=== PATIENT | female | born 1955 | race Hispanic/Latino ===

== ENCOUNTER 2018-01-15 02:43 | Emergency (ER) | payer OTHER ==
[2018-01-15 02:43] VITALS: BMI 39.3
[2018-01-15 02:58] VITALS: RESP 20; O2SAT 97
[2018-01-15] MEDS ORDERED: Dexamethasone 4 mg/1 ml IM STA (03:21)
--- NOTE | 2018-01-15 04:13 | C.PDOC ---
History Of Present Illness 62 year old female presents to the ER with a complaint of chronic right sided lower back pain that radiates down the right leg. Patient states she is on percocet for the pain but reports tonight it was not working which prompted ER visit. Denies heavy lifting, fall, abdominal pain, weakness, numbness, dysuria, hematuria, or bladder/bowel incontinence. Time Seen by Provider: 01/15/18 03:00 Chief Complaint (Nursing): Back Pain History Per: Patient History/Exam Limitations: no limitations Onset/Duration Of Symptoms: Days Current Symptoms Are (Timing): Still Present Quality Of Discomfort: Unable To Describe Previous Symptoms: Back Pain, Chronic Pain Associated Symptoms: None Recent travel outside of the [place]: No Past Medical History Reviewed: Historical Data, Nursing Documentation, Vital Signs Vital Signs: Last Vital Signs Temp 98.2 F 01/15/18 04:41 Pulse 97 H 01/15/18 04:41 Resp 20 01/15/18 04:41 BP 98/62 L 01/15/18 04:41 Pulse Ox 97 01/15/18 04:41 - Medical History PMH: Anxiety, Back Problems, HTN Surgical History: Back Surgery Family History: States: Unknown Family Hx - Social History Hx Tobacco Use: No Hx Alcohol Use: No Hx Substance Use: No - Immunization History Hx Tetanus Toxoid Vaccination: No Hx Influenza Vaccination: No Hx Pneumococcal Vaccination: No Review Of Systems Gastrointestinal: Negative for: Abdominal Pain Genitourinary: Negative for: Dysuria, Incontinence, Hematuria Musculoskeletal: Positive for: Back Pain Neurological: Negative for: Weakness, Numbness Physical Exam - Physical Exam Appears: Non-toxic, No Acute Distress Skin: Normal Color, Warm, Dry, No Rash Head: Atraumatic, Normacephalic Eye(s): bilateral: Normal Inspection, PERRL, EOMI Oral Mucosa: Moist Neck: Normal ROM, No Midline Cervical Tenderness, No Paracervical Tenderness, Supple Chest: Symmetrical, No Tenderness Cardiovascular: Rhythm Regular, No Friction Rub, No Murmur Respiratory: Normal Breath Sounds, No Rales, No Rhonchi, No Wheezing Gastrointestinal/Abdominal: Soft, No Tenderness Back: No CVA Tenderness, No Vertebral Tenderness, Paraspinal Tenderness (Right lumbar) Extremity: Normal ROM (x4), No Swelling Neurological/Psych: Oriented x3, Normal Speech, Normal Motor, Normal Sensation Gait: Steady ED Course And Treatment O2 Sat by Pulse Oximetry: 97 (on RA) Pulse Ox Interpretation: Normal Medical Decision Making Medical Decision Making: Decadron, toradol, and valium administered. On reevaluation, patient reports improvement of pain, she is ambulatory in the ER without any pain or discomfort. Will discharge home with instructions to follow up with PMD or return if symptoms worsen. Disposition - Disposition Referrals: Vincent Pradhan MD [Staff Provider] - David Diaz MD [Non-Staff] - Disposition: HOME/ ROUTINE Disposition Time: 04:25 Condition: GOOD Additional Instructions: Follow up with the medical doctor within 1-2 days. Return if worsened. Prescriptions: Cyclobenzaprine [Cyclobenzaprine HCl] 10 mg PO BID #14 tab Naproxen [Naprosyn] 500 mg PO BID #20 tab Instructions: Low Back Pain in Adults Forms: [employer] (Yakut) - Clinical Impression Clinical Impression: Low back pain - PA / CHIEF OF SAFETY AND PROTECTION / Resident Statement MD/DO has reviewed & agrees with the documentation as recorded. - Scribe Statement The provider has reviewed the documentation as recorded by the Scribyasmany Feldman All medical record entries made by the Tiaibyasmany were at my direction and personally dictated by me. I have reviewed the chart and agree that the record accurately reflects my personal performance of the history, physical exam, medical decision making, and the department course for this patient. I have also personally directed, reviewed, and agree with the discharge instructions and disposition.
[2018-01-15 04:42] VITALS: BP 98/62; PULSE 97; TEMP 98.2
== END 2018-01-15 04:52 | disposition home or self-care (01) ==
LOC: C.ER 02:43
DX: M54.5 Low back pain (principal)
CPT/HCPCS: 96372; 99284; J1100; J1885

== ENCOUNTER 2018-01-16 14:06 | Emergency (ER) | payer OTHER ==
[2018-01-16 14:18] VITALS: BMI 37.8
[2018-01-16 14:20] VITALS: BP 111/79; PULSE 90; TEMP 97.9; O2SAT 96
--- NOTE | 2018-01-16 17:15 | C.PDOC ---
History Of Present Illness 62 year old female presents to the ER with a complaint of chronic lower back pain radiating to the right leg. Patient was seen in the ER yesterday for the same complaint and was treated with relief but returns stating the pain has worsened. She reports she has been taking a quarter of 5/325 percocet with no relief. Denies weakness, numbness, or recent injury. Time Seen by Provider: 01/16/18 15:49 Chief Complaint (Nursing): Back Pain History Per: Patient History/Exam Limitations: no limitations Onset/Duration Of Symptoms: Hrs Current Symptoms Are (Timing): Still Present Quality Of Discomfort: Unable To Describe Previous Symptoms: Back Pain, Chronic Pain Associated Symptoms: None Exacerbating Factor(s): Nothing Recent travel outside of the [place]: No Past Medical History Reviewed: Historical Data, Nursing Documentation, Vital Signs Vital Signs: Last Vital Signs Temp 97.9 F 01/16/18 14:18 Pulse 90 01/16/18 14:18 Resp 18 01/16/18 14:18 BP 111/79 01/16/18 14:18 Pulse Ox 96 01/16/18 17:14 - Medical History PMH: Anxiety, Back Problems, HTN Surgical History: Back Surgery Family History: States: Unknown Family Hx - Social History Hx Tobacco Use: No Hx Alcohol Use: No Hx Substance Use: No - Immunization History Hx Tetanus Toxoid Vaccination: No Hx Influenza Vaccination: No Hx Pneumococcal Vaccination: No Review Of Systems Except As Marked, All Systems Reviewed And Found Negative. Musculoskeletal: Positive for: Back Pain, Leg Pain Physical Exam - Physical Exam Appears: Non-toxic, Other Skin: Normal Color, Warm, Dry Head: Atraumatic, Normacephalic Eye(s): bilateral: Normal Inspection Back: No Vertebral Tenderness, Paraspinal Tenderness (Right lumbar) Extremity: Normal ROM (x4) Neurological/Psych: Oriented x3, Normal Speech, Normal Motor, Normal Sensation Gait: Steady ED Course And Treatment O2 Sat by Pulse Oximetry: 96 (Room air) Pulse Ox Interpretation: Normal Progress Note: Toradol and valium administered with improvement of pain. Patient is ambulatory in the ER without any pain or discomfort, will discharge home with instructions to take the full dose of her percocet and follow up with her PMD. Disposition Counseled Patient/Family Regarding: Diagnosis, Need For Followup - Disposition Referrals: Shaik Germain MD [Staff Provider] - Disposition: HOME/ ROUTINE Disposition Time: 17:20 Condition: STABLE Additional Instructions: FOLLOW UP WITH YOUR DOCTOR IN 1-2 DAYS TAKE FULL DOSES OF YOUR PERCOCET AT HOME RETURN TO ER IF SYMPTOMS WORSEN Instructions: Sciatica, Radiculopathy Forms: [employer] (Paraguayan) Print Language: BELARUSIAN - Clinical Impression Clinical Impression: Sciatica - Scribe Statement The provider has reviewed the documentation as recorded by the Scribe Cam Feldman All medical record entries made by the Tiaibyasmany were at my direction and personally dictated by me. I have reviewed the chart and agree that the record accurately reflects my personal performance of the history, physical exam, medical decision making, and the department course for this patient. I have also personally directed, reviewed, and agree with the discharge instructions and disposition.
[2018-01-16 17:24] VITALS: RESP 20
== END 2018-01-16 17:23 | disposition home or self-care (01) ==
LOC: C.ER 14:06
DX: M54.30 Sciatica, unspecified side (principal)
CPT/HCPCS: 96372; 99283; J1885

== ENCOUNTER 2018-02-20 01:29 | Emergency (ER) | payer OTHER ==
[2018-02-20 01:30] VITALS: BMI 37.8
--- NOTE | 2018-02-20 02:15 | C.PDOC ---
History Of Present Illness 63 year old morbidly obese female presents to the ER with a complaint of right buttock pain that radiates down to her foot. Patient has a Hx of sciatica for the past 1 month. Patient admits to having a numbing/tingling sensation to the plantar aspect of her right foot. Denies recent trauma or bladder/bowel incontinence. Chief Complaint (Nursing): Back Pain History Per: Patient History/Exam Limitations: no limitations Onset/Duration Of Symptoms: Days Current Symptoms Are (Timing): Still Present Quality Of Discomfort: Unable To Describe Previous Symptoms: Chronic Pain Associated Symptoms: None Exacerbating Factor(s): Nothing Recent travel outside of the [place]: No Past Medical History Reviewed: Historical Data, Nursing Documentation, Vital Signs Vital Signs: Last Vital Signs Temp 98.8 F 02/20/18 04:16 Pulse 106 H 02/20/18 04:16 Resp 20 02/20/18 04:16 BP 108/67 02/20/18 04:16 Pulse Ox 96 02/20/18 04:16 - Medical History PMH: Anxiety, Back Problems, HTN Surgical History: Back Surgery Family History: States: Unknown Family Hx - Social History Hx Tobacco Use: No Hx Alcohol Use: No Hx Substance Use: No - Immunization History Hx Tetanus Toxoid Vaccination: No Hx Influenza Vaccination: No Hx Pneumococcal Vaccination: No Review Of Systems Genitourinary: Negative for: Incontinence Musculoskeletal: Positive for: Back Pain, Leg Pain Neurological: Positive for: Other (numbing/tingling sensation to plantar aspect of right foot) Physical Exam - Physical Exam Appears: Non-toxic, Other (Moderate distess, morbidly obese) Skin: Normal Color, Warm, Dry Head: Atraumatic, Normacephalic Eye(s): bilateral: Normal Inspection Back: Paraspinal Tenderness (Diffuse lumbar), Straight Leg Raising Extremity: Tenderness (Right buttock down right leg), No Deformity Neurological/Psych: Oriented x3, Normal Speech, Normal Motor, Normal Sensation Gait: Steady Extremity: Right: No Drift, Left: No Drift, Upper: No Drift, Lower: No Drift ED Course And Treatment O2 Sat by Pulse Oximetry: 97 (Room air) Pulse Ox Interpretation: Normal Medical Decision Making Medical Decision Making: Impression is chronic sciatica with acute exacerbation, plan is analgesics and muscle relaxers. On reevaluation, patient is sleeping and states her pain is "a little better". Disposition - Disposition Referrals: [facility] [Outside] Disposition: HOME/ ROUTINE Disposition Time: 06:45 Condition: FAIR Prescriptions: Cyclobenzaprine [Flexeril] 5 mg PO TID #15 tab Naproxen [Naprosyn] 500 mg PO BID #20 tablet traMADol [Ultram] 50 mg PO TID #15 tab Instructions: Sciatica Forms: [employer] (Namibian) Print Language: MOZAMBICAN - Clinical Impression Clinical Impression: Sciatica - Scribe Statement The provider has reviewed the documentation as recorded by the Scribe Cam Feldman All medical record entries made by the Scribe were at my direction and personally dictated by me. I have reviewed the chart and agree that the record accurately reflects my personal performance of the history, physical exam, medical decision making, and the department course for this patient. I have also personally directed, reviewed, and agree with the discharge instructions and disposition.
[2018-02-20 04:16] VITALS: BP 108/67; PULSE 106; RESP 20; TEMP 98.8
[2018-02-20 06:45] VITALS: O2SAT 97
== END 2018-02-20 06:05 | disposition home or self-care (01) ==
LOC: C.ER 01:29
DX: M54.31 Sciatica, right side (principal)
CPT/HCPCS: 82948; 96372; 99283; J1885

== ENCOUNTER 2018-03-28 03:08 | Emergency (ER) | payer OTHER ==
[2018-03-28 03:10] VITALS: BMI 37.8
[2018-03-28] MEDS ORDERED: Lidocaine 5% Patch TD ONE (04:11)
[2018-03-28] MEDS: Lidocaine 5% Patch TD STA (04:17)
--- NOTE | 2018-03-28 04:33 | C.PDOC ---
History Of Present Illness 63 year old female with PMHx of sciatica presents to the ED c/o right foot, ankle pain that involved her whole right leg for the past week. Patient reports her pain radiated harjit from her back towards her right leg. Patient reports taking OTC pain medications with no relief. Patient denies fever, trauma, injury , fall, numbness, weakness, visual changes, headache. Time Seen by Provider: 03/28/18 03:27 Chief Complaint (Nursing): Lower Extremity Problem/Injury History Per: Patient History/Exam Limitations: no limitations Onset/Duration Of Symptoms: Days Current Symptoms Are (Timing): Still Present Recent travel outside of the [place]: No Additional History Per: Patient - Knee Description Of Injury: Other Currently Unable To: Bend Or Move Alleviating Factor(s): OTC Pain Medication - Ankle/Foot Description Of Injury: Other Currently Unable To: Bend Or Move Alleviating Factor(s): OTC Pain Medication Past Medical History Reviewed: Historical Data, Nursing Documentation, Vital Signs Vital Signs: Last Vital Signs Temp 97.8 F 03/28/18 03:19 Pulse 94 H 03/28/18 03:19 Resp 20 03/28/18 03:19 BP 98/65 L 03/28/18 03:19 Pulse Ox 98 03/28/18 04:36 - Medical History PMH: Anxiety, Back Problems, HTN Surgical History: Back Surgery Family History: States: Unknown Family Hx - Social History Hx Tobacco Use: No Hx Alcohol Use: No Hx Substance Use: No - Immunization History Hx Tetanus Toxoid Vaccination: No Hx Influenza Vaccination: No Hx Pneumococcal Vaccination: No Review Of Systems Constitutional: Negative for: Fever, Chills Cardiovascular: Negative for: Chest Pain Respiratory: Negative for: Shortness of Breath Gastrointestinal: Negative for: Abdominal Pain Musculoskeletal: Positive for: Leg Pain, Foot Pain Skin: Negative for: Rash Neurological: Negative for: Weakness, Numbness Physical Exam - Physical Exam Appears: Non-toxic, No Acute Distress Skin: Normal Color, Warm, Dry Head: Atraumatic, Normacephalic Eye(s): bilateral: Normal Inspection Nose: No Discharge Oral Mucosa: Moist Neck: Normal ROM, Supple Chest: Symmetrical Cardiovascular: Rhythm Regular, No Murmur Respiratory: Normal Breath Sounds, No Rales, No Rhonchi, No Wheezing Gastrointestinal/Abdominal: Soft, No Tenderness, No Guarding, No Rebound Back: Paraspinal Tenderness (mildly diffuse right sided paralumbar ) Extremity: Normal ROM, No Tenderness, No Pedal Edema, Capillary Refill (< 2 seconds), No Swelling Pulses: Left Dorsalis Pedis: Normal, Right Dorsalis Pedis: Normal Neurological/Psych: Oriented x3, Normal Motor, Normal Sensation Gait: Steady ED Course And Treatment O2 Sat by Pulse Oximetry: 98 (ON RA) Pulse Ox Interpretation: Normal Medical Decision Making Medical Decision Making: Plan: * Flexeril 10 mg PO * Lidoderm 1 ea TD * Toradol 30 mg IM No X-Ray done at this time due to no presence of trauma or tenderness. On re- exam, the patient reports improvement of symptoms. Lungs are CTA, heart is RRR, abdomen is soft, non-tender and the patient is tolerating PO. Ambulatory in the ED with steady gait. Follow up with the medical doctor within 1-2 days. Return if worsened Disposition - Disposition Referrals: David Diaz MD [Non-Staff] - Disposition: HOME/ ROUTINE Disposition Time: 06:35 Condition: GOOD Additional Instructions: Follow up with the medical doctor within 1-2 days. Return if worsened Prescriptions: Cyclobenzaprine [Flexeril] 5 mg PO TID #21 tab Lidocaine 5% [Lidoderm] 1 each TP DAILY #10 patch Naproxen [Naprosyn] 500 mg PO BID #20 tab Instructions: Sciatica Forms: [employer] (Wolof) - Clinical Impression Clinical Impression: Sciatica - PA / CLINICAL APPEALS AUDITOR / Resident Statement MD/DO has reviewed & agrees with the documentation as recorded. - Scribe Statement The provider has reviewed the documentation as recorded by the Scribe Hany Kirkpatrick All medical record entries made by the Scribe were at my direction and personally dictated by me. I have reviewed the chart and agree that the record accurately reflects my personal performance of the history, physical exam, medical decision making, and the department course for this patient. I have also personally directed, reviewed, and agree with the discharge instructions and disposition.
[2018-03-28] MEDS: Dexamethasone 4 mg/1 ml IM STA (05:33)
[2018-03-28] MEDS: Oxycodone/Acetaminophen 5/325 mg Tab PO STA (05:33)
[2018-03-28] MEDS ORDERED: Dexamethasone 4 mg/1 ml ONE (05:33)
[2018-03-28] MEDS ORDERED: Oxycodone/Acetaminophen 5/325 mg Tab ONE (05:33)
[2018-03-28 06:55] VITALS: BP 104/70; TEMP 98
[2018-03-28 10:43] VITALS: PULSE 87; RESP 20; O2SAT 100
== END 2018-03-28 10:43 | disposition home or self-care (01) ==
LOC: C.ER 03:08
DX: M54.30 Sciatica, unspecified side (principal)
CPT/HCPCS: 96372; 99284; J1100; J1885

== ENCOUNTER 2018-04-01 10:33 | Emergency (ER) | payer OTHER ==
[2018-04-01 10:33] VITALS: BMI 37.8
[2018-04-01 10:41] VITALS: O2SAT 95
[2018-04-01] MEDS ORDERED: Morphine 4 MG/ML VIAL ONE (11:28)
--- NOTE | 2018-04-01 11:32 | C.PDOC ---
History Of Present Illness 63 year old female, whose PMHx includes sciatica, presents to the ED for evaluation of lower back pain. Patient was evaluated by her PMD and was given a new medication, Zanaflex. Patient also complains of excessive gas. Patient is scheduled to undergo a CT scan later this week and has upcoming appointments for pain management later this month. Patient denies fever, chills, urinary/ bowel incontinence, extremity numbness/weakness. Time Seen by Provider: 04/01/18 10:56 Chief Complaint (Nursing): Back Pain History Per: Patient History/Exam Limitations: no limitations Onset/Duration Of Symptoms: Persistent Current Symptoms Are (Timing): Still Present Quality Of Discomfort: "Pain" Previous Symptoms: Back Pain Associated Symptoms: denies: Incontinence, New Weakness, New Numbness Additional History Per: Patient Past Medical History Reviewed: Historical Data, Nursing Documentation, Vital Signs Vital Signs: Last Vital Signs Temp 99.2 F 04/01/18 12:41 Pulse 95 H 04/01/18 12:41 Resp 18 04/01/18 12:41 BP 90/60 L 04/01/18 12:41 Pulse Ox 95 04/01/18 12:41 - Medical History PMH: Anxiety, Back Problems, HTN Surgical History: Back Surgery Family History: States: Unknown Family Hx - Social History Hx Tobacco Use: No Hx Alcohol Use: No Hx Substance Use: No - Immunization History Hx Tetanus Toxoid Vaccination: No Hx Influenza Vaccination: No Hx Pneumococcal Vaccination: No Review Of Systems Genitourinary: Negative for: Incontinence Musculoskeletal: Positive for: Back Pain Neurological: Negative for: Weakness, Numbness Physical Exam - Physical Exam Appears: Non-toxic, No Acute Distress Skin: Normal Color, Warm, Dry Head: Atraumatic Eye(s): bilateral: Normal Inspection Oral Mucosa: Moist Neck: Supple Chest: Symmetrical, No Deformity, No Tenderness Cardiovascular: Rhythm Regular, No Murmur Respiratory: Normal Breath Sounds, No Rales, No Rhonchi, No Wheezing Gastrointestinal/Abdominal: Soft, No Tenderness, No Guarding, No Rebound Back: Paraspinal Tenderness (lumbar ) Extremity: Normal ROM, Capillary Refill (less than 2 seconds) Neurological/Psych: Oriented x3, Normal Speech, Normal Cognition ED Course And Treatment O2 Sat by Pulse Oximetry: 95 (on RA) Pulse Ox Interpretation: Normal - Other Rad lumbar spine XR X-Ray: Interpreted by Me, Viewed By Me, Read By Radiologist Interpretation: PROCEDURE: Radiographs of the Lumbar Spine. HISTORY: Pain in low back, sciatica. COMPARISON: No prior. 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 This will be named S1 for continuity and leveling purposes. 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 Minimal posterior subluxation L5 over S1. Remaining vertebral bodies exhibit normal stature and alignment. DISC SPACES : Disc space narrowing with endplate eburnation and anterolateral osteophyte formation seen at the L4-L5 level. The facet joints are hypertrophic throughout. OTHER FINDINGS: None. 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 This will be named S1 for continuity and leveling purposes. 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 Minimal posterior subluxation L5 over S1. Remaining vertebral bodies exhibit normal stature and alignment. . Mild degenerative spondylosis as above. Medical Decision Making Medical Decision Making: Impression: 63 year old female with back pain Plan: * Lumbar Spine AP/LAT XRay at patient's request * Morphine IM Progress: Lumbar Spine AP/LAT XR ordered and reviewed. Morphine IM administered. On re-eval patient reports pain improving. Patient given copy of xray report. She is stable for discharge. Advise follow up with pain management Disposition Counseled Patient/Family Regarding: Studies Performed, Diagnosis, Need For Followup - Disposition Referrals: Albert Garcia, GERONIMO, GLASS BUL[facility] SILVERER [Advanced Practice Nurse] - Disposition: HOME/ ROUTINE Disposition Time: 12:40 Condition: IMPROVED Additional Instructions: Apply heat to area for 15-20 minutes at a time 2-3 times per day Take Motrin for pain every 6-8 hours as needed, with food to not upset stomach Take your usual medications Follow up with your primary medical doctor or clinic in 2-5 days for further evaluation Return to the emergency department at any time if symptoms persist or worsen. Instructions: Low Back Pain in Adults Forms: [employer] (Italian) - POA Present On Arrival: None - Clinical Impression Clinical Impression: Sciatica, Low back pain - PA / DATA COLLECTION SPECIALIST / Resident Statement MD/DO has reviewed & agrees with the documentation as recorded. - Scribe Statement The provider has reviewed the documentation as recorded by the Scribe (Brenda Ellison) All medical record entries made by the Scribe were at my direction and personally dictated by me. I have reviewed the chart and agree that the record accurately reflects my personal performance of the history, physical exam, medical decision making, and the department course for this patient. I have also personally directed, reviewed, and agree with the discharge instructions and disposition.
--- NOTE | 2018-04-01 12:10 | RAD ---
PROCEDURE: Radiographs of the Lumbar Spine. HISTORY: Pain in low back, sciatica COMPARISON: No prior. 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 This will be named S1 for continuity and leveling purposes. 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 Minimal posterior subluxation L5 over S1. Remaining vertebral bodies exhibit normal stature and alignment. DISC SPACES: Disc space narrowing with endplate eburnation and anterolateral osteophyte formation seen at the L4-L5 level. The facet joints are hypertrophic throughout. OTHER FINDINGS: None. 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 This will be named S1 for continuity and leveling purposes. 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 Minimal posterior subluxation L5 over S1. Remaining vertebral bodies exhibit normal stature and alignment. . Mild degenerative spondylosis as above.
[2018-04-01 12:42] VITALS: BP 90/60; PULSE 95; RESP 18; TEMP 99.2
== END 2018-04-01 12:43 | disposition home or self-care (01) ==
LOC: C.ER 10:33
DX: M54.40 Lumbago with sciatica, unspecified side (principal); I10 Essential (primary) hypertension
CPT/HCPCS: 72100; 96372; 99284; J2270

== ENCOUNTER 2018-04-03 01:12 | Inpatient (IN) | payer OTHER ==
[2018-04-03 01:12] VITALS: BMI 37.8
--- NOTE | 2018-04-03 01:42 | C.PDOC ---
History Of Present Illness 63 y/o female smoker presents to the ED with acute onset CP. Patient states it began about 4 hours ago prior to ED arrival. She describes the CP as pressure more prominent on the left side of chest. Patient is also complaining of SOB. Denies any diaphoresis, nausea, vomiting, or pleuritic or positioned pain. Of note, patient denies any similar symptoms in the past or a family history of heart disease. PMD: Dr. Mary Garcia Time Seen by Provider: 04/03/18 01:27 Chief Complaint (Nursing): Chest Pain History Per: Patient History/Exam Limitations: no limitations Onset/Duration Of Symptoms: Hrs (x4) Current Symptoms Are (Timing): Still Present Quality: Pressure Associated Symptoms: denies: Diaphoresis, Other (positional or pleuritic) Past Medical History Vital Signs: Last Vital Signs Temp 98.3 F 04/03/18 01:24 Pulse 112 H 04/03/18 05:57 Resp 22 04/03/18 05:57 BP 95/54 L 04/03/18 05:57 Pulse Ox 96 04/03/18 05:57 - Medical History PMH: Anxiety, Back Problems, HTN Denies: COPD (however uses nebulizer at home) Surgical History: Back Surgery Family History: Denies: CAD - Social History Hx Tobacco Use: Yes Hx Alcohol Use: No Hx Substance Use: No - Immunization History Hx Tetanus Toxoid Vaccination: No Hx Influenza Vaccination: No Hx Pneumococcal Vaccination: No Review Of Systems Except As Marked, All Systems Reviewed And Found Negative. Constitutional: Negative for: Other (pain is not pleuritic or positional) Cardiovascular: Positive for: Chest Pain (prominent on left side of chest). Negative for: Edema (calf pain or edema) Respiratory: Positive for: Shortness of Breath. Negative for: Other (recent URI symptoms) Gastrointestinal: Negative for: Nausea, Vomiting Musculoskeletal: Negative for: Other (DVT) Physical Exam - Physical Exam Appears: Well, No Acute Distress Skin: Normal Color, Warm, Dry Head: Atraumatic, Normacephalic Eye(s): bilateral: Normal Inspection, PERRL, EOMI Nose: Normal Throat: Normal Neck: Normal Cardiovascular: Rhythm Irregular (irregularly irregular rhythm), No Murmur Respiratory: Decreased Breath Sounds (lungs clear to auscultation bilaterally), Other (89% hypoxic to 4 L of nasal cannula with stenosis) Gastrointestinal/Abdominal: Normal Exam, Soft, No Tenderness, No Rebound, Other (obese) Back: Normal Inspection Extremity: Normal ROM, No Pedal Edema, No Calf Tenderness, Capillary Refill (2+) Neurological/Psych: Oriented x3, Other (no focal deficits) ED Course And Treatment - Laboratory Results Result Diagrams: 04/03/18 01:53 04/03/18 01:53 ECG: Interpreted By Me, Viewed By Me ECG Rhythm: Sinus Tachycardia Interpretation Of ECG: premature atrial contraction, minimal voltage criteria for LVH, no acute ischemic changes noted Rate From EC O2 Sat by Pulse Oximetry: 89 (RA) Pulse Ox Interpretation: Normal Medical Decision Making Medical Decision Making: Impression: SOB consider primary cardiac ideology. ACS versus CHF versus pneumonia versus PE. Initial Plan: * EKG * CMP * B-Type Test * Troponin I Test * D Dimer Test * Partial Thromboplastin Time Test * Prothombin Time Test * Chest X-Ray * Albuterol 2.5 mg INH * Nebulizer * Influenza Test * Uranalysis Consulted with Dr. Hong. Scribe Attestation: Documented by Cooper Davenport acting as a scribe Oscar Aguilar MD. MD Weberibe Attestation: All medical record entries made by the Scribe were at my direction and personally dictated by me. I have reviewed the chart and agree that the record accurately reflects my personal performance of the history, physical exam, medical decision making, and the department course for this patient. I have also personally directed, reviewed, and agree with the discharge instructions and disposition. Disposition - Disposition Disposition: HOSPITALIZED Disposition Time: 06:40 Condition: FAIR - Clinical Impression Clinical Impression: Pneumonia
[2018-04-03] MEDS ORDERED: Albuterol 0.083% Inhal Sol (2.5 mg/3 mL) UD INH STA (01:46)
[2018-04-03] MEDS ORDERED: Albuterol-Ipratrop 3 mg / 0.5 (3 ml) UD ONE (01:56)
[2018-04-03 02:01] LABS: BASO # 0.1 K/uL (0.0-0.2); BASO % 0.9 % (0.0-2.0); EOS # 0.1 K/uL (0.0-0.7); EOS % 0.8 % (0.0-4.0); HEMOGLOBIN 11.6 g/dL (11.0-16.0); LYMPH # 1.7 K/uL (1.0-4.3); LYMPH % 12.1 % (20.0-40.0); MEAN CELL VOLUME 81.1 fL (81.0-99.0); MEAN CORPUSCULAR HGB CONC 34.5 g/dL (33.0-37.0); MEAN PLATELET VOLUME 7.5 fL (7.2-11.7); MONO % 6.7 % (0.0-10.0); NEUT # 11.3 K/uL (1.8-7.0); NEUT % 79.5 % (50.0-75.0); RBC 4.14 Mil/uL (3.80-5.20); RED CELL DISTRIBUTION WIDTH 15.4 % (11.5-14.5); WHITE BLOOD COUNT 14.2 K/uL (4.8-10.8)
[2018-04-03 02:12] LABS: INR 1.3
[2018-04-03 02:16] LABS: ALB/GLOB RATIO 0.8 (1.0-2.1); ALBUMIN 3.6 g/dL (3.5-5.0); CALCIUM 10.1 mg/dl (8.6-10.4)
[2018-04-03 02:27] LABS: TROPONIN I 0.026 ng/mL (0.00-0.120)
[2018-04-03] MEDS ORDERED: Potassium Chloride 20 mEq ER Tab PO ONE (03:35)
[2018-04-03] MEDS ORDERED: Potassium Chloride 20 mEq/15 ml LIQ UD PO ONE (03:37)
[2018-04-03] MEDS ORDERED: Potassium Chloride 20 mEq/15 ml LIQ UD ONE (03:38)
--- NOTE | 2018-04-03 04:50 | CT ---
EXAM: CT Chest Without Intravenous Contrast CLINICAL HISTORY: 63 years old, female; Pain; Chest pain and chest wall pain; Additional info: White out l lung TECHNIQUE: Axial computed tomography images of the chest without intravenous contrast. All CT scans at this facility use one or more dose reduction techniques, viz.: automated exposure control; ma/kV adjustment per patient size (including targeted exams where dose is matched to indication; i.e. head); or iterative reconstruction technique. 583 images are submitted. Coronal and sagittal reformatted images were created and reviewed. COMPARISON: CR - CHEST TWO VIEWS (PA/LAT) 2015-11-28 03:47 FINDINGS: Artifacts: Limited due to motion and misregistration artifacts. Limitations: Absence of IV contrast decreases sensitivity for detecting vascular and visceral injury and abnormality. Lungs: There is left lung consolidation with volume loss with air bronchograms representing atelectasis versus pneumonia versus an endobronchial process. There is spiculated right upper lobe pulmonary nodule measuring 1.6 cm and a subcentimeter noncalcified pulmonary nodule in the right lower lobe in on image 54 series 2. Correlation with clinical data is recommended if hematogenous spread of infection versus metastasis is clinically suspected. COPD. compensatory hyperinflation of right lung. Pleural space: There is small left pleural effusion. No pneumothorax. There is left pleural based lymphadenopathy versus mass seen on image 32 series 4 measuring 2.4 x 2.9 cm. there is subcentimeter left mediastinal lymph node seen on image 29 series 4. Heart: No cardiomegaly. Small pericardial effusion. Mediastinum: Small hiatal hernia. Bones/joints: There is lucency to the right of L3 seen on image 141 series 4. This is incompletely evaluated. A lytic lesion cannot be excluded. Degenerative changes within the left shoulder. No acute fracture. No dislocation. Soft tissues: There is subcutaneous soft tissue nodule in the right breast measuring 1.7 cm. This is not characterized on this examination. Correlation with patient's clinical breast exams and mammography history is recommended. There is right chest wall nodule measuring 1.7 cm seen on image 13 series 4. Left posterior back subcutaneous soft tissue nodule measuring 1.7 cm. This can represent benign etiology likely sebaceous cyst. Vasculature: The aorta demonstrates calcified plaque and is mildly ectatic but normal in caliber.No thoracic aortic aneurysm. Lymph nodes: Bilateral axillary lymph nodes. Subcentimeter para-aortic lymph nodes. Gallbladder and bile ducts: Partially distended gallbladder with hyperdense artifact versus sludge. Adrenals: There is infiltration around the left adrenal gland. Possible left adrenal nodule measuring 1.5 cm which is indeterminate. Mass or metastasis cannot be excluded. Kidneys and ureters: Indeterminate exophytic right renal nodule seen on image 134 series 4 measuring 1.5 cm not characterize on this examination. Possible nonobstructive right renal stones. Right upper pole renal cortical scarring. Left renal cortical cysts measuring 6.2 x 5.8 cm. Stomach and bowel: Diverticulosis. Intraperitoneal space: Nonspecific posterior back fluid and infiltration. IMPRESSION: 1. There is small left pleural effusion.. There is left pleural based lymphadenopathy versus mass/metastasis seen on image 32 series 4 measuring 2.4 x 2.9 cm. there is subcentimeter left mediastinal lymph node seen on image 29 series 4. 2. There is left lung consolidation with volume loss with air bronchograms representing atelectasis versus pneumonia versus an endobronchial process. 3. There is spiculated right upper lobe pulmonary nodule measuring 1.6 cm and a subcentimeter noncalcified pulmonary nodule in the right lower lobe in on image 54 series 2. Correlation with clinical data is recommended if hematogenous spread of infection versus metastasis is clinically suspected. 4. Indeterminate exophytic right lower pole renal nodule seen on image 134 series 4 measuring 1.5 cm not characterize on this examination. This could be an anatomic variant versus small solid renal nodule. Contrast-enhancement may be helpful to further characterize this finding. 5. There is subcutaneous soft tissue nodule in the right breast measuring 1.7 cm. This is not characterized on this examination. Correlation with patient's clinical breast exams and mammography history is recommended. 6. There is lucency to the right of L3 seen on image 141 series 4. This is incompletely evaluated. A lytic lesion cannot be excluded. Correlation with internal medicine pulmonary history evaluation and further workup or followup as recommended by patient's clinical data.
[2018-04-03] MEDS ORDERED: Azithromycin 500 MG in Sodium Chloride 0.9% 250 ML IVPB STA (06:03)
[2018-04-03] MEDS ORDERED: Vancomycin 1 gm/NS 200 ml 1 GM/200 ML BAG IVPB STA (06:09)
--- NOTE | 2018-04-03 08:05 | RAD ---
Chest x-ray single frontal view History: Shortness of breath. Comparison: 11/28/2015 Findings: Complete opacification of the left lain thorax with mediastinal shift to the left which may represent lung collapse/atelectasis versus large effusion. Mild venous congestion in the right lian thorax. Heart is obscured. Impression: Complete opacification of the left lian thorax with mediastinal shift to the left which may represent lung collapse/atelectasis versus large effusion. Mild venous congestion in the right lian thorax. Heart is obscured.
[2018-04-03] MEDS ORDERED: Albuterol HFA 90 mcg/actuation (8 g) IH PRN (08:50)
[2018-04-03] MEDS: Albuterol-Ipratrop 3 mg / 0.5 (3 ml) UD IH SCH ×2 (09:30→13:09)
[2018-04-03] MEDS ORDERED: Iodixanol 320 MG/ML 100 ML BOTTLE IV ONE ×2 (09:59→10:30)
--- NOTE | 2018-04-03 10:58 | CP.PCM.CON ---
Past Patient History - Past Social History Smoking Status: Heavy Smoker > 10 Cigarettes Daily - CARDIAC Hx Hypertension: Yes - PULMONARY Hx Chronic Obstructive Pulmonary Disease (COPD): No (however uses nebulizer at home) - MUSCULOSKELETAL/RHEUMATOLOGICAL Hx Back Pain: Yes Other/Comment: sciatica - PSYCHIATRIC Hx Anxiety: Yes Hx Substance Use: No - SURGICAL HISTORY Other/Comment: SPINE SURGERY 2009 PER PATIENT - ANESTHESIA Hx Anesthesia: Yes Hx Anesthesia Reactions: No Meds Allergies/Adverse Reactions: Allergies Allergy/AdvReac Type Severity Reaction Status Date / Time doxycycline Allergy Verified 04/01/18 10:41 Penicillins Allergy Verified 04/01/18 10:41 - Medications Medications: Current Medications Acetaminophen (Tylenol 325mg Tab) 650 mg PO Q4H PRN PRN Reason: pain fever Albuterol (Ventolin Hfa 90 Mcg/Actuation (8 G)) 2 puff IH Q8H PRN PRN Reason: Shortness of Breath Albuterol/Ipratropium (Duoneb 3 Mg/0.5 Mg (3 Ml) Ud) 3 ml IH RQ6 [facility] Last Admin: 04/03/18 09:30 Dose: Not Given Alprazolam (Xanax) 1 mg PO DAILY PRN PRN Reason: Anxiety Enoxaparin Sodium (Lovenox) 40 mg SC DAILY [facility] Famotidine (Pepcid) 20 mg PO DAILY [facility] Hydrochlorothiazide (Microzide) 12.5 mg PO DAILY [facility] Azithromycin 500 mg/ Sodium (Chloride) 250 mls @ 166.667 mls/hr IVPB DAILY [facility] PRN Reason: Protocol Lisinopril (Zestril) 10 mg PO DAILY [facility] Results - Vital Signs Recent Vital Signs: Last Vital Signs Temp 98.5 F 04/03/18 07:32 Pulse 114 H 04/03/18 07:32 Resp 22 04/03/18 07:32 BP 94/70 L 04/03/18 07:32 Pulse Ox 93 L 04/03/18 07:32 - Labs Result Diagrams: 04/03/18 01:53 04/03/18 01:53 Labs: Laboratory Results - last 24 hr 04/03/18 04/03/18 04/03/18 01:43 01:53 01:53 WBC 14.2 H RBC 4.14 Hgb 11.6 D Hct 33.6 L MCV 81.1 D MCH 28.0 MCHC 34.5 RDW 15.4 H Plt Count 381 D MPV 7.5 Neut % (Auto) 79.5 H Lymph % (Auto) 12.1 L [place] % (Auto) 6.7 Eos % (Auto) 0.8 Baso % (Auto) 0.9 Neut # (Auto) 11.3 H Lymph # (Auto) 1.7 [place] # (Auto) 1.0 H Eos # (Auto) 0.1 Baso # (Auto) 0.1 PT INR APTT D-Dimer, Quantitative Sodium 138 Potassium 2.6 L Chloride 92 L Carbon Dioxide 32 H Anion Gap 17 BUN 23 H Creatinine 1.2 Est GFR ( Amer) 55 Est GFR (Non-Af Amer) 45 Random Glucose 129 H Calcium 10.1 Total Bilirubin 0.9 AST 54 H ALT 23 Alkaline Phosphatase 118 Troponin I 0.0260 NT-Pro-B Natriuret Pep 1020 H Total Protein 7.8 Albumin 3.6 Globulin 4.3 H Albumin/Globulin Ratio 0.8 L Influenza Typ A,B (EIA) Negative for flu a/b 04/03/18 01:53 WBC RBC Hgb Hct MCV MCH MCHC RDW Plt Count MPV Neut % (Auto) Lymph % (Auto) [place] % (Auto) Eos % (Auto) Baso % (Auto) Neut # (Auto) Lymph # (Auto) [place] # (Auto) Eos # (Auto) Baso # (Auto) PT 14.0 H INR 1.3 APTT 29 D-Dimer, Quantitative 1031 H Sodium Potassium Chloride Carbon Dioxide Anion Gap BUN Creatinine Est GFR ( Amer) Est GFR (Non-Af Amer) Random Glucose Calcium Total Bilirubin AST ALT Alkaline Phosphatase Troponin I NT-Pro-B Natriuret Pep Total Protein Albumin Globulin Albumin/Globulin Ratio Influenza Typ A,B (EIA)
[2018-04-03] MEDS: Enoxaparin 40 mg Syringe SC SCH (11:30)
[2018-04-03] MEDS: Azithromycin 500 MG in Sodium Chloride 0.9% 250 ML IVPB SCH (11:31)
[2018-04-03 11:46] LABS: ABG ALLEN TEST POS; ARTERIAL BLOOD GAS HCO3 31.3 mmol/L (21-28); ARTERIAL BLOOD GAS O2 SAT 99.1 % (95-98); ARTERIAL BLOOD GAS PCO2 33 mm/Hg (35-45); ARTERIAL BLOOD GAS PH 7.57 (7.35-7.45); ARTERIAL BLOOD GAS PO2 96 mm/Hg (80-100); ARTERIAL BLOOD GAS TCO2 31.2 mmol/L (22-28)
--- NOTE | 2018-04-03 14:26 | CT ---
PROCEDURE: CT Chest with contrast (Pulmonary Angiogram) HISTORY: r/o pe COMPARISON: None available. TECHNIQUE: Axial computed tomography images were obtained of the chest in the pulmonary arterial phase of enhancement. Coronal and sagittal reformatted images were created and reviewed. Intravenous contrast dose: 100 mL Visipaque 320 Radiation dose: Total exam DLP = 534.06 mGy-cm. This CT exam was performed using one or more of the following dose reduction techniques: Automated exposure control, adjustment of the mA and/or kV according to patient size, and/or use of iterative reconstruction technique. FINDINGS: PULMONARY ARTERIES: Unremarkable. No pulmonary embolism. AORTA: No acute findings. No thoracic aortic aneurysm. LUNGS: Extensive left lower lobe consolidation. Extensive patchy opacity in the left upper lobe. 16 mm mass in the apical segment right upper lobe. No other pulmonary mass. Endobronchial soft tissue in the left lower lobe and left upper lobe bronchi. Mucoid material versus neoplasm. PLEURAL SPACES: Trace left pleural effusion. No right pleural effusion. No pneumothorax. HEART: Unremarkable. No cardiomegaly. No significant pericardial effusion. LYMPH NODES: 2.3 cm short axis prevascular mediastinal lymph node. Right hilar lymphadenopathy. 1.6 cm mass in the subcutaneous soft tissues of the superior right anterior chest wall. 1.6 cm right breast mass. Recommend further evaluation with mammography and targeted breast ultrasound. BONES, CHEST WALL: There is a lucent lesion in the T3 vertebral body. No other lytic or blastic osseous lesion is appreciated. Recommend correlation with radionuclide bone scan in consideration of possible metastasis. OTHER FINDINGS: 5.9 cm left upper pole renal cortical cyst. IMPRESSION: No evidence of pulmonary embolism. Dense consolidation of left lower lobe with extensive patchy infiltrate throughout left upper lobe. 1.6 cm right upper lobe pulmonary mass. Trace left pleural effusion. Mediastinal and right hilar lymphadenopathy. Subcutaneous mass of right anterior chest wall. Right breast mass. Lytic lesion of T3 vertebral body. Consider correlation with radionuclide bone scan for further evaluation.
--- NOTE | 2018-04-03 16:47 | CP.PCM.CON ---
History of Present Illness - History of Present Illness History of Present Illness: Reason for consult: pneumonia HPI: 63F with PMHx of Anxiety, HTN presented to the ED 04/03 with acute chest pain x 4 hrs. She described the pain as pressure-like and more prominent on the left chest and endorsed associated shortness of breath PMHx: Anxiety, HTN Meds: nebulizer at home, albuterol PSH: back surgery Allergies: penicillin, doxycycline SH: smokes >10 cigarettes per day x Assessment and Plan: 1. Pneumonia/lung collapse - Saturating 89-93% on NC - CBC 04/03: WBC 14.2/ 79.5% neutros/ no bands - tachycardic but afebrile - CXR 04/03: white out left lung - CT without contrast 04/03:small left pleural effusion, left pleural based lymphadenopathy versus mass/metastasis, subcentimeter left mediastinal lymph node, left lung consolidation with volume loss with air bronchograms representing atelectasis versus pneumonia versus an endobronchial process, spiculated right upper lobe pulmonary nodule measuring 1.6 cm - continue with azithromycin - duonebs - fiberoptic bronchoscopy and biopsy tomorrow - Pro-Calcitonin 2. R/o PE - D-dimer 1031 - lower extremity duplex results pending - CTA pending Past Patient History - Past Medical History & Family History Past Medical History?: Yes - Past Social History Smoking Status: Heavy Smoker > 10 Cigarettes Daily - CARDIAC Hx Cardiac Disorders: Yes Hx Hypertension: Yes - PULMONARY Hx Respiratory Disorders: Yes Hx Chronic Obstructive Pulmonary Disease (COPD): Yes (however uses nebulizer at home) - NEUROLOGICAL Hx Neurological Disorder: No - HEENT Hx HEENT Problems: No - RENAL Hx Chronic Kidney Disease: No - ENDOCRINE/METABOLIC Hx Endocrine Disorders: No - HEMATOLOGICAL/ONCOLOGICAL Hx Blood Disorders: No - INTEGUMENTARY Hx Dermatological Problems: No - MUSCULOSKELETAL/RHEUMATOLOGICAL Hx Musculoskeletal Disorders: Yes Hx Back Pain: Yes Hx Falls: No Other/Comment: sciatica - GASTROINTESTINAL Hx Gastrointestinal Disorders: No - GENITOURINARY/GYNECOLOGICAL Hx Genitourinary Disorders: No - PSYCHIATRIC Hx Psychophysiologic Disorder: Yes Hx Anxiety: Yes Hx Substance Use: No - SURGICAL HISTORY Hx Surgeries: Yes Other/Comment: SPINE SURGERY 2009 PER PATIENT - ANESTHESIA Hx Anesthesia: Yes Hx Anesthesia Reactions: Yes (severe hypotension) Meds Allergies/Adverse Reactions: Allergies Allergy/AdvReac Type Severity Reaction Status Date / Time doxycycline Allergy Verified 04/01/18 10:41 Penicillins Allergy Verified 04/01/18 10:41 - Medications Medications: Current Medications Acetaminophen (Tylenol 325mg Tab) 650 mg PO Q4H PRN PRN Reason: pain fever Albuterol (Ventolin Hfa 90 Mcg/Actuation (8 G)) 2 puff IH Q8H PRN PRN Reason: Shortness of Breath Albuterol/Ipratropium (Duoneb 3 Mg/0.5 Mg (3 Ml) Ud) 3 ml IH RQ6 [facility] Last Admin: 04/03/18 13:09 Dose: Not Given Alprazolam (Xanax) 1 mg PO DAILY PRN PRN Reason: Anxiety Enoxaparin Sodium (Lovenox) 40 mg SC DAILY [facility] Last Admin: 04/03/18 11:30 Dose: 40 mg Famotidine (Pepcid) 20 mg PO DAILY [facility] Last Admin: 04/03/18 11:30 Dose: 20 mg Hydrochlorothiazide (Microzide) 12.5 mg PO DAILY [facility] Last Admin: 04/03/18 11:53 Dose: Not Given Azithromycin 500 mg/ Sodium (Chloride) 250 mls @ 166.667 mls/hr IVPB DAILY [facility] PRN Reason: Protocol Last Admin: 04/03/18 11:31 Dose: 166.667 mls/hr Lisinopril (Zestril) 10 mg PO DAILY [facility] Last Admin: 04/03/18 11:53 Dose: Not Given Results - Vital Signs Recent Vital Signs: Last Vital Signs Temp 98.2 F 04/03/18 15:39 Pulse 110 H 04/03/18 15:39 Resp 20 04/03/18 15:39 BP 110/70 04/03/18 15:39 Pulse Ox 98 04/03/18 15:39 - Labs Result Diagrams: 04/03/18 01:53 04/03/18 01:53 Labs: Laboratory Results - last 24 hr 04/03/18 04/03/18 04/03/18 01:43 01:53 01:53 WBC 14.2 H RBC 4.14 Hgb 11.6 D Hct 33.6 L MCV 81.1 D MCH 28.0 MCHC 34.5 RDW 15.4 H Plt Count 381 D MPV 7.5 Neut % (Auto) 79.5 H Lymph % (Auto) 12.1 L [place] % (Auto) 6.7 Eos % (Auto) 0.8 Baso % (Auto) 0.9 Neut # (Auto) 11.3 H Lymph # (Auto) 1.7 [place] # (Auto) 1.0 H Eos # (Auto) 0.1 Baso # (Auto) 0.1 PT INR APTT D-Dimer, Quantitative Puncture Site pCO2 pO2 HCO3 ABG pH ABG Total CO2 ABG O2 Saturation ABG Base Excess Pio Test ABG Potassium A-a O2 Difference Respiratory Index Glucose Lactate Liter Flow FiO2 Sodium 138 Potassium 2.6 L Chloride 92 L Carbon Dioxide 32 H Anion Gap 17 BUN 23 H Creatinine 1.2 Est GFR ( Amer) 55 Est GFR (Non-Af Amer) 45 Random Glucose 129 H Calcium 10.1 Total Bilirubin 0.9 AST 54 H ALT 23 Alkaline Phosphatase 118 Troponin I 0.0260 NT-Pro-B Natriuret Pep 1020 H Total Protein 7.8 Albumin 3.6 Globulin 4.3 H Albumin/Globulin Ratio 0.8 L Arterial Blood Potassium Influenza Typ A,B (EIA) Negative for flu a/b 04/03/18 04/03/18 01:53 11:43 WBC RBC Hgb Hct MCV MCH MCHC RDW Plt Count MPV Neut % (Auto) Lymph % (Auto) [place] % (Auto) Eos % (Auto) Baso % (Auto) Neut # (Auto) Lymph # (Auto) [place] # (Auto) Eos # (Auto) Baso # (Auto) PT 14.0 H INR 1.3 APTT 29 D-Dimer, Quantitative 1031 H Puncture Site Lra pCO2 33 L pO2 96 HCO3 31.3 H ABG pH 7.57 H ABG Total CO2 31.2 H ABG O2 Saturation 99.1 H ABG Base Excess 8.1 H Pio Test Pos ABG Potassium 3.0 L A-a O2 Difference 91.0 Respiratory Index 0.9 Glucose 121 H Lactate 1.1 Liter Flow 3.0 FiO2 32.0 Sodium 137.0 Potassium Chloride 102.0 Carbon Dioxide Anion Gap BUN Creatinine Est GFR ( Amer) Est GFR (Non-Af Amer) Random Glucose Calcium Total Bilirubin AST ALT Alkaline Phosphatase Troponin I NT-Pro-B Natriuret Pep Total Protein Albumin Globulin Albumin/Globulin Ratio Arterial Blood Potassium 3.0 L Influenza Typ A,B (EIA)
--- NOTE | 2018-04-03 20:41 | CP.PCM.CON ---
History of Present Illness - History of Present Illness History of Present Illness: INFECTIOUS DISEASE CONSULT; DICTATED; 04/03/18 DICTATION #[id number]. Past Patient History - Past Medical History & Family History Past Medical History?: Yes - Past Social History Smoking Status: Heavy Smoker > 10 Cigarettes Daily - CARDIAC Hx Cardiac Disorders: Yes Hx Hypertension: Yes - PULMONARY Hx Respiratory Disorders: Yes Hx Chronic Obstructive Pulmonary Disease (COPD): Yes (however uses nebulizer at home) - NEUROLOGICAL Hx Neurological Disorder: No - HEENT Hx HEENT Problems: No - RENAL Hx Chronic Kidney Disease: No - ENDOCRINE/METABOLIC Hx Endocrine Disorders: No - HEMATOLOGICAL/ONCOLOGICAL Hx Blood Disorders: No - INTEGUMENTARY Hx Dermatological Problems: No - MUSCULOSKELETAL/RHEUMATOLOGICAL Hx Musculoskeletal Disorders: Yes Hx Back Pain: Yes Hx Falls: No Other/Comment: sciatica - GASTROINTESTINAL Hx Gastrointestinal Disorders: No - GENITOURINARY/GYNECOLOGICAL Hx Genitourinary Disorders: No - PSYCHIATRIC Hx Psychophysiologic Disorder: Yes Hx Anxiety: Yes Hx Substance Use: No - SURGICAL HISTORY Hx Surgeries: Yes Other/Comment: SPINE SURGERY 2009 PER PATIENT - ANESTHESIA Hx Anesthesia: Yes Hx Anesthesia Reactions: Yes (severe hypotension) Meds Allergies/Adverse Reactions: Allergies Allergy/AdvReac Type Severity Reaction Status Date / Time doxycycline Allergy Verified 04/01/18 10:41 Penicillins Allergy Verified 04/01/18 10:41 - Medications Medications: Current Medications Acetaminophen (Tylenol 325mg Tab) 650 mg PO Q4H PRN PRN Reason: pain fever Albuterol (Ventolin Hfa 90 Mcg/Actuation (8 G)) 2 puff IH Q8H PRN PRN Reason: Shortness of Breath Albuterol/Ipratropium (Duoneb 3 Mg/0.5 Mg (3 Ml) Ud) 3 ml IH RQ6 [facility] Last Admin: 04/03/18 13:09 Dose: Not Given Alprazolam (Xanax) 1 mg PO DAILY PRN PRN Reason: Anxiety Enoxaparin Sodium (Lovenox) 40 mg SC DAILY [facility] Last Admin: 04/03/18 11:30 Dose: 40 mg Famotidine (Pepcid) 20 mg PO DAILY [facility] Last Admin: 04/03/18 11:30 Dose: 20 mg Home Med (Patient's Own Medication) 1 tab PO DAILY [facility] Hydrochlorothiazide (Microzide) 12.5 mg PO DAILY [facility] Last Admin: 04/03/18 11:53 Dose: Not Given Azithromycin 500 mg/ Sodium (Chloride) 250 mls @ 166.667 mls/hr IVPB DAILY [facility] PRN Reason: Protocol Last Admin: 04/03/18 11:31 Dose: 166.667 mls/hr Aztreonam 1 gm/ Sodium (Chloride) 100 mls @ 200 mls/hr IVPB Q8H [facility] PRN Reason: Protocol Ibuprofen (Motrin Tab) 400 mg PO Q6H PRN PRN Reason: Pain, moderate (4-7) Last Admin: 04/03/18 17:54 Dose: 400 mg Lisinopril (Zestril) 10 mg PO DAILY [facility] Last Admin: 04/03/18 11:53 Dose: Not Given Tramadol HCl (Ultram) 50 mg PO DAILY PRN PRN Reason: Pain, moderate (4-7) Results - Vital Signs Recent Vital Signs: Last Vital Signs Temp 98.2 F 04/03/18 15:39 Pulse 112 H 04/03/18 20:01 Resp 20 04/03/18 15:39 BP 110/70 04/03/18 15:39 Pulse Ox 98 04/03/18 15:39 - Labs Result Diagrams: 04/03/18 01:53 04/03/18 01:53 Labs: Laboratory Results - last 24 hr 04/03/18 04/03/18 04/03/18 01:43 01:53 01:53 WBC 14.2 H RBC 4.14 Hgb 11.6 D Hct 33.6 L MCV 81.1 D MCH 28.0 MCHC 34.5 RDW 15.4 H Plt Count 381 D MPV 7.5 Neut % (Auto) 79.5 H Lymph % (Auto) 12.1 L Archuleta % (Auto) 6.7 Eos % (Auto) 0.8 Baso % (Auto) 0.9 Neut # (Auto) 11.3 H Lymph # (Auto) 1.7 Archuleta # (Auto) 1.0 H Eos # (Auto) 0.1 Baso # (Auto) 0.1 PT INR APTT D-Dimer, Quantitative Puncture Site pCO2 pO2 HCO3 ABG pH ABG Total CO2 ABG O2 Saturation ABG Base Excess Pio Test ABG Potassium A-a O2 Difference Respiratory Index Glucose Lactate Liter Flow FiO2 Sodium 138 Potassium 2.6 L Chloride 92 L Carbon Dioxide 32 H Anion Gap 17 BUN 23 H Creatinine 1.2 Est GFR ( Amer) 55 Est GFR (Non-Af Amer) 45 Random Glucose 129 H Calcium 10.1 Total Bilirubin 0.9 AST 54 H ALT 23 Alkaline Phosphatase 118 Troponin I 0.0260 NT-Pro-B Natriuret Pep 1020 H Total Protein 7.8 Albumin 3.6 Globulin 4.3 H Albumin/Globulin Ratio 0.8 L Arterial Blood Potassium Influenza Typ A,B (EIA) Negative for flu a/b 04/03/18 04/03/18 01:53 11:43 WBC RBC Hgb Hct MCV MCH MCHC RDW Plt Count MPV Neut % (Auto) Lymph % (Auto) Archuleta % (Auto) Eos % (Auto) Baso % (Auto) Neut # (Auto) Lymph # (Auto) Archuleta # (Auto) Eos # (Auto) Baso # (Auto) PT 14.0 H INR 1.3 APTT 29 D-Dimer, Quantitative 1031 H Puncture Site Lra pCO2 33 L pO2 96 HCO3 31.3 H ABG pH 7.57 H ABG Total CO2 31.2 H ABG O2 Saturation 99.1 H ABG Base Excess 8.1 H Pio Test Pos ABG Potassium 3.0 L A-a O2 Difference 91.0 Respiratory Index 0.9 Glucose 121 H Lactate 1.1 Liter Flow 3.0 FiO2 32.0 Sodium 137.0 Potassium Chloride 102.0 Carbon Dioxide Anion Gap BUN Creatinine Est GFR ( Amer) Est GFR (Non-Af Amer) Random Glucose Calcium Total Bilirubin AST ALT Alkaline Phosphatase Troponin I NT-Pro-B Natriuret Pep Total Protein Albumin Globulin Albumin/Globulin Ratio Arterial Blood Potassium 3.0 L Influenza Typ A,B (EIA)
[2018-04-03] MEDS: Aztreonam 1 GM in Sodium Chloride 0.9% 100 ML IVPB SCH (21:09)
[2018-04-03] MEDS: Vancomycin 1 gm/NS 200 ml 1 GM/200 ML BAG IVPB SCH (22:32)
[2018-04-04] MEDS: Albuterol-Ipratrop 3 mg / 0.5 (3 ml) UD IH SCH ×4 (01:57→20:01)
[2018-04-04] MEDS: Aztreonam 1 GM in Sodium Chloride 0.9% 100 ML IVPB SCH ×3 (04:41→20:11)
--- NOTE | 2018-04-04 04:55 | CON ---
DATE: 04/03/2018 INFECTIOUS DISEASE CONSULTATION REQUESTED BY: Alice Bowling MD REASON FOR CONSULTATION: Pneumonia, shortness of breath, and tachycardia. HISTORY OF PRESENT ILLNESS: The patient is a 63-year-old female, morbidly obese, who was with past medical history of anxiety, hypertension, using nebulizer at home, albuterol as stated by the patient, who presented to the ER on 04/03/2018 with acute chest pain for 4 hours. She also described the pain as a pressure-like and more prominent on the left chest and endorsed associated shortness of breath. The patient is a heavy smoker and smokes about more than half a pack a day since she was a teenager and presently has cut down to more than 10 cigarettes a day. The patient had an emergency CT angio as she was saturating at 89% to 93% on nasal cannula and the CT without contrast showed a small left pleural effusion with left lung consolidation and atelectasis. Also noted was spiculated right upper lobe pulmonary nodule of 1.6 cm and right pleural-based lymphadenopathy versus mass about 2.4 x 2.9 cm was also noted. There is also some lucency seen in the L3 consistent with a lytic lesion. Chest x-ray on admission showed complete opacification of the left hemithorax with mediastinal shift to the left consistent with lung collapse, atelectasis versus large pleural effusion. The patient was also found to have elevated D-dimer. Bilateral duplex venous studies were unremarkable for deep vein thrombosis. Presently, CTA angio is pending. The patient was started on Zithromax 500 mg once a day and Azactam 1 gm every 8 hours by net application support specialist on the case. Infectious Disease consultation requested by PMD, Dr. Shiloh Bowling, for evaluation of pneumonia, possible mass versus lung nodules. The patient also was noted to have leukocytosis with WBC count of 14.3. The patient states that she has been coughing out thick secretions, sometimes yellowish in coloration. The patient denies history of COPD, though she has been using albuterol at home nebulizer. PAST MEDICAL HISTORY: Consists of hypertension; anxiety; back problems; sciatica, right side, right leg. PAST SURGICAL HISTORY: Consists of spine surgery in 2010. ALLERGIES: PENICILLIN AND DOXYCYCLINE. SOCIAL HISTORY: The patient smokes more than 10 cigarettes per day. Recently states has cut down. FAMILY HISTORY: Unremarkable. REVIEW OF SYSTEMS: RESPIRATORY: Complains of shortness of breath. Denies hemoptysis. Complains of chest pain. GI: Denies any diarrhea, nausea, or vomiting. : Unremarkable. No dysuria. No hematuria. No history of kidney stones. DEPARTMENT STORE MANAGER: No headaches expect for spine and back problems. Has right-sided sciatica as reported by the patient. The rest of the review of systems is unremarkable. MEDICATIONS: As per chart reviewed. The patient presently on Azactam 1 gm every 8 hourly started today, 04/03/2018. Also, the patient is on Zithromax 500 mg once a day. The patient is also getting DuoNeb 2 mg, 0.5 mg 3 mL every 6 hourly, Lovenox 40 mg subcu daily, hydrochlorothiazide 12.5 mg p.o. daily, Motrin 400 mg p.o. every 6 hourly, Pepcid 20 mg p.o. daily, tramadol 50 mg p.o. daily, acetaminophen 650 mg p.o. every 4 hourly p.r.n., lisinopril 10 mg p.o. daily, and Xanax 1 mg p.o. daily. PHYSICAL EXAMINATION: GENERAL: The patient is awake and alert, not in any acute distress. VITAL SIGNS: Presently blood pressure 110/70, respirations 20, pulse of 110, temperature 98.2, pulse ox of 94% to 98% on 3 L nasal cannula. HEENT: Pupils equal and reactive to light and accommodation. Extraocular movements full. Fundus negative. Sclerae nonicteric. Conjunctivae normal. JVP not elevated. NECK: Appears to be supple. No lymphadenopathy appreciated. LUNGS: Diminished breath sounds on the left side. CARDIOVASCULAR SYSTEM: Sinus tachycardia. Regular. ABDOMEN: Obese. Bowel sounds are present. EXTREMITIES: 1+ edema. No cough tenderness noted. No Homans sign present. DEPARTMENT STORE MANAGER: Moves all extremities. Reflexes are equal and symmetrical. Babinski's are downgoing. LABORATORY DATA: WBCs 14.2, H and H are 11.6 and 33.6, platelets 381. Creatinine 1.2, BUN of 23, potassium 2.6. Liver function tests: Bilirubin 0.9, AST 54, ALT 23, alkaline phosphate 118. Influenza; serology type A and B negative for flu. ProBNP is 1020. D-dimer was slightly elevated to 1010. Chest x-ray on 04/03/2018 noted complete opacification of left hemithorax with mediastinal shift to the left, possible lung collapse, atelectasis versus large effusion. CT chest also reviewed without contrast, results in the chart. CT angio pending. IMPRESSION: 1. Pneumonia, left lung collapse versus atelectasis versus large effusion. 2. Right upper lobe pulmonary nodule, pleural-based mass, lymphadenopathy, rule out lung carcinoma. 3. Back pain, rule out metastatic disease, L3 lytic lesion. 4. Hypertension. 5. History of spine surgery in 2010 with history of sciatica, right leg. 6. Anxiety problems. PLAN: Villegas cultures. Continue IV Azactam 1 gm every 8 hourly, started 04/03/2018. Continue Zithromax 500 daily, started 04/03/2018. Follow up sputum Gram-stain and culture, sed rate, and C-reactive proteins. Check procalcitonin levels. We will also check for atypical titers. Add IV vancomycin 1 gm every 12 hourly for now while awaiting cultures. The patient for fiberoptic bronchoscopy and biopsy in a.m. as per Pulmonary. We will follow up along with you. Thank you very much for allowing me to participate in the care of your patient. We will follow. Dago Neely MD
[2018-04-04 07:46] LABS: IRON 19 ug/dL (37-170)
[2018-04-04 07:47] LABS: HDL CHOLESTEROL 34 mg/dL (30-70)
[2018-04-04 07:57] LABS: % IRON SATURATION 8 (20-55); TOTAL IRON BINDING CAPACITY 241 ug/dL (250-450)
[2018-04-04 07:58] LABS: LDL CHOLESTEROL 98 mg/dL (0-129)
[2018-04-04 08:48] LABS: BLOOD UREA NITROGEN 19 mg/dL (7-17); CALCIUM 10.1 mg/dl (8.6-10.4); GFR AFRICAN-AMERICAN > 60; GFR NON-AFRICAN AMERICAN 50
[2018-04-04] MEDS: Lidocaine 5% Patch TD SCH (09:10)
[2018-04-04] MEDS: Patient's Own Medication - Tablet/Capusle PO SCH (09:10)
[2018-04-04] MEDS: Enoxaparin 40 mg Syringe SC SCH (09:10)
[2018-04-04 09:12] LABS: FOLATE 4.9 ng/mL
[2018-04-04] MEDS: Vancomycin 1 gm/NS 200 ml 1 GM/200 ML BAG IVPB SCH ×2 (09:23→21:23)
[2018-04-04] MEDS ORDERED: HCTZ PO SCH (10:00)
[2018-04-04] MEDS ORDERED: LISINOPRIL PO SCH (10:00)
[2018-04-04] MEDS ORDERED: Potassium Chloride 20 mEq/15 ml LIQ UD PO ONE (10:44)
--- NOTE | 2018-04-04 10:45 | VASCLAB ---
PROCEDURE: Lower Extremity Venous Duplex Exam. HISTORY: Shortness of breath PRIORS: None. TECHNIQUE: Bilateral common femoral, femoral, popliteal and posterior tibial, peroneal and great saphenous veins were evaluated. Flow was assessed with color Doppler, compressibility, assessment of phasic flow and augmentation response. Report prepared by KATHRYN Moeller FINDINGS: RIGHT: 1. Common Femoral Vein: 1.1. Compressibility - Fully compressible: Thrombus - None : Flow - Phasic: Augmentation -Normal: Reflux - None. 2. Femoral Vein: 2.1. Compressibility - Fully compressible: Thrombus - None : Flow - Phasic: Augmentation -Normal: Reflux - None. 3. Popliteal Vein: 3.1. Compressibility - Fully compressible: Thrombus - None : Flow - Phasic: Augmentation -Normal: Reflux - None. 4. Posterior Tibial Vein: 4.1. Compressibility - Fully compressible: Thrombus - None: Flow - Phasic: Augmentation -Normal: Reflux - None. 5. Peroneal Vein: 5.1. Compressibility - Fully compressible: Thrombus - None: Flow - Phasic: Augmentation -Normal: Reflux - None. 6. Great Saphenous Vein: 6.1. Compressibility - Fully compressible: Thrombus - None: Flow - Phasic: Augmentation - Normal: Reflux - None. LEFT: 1. Common Femoral Vein: 1.1. Compressibility - Fully compressible: Thrombus - None: Flow - Phasic: Augmentation -Normal: Reflux - None. 2. Femoral Vein: 2.1. Compressibility - Fully compressible: Thrombus - None: Flow - Phasic: Augmentation -Normal: Reflux - None. 3. Popliteal Vein: 3.1. Compressibility - Fully compressible: Thrombus - None : Flow - Phasic: Augmentation -Normal: Reflux - None. 4. Posterior Tibial Vein: 4.1. Compressibility - Fully compressible: Thrombus - None: Flow - Phasic: Augmentation -Normal: Reflux - None. 5. Peroneal Vein: 5.1. Compressibility - Fully compressible: Thrombus - None: Flow - Phasic: Augmentation -Normal: Reflux - None. 6. Great Saphenous Vein: 6.1. Compressibility - Fully compressible: Thrombus - None: Flow - Phasic: Augmentation - Normal: Reflux - None. OTHER FINDINGS: Right: None significant. Left: None significant. IMPRESSION: Right: No evidence of deep or superficial vein thrombosis of the right lower extremity. Normal valve function noted of the right side. Left: No evidence of deep or superficial vein thrombosis of the left lower extremity. Normal valve function noted of the left side.
--- NOTE | 2018-04-04 10:50 | HP ---
CHIEF COMPLAINT: Chest pain. HISTORY OF PRESENT ILLNESS: Ms. Stas Landrum is a 63-year-old female with history of smoking, came to the emergency room with acute onset of chest pain. The patient stated that it began about 4 hours prior to ED arrival. The patient describes the chest pain as more prominent on the left side of the chest. Complaining of shortness of breath. Denies any diaphoresis, nausea, vomiting, pleuritic or positional pain. Never had similar symptoms in the past or family history of heart disease. PAST MEDICAL HISTORY: Anxiety, back pain, hypertension, back surgery. FAMILY HISTORY: Father and mother, noncontributory. HABITS: Tobacco, yes. Alcohol, no. Substance abuse, no. ALLERGIES: THE PATIENT IS ALLERGIC TO DOXYCYCLINE AND PENICILLIN. REVIEW OF SYSTEMS: The patient seen and examined at the bedside in her room, complaining about pain. Otherwise, no nausea, vomiting, diarrhea, hematuria, or hematochezia. No swelling of the leg. No headache. No dizziness. PHYSICAL EXAMINATION: VITAL SIGNS: Temperature 98.4, pulse 107, blood pressure 105/58, respiratory rate 20. HEENT: Head: Normocephalic, atraumatic. Eyes: PERRLA. Extraocular movements intact. Conjunctivae clear. Nose: Patent. NECK: Supple. No carotid bruits, JVD, or thyromegaly. CHEST: Bilaterally symmetrical. HEART: S1 and S2 positive. LUNGS: Clear to auscultation. ABDOMEN: Soft. Bowel sounds positive. No organomegaly. EXTREMITIES: No edema. No cyanosis. NEUROLOGIC: The patient is awake, alert; moving all 4 extremities. No focal deficit. LABORATORY DATA: White blood cells 14.2, hemoglobin 11.6, hematocrit 33.6, platelet 381. Sodium 138, potassium 2.6, BUN 23, creatinine 1.2, glucose 129, AST 54. ASSESSMENT AND PLAN: Ms. Stas Landrum is a 63-year-old lady with leukocytosis, anemia, hypokalemia, replaced, hyperglycemia, abnormal liver function test. Influenza type A and B is negative. Seen by Dr. Syd Segura, journeyman pipe welder, for shortness of breath. The patient has a history of anxiety and hypertension. The patient has pneumonia, rule out lung collapse. Saturating 89% to 93% on nasal canula. Tachycardia, but afebrile. CT without contrast showed a small left pleural effusion, left pleural based lymphadenopathy versus mass versus metastasis. Subcentimeter left mediastinal lymph node, left lung consolidation with volume loss with air bronchogram. Right upper lobe pulmonary nodule measuring 1.6 cm. Continue azithromycin and DuoNeb. The patient needs fiberoptic bronchoscopy and biopsy tomorrow, rule out PE, D-dimer is 1031. Lower extremity duplex is done. Reviewed Dr. Velarde's note. Reviewed Dr. Dago Neely's notes also. Duplex of lower extremity done, results are pending. Antibiotics started. History of hypertension. We will continue present treatment and repeat labs and will follow up. Alice Bowling MD
[2018-04-04] MEDS: Azithromycin 500 MG in Sodium Chloride 0.9% 250 ML IVPB SCH (10:57)
--- NOTE | 2018-04-04 15:50 | CP.PCM.PN ---
Subjective - Date & Time of Evaluation Date of Evaluation: 04/04/18 Time of Evaluation: 10:45 - Subjective Subjective: Patient seen and examined at bedside. She complains that she hasn't eaten since yesterday and she feels not ready for the bronchoscopy. She also reports that her potassium drip yeung. Based on this, decided to feed patient and try oral potassium supplementation with re-scheduling of bronchoscopy for later today or tomorrow. Assessment and Plan: 1. Pneumonia - Saturating 89-93% on NC - CBC 04/03: WBC 14.2/ 79.5% neutros/ no bands - tachycardic but afebrile - vancomycin/azactam - ga - Dr. Dago Neely on-board - Bronchoscopy today or tomorrow Objective - Vital Signs/Intake and Output Vital Signs (last 24 hours): Temp Pulse Resp BP Pulse Ox 98.6 F 103 H 20 102/66 97 04/04/18 07:49 04/04/18 08:22 04/04/18 07:49 04/04/18 07:49 04/04/18 07:49 Intake and Output: 04/04/18 04/04/18 06:59 18:59 Intake Total 700 Balance 700 - Medications Medications: Current Medications Acetaminophen (Tylenol 325mg Tab) 650 mg PO Q4H PRN PRN Reason: pain fever Albuterol (Ventolin Hfa 90 Mcg/Actuation (8 G)) 2 puff IH Q8H PRN PRN Reason: Shortness of Breath Albuterol/Ipratropium (Duoneb 3 Mg/0.5 Mg (3 Ml) Ud) 3 ml IH RQ6 [facility] Last Admin: 04/04/18 13:12 Dose: Not Given Alprazolam (Xanax) 1 mg PO DAILY PRN PRN Reason: Anxiety Enoxaparin Sodium (Lovenox) 40 mg SC DAILY [facility] Last Admin: 04/04/18 09:10 Dose: Not Given Famotidine (Pepcid) 20 mg PO DAILY [facility] Last Admin: 04/04/18 09:10 Dose: Not Given Home Med (Patient's Own Medication) 1 tab PO DAILY [facility] Last Admin: 04/04/18 09:10 Dose: Not Given Hydrochlorothiazide (Microzide) 12.5 mg PO DAILY [facility] Last Admin: 04/04/18 09:10 Dose: Not Given Azithromycin 500 mg/ Sodium (Chloride) 250 mls @ 166.667 mls/hr IVPB DAILY [facility] PRN Reason: Protocol Last Admin: 04/04/18 10:57 Dose: 166.667 mls/hr Aztreonam 1 gm/ Sodium (Chloride) 100 mls @ 200 mls/hr IVPB Q8H [facility] PRN Reason: Protocol Last Admin: 04/04/18 13:00 Dose: 200 mls/hr Vancomycin/Sodium Chloride (Vancomycin 1 Gm/Ns 200 Ml) 1 gm in 200 mls @ 133 mls/hr IVPB Q12H [facility] PRN Reason: Protocol Stop: 04/08/18 22:01 Last Admin: 04/04/18 09:23 Dose: 133 mls/hr Ibuprofen (Motrin Tab) 400 mg PO Q6H PRN PRN Reason: Pain, moderate (4-7) Last Admin: 04/04/18 00:00 Dose: 400 mg Lidocaine (Lidoderm) 1 ea TD DAILY [facility] Last Admin: 04/04/18 09:10 Dose: 1 ea Lisinopril (Zestril) 10 mg PO DAILY [facility] Last Admin: 04/04/18 09:10 Dose: Not Given Tramadol HCl (Ultram) 50 mg PO DAILY PRN PRN Reason: Pain, moderate (4-7) - Labs Labs: 04/03/18 01:53 04/04/18 07:22 PT 14.0 SECONDS (9.7-12.2) H 04/03/18 01:53 INR 1.3 04/03/18 01:53 APTT 29 SECONDS (21-34) 04/03/18 01:53
--- NOTE | 2018-04-04 19:23 | CARD ---
APPROVED REPORT EKG Measurement Heart [id number] <Conclusion> Sinus tachycardia with premature atrial complexes Moderate voltage criteria for LVH, may be normal variant Nonspecific ST abnormality Abnormal ECG
--- NOTE | 2018-04-04 23:27 | CP.PCM.PN ---
Subjective - Date & Time of Evaluation Date of Evaluation: 04/04/18 Time of Evaluation: 23:27 - Subjective Subjective: AFEBRILE, STATES DOES NOT FEEL GOOD. C/O CHEST PAIN ON COUGHING EVENTS NOTED. BRONCHOSCOPY RESCHEDULED Objective - Vital Signs/Intake and Output Vital Signs (last 24 hours): Temp Pulse Resp BP Pulse Ox 98.7 F 119 H 20 107/70 99 04/04/18 15:40 04/04/18 16:36 04/04/18 15:40 04/04/18 15:40 04/04/18 15:40 Intake and Output: 04/04/18 04/05/18 18:59 06:59 Intake Total 1100 Balance 1100 - Medications Medications: Current Medications Acetaminophen (Tylenol 325mg Tab) 650 mg PO Q4H PRN PRN Reason: pain fever Albuterol (Ventolin Hfa 90 Mcg/Actuation (8 G)) 2 puff IH Q8H PRN PRN Reason: Shortness of Breath Albuterol/Ipratropium (Duoneb 3 Mg/0.5 Mg (3 Ml) Ud) 3 ml IH RQ6 [facility] Last Admin: 04/04/18 20:01 Dose: 3 ml Alprazolam (Xanax) 1 mg PO DAILY PRN PRN Reason: Anxiety Last Admin: 04/04/18 21:23 Dose: 1 mg Enoxaparin Sodium (Lovenox) 40 mg SC DAILY [facility] Last Admin: 04/04/18 09:10 Dose: Not Given Famotidine (Pepcid) 20 mg PO DAILY [facility] Last Admin: 04/04/18 09:10 Dose: Not Given Home Med (Patient's Own Medication) 1 tab PO DAILY [facility] Last Admin: 04/04/18 09:10 Dose: Not Given Hydrochlorothiazide (Microzide) 12.5 mg PO DAILY [facility] Last Admin: 04/04/18 09:10 Dose: Not Given Azithromycin 500 mg/ Sodium (Chloride) 250 mls @ 166.667 mls/hr IVPB DAILY [facility] PRN Reason: Protocol Last Admin: 04/04/18 10:57 Dose: 166.667 mls/hr Aztreonam 1 gm/ Sodium (Chloride) 100 mls @ 200 mls/hr IVPB Q8H [facility] PRN Reason: Protocol Last Admin: 04/04/18 20:11 Dose: 200 mls/hr Vancomycin/Sodium Chloride (Vancomycin 1 Gm/Ns 200 Ml) 1 gm in 200 mls @ 133 mls/hr IVPB Q12H [facility] PRN Reason: Protocol Stop: 04/08/18 22:01 Last Admin: 04/04/18 21:23 Dose: 133 mls/hr Ibuprofen (Motrin Tab) 400 mg PO Q6H PRN PRN Reason: Pain, moderate (4-7) Last Admin: 04/04/18 00:00 Dose: 400 mg Ketorolac Tromethamine (Toradol) 15 mg IVP Q8 PRN PRN Reason: Pain, moderate (4-7) Last Admin: 04/04/18 16:10 Dose: 15 mg Lidocaine (Lidoderm) 1 ea TD DAILY [facility] Last Admin: 04/04/18 09:10 Dose: 1 ea Lisinopril (Zestril) 10 mg PO DAILY [facility] Last Admin: 04/04/18 09:10 Dose: Not Given Tramadol HCl (Ultram) 50 mg PO DAILY PRN PRN Reason: Pain, moderate (4-7) - Labs Labs: 04/03/18 01:53 04/04/18 07:22 PT 14.0 SECONDS (9.7-12.2) H 04/03/18 01:53 INR 1.3 04/03/18 01:53 APTT 29 SECONDS (21-34) 04/03/18 01:53 - Constitutional Appears: No Acute Distress - Head Exam Head Exam: NORMAL INSPECTION - Eye Exam Eye Exam: EOMI, PERRL - ENT Exam ENT Exam: Normal Oropharynx - Neck Exam Neck Exam: Normal Inspection - Respiratory Exam Respiratory Exam: Decreased Breath Sounds (LT LUNG.), Rhonchi - Cardiovascular Exam Cardiovascular Exam: Tachycardia, REGULAR RHYTHM, +S1, +S2 - Extremities Exam Extremities Exam: Normal Capillary Refill. absent: Calf Tenderness, Pedal Edema - Neurological Exam Neurological Exam: Awake, CN II-XII Intact, Oriented x3 - Psychiatric Exam Psychiatric exam: Anxious - Skin Skin Exam: Normal Color, Warm Assessment and Plan (1) Pneumonia Status: Acute (2) Chest pain Status: Acute (3) Chronic back pain Status: Acute (4) Sciatica Status: Acute - Assessment and Plan (Free Text) Plan: Continue IV Azactam 1 g every 8 hourly. 04/03/18. Continue Zithromax 500 IV piggyback once a day daily 04/03/18. Continue IV vancomycin 1 g every 12 hourly 04/03/18. Sputum Gram stain and culture. BRONCHOSCOPY RESCHEDULED PER PULMONARY FOR TOMORROW.
[2018-04-05] MEDS: Albuterol-Ipratrop 3 mg / 0.5 (3 ml) UD IH SCH ×4 (02:05→20:13)
[2018-04-05] MEDS: Aztreonam 1 GM in Sodium Chloride 0.9% 100 ML IVPB SCH ×3 (03:27→20:00)
[2018-04-05 08:35] LABS: MEAN CELL VOLUME 82.1 fL (81.0-99.0); MEAN CORPUSCULAR HEMOGLOBIN 27.8 pg (27.0-31.0); MEAN CORPUSCULAR HGB CONC 33.8 g/dL (33.0-37.0); MEAN PLATELET VOLUME 7.3 fL (7.2-11.7); RBC 3.33 Mil/uL (3.80-5.20); RED CELL DISTRIBUTION WIDTH 15.5 % (11.5-14.5); WHITE BLOOD COUNT 9.5 K/uL (4.8-10.8)
[2018-04-05 08:43] LABS: HEMOGLOBIN 9.2 g/dL (11.0-16.0)
[2018-04-05 08:59] LABS: BLOOD UREA NITROGEN 14 mg/dL (7-17); GFR AFRICAN-AMERICAN > 60; GFR NON-AFRICAN AMERICAN > 60
[2018-04-05 09:00] LABS: CALCIUM 9.1 mg/dl (8.6-10.4)
[2018-04-05] MEDS ORDERED: EPINEPHrine 1 mg/ml (1:1000) Inj ONE (10:15)
[2018-04-05] MEDS ORDERED: Sodium Chloride 0.9% 20 ML IV ONE (10:15)
[2018-04-05] MEDS ORDERED: Lidocaine Hydrochloride 5 ML INJ ONE (10:15)
[2018-04-05] MEDS: Lidocaine 5% Patch TD SCH (10:26)
[2018-04-05] MEDS: Enoxaparin 40 mg Syringe SC SCH (10:40)
[2018-04-05] MEDS ORDERED: Lidocaine Hydrochloride 0 ML INJ ONE (10:45)
[2018-04-05] MEDS ORDERED: Propofol 10 mg/ml Inj (20 ML) ONE (10:58)
[2018-04-05] MEDS ORDERED: Midazolam 2 MG/2 ML VIAL ONE (10:58)
[2018-04-05] MEDS ORDERED: Rocuronium 10 mg/ml (5 ml) ONE (10:59)
--- NOTE | 2018-04-05 13:46 | CP.PCM.CON ---
<Columba Ellisonlui - Last Filed: 04/05/18 13:53> History of Present Illness - History of Present Illness History of Present Illness: PGY4 Initial GI Consult Lucita Mcclelland is a 63F w/ hx of Anxiety, HTN presented to the ED 04/03 with acute chest pain. She described the pain as pressure-like and more prominent on the left chest and endorsed associated shortness of breath. She was diagnoised with PNA and CT revealed enlarged lymph nodes. GI was consulted for anemia. Upon arrival to the ED, pt hgb was ~11. Her hgb then dropped to ~ 9.2. She notes some abd pain, located in the LLQ and and B/L upper quadrants. She notes that the pain worsen after meals. She also notes post prandial diarrhea. She denies any melena, hematemsis or coffee-ground emesis. She denies any recent weightloss. Never had a colonoscopy or endoscopy. Denies any nausea or vomiting. PMHx: Anxiety, HTN PSH: back surgery SH: smokes >10 cigarettes per day x [place] Hx: Reviewed; denies any GI related malignancies Endo Hx: None ROS: 12 point ROS conducted, neg other than above Past Patient History - Past Medical History & Family History Past Medical History?: Yes - Past Social History Smoking Status: Heavy Smoker > 10 Cigarettes Daily - CARDIAC Hx Cardiac Disorders: Yes Hx Hypertension: Yes - PULMONARY Hx Respiratory Disorders: Yes Hx Chronic Obstructive Pulmonary Disease (COPD): Yes (however uses nebulizer at home) - NEUROLOGICAL Hx Neurological Disorder: No - HEENT Hx HEENT Problems: No - RENAL Hx Chronic Kidney Disease: No - ENDOCRINE/METABOLIC Hx Endocrine Disorders: No - HEMATOLOGICAL/ONCOLOGICAL Hx Blood Disorders: No - INTEGUMENTARY Hx Dermatological Problems: No - MUSCULOSKELETAL/RHEUMATOLOGICAL Hx Musculoskeletal Disorders: Yes Hx Back Pain: Yes Hx Falls: No Other/Comment: sciatica - GASTROINTESTINAL Hx Gastrointestinal Disorders: No - GENITOURINARY/GYNECOLOGICAL Hx Genitourinary Disorders: No - PSYCHIATRIC Hx Psychophysiologic Disorder: Yes Hx Anxiety: Yes Hx Substance Use: No - SURGICAL HISTORY Hx Surgeries: Yes Other/Comment: SPINE SURGERY 2009 PER PATIENT - ANESTHESIA Hx Anesthesia: Yes Hx Anesthesia Reactions: Yes (severe hypotension) Meds Home Medications: Home Medication List Medication Instructions Recorded Confirmed Type Ketorolac [Ketorolac Tromethamine] 15 mg IVP Q8 #1 vial 04/04/18 Rx Allergies/Adverse Reactions: Allergies Allergy/AdvReac Type Severity Reaction Status Date / Time doxycycline Allergy Verified 04/01/18 10:41 Penicillins Allergy Verified 04/01/18 10:41 - Medications Medications: Current Medications Acetaminophen (Tylenol 325mg Tab) 650 mg PO Q4H PRN PRN Reason: pain fever Albuterol (Ventolin Hfa 90 Mcg/Actuation (8 G)) 2 puff IH Q8H PRN PRN Reason: Shortness of Breath Albuterol/Ipratropium (Duoneb 3 Mg/0.5 Mg (3 Ml) Ud) 3 ml IH RQ6 [facility] Last Admin: 04/05/18 12:10 Dose: 3 ml Alprazolam (Xanax) 1 mg PO DAILY PRN PRN Reason: Anxiety Last Admin: 04/04/18 21:23 Dose: 1 mg Enoxaparin Sodium (Lovenox) 40 mg SC DAILY [facility] Last Admin: 04/05/18 10:40 Dose: Not Given Famotidine (Pepcid) 20 mg PO DAILY [facility] Last Admin: 04/04/18 09:10 Dose: Not Given Ferrous Sulfate (Feosol) 325 mg PO TID [facility] Home Med (Patient's Own Medication) 1 tab PO DAILY [facility] Last Admin: 04/04/18 09:10 Dose: Not Given Hydrochlorothiazide (Microzide) 12.5 mg PO DAILY [facility] Last Admin: 04/04/18 09:10 Dose: Not Given Azithromycin 500 mg/ Sodium (Chloride) 250 mls @ 166.667 mls/hr IVPB DAILY [facility] PRN Reason: Protocol Last Admin: 04/04/18 10:57 Dose: 166.667 mls/hr Aztreonam 1 gm/ Sodium (Chloride) 100 mls @ 200 mls/hr IVPB Q8H [facility] PRN Reason: Protocol Last Admin: 04/05/18 03:27 Dose: 200 mls/hr Vancomycin/Sodium Chloride (Vancomycin 1 Gm/Ns 200 Ml) 1 gm in 200 mls @ 133 mls/hr IVPB Q12H [facility] PRN Reason: Protocol Stop: 04/08/18 22:01 Last Admin: 04/04/18 21:23 Dose: 133 mls/hr Ibuprofen (Motrin Tab) 400 mg PO Q6H PRN PRN Reason: Pain, moderate (4-7) Last Admin: 04/05/18 03:47 Dose: 400 mg Ketorolac Tromethamine (Toradol) 15 mg IVP Q8 PRN PRN Reason: Pain, moderate (4-7) Last Admin: 04/05/18 00:39 Dose: 15 mg Lidocaine (Lidoderm) 1 ea TD DAILY [facility] Last Admin: 04/05/18 10:26 Dose: 1 ea Lisinopril (Zestril) 10 mg PO DAILY [facility] Last Admin: 04/04/18 09:10 Dose: Not Given Tramadol HCl (Ultram) 50 mg PO DAILY PRN PRN Reason: Pain, moderate (4-7) Physical Exam - Constitutional Appears: Well, No Acute Distress - Head Exam Head Exam: ATRAUMATIC, NORMOCEPHALIC - Eye Exam Eye Exam: Normal appearance - ENT Exam ENT Exam: Mucous Membranes Moist, Normal Exam - Neck Exam Neck exam: Positive for: Normal Inspection - Respiratory Exam Respiratory Exam: Rales, Rhonchi, Wheezes, NORMAL BREATHING PATTERN. absent: Respiratory Distress - Cardiovascular Exam Cardiovascular Exam: REGULAR RHYTHM, +S1, +S2 - GI/Abdominal Exam GI & Abdominal Exam: Normal Bowel Sounds, Soft. absent: Diminished Bowel Sounds , Distended, Guarding, Hernia, Rebound, Rigid, Tenderness - Extremities Exam Extremities exam: Negative for: joint swelling, pedal edema - Neurological Exam Neurological exam: Alert, Oriented x3 - Psychiatric Exam Psychiatric exam: Normal Affect, Normal Mood - Skin Skin Exam: Dry, Intact, Normal Color, Warm Results - Vital Signs Recent Vital Signs: Last Vital Signs Temp 97.8 F 04/05/18 13:15 Pulse 108 H 04/05/18 13:15 Resp 22 04/05/18 13:15 BP 103/63 04/05/18 13:15 Pulse Ox 96 04/05/18 13:15 - Labs Result Diagrams: 04/05/18 08:26 04/05/18 08:26 Labs: Laboratory Results - last 24 hr 04/05/18 04/05/18 08:26 08:26 WBC 9.5 RBC 3.33 L Hgb 9.2 L D Hct 27.3 L MCV 82.1 MCH 27.8 MCHC 33.8 RDW 15.5 H Plt Count 315 MPV 7.3 Sodium 141 Potassium 3.4 L Chloride 103 Carbon Dioxide 31 H Anion Gap 10 BUN 14 Creatinine 0.9 Est GFR ( Amer) > 60 Est GFR (Non-Af Amer) > 60 Random Glucose 90 Calcium 9.1 TSH 3rd Generation 2.06 Assessment & Plan - Assessment and Plan (Free Text) Assessment: Lucita Mcclelland is a 63F w/ hx of Anxiety, HTN presented to the ED 04/03 with acute chest pain. Normocytic anemia Change in bowel habits Diarrhea Abd pain, 2/2 above PNA Plan: -transfuse to keep hgb >7 or symptomatic -repeat H/H in the AM -maintain 2 lines Iv access -will send for stool cultures, ova and parasites, electrolytes and c.diff -recommend oupt colonoscopy and EGD due to ongoing PNA -recommend follow-up with Dr. Link as an oupt -advance diet as tolerated -continue PPI daily PO D/W Dr. Link <Dakota Link - Last Filed: 04/05/18 14:17> Meds - Medications Medications: Current Medications Acetaminophen (Tylenol 325mg Tab) 650 mg PO Q4H PRN PRN Reason: pain fever Albuterol (Ventolin Hfa 90 Mcg/Actuation (8 G)) 2 puff IH Q8H PRN PRN Reason: Shortness of Breath Albuterol/Ipratropium (Duoneb 3 Mg/0.5 Mg (3 Ml) Ud) 3 ml IH RQ6 [facility] Last Admin: 04/05/18 12:10 Dose: 3 ml Alprazolam (Xanax) 1 mg PO DAILY PRN PRN Reason: Anxiety Last Admin: 04/04/18 21:23 Dose: 1 mg Enoxaparin Sodium (Lovenox) 40 mg SC DAILY [facility] Last Admin: 04/05/18 10:40 Dose: Not Given Famotidine (Pepcid) 20 mg PO DAILY [facility] Last Admin: 04/05/18 14:08 Dose: Not Given Ferrous Sulfate (Feosol) 325 mg PO TID [facility] Last Admin: 04/05/18 14:05 Dose: 325 mg Home Med (Patient's Own Medication) 1 tab PO DAILY [facility] Last Admin: 04/05/18 14:06 Dose: 1 tab Hydrochlorothiazide (Microzide) 12.5 mg PO DAILY [facility] Last Admin: 04/05/18 14:08 Dose: Not Given Azithromycin 500 mg/ Sodium (Chloride) 250 mls @ 166.667 mls/hr IVPB DAILY [facility] PRN Reason: Protocol Last Admin: 04/04/18 10:57 Dose: 166.667 mls/hr Aztreonam 1 gm/ Sodium (Chloride) 100 mls @ 200 mls/hr IVPB Q8H [facility] PRN Reason: Protocol Last Admin: 04/05/18 03:27 Dose: 200 mls/hr Vancomycin/Sodium Chloride (Vancomycin 1 Gm/Ns 200 Ml) 1 gm in 200 mls @ 133 mls/hr IVPB Q12H [facility] PRN Reason: Protocol Stop: 04/08/18 22:01 Last Admin: 04/05/18 14:04 Dose: 133 mls/hr Ibuprofen (Motrin Tab) 400 mg PO Q6H PRN PRN Reason: Pain, moderate (4-7) Last Admin: 04/05/18 03:47 Dose: 400 mg Ketorolac Tromethamine (Toradol) 15 mg IVP Q8 PRN PRN Reason: Pain, moderate (4-7) Last Admin: 04/05/18 00:39 Dose: 15 mg Lidocaine (Lidoderm) 1 ea TD DAILY [facility] Last Admin: 04/05/18 10:26 Dose: 1 ea Lisinopril (Zestril) 10 mg PO DAILY [facility] Last Admin: 04/05/18 14:07 Dose: Not Given Tramadol HCl (Ultram) 50 mg PO DAILY PRN PRN Reason: Pain, moderate (4-7) Results - Vital Signs Recent Vital Signs: Last Vital Signs Temp 97.8 F 04/05/18 13:15 Pulse 108 H 04/05/18 13:15 Resp 22 04/05/18 13:15 BP 103/63 04/05/18 13:15 Pulse Ox 96 04/05/18 13:15 - Labs Result Diagrams: 04/05/18 08:26 04/05/18 08:26 Labs: Laboratory Results - last 24 hr 04/05/18 04/05/18 08:26 08:26 WBC 9.5 RBC 3.33 L Hgb 9.2 L D Hct 27.3 L MCV 82.1 MCH 27.8 MCHC 33.8 RDW 15.5 H Plt Count 315 MPV 7.3 Sodium 141 Potassium 3.4 L Chloride 103 Carbon Dioxide 31 H Anion Gap 10 BUN 14 Creatinine 0.9 Est GFR ( Amer) > 60 Est GFR (Non-Af Amer) > 60 Random Glucose 90 Calcium 9.1 TSH 3rd Generation 2.06 Attending/Attestation - Attestation I have personally seen and examined this patient.: Yes I have fully participated in the care of the patient.: Yes I have reviewed all pertinent clinical information: Yes Notes (Text): 04/05/18 14:09 I have seen and examined patient with GI fellow. Agree with above documentation with the following additions. In brief, this is a 63 year old female with history of obesity (BMI 36), HTN, anxiety, RLE sciatica who presents to hospital with sudden onset chest pain and dyspnea which started yesterday. She is currently being treated for pneumonia as well as underwent bronchoscopy today for evaluation of abnormal pulmonary lesions. GI called for evaluation of anemia. She describes intermittent diarrhea, mainly post prandial for the past 3 months along with associated b/l lower quadrant abdominal pain during this time period. She denies nausea, vomiting, fever/ chills, weight loss, or rectal bleeding. She does report decreased appetite with early satiety as well but believes this is related to worsening sciatica pain. No prior endoscopic evaluation. Additional physical exam: Abdomen: no palpable hepato/splenomegaly Chest pain, dyspnea Pneumonia Spiculated pulmonary lesion with lymphadenopathy, pleural effusion Anemia, normocytic - Diet as tolerated - Continue to monitor H/H - Continue with antibiotic therapy as per ID - Follow up pulmonary recommendations, results of bronchoscopy - Obtain stool studies given history of change in bowel habits, check fecal occult blood - Patient would certainly require endoscopic evaluation for workup of anemia, however will defer procedure for time being given acute pulmonary issues. Would recommend additional elective outpatient follow up after resolution of acute symptoms. Will continue to monitor patient clinical course.
[2018-04-05] MEDS: Vancomycin 1 gm/NS 200 ml 1 GM/200 ML BAG IVPB SCH ×2 (14:04→21:52)
[2018-04-05] MEDS: Patient's Own Medication - Tablet/Capusle PO SCH (14:06)
--- NOTE | 2018-04-05 14:37 | RAD ---
HISTORY: post bronch. COMPARISON: Chest radiograph dated 04/03/2018. FINDINGS: LUNGS: Pulmonary vascular congestion. Markedly improved left lung aeration with residual left lower lobe consolidation and left lung subsegmental atelectasis. 1.6 cm right upper lobe nodule redemonstrated. PLEURA: Left pleural effusion not excluded. No pneumothorax apparent. CARDIOVASCULAR: Atherosclerotic aortic calcifications. Cardiomediastinal silhouette stably enlarged. OSSEOUS STRUCTURES: Unchanged. VISUALIZED UPPER ABDOMEN: Normal. OTHER FINDINGS: None. IMPRESSION: Markedly improved left lung aeration with residual left lower lobe consolidation and left subsegmental atelectasis.
--- NOTE | 2018-04-05 15:39 | CP.PCM.PCO ---
Physician Communication Note - Physician Communication Note Physician Communication Note: Patient not seen, was at bronchoscopy, will see rakel
[2018-04-05] MEDS: Azithromycin 500 MG in Sodium Chloride 0.9% 250 ML IVPB SCH (16:19)
--- NOTE | 2018-04-05 16:52 | CP.PCM.PN ---
Subjective - Date & Time of Evaluation Date of Evaluation: 04/05/18 Time of Evaluation: 11:35 - Subjective Subjective: Patient seen and examined Status post bronchoscopy, biopsy/brushing and bronchoalveolar lavage Complete obstruction of left lower lobe bronchus with large endobronchial mass Complaining of back pain Objective - Vital Signs/Intake and Output Vital Signs (last 24 hours): Temp Pulse Resp BP Pulse Ox 98 F 110 H 20 90/55 L 97 04/05/18 16:00 04/05/18 16:00 04/05/18 16:00 04/05/18 16:00 04/05/18 16:00 Intake and Output: 04/05/18 04/05/18 06:59 18:59 Intake Total 1100 930 Output Total 220 Balance 1100 710 - Medications Medications: Current Medications Acetaminophen (Tylenol 325mg Tab) 650 mg PO Q4H PRN PRN Reason: pain fever Albuterol (Ventolin Hfa 90 Mcg/Actuation (8 G)) 2 puff IH Q8H PRN PRN Reason: Shortness of Breath Albuterol/Ipratropium (Duoneb 3 Mg/0.5 Mg (3 Ml) Ud) 3 ml IH RQ6 [facility] Last Admin: 04/05/18 12:10 Dose: 3 ml Alprazolam (Xanax) 1 mg PO DAILY PRN PRN Reason: Anxiety Last Admin: 04/04/18 21:23 Dose: 1 mg Enoxaparin Sodium (Lovenox) 40 mg SC DAILY [facility] Last Admin: 04/05/18 10:40 Dose: Not Given Famotidine (Pepcid) 20 mg PO DAILY [facility] Last Admin: 04/05/18 14:08 Dose: Not Given Ferrous Sulfate (Feosol) 325 mg PO TID [facility] Last Admin: 04/05/18 14:12 Dose: 325 mg Home Med (Patient's Own Medication) 1 tab PO DAILY [facility] Last Admin: 04/05/18 14:06 Dose: 1 tab Hydrochlorothiazide (Microzide) 12.5 mg PO DAILY [facility] Last Admin: 04/05/18 14:08 Dose: Not Given Azithromycin 500 mg/ Sodium (Chloride) 250 mls @ 166.667 mls/hr IVPB DAILY [facility] PRN Reason: Protocol Last Admin: 04/05/18 16:19 Dose: Not Given Aztreonam 1 gm/ Sodium (Chloride) 100 mls @ 200 mls/hr IVPB Q8H [facility] PRN Reason: Protocol Last Admin: 04/05/18 16:18 Dose: Not Given Vancomycin/Sodium Chloride (Vancomycin 1 Gm/Ns 200 Ml) 1 gm in 200 mls @ 133 mls/hr IVPB Q12H [facility] PRN Reason: Protocol Stop: 04/08/18 22:01 Last Admin: 04/05/18 14:04 Dose: 133 mls/hr Ibuprofen (Motrin Tab) 400 mg PO Q6H PRN PRN Reason: Pain, moderate (4-7) Last Admin: 04/05/18 03:47 Dose: 400 mg Ketorolac Tromethamine (Toradol) 15 mg IVP Q8 PRN PRN Reason: Pain, moderate (4-7) Last Admin: 04/05/18 00:39 Dose: 15 mg Lidocaine (Lidoderm) 1 ea TD DAILY [facility] Last Admin: 04/05/18 10:26 Dose: 1 ea Lisinopril (Zestril) 10 mg PO DAILY [facility] Last Admin: 04/05/18 14:07 Dose: Not Given Potassium Chloride (Potassium Chloride Oral Soln) 20 meq PO ONCE ONE Stop: 04/06/18 17:01 Tramadol HCl (Ultram) 50 mg PO DAILY PRN PRN Reason: Pain, moderate (4-7) - Labs Labs: 04/05/18 08:26 04/05/18 08:26 PT 14.0 SECONDS (9.7-12.2) H 04/03/18 01:53 INR 1.3 04/03/18 01:53 APTT 29 SECONDS (21-34) 04/03/18 01:53 - Head Exam Head Exam: ATRAUMATIC, NORMOCEPHALIC - Eye Exam Eye Exam: Normal appearance - ENT Exam ENT Exam: Mucous Membranes Moist - Neck Exam Neck Exam: Normal Inspection - Respiratory Exam Respiratory Exam: Decreased Breath Sounds - Cardiovascular Exam Cardiovascular Exam: REGULAR RHYTHM - GI/Abdominal Exam GI & Abdominal Exam: Soft, Normal Bowel Sounds - Extremities Exam Extremities Exam: Normal Inspection - Neurological Exam Neurological Exam: Alert Assessment and Plan (1) Collapse of left lung Assessment & Plan: Collapse of left lower lung secondary to endobronchial lesion rule out malignancy Status post lung biopsy Continue nebulizer treatment Continue antibiotics for now Analgesics Status: Acute
[2018-04-05] MEDS ORDERED: Potassium Chloride 20 mEq/15 ml LIQ UD PO ONE (17:00)
[2018-04-05] MEDS: Bismuth Subsalicylate 262 mg/15 ml Sus (240 ml) PO PRN (21:54)
--- NOTE | 2018-04-05 23:22 | CP.PCM.PN ---
Subjective - Date & Time of Evaluation Date of Evaluation: 04/05/18 Time of Evaluation: 23:22 - Subjective Subjective: AFEBRILE VSS. C/O BACK PAIN/ABDOMINAL PAIN. S/P FOB. FINDINGS NOTED. SEEN BY GI Objective - Vital Signs/Intake and Output Vital Signs (last 24 hours): Temp Pulse Resp BP Pulse Ox 98 F 110 H 20 90/55 L 97 04/05/18 16:00 04/05/18 16:00 04/05/18 16:00 04/05/18 16:00 04/05/18 16:00 Intake and Output: 04/05/18 04/06/18 18:59 06:59 Intake Total 930 Output Total 220 Balance 710 - Medications Medications: Current Medications Acetaminophen (Tylenol 325mg Tab) 650 mg PO Q4H PRN PRN Reason: pain fever Albuterol (Ventolin Hfa 90 Mcg/Actuation (8 G)) 2 puff IH Q8H PRN PRN Reason: Shortness of Breath Albuterol/Ipratropium (Duoneb 3 Mg/0.5 Mg (3 Ml) Ud) 3 ml IH RQ6 [facility] Last Admin: 04/05/18 20:13 Dose: 3 ml Alprazolam (Xanax) 1 mg PO DAILY PRN PRN Reason: Anxiety Last Admin: 04/04/18 21:23 Dose: 1 mg Alprazolam (Xanax) 0.25 mg PO BID PRN PRN Reason: Anxiety Stop: 04/12/18 16:55 Bismuth Subsalicylate (Pepto-Bismol) 262 mg PO Q6 PRN PRN Reason: Diarrhea Last Admin: 04/05/18 21:54 Dose: 262 mg Enoxaparin Sodium (Lovenox) 40 mg SC DAILY [facility] Last Admin: 04/05/18 10:40 Dose: Not Given Famotidine (Pepcid) 20 mg PO DAILY [facility] Last Admin: 04/05/18 14:08 Dose: Not Given Ferrous Sulfate (Feosol) 325 mg PO TID [facility] Last Admin: 04/05/18 18:05 Dose: 325 mg Home Med (Patient's Own Medication) 1 tab PO DAILY [facility] Last Admin: 04/05/18 14:06 Dose: 1 tab Hydrochlorothiazide (Microzide) 12.5 mg PO DAILY [facility] Last Admin: 04/05/18 14:08 Dose: Not Given Azithromycin 500 mg/ Sodium (Chloride) 250 mls @ 166.667 mls/hr IVPB DAILY [facility] PRN Reason: Protocol Last Admin: 04/05/18 16:19 Dose: Not Given Aztreonam 1 gm/ Sodium (Chloride) 100 mls @ 200 mls/hr IVPB Q8H [facility] PRN Reason: Protocol Last Admin: 04/05/18 20:00 Dose: 200 mls/hr Vancomycin/Sodium Chloride (Vancomycin 1 Gm/Ns 200 Ml) 1 gm in 200 mls @ 133 mls/hr IVPB Q12H [facility] PRN Reason: Protocol Stop: 04/08/18 22:01 Last Admin: 04/05/18 21:52 Dose: 133 mls/hr Ibuprofen (Motrin Tab) 400 mg PO Q6H PRN PRN Reason: Pain, moderate (4-7) Last Admin: 04/05/18 03:47 Dose: 400 mg Ketorolac Tromethamine (Toradol) 15 mg IVP Q8 PRN PRN Reason: Pain, moderate (4-7) Last Admin: 04/05/18 18:10 Dose: 15 mg Lidocaine (Lidoderm) 1 ea TD DAILY [facility] Last Admin: 04/05/18 10:26 Dose: 1 ea Lisinopril (Zestril) 10 mg PO DAILY [facility] Last Admin: 04/05/18 14:07 Dose: Not Given Nicotine (Nicoderm Cq) 1 patch TD DAILY [facility] Tramadol HCl (Ultram) 50 mg PO DAILY PRN PRN Reason: Pain, moderate (4-7) - Labs Labs: 04/05/18 08:26 04/05/18 08:26 PT 14.0 SECONDS (9.7-12.2) H 04/03/18 01:53 INR 1.3 04/03/18 01:53 APTT 29 SECONDS (21-34) 04/03/18 01:53 - Constitutional Appears: No Acute Distress - Head Exam Head Exam: NORMAL INSPECTION - Eye Exam Eye Exam: EOMI, PERRL - ENT Exam ENT Exam: Normal Oropharynx - Respiratory Exam Respiratory Exam: Decreased Breath Sounds (LEFT SIDE.) - Cardiovascular Exam Cardiovascular Exam: Tachycardia, REGULAR RHYTHM, +S1, +S2 - GI/Abdominal Exam GI & Abdominal Exam: Soft, Tenderness (MID ABDOMEN AND LOWER QUADRANTS.), Normal Bowel Sounds. absent: Organomegaly - Extremities Exam Extremities Exam: Normal Capillary Refill. absent: Calf Tenderness, Pedal Edema - Neurological Exam Neurological Exam: Awake, Oriented x3, Reflexes Normal - Psychiatric Exam Psychiatric exam: Normal Mood - Skin Skin Exam: Normal Color, Warm Assessment and Plan (1) Pneumonia Status: Acute (2) Chest pain Status: Acute (3) Chronic back pain Status: Acute (4) Sciatica Status: Acute (5) Abdominal pain Assessment & Plan: SEEN BY GI . PER GI W/U FOR ANEMIA/AND ABDOMINAL PAIN. Status: Acute - Assessment and Plan (Free Text) Plan: Continue IV Azactam 1 g every 8 hourly. 04/03/18. Continue Zithromax 500 IV piggyback once a day daily 04/03/18. Continue IV vancomycin 1 g every 12 hourly 04/03/18. Sputum Gram stain and culture. F/U BRONCHIAL WASHINGS AND BRUSHINGS AND BIOPSY.
[2018-04-06 00:47] LABS: GRANULAR CAST 6 /lpf (0-1); SQUAMOUS EPITHIAL 14 /hpf (0-5); URINE BACTERIA RARE (<OCC); URINE BILIRUBIN NEGATIVE (NEGATIVE); URINE BLOOD 2+ (NEGATIVE); URINE CLARITY Hazy (Clear); URINE COLOR Yellow (YELLOW); URINE GLUCOSE (UA) NORMAL (Normal); URINE LEUKOCYTE ESTERASE NEG Leu/uL (Negative); URINE PROTEIN 1+ mg/dL (NEGATIVE); URINE UROBILINOGEN NORMAL mg/dL (0.2-1.0)
[2018-04-06] MEDS: Albuterol-Ipratrop 3 mg / 0.5 (3 ml) UD IH SCH ×5 (01:18→19:20)
[2018-04-06] MEDS: Aztreonam 1 GM in Sodium Chloride 0.9% 100 ML IVPB SCH ×3 (03:27→21:19)
--- NOTE | 2018-04-06 06:33 | OP ---
PROCEDURE DATE: 04/05/2018 PROCEDURE: Fiberoptic bronchoscopy with biopsy and brushing. INDICATIONS: Left lung collapse, fiberoptic bronchoscopy procedure was done. DESCRIPTION OF PROCEDURE: After obtaining consent from the patient, explaining the patient risks and benefits, which she understood. The procedure was done under sedation and intubation by the anesthesiologist. The bronchoscope was passed through the endotracheal tube into the trachea. The main wilton was sharp. There was bronchospasm on the right side; the right main, the right upper, the right lower, and the right middle lobe all appeared normal. No endobronchial lesion seen. Later, the bronchoscope was pulled back and passed on to the left side. The left main was normal. The left upper also was normal. There was complete obstruction of left lower lobe bronchus by endobronchial lesion. Multiple biopsies and brushing were done. The patient tolerated the procedure well. No complications. Colton Velarde MD
[2018-04-06 07:45] LABS: HEMOGLOBIN 9.1 g/dL (11.0-16.0); MEAN CELL VOLUME 82.1 fL (81.0-99.0); MEAN CORPUSCULAR HEMOGLOBIN 28.1 pg (27.0-31.0); MEAN CORPUSCULAR HGB CONC 34.3 g/dL (33.0-37.0); MEAN PLATELET VOLUME 7.3 fL (7.2-11.7); RBC 3.23 Mil/uL (3.80-5.20); RED CELL DISTRIBUTION WIDTH 15.2 % (11.5-14.5); WHITE BLOOD COUNT 8.2 K/uL (4.8-10.8)
[2018-04-06 08:05] LABS: BLOOD UREA NITROGEN 13 mg/dL (7-17); CALCIUM 8.8 mg/dl (8.6-10.4); GFR AFRICAN-AMERICAN > 60; GFR NON-AFRICAN AMERICAN > 60
[2018-04-06] MEDS: Azithromycin 500 MG in Sodium Chloride 0.9% 250 ML IVPB SCH (09:03)
[2018-04-06] MEDS: Lidocaine 5% Patch TD SCH ×2 (09:50→10:30)
--- NOTE | 2018-04-06 09:51 | PN ---
DATE: 04/04/2018 SUBJECTIVE: The patient is a 63-year-old female. The patient was seen and examined at bedside. The patient was seen and examined on 04/04/2018 late evening. The patient is complaining about back pain. According to her, Tylenol and Tramadol are not helping. Still having coughing, shortness of breath, seen by the advertising solicitor. Offered bronchoscopy. Do not want to go. No hematuria. No hematochezia. PHYSICAL EXAMINATION: VITAL SIGNS: Temperature 98.6, pulse 103, respiratory rate 20, blood pressure 102/66, pulse oximetry 97%. HEENT: Head is normocephalic, atraumatic. Eyes: PERRLA. Extraocular movements intact. Conjunctivae clear. Nose patent. Mucous membranes moist. NECK: Supple. No carotid bruits, JVD, or thyromegaly. CHEST: Bilaterally symmetrical. HEART: S1 and S2 positive. LUNGS: Wheezing bilaterally. ABDOMEN: Soft. Bowel sounds positive. No organomegaly. EXTREMITIES: No edema, no cyanosis. NEUROLOGIC: The patient is awake, alert, moving all 4 extremities. No focal deficits. MEDICATIONS: Tylenol, Ventolin, DuoNeb, Xanax, Lovenox, Pepcid, hydrochlorothiazide, Azithromycin, aztreonam, vancomycin, ibuprofen, Lidoderm, and Zestril. LABS: White blood cells 14.2, hemoglobin 11.6, hematocrit 33.2, and platelets 281. Sodium 140, potassium 3.1, BUN 19, creatinine 1.1, glucose 115. ASSESSMENT AND PLAN: The patient is a 53-year-old lady with leukocytosis, anemia, hypokalemia replaced. Given IV. According to the patient, heparin changed to p.o. Hyperglycemia, pneumonia, saturating 80% to 89% on nasal cannula, tachycardia. Getting vancomycin and azithromycin, getting DuoNeb. We will continue antibiotics as per Infectious Disease. Planning for bronchoscopy. Back pain, Tylenol given. According to the patient, it is not working. Started on Toradol. Hypertension, stable. Bronchoscopy rescheduled. Sciatica. Sputum Gram stain and cultures are pending. Gastrointestinal and deep venous thrombosis prophylaxis. Education done on the bedside. We will follow up. Alice Bowling MD [facility] # [id number] [facility]
[2018-04-06] MEDS: Patient's Own Medication - Tablet/Capusle PO SCH (09:52)
[2018-04-06] MEDS: Enoxaparin 40 mg Syringe SC SCH (10:02)
--- NOTE | 2018-04-06 10:19 | CP.PCM.PN ---
<Benjamin Ellison - Last Filed: 04/06/18 12:40> Subjective - Date & Time of Evaluation Date of Evaluation: 04/06/18 Time of Evaluation: 08:00 - Subjective Subjective: PGY4 GI Follow-up Pt seen and examined bedside denies any abd pain tolerating diet denies any BM ROS: 12 point ROS conducted neg other than above Objective - Vital Signs/Intake and Output Vital Signs (last 24 hours): Temp Pulse Resp BP Pulse Ox 97.8 F 108 H 18 101/61 95 04/06/18 07:00 04/06/18 07:00 04/06/18 07:00 04/06/18 07:00 04/06/18 07:00 - Medications Medications: Current Medications Acetaminophen (Tylenol 325mg Tab) 650 mg PO Q4H PRN PRN Reason: pain fever Albuterol (Ventolin Hfa 90 Mcg/Actuation (8 G)) 2 puff IH Q8H PRN PRN Reason: Shortness of Breath Albuterol/Ipratropium (Duoneb 3 Mg/0.5 Mg (3 Ml) Ud) 3 ml IH RQ6 [facility] Last Admin: 04/06/18 07:31 Dose: 3 ml Alprazolam (Xanax) 1 mg PO DAILY PRN PRN Reason: Anxiety Last Admin: 04/04/18 21:23 Dose: 1 mg Alprazolam (Xanax) 0.25 mg PO BID PRN PRN Reason: Anxiety Stop: 04/12/18 16:55 Last Admin: 04/05/18 23:34 Dose: 0.25 mg Bismuth Subsalicylate (Pepto-Bismol) 262 mg PO Q6 PRN PRN Reason: Diarrhea Last Admin: 04/05/18 21:54 Dose: 262 mg Enoxaparin Sodium (Lovenox) 40 mg SC DAILY [facility] Last Admin: 04/06/18 10:02 Dose: 40 mg Famotidine (Pepcid) 20 mg PO DAILY [facility] Last Admin: 04/06/18 09:50 Dose: 20 mg Ferrous Sulfate (Feosol) 325 mg PO TID [facility] Last Admin: 04/06/18 09:51 Dose: 325 mg Home Med (Patient's Own Medication) 1 tab PO DAILY [facility] Last Admin: 04/06/18 09:52 Dose: 1 tab Hydrochlorothiazide (Microzide) 12.5 mg PO DAILY [facility] Last Admin: 04/05/18 14:08 Dose: Not Given Azithromycin 500 mg/ Sodium (Chloride) 250 mls @ 166.667 mls/hr IVPB DAILY [facility] PRN Reason: Protocol Last Admin: 04/06/18 09:03 Dose: 166.667 mls/hr Aztreonam 1 gm/ Sodium (Chloride) 100 mls @ 200 mls/hr IVPB Q8H [facility] PRN Reason: Protocol Last Admin: 04/06/18 03:27 Dose: 200 mls/hr Vancomycin/Sodium Chloride (Vancomycin 1 Gm/Ns 200 Ml) 1 gm in 200 mls @ 133 mls/hr IVPB Q12H [facility] PRN Reason: Protocol Stop: 04/08/18 22:01 Last Admin: 04/05/18 21:52 Dose: 133 mls/hr Ibuprofen (Motrin Tab) 400 mg PO Q6H PRN PRN Reason: Pain, moderate (4-7) Last Admin: 04/06/18 09:50 Dose: 400 mg Ketorolac Tromethamine (Toradol) 15 mg IVP Q8 PRN PRN Reason: Pain, moderate (4-7) Last Admin: 04/06/18 03:27 Dose: 15 mg Lidocaine (Lidoderm) 1 ea TD DAILY [facility] Last Admin: 04/06/18 09:50 Dose: 1 ea Lisinopril (Zestril) 10 mg PO DAILY [facility] Last Admin: 04/05/18 14:07 Dose: Not Given Nicotine (Nicoderm Cq) 1 patch TD DAILY [facility] Last Admin: 04/06/18 09:50 Dose: 1 patch Tramadol HCl (Ultram) 50 mg PO DAILY PRN PRN Reason: Pain, moderate (4-7) Last Admin: 04/06/18 05:14 Dose: 50 mg - Labs Labs: 04/06/18 07:39 04/06/18 07:39 PT 14.0 SECONDS (9.7-12.2) H 04/03/18 01:53 INR 1.3 04/03/18 01:53 APTT 29 SECONDS (21-34) 04/03/18 01:53 - Constitutional Appears: Well, No Acute Distress - Head Exam Head Exam: ATRAUMATIC, NORMOCEPHALIC - Eye Exam Eye Exam: Normal appearance - ENT Exam ENT Exam: Mucous Membranes Moist - Neck Exam Neck Exam: Normal Inspection - Respiratory Exam Respiratory Exam: Rales, Rhonchi, Wheezes, NORMAL BREATHING PATTERN. absent: Respiratory Distress - Cardiovascular Exam Cardiovascular Exam: REGULAR RHYTHM, +S1, +S2 - GI/Abdominal Exam GI & Abdominal Exam: Soft, Normal Bowel Sounds. absent: Distended, Firm, Guarding, Rigid, Tenderness, Organomegaly - Extremities Exam Extremities Exam: absent: Joint Swelling, Pedal Edema - Neurological Exam Neurological Exam: Alert, Awake, Oriented x3 - Psychiatric Exam Psychiatric exam: Normal Affect, Normal Mood - Skin Skin Exam: Dry, Intact, Normal Color, Warm Assessment and Plan - Assessment and Plan (Free Text) Assessment: Lucita Mcclelland is a 63F w/ hx of Anxiety, HTN presented to the ED 04/03 with acute chest pain. Normocytic anemia Change in bowel habits Diarrhea Abd pain, 2/2 above Endobronchial mass Plan: -hgb stable, no signs of overt GI bleed -transfuse to keep hgb >7 or symptomatic -repeat H/H in the AM -maintain 2 lines Iv access -will send for stool cultures, ova and parasites, electrolytes and c.diff -recommend oupt colonoscopy and EGD due to ongoing PNA -recommend follow-up with GI as an oupt -advance diet as tolerated -continue PPI daily PO -will sign off D/W Dr. Oconnell <Kye Oconnell - Last Filed: 04/06/18 17:10> Objective - Vital Signs/Intake and Output Vital Signs (last 24 hours): Temp Pulse Resp BP Pulse Ox 97.6 F 108 H 20 118/65 93 L 04/06/18 15:58 04/06/18 15:58 04/06/18 15:58 04/06/18 15:58 04/06/18 15:58 - Medications Medications: Current Medications Acetaminophen (Tylenol 325mg Tab) 650 mg PO Q4H PRN PRN Reason: pain fever Albuterol (Ventolin Hfa 90 Mcg/Actuation (8 G)) 2 puff IH Q8H PRN PRN Reason: Shortness of Breath Albuterol/Ipratropium (Duoneb 3 Mg/0.5 Mg (3 Ml) Ud) 3 ml IH RQ6 [facility] Last Admin: 04/06/18 13:27 Dose: 3 ml Alprazolam (Xanax) 1 mg PO DAILY PRN PRN Reason: Anxiety Last Admin: 04/04/18 21:23 Dose: 1 mg Alprazolam (Xanax) 0.25 mg PO BID PRN PRN Reason: Anxiety Stop: 04/12/18 16:55 Last Admin: 04/05/18 23:34 Dose: 0.25 mg Bismuth Subsalicylate (Pepto-Bismol) 262 mg PO Q6 PRN PRN Reason: Diarrhea Last Admin: 04/05/18 21:54 Dose: 262 mg Enoxaparin Sodium (Lovenox) 40 mg SC DAILY [facility] Last Admin: 04/06/18 10:02 Dose: 40 mg Ferrous Sulfate (Feosol) 325 mg PO TID [facility] Last Admin: 04/06/18 15:30 Dose: 325 mg Home Med (Patient's Own Medication) 1 tab PO DAILY [facility] Last Admin: 04/06/18 09:52 Dose: 1 tab Home Med (Patient's Own Medication) 1 tab PO BID [facility] Home Med (Patient's Own Medication) 1 tab PO Q12 PRN PRN Reason: Pain, moderate (4-7) Azithromycin 500 mg/ Sodium (Chloride) 250 mls @ 166.667 mls/hr IVPB DAILY [facility] PRN Reason: Protocol Last Admin: 04/06/18 09:03 Dose: 166.667 mls/hr Aztreonam 1 gm/ Sodium (Chloride) 100 mls @ 200 mls/hr IVPB Q8H [facility] PRN Reason: Protocol Last Admin: 04/06/18 12:30 Dose: 200 mls/hr Vancomycin/Sodium Chloride (Vancomycin 1 Gm/Ns 200 Ml) 1 gm in 200 mls @ 133 mls/hr IVPB Q12H [facility] PRN Reason: Protocol Stop: 04/08/18 22:01 Last Admin: 04/05/18 21:52 Dose: 133 mls/hr Ibuprofen (Motrin Tab) 400 mg PO Q6H PRN PRN Reason: Pain, moderate (4-7) Last Admin: 04/06/18 09:50 Dose: 400 mg Lidocaine (Lidoderm) 1 ea TD DAILY [facility] Last Admin: 04/06/18 09:50 Dose: 1 ea Nicotine (Nicoderm Cq) 1 patch TD DAILY [facility] Last Admin: 04/06/18 09:50 Dose: 1 patch Tramadol HCl (Ultram) 50 mg PO DAILY PRN PRN Reason: Pain, moderate (4-7) Last Admin: 04/06/18 05:14 Dose: 50 mg - Labs Labs: 04/06/18 07:39 04/06/18 07:39 PT 14.0 SECONDS (9.7-12.2) H 04/03/18 01:53 INR 1.3 04/03/18 01:53 APTT 29 SECONDS (21-34) 04/03/18 01:53 Attending/Attestation - Attestation I have personally seen and examined this patient.: Yes I have fully participated in the care of the patient.: Yes I have reviewed all pertinent clinical information, including history, physical exam and plan: Yes Notes (Text): 04/06/18 17:09 63 year old female who presents with chest pain, found to have endobronchial mass, also with anemia. No overt gi bleed. Outpatient EGD/colon recommended. Will sign off.
--- NOTE | 2018-04-06 10:36 | CP.PCM.CON ---
History of Present Illness - History of Present Illness History of Present Illness: Palliative consult requested by Doctor Bowling for goals of care discussion Patient is a 63 yo lady admitted from home with complains of CP what was new experience for the patient. The CT chest was significant for left lobe mass and bronchoscopy was done yesterday. The lung cancer is suspected but no definite diagnose yet. Patient was also found to have UTI, positive for yeast infection and IV antibiotics started. Doctor Syd suggested that patient's son did not want patient to be told diagnosis. PMH: back surgery 2010, progresively worsening back pain since than, unable to walk since last weak fdue to low back pain radiating to left hip and leg, anxiety, HTN Soc. Hx: , lives with male friend, smoked 2 packs of cigarets a day, stopped just prior this hospitalization Fam. Hx: Denied Review of Systems - Constitutional Constitutional: Weakness - EENT Eyes: absent: As Per HPI, Blind Spots, Blurred Vision, Change in Vision, Decreased Night Vision, Diplopia, Discharge, Dry Eye, Exophthalmos, Floaters, Irritation, Itchy Eyes, Loss of Peripheral Vision, Pain, Photophobia, Requires Corrective Lenses, Sees Flashes, Spots in Vision, Tunnel Vision, Other Visual Disturbances, Loss of Vision, Other Ears: absent: As Per HPI, Decreased Hearing, Ear Discharge, Ear Pain, Tinnitus, Abnormal Hearing, Disequilibrium, Dizziness, Other Nose/Mouth/Throat: absent: As Per HPI, Epistaxis, Nasal Congestion, Nasal Discharge, Nasal Obstruction, Nasal Trauma, Nose Pain, Post Nasal Drip, Sinus Pain, Sinus Pressure, Bleeding Gums, Change in Voice, Dental Pain, Dry Mouth, Dysphagia, Halitosis, Hoarsness, Lip Swelling, Mouth Lesions, Mouth Pain, Odynophagia, Sore Throat, Throat Swelling, Tongue Swelling, Facial Pain, Neck Pain, Neck Mass, Other - Breasts Breasts: absent: As Per HPI, Change in Shape, Mass, Pain, Nipple Discharge, Nipple Inversion, Skin Changes, Swelling, Other - Cardiovascular Cardiovascular: Radiating Pain - Respiratory Respiratory: Dyspnea on Exertion - Gastrointestinal Gastrointestinal: absent: As Per HPI, Abdominal Pain, Belching, Bloating, Change in Bowel Habits, Change in Stool Character, Coffee Ground Emesis, Constipation, Cramping, Diarrhea, Dyspepsia, Dysphagia, Early Satiety, Excessive Flatus, Fecal Incontinence, Heartburn, Hematemesis, Hematochezia, Loose Stools, Melena, Nausea, Odynophagia, Temesmus, Vomiting, Other - Genitourinary Genitourinary: absent: As Per HPI, Change in Urinary Stream, Difficulty Urinating, Dysuria, Flank Pain, Hematuria, Pyuria, Nocturia, Urinary Incontinence, Urinary Frequency, Urinary Hesitance, Urinary Urgency, Voiding Freq/Small Amts, Freq UTI, Hx Renal/Bladder Calculi, Hx /Renal Surgery, Bladder Distension, Other - Reproductive: Female Reproductive:Female: Post Menopausal - Menstruation Menstruation: Post Menopausal - Musculoskeletal Musculoskeletal: Back Pain, Limited Range of Motion, Muscle Weakness - Integumentary Integumentary: absent: As Per HPI, Acne, Alopecia, Bleeding Lesions, Change in Hair, Change in Nails, Change in Pigmentation, Changing Lesions, Dry Skin, Erythema, Furuncle, Hirsutism, Lesions, New Lesions, Non-Healing Lesions, Photosensitivity, Pruritus, Rash, Skin Pain, Skin Ulcer, Sores, Striae, Swelling , Unusual Bruising, Wounds, Jaundice, Other - Neurological Neurological: absent: As Per HPI, Abnormal Gait, Abnormal Hearing, Abnormal Movements, Abnormal Speech, Behavioral Changes, Burning Sensations, Confusion, Convulsions, Disequilibrium, Dizziness, Numbness, Focal Weakness, Frequent Falls , Headaches, Lack of Coordination, Loss of Vision, Memory Loss, Paresthesias, Radicular Pain, Restless Legs, Sensory Deficit, Syncope, Tingling, Tremor, Vertigo, Weakness, Other Visual Disturbances, Other - Psychiatric Psychiatric: Anxiety - Endocrine Endocrine: absent: As Per HPI, Change in Body Appearance, Change in Libido, Cold Intolorance, Deepening of Voice, Excessive Sweating, Fatigue, Flushing, Heat Intolorance, Increase in Ring/Shoe/Hat Size, Palpitations, Polydipsia, Polyphagia, Polyuria, Other - Hematologic/Lymphatic Hematologic: absent: As Per HPI, Easy Bleeding, Easy Bruising, Lymphadenopathy, Other Past Patient History - Past Medical History & Family History Past Medical History?: Yes - Past Social History Smoking Status: Heavy Smoker > 10 Cigarettes Daily - CARDIAC Hx Cardiac Disorders: Yes Hx Hypertension: Yes - PULMONARY Hx Respiratory Disorders: Yes Hx Chronic Obstructive Pulmonary Disease (COPD): Yes (however uses nebulizer at home) - NEUROLOGICAL Hx Neurological Disorder: No - HEENT Hx HEENT Problems: No - RENAL Hx Chronic Kidney Disease: No - ENDOCRINE/METABOLIC Hx Endocrine Disorders: No - HEMATOLOGICAL/ONCOLOGICAL Hx Blood Disorders: No - INTEGUMENTARY Hx Dermatological Problems: No - MUSCULOSKELETAL/RHEUMATOLOGICAL Hx Musculoskeletal Disorders: Yes Hx Back Pain: Yes Hx Falls: No Other/Comment: sciatica - GASTROINTESTINAL Hx Gastrointestinal Disorders: No - GENITOURINARY/GYNECOLOGICAL Hx Genitourinary Disorders: No - PSYCHIATRIC Hx Psychophysiologic Disorder: Yes Hx Anxiety: Yes Hx Substance Use: No - SURGICAL HISTORY Hx Surgeries: Yes Other/Comment: SPINE SURGERY 2009 PER PATIENT - ANESTHESIA Hx Anesthesia: Yes Hx Anesthesia Reactions: Yes (severe hypotension) Meds Home Medications: Home Medication List Medication Instructions Recorded Confirmed Type Ketorolac [Ketorolac Tromethamine] 15 mg IVP Q8 #1 vial 04/04/18 Rx Allergies/Adverse Reactions: Allergies Allergy/AdvReac Type Severity Reaction Status Date / Time doxycycline Allergy Verified 04/01/18 10:41 Penicillins Allergy Verified 04/01/18 10:41 - Medications Medications: Current Medications Acetaminophen (Tylenol 325mg Tab) 650 mg PO Q4H PRN PRN Reason: pain fever Albuterol (Ventolin Hfa 90 Mcg/Actuation (8 G)) 2 puff IH Q8H PRN PRN Reason: Shortness of Breath Albuterol/Ipratropium (Duoneb 3 Mg/0.5 Mg (3 Ml) Ud) 3 ml IH RQ6 [facility] Last Admin: 04/06/18 07:31 Dose: 3 ml Alprazolam (Xanax) 1 mg PO DAILY PRN PRN Reason: Anxiety Last Admin: 04/04/18 21:23 Dose: 1 mg Alprazolam (Xanax) 0.25 mg PO BID PRN PRN Reason: Anxiety Stop: 04/12/18 16:55 Last Admin: 04/05/18 23:34 Dose: 0.25 mg Bismuth Subsalicylate (Pepto-Bismol) 262 mg PO Q6 PRN PRN Reason: Diarrhea Last Admin: 04/05/18 21:54 Dose: 262 mg Enoxaparin Sodium (Lovenox) 40 mg SC DAILY [facility] Last Admin: 04/06/18 10:02 Dose: 40 mg Famotidine (Pepcid) 20 mg PO DAILY [facility] Last Admin: 04/06/18 09:50 Dose: 20 mg Ferrous Sulfate (Feosol) 325 mg PO TID [facility] Last Admin: 04/06/18 09:51 Dose: 325 mg Home Med (Patient's Own Medication) 1 tab PO DAILY [facility] Last Admin: 04/06/18 09:52 Dose: 1 tab Hydrochlorothiazide (Microzide) 12.5 mg PO DAILY [facility] Last Admin: 04/05/18 14:08 Dose: Not Given Azithromycin 500 mg/ Sodium (Chloride) 250 mls @ 166.667 mls/hr IVPB DAILY [facility] PRN Reason: Protocol Last Admin: 04/06/18 09:03 Dose: 166.667 mls/hr Aztreonam 1 gm/ Sodium (Chloride) 100 mls @ 200 mls/hr IVPB Q8H [facility] PRN Reason: Protocol Last Admin: 04/06/18 03:27 Dose: 200 mls/hr Vancomycin/Sodium Chloride (Vancomycin 1 Gm/Ns 200 Ml) 1 gm in 200 mls @ 133 mls/hr IVPB Q12H [facility] PRN Reason: Protocol Stop: 04/08/18 22:01 Last Admin: 04/05/18 21:52 Dose: 133 mls/hr Ibuprofen (Motrin Tab) 400 mg PO Q6H PRN PRN Reason: Pain, moderate (4-7) Last Admin: 04/06/18 09:50 Dose: 400 mg Ketorolac Tromethamine (Toradol) 15 mg IVP Q8 PRN PRN Reason: Pain, moderate (4-7) Last Admin: 04/06/18 03:27 Dose: 15 mg Lidocaine (Lidoderm) 1 ea TD DAILY [facility] Last Admin: 04/06/18 09:50 Dose: 1 ea Lisinopril (Zestril) 10 mg PO DAILY [facility] Last Admin: 04/05/18 14:07 Dose: Not Given Nicotine (Nicoderm Cq) 1 patch TD DAILY [facility] Last Admin: 04/06/18 09:50 Dose: 1 patch Tramadol HCl (Ultram) 50 mg PO DAILY PRN PRN Reason: Pain, moderate (4-7) Last Admin: 04/06/18 05:14 Dose: 50 mg Physical Exam - Constitutional Appears: No Acute Distress - Head Exam Head Exam: ATRAUMATIC, NORMAL INSPECTION, NORMOCEPHALIC - Eye Exam Eye Exam: EOMI, Normal appearance, PERRL Pupil Exam: NORMAL ACCOMODATION, PERRL - ENT Exam ENT Exam: Mucous Membranes Moist, Normal Exam - Neck Exam Neck exam: Positive for: Normal Inspection - Respiratory Exam Respiratory Exam: Decreased Breath Sounds Additional comments: voice harsh - Cardiovascular Exam Cardiovascular Exam: Tachycardia, REGULAR RHYTHM - GI/Abdominal Exam GI & Abdominal Exam: Normal Bowel Sounds - Rectal Exam Rectal Exam: Deferred - Extremities Exam Extremities exam: Positive for: normal inspection, tenderness Additional comments: left leg pain, needs a lot of assistance with ambulation - Back Exam Back exam: tenderness - Neurological Exam Neurological exam: Alert, Oriented x3 - Psychiatric Exam Psychiatric exam: Anxious - Skin Skin Exam: Pallor Results - Vital Signs Recent Vital Signs: Last Vital Signs Temp 97.8 F 04/06/18 07:00 Pulse 108 H 04/06/18 07:00 Resp 18 04/06/18 07:00 BP 101/61 04/06/18 07:00 Pulse Ox 95 04/06/18 07:00 - Labs Result Diagrams: 04/06/18 07:39 04/06/18 07:39 Labs: Laboratory Results - last 24 hr 04/05/18 04/06/18 04/06/18 16:11 00:31 00:31 WBC RBC Hgb Hct MCV MCH MCHC RDW Plt Count MPV Sodium Potassium Chloride Carbon Dioxide Anion Gap BUN Creatinine Est GFR ( Amer) Est GFR (Non-Af Amer) Random Glucose Calcium Urine Color Yellow Urine Clarity Hazy Urine pH 5.0 Ur Specific [place] 1.024 Urine Protein 1+ H Urine Glucose (UA) Normal Urine Ketones Negative Urine Blood 2+ H Urine Nitrate Negative Urine Bilirubin Negative Urine Urobilinogen Normal Ur Leukocyte Esterase Neg Urine WBC (Auto) 2 Urine RBC (Auto) 26 H Ur Squamous Epith Cells 14 H Urine Bacteria Rare Granular Casts (Auto) 6 C. difficile Ag & Toxin Negative Ur L.pneumophila Ag Negative 04/06/18 04/06/18 07:39 07:39 WBC 8.2 RBC 3.23 L Hgb 9.1 L Hct 26.5 L MCV 82.1 MCH 28.1 MCHC 34.3 RDW 15.2 H Plt Count 299 MPV 7.3 Sodium 142 Potassium 3.2 L Chloride 105 Carbon Dioxide 27 Anion Gap 13 BUN 13 Creatinine 0.9 Est GFR ( Amer) > 60 Est GFR (Non-Af Amer) > 60 Random Glucose 130 H Calcium 8.8 Urine Color Urine Clarity Urine pH Ur Specific [place] Urine Protein Urine Glucose (UA) Urine Ketones Urine Blood Urine Nitrate Urine Bilirubin Urine Urobilinogen Ur Leukocyte Esterase Urine WBC (Auto) Urine RBC (Auto) Ur Squamous Epith Cells Urine Bacteria Granular Casts (Auto) C. difficile Ag & Toxin Ur L.pneumophila Ag Assessment & Plan - Assessment and Plan (Free Text) Assessment: Palliative consult Full code, there is no advance directive on chart, PPS 40% I reviewed medical records, all diagnostic studies, examined and interviewed patient in the bed Patient is alert, oriented X 3, looking pale, admits to feeling " edgy" and tired. Voice is harsh sounding. There is nicotine body odor noted. Patient admits to be smoking 2 packs a day of cigarets and stopped prior this admission. I questioned her cravings and offered Nicotine patch what patient refused. Breath sounds are diminished, congested. There is dry cough. Post bronchosopy yesterday. Abdomen soft, complains of stomach cramps post Pepcid. Tolerates diet fairly. Uses commode at bed side due to difficulties ambulating, secondary to low back pain which radiates to LEs. Takes Motrin, Ultram and Toradol PRN for pain. Pain is controlled. I discussed her symptoms and elicited her perception about her condition. She stated, that chest pain she had was very different than her anxiety attacks chest discomfort. Patient is aware that one of her lungs was collapsed and that she has a left lung mass. I specifically asked patient if she would want to know Bx results when available. She insisted she would . Patient also reported that she feels very positive and believes results will come back negative for cancer. I supported her attitude. Outside of the room, I spoke to Doctor Velarde who has concern that Bx may be cancer positive. He also cautioned me about family's request not to disclose results to a patient. Impression * Anticipatory anxiety related to possible cancer diagnosis * Inability to walk secondary to low back pain * Chronic low back pain radiating to LEs * Upset stomach * Possible Nicotine withdrawal Suggestions * I will visit patient again once diagnosis is awailable. Will talk to family first about patient's desire to be made aware of diagnosis * Assist OOB to chair/commode * Continue present pain meds * Consider changing Pepcid for protonix PO * Monitor for worsening of Nicotine withdrawal symptoms Advance planing time 30 min *
--- NOTE | 2018-04-06 11:05 | CP.PCM.PN ---
Subjective - Date & Time of Evaluation Date of Evaluation: 04/06/18 Time of Evaluation: 10:00 - Subjective Subjective: Patient seen and examined Less shortness of breath Complaining of back pain and weakness Afebrile Status post bronchoscopy and biopsy Objective - Vital Signs/Intake and Output Vital Signs (last 24 hours): Temp Pulse Resp BP Pulse Ox 97.8 F 108 H 18 101/61 95 04/06/18 07:00 04/06/18 07:00 04/06/18 07:00 04/06/18 07:00 04/06/18 07:00 - Medications Medications: Current Medications Acetaminophen (Tylenol 325mg Tab) 650 mg PO Q4H PRN PRN Reason: pain fever Albuterol (Ventolin Hfa 90 Mcg/Actuation (8 G)) 2 puff IH Q8H PRN PRN Reason: Shortness of Breath Albuterol/Ipratropium (Duoneb 3 Mg/0.5 Mg (3 Ml) Ud) 3 ml IH RQ6 [facility] Last Admin: 04/06/18 07:31 Dose: 3 ml Alprazolam (Xanax) 1 mg PO DAILY PRN PRN Reason: Anxiety Last Admin: 04/04/18 21:23 Dose: 1 mg Alprazolam (Xanax) 0.25 mg PO BID PRN PRN Reason: Anxiety Stop: 04/12/18 16:55 Last Admin: 04/05/18 23:34 Dose: 0.25 mg Bismuth Subsalicylate (Pepto-Bismol) 262 mg PO Q6 PRN PRN Reason: Diarrhea Last Admin: 04/05/18 21:54 Dose: 262 mg Enoxaparin Sodium (Lovenox) 40 mg SC DAILY [facility] Last Admin: 04/06/18 10:02 Dose: 40 mg Famotidine (Pepcid) 20 mg PO DAILY [facility] Last Admin: 04/06/18 09:50 Dose: 20 mg Ferrous Sulfate (Feosol) 325 mg PO TID [facility] Last Admin: 04/06/18 09:51 Dose: 325 mg Home Med (Patient's Own Medication) 1 tab PO DAILY [facility] Last Admin: 04/06/18 09:52 Dose: 1 tab Hydrochlorothiazide (Microzide) 12.5 mg PO DAILY [facility] Last Admin: 04/05/18 14:08 Dose: Not Given Azithromycin 500 mg/ Sodium (Chloride) 250 mls @ 166.667 mls/hr IVPB DAILY [facility] PRN Reason: Protocol Last Admin: 04/06/18 09:03 Dose: 166.667 mls/hr Aztreonam 1 gm/ Sodium (Chloride) 100 mls @ 200 mls/hr IVPB Q8H [facility] PRN Reason: Protocol Last Admin: 04/06/18 03:27 Dose: 200 mls/hr Vancomycin/Sodium Chloride (Vancomycin 1 Gm/Ns 200 Ml) 1 gm in 200 mls @ 133 mls/hr IVPB Q12H [facility] PRN Reason: Protocol Stop: 04/08/18 22:01 Last Admin: 04/05/18 21:52 Dose: 133 mls/hr Ibuprofen (Motrin Tab) 400 mg PO Q6H PRN PRN Reason: Pain, moderate (4-7) Last Admin: 04/06/18 09:50 Dose: 400 mg Ketorolac Tromethamine (Toradol) 15 mg IVP Q8 PRN PRN Reason: Pain, moderate (4-7) Last Admin: 04/06/18 03:27 Dose: 15 mg Lidocaine (Lidoderm) 1 ea TD DAILY [facility] Last Admin: 04/06/18 09:50 Dose: 1 ea Lisinopril (Zestril) 10 mg PO DAILY [facility] Last Admin: 04/05/18 14:07 Dose: Not Given Nicotine (Nicoderm Cq) 1 patch TD DAILY [facility] Last Admin: 04/06/18 09:50 Dose: 1 patch Tramadol HCl (Ultram) 50 mg PO DAILY PRN PRN Reason: Pain, moderate (4-7) Last Admin: 04/06/18 05:14 Dose: 50 mg - Labs Labs: 04/06/18 07:39 04/06/18 07:39 PT 14.0 SECONDS (9.7-12.2) H 04/03/18 01:53 INR 1.3 04/03/18 01:53 APTT 29 SECONDS (21-34) 04/03/18 01:53 - Head Exam Head Exam: ATRAUMATIC, NORMOCEPHALIC - Eye Exam Eye Exam: Normal appearance - ENT Exam ENT Exam: Mucous Membranes Moist - Neck Exam Neck Exam: Normal Inspection - Respiratory Exam Respiratory Exam: Decreased Breath Sounds - Cardiovascular Exam Cardiovascular Exam: REGULAR RHYTHM - GI/Abdominal Exam GI & Abdominal Exam: Soft, Normal Bowel Sounds Assessment and Plan (1) Collapse of left lung Assessment & Plan: rule out malignancy Status post bronchoscopy and biopsy of endobronchial mass Continue present treatment for now Subacute/rehabilitation Status: Acute
--- NOTE | 2018-04-06 15:33 | PN ---
DATE: 04/05/2018 SUBJECTIVE: Patient was seen and examined at the bedside on 04/05/2018. Her homemaker Daniella was standing at the bedside also. Patient came back from bronchoscopy. Complaining about diarrhea. Biopsy and brushing of the bronchial alveoli done, sent for biopsy. There is complete obstruction of the left lower lobe bronchus with large endobronchial mass. Complaining of back pain also. No fever, no chills. PHYSICAL EXAMINATION: VITAL SIGNS: Temperature 98, pulse 110, respiratory rate 20, blood pressure 90/55, pulse oximetry 97. HEENT: Head normocephalic, atraumatic. Eyes PERRLA. Extraocular muscles intact. Conjunctivae clear. Nose patent. Mucous membrane moist. NECK: Supple. No carotid bruit. No JVD or thyromegaly. CHEST: Bilaterally symmetrical. HEART: S1 and S2 positive. LUNGS: Wheezing bilaterally. ABDOMEN: Soft. Bowel sounds present. No organomegaly. EXTREMITIES: No edema. No cyanosis. NEUROLOGIC: The patient is awake, alert. Moving all four extremities. No focal deficits. MEDICATIONS: Tylenol, Ventolin, Xanax, Lovenox, Pepcid, ferrous sulfate, hydrochlorothiazide, azithromycin, aztreonam, vancomycin, ibuprofen, lidocaine, Zestril, tramadol. LABORATORY DATA: White blood cells 9.5, hemoglobin 9.2, hematocrit 27.3, platelet 315. Sodium 141, potassium 3.4, BUN 14, creatinine 0.9, glucose 90. ASSESSMENT AND PLAN: pt with anemia, hypokalemia, has collapse of the left lung secondary to endobronchial lesion, rule out malignancy, status post lung biopsy, getting nebulizer treatment, getting antibiotics for now. Continue analgesic for pain. As per patient, she has lumbosacral radiculopathy, sciatica. Now today, she has diarrhea. GI team is on the case. Rule out pneumonia. Abdominal pain. Continue Azactam, azithromycin, and vancomycin. Sputum Gram-stain and cultures are pending. We will follow up. Alice Bowling MD PH[facility]
[2018-04-06] MEDS ORDERED: Potassium Chloride 20 mEq/15 ml LIQ UD PO ONE ×2 (16:45→18:33)
[2018-04-06] MEDS: RANITIDINE HCL 150 MG TAB PO SCH (18:08)
--- NOTE | 2018-04-06 19:56 | CP.PCM.PN ---
Subjective - Date & Time of Evaluation Date of Evaluation: 04/06/18 Time of Evaluation: 19:56 - Subjective Subjective: AFEBRILE , C/O BACKPAIN AND WEAKNESS S/P FOB AND BRONCHIAL BRUSHINGS AND BX-P FINDINGS NOTED. ENDOBRONCHIAL MASS COMPLETELY OBSTRUCTING LLL ? MALIGNANCY. Objective - Vital Signs/Intake and Output Vital Signs (last 24 hours): Temp Pulse Resp BP Pulse Ox 97.6 F 108 H 20 118/65 93 L 04/06/18 15:58 04/06/18 15:58 04/06/18 15:58 04/06/18 15:58 04/06/18 15:58 - Medications Medications: Current Medications Acetaminophen (Tylenol 325mg Tab) 650 mg PO Q4H PRN PRN Reason: pain fever Albuterol (Ventolin Hfa 90 Mcg/Actuation (8 G)) 2 puff IH Q8H PRN PRN Reason: Shortness of Breath Albuterol/Ipratropium (Duoneb 3 Mg/0.5 Mg (3 Ml) Ud) 3 ml IH RQ6 [facility] Last Admin: 04/06/18 13:27 Dose: 3 ml Alprazolam (Xanax) 1 mg PO DAILY PRN PRN Reason: Anxiety Last Admin: 04/04/18 21:23 Dose: 1 mg Alprazolam (Xanax) 0.25 mg PO BID PRN PRN Reason: Anxiety Stop: 04/12/18 16:55 Last Admin: 04/05/18 23:34 Dose: 0.25 mg Bismuth Subsalicylate (Pepto-Bismol) 262 mg PO Q6 PRN PRN Reason: Diarrhea Last Admin: 04/05/18 21:54 Dose: 262 mg Enoxaparin Sodium (Lovenox) 40 mg SC DAILY [facility] Last Admin: 04/06/18 10:02 Dose: 40 mg Ferrous Sulfate (Feosol) 325 mg PO TID [facility] Last Admin: 04/06/18 18:23 Dose: Not Given Home Med (Patient's Own Medication) 1 tab PO DAILY [facility] Last Admin: 04/06/18 09:52 Dose: 1 tab Home Med (Patient's Own Medication) 1 tab PO BID [facility] Last Admin: 04/06/18 18:08 Dose: 1 tab Home Med (Patient's Own Medication) 1 tab PO Q12 PRN PRN Reason: Pain, moderate (4-7) Azithromycin 500 mg/ Sodium (Chloride) 250 mls @ 166.667 mls/hr IVPB DAILY [facility] PRN Reason: Protocol Last Admin: 04/06/18 09:03 Dose: 166.667 mls/hr Aztreonam 1 gm/ Sodium (Chloride) 100 mls @ 200 mls/hr IVPB Q8H [facility] PRN Reason: Protocol Last Admin: 04/06/18 12:30 Dose: 200 mls/hr Vancomycin/Sodium Chloride (Vancomycin 1 Gm/Ns 200 Ml) 1 gm in 200 mls @ 133 mls/hr IVPB Q12H [facility] PRN Reason: Protocol Stop: 04/08/18 22:01 Last Admin: 04/05/18 21:52 Dose: 133 mls/hr Ibuprofen (Motrin Tab) 400 mg PO Q6H PRN PRN Reason: Pain, moderate (4-7) Last Admin: 04/06/18 09:50 Dose: 400 mg Ketorolac Tromethamine (Toradol) 30 mg IVP Q6 PRN PRN Reason: Pain, moderate (4-7) Last Admin: 04/06/18 18:57 Dose: 30 mg Lidocaine (Lidoderm) 1 ea TD DAILY [facility] Last Admin: 04/06/18 10:30 Dose: Not Given Nicotine (Nicoderm Cq) 1 patch TD DAILY [facility] Last Admin: 04/06/18 10:30 Dose: Not Given Tramadol HCl (Ultram) 50 mg PO DAILY PRN PRN Reason: Pain, moderate (4-7) Last Admin: 04/06/18 05:14 Dose: 50 mg - Labs Labs: 04/06/18 07:39 04/06/18 07:39 PT 14.0 SECONDS (9.7-12.2) H 04/03/18 01:53 INR 1.3 04/03/18 01:53 APTT 29 SECONDS (21-34) 04/03/18 01:53 - Constitutional Appears: No Acute Distress - Head Exam Head Exam: NORMAL INSPECTION - Eye Exam Eye Exam: EOMI, PERRL - ENT Exam ENT Exam: Normal Oropharynx - Neck Exam Neck Exam: Normal Inspection - Respiratory Exam Respiratory Exam: Decreased Breath Sounds (B/L) - Cardiovascular Exam Cardiovascular Exam: REGULAR RHYTHM, +S1, +S2 - GI/Abdominal Exam GI & Abdominal Exam: Soft, Tenderness (EPIGASTRIUM), Normal Bowel Sounds - Extremities Exam Extremities Exam: Normal Capillary Refill. absent: Calf Tenderness, Pedal Edema - Neurological Exam Neurological Exam: Awake, CN II-XII Intact, Oriented x3, Reflexes Normal - Psychiatric Exam Psychiatric exam: Normal Mood - Skin Skin Exam: Normal Color, Warm Assessment and Plan (1) Pneumonia Status: Acute (2) Chest pain Status: Acute (3) Chronic back pain Status: Acute (4) Sciatica Status: Acute (5) Abdominal pain Status: Acute - Assessment and Plan (Free Text) Plan: Continue IV Azactam 1 g every 8 hourly. 04/03/18. Continue Zithromax 500 IV piggyback once a day daily 04/03/18. DC IV vancomycin 1 g every 12 hourly 04/03/18. Sputum Gram stain and culture. F/U BRONCHIAL WASHINGS AND BRUSHINGS AND BIOPSY. PULMONARY TOILET PER PULMONARY.
[2018-04-06] MEDS: Sodium Chloride 0.9% 1,000 ML IV SCH (21:58)
[2018-04-06] MEDS: Vancomycin 1 gm/NS 200 ml 1 GM/200 ML BAG IVPB SCH (22:09)
--- NOTE | 2018-04-07 01:17 | PN ---
DATE: SUBJECTIVE: The patient was seen and examined at the bedside, complaining about abdominal pain and diarrhea, still having back pain going to right leg. Afebrile. Status post bronchoscopy and biopsy, still waiting for the result. Coughing and shortness of breath is better. PHYSICAL EXAMINATION: VITAL SIGNS: Temperature 97.8, pulse 108, respiratory rate 18, blood pressure 101/61, pulse oximetry is 95%. HEENT: Head: Normocephalic, atraumatic. Eyes: PERRLA, extraocular movements intact, conjunctivae clear. Nose: Patent. Mucous membrane moist. NECK: Supple. No carotid bruits, JVD, or thyromegaly. CHEST: Bilaterally symmetrical. HEART: S1 and S2 positive. LUNGS: Clear to auscultation. ABDOMEN: Soft. Bowel sounds positive. No organomegaly. EXTREMITIES: No edema. No cyanosis. NEUROLOGIC: The patient is awake, alert; moving all 4 extremities. No focal deficit. MEDICATIONS: albuterol, Xanax, Pepto-Bismuth, Lovenox, Pepcid, iron, hydrochlorothiazide, aztreonam, vancomycin, Toradol, Lidoderm patch, nicotine patch. ASSESSMENT AND PLAN: Ms. Lucita Mcclelland is a 63-year-old lady with anemia, hypokalemia, replaced, hyperglycemia, has collapse of the left lung, rule out malignancy, status post bronchoscopy and biopsy of the endothelial mass. Continue present treatment for now. Seen by Dr. Dago Neely, Infectious Disease. Maybe, the patient had postoperative pneumonia. Chest pain, chronic back pain, lumbosacral radiculopathy, sciatica, abdominal pain. I sent the patient for CAT scan of the abdomen and pelvis, started IV fluid. Sent stool for Clostridium difficile toxin colitis. The patient has anticipated anxiety related to possible cancer diagnosis. Inability to walk because of low back pain. Continue present pain management and increase the dose of Toradol and decrease the frequency. The patient does not want Pepcid, does not want Protonix. She wants Zantac. Now, she is taking Zantac 150 mg p.o. b.i.d. Length of time discussion done with the patient on the bedside, patient's grandson, granddaughter, and on the phone had discussion with patient's son Cabrera. Started IV fluid. Will repeat labs. Actually, GI is on the case, Dr. Kye Oconnell. No overt gastrointestinal bleeding. According to GI, the patient needs outpatient esophagogastroduodenoscopy/colonoscopy. They signed off the case, because the patient has intractable abdominal pain and diarrhea. Sent for CAT scan of the abdomen and pelvis with p.o. contrast, started on IV fluids, we will follow. Alice Bowling MD MTDD
[2018-04-07] MEDS: Albuterol-Ipratrop 3 mg / 0.5 (3 ml) UD IH SCH ×4 (03:15→20:01)
[2018-04-07] MEDS: Aztreonam 1 GM in Sodium Chloride 0.9% 100 ML IVPB SCH ×3 (04:43→19:28)
[2018-04-07 07:51] LABS: BASO # 0.1 K/uL (0.0-0.2); BASO % 1.5 % (0.0-2.0); EOS # 0.2 K/uL (0.0-0.7); EOS % 2.2 % (0.0-4.0); HEMOGLOBIN 9.8 g/dL (11.0-16.0); LYMPH # 1.6 K/uL (1.0-4.3); LYMPH % 19.2 % (20.0-40.0); MEAN CELL VOLUME 81.1 fL (81.0-99.0); MEAN CORPUSCULAR HEMOGLOBIN 27.7 pg (27.0-31.0); MEAN CORPUSCULAR HGB CONC 34.2 g/dL (33.0-37.0); MEAN PLATELET VOLUME 7.2 fL (7.2-11.7); MONO # 0.5 K/uL (0.0-0.8); MONO % 6.1 % (0.0-10.0); NEUT # 5.8 K/uL (1.8-7.0); RBC 3.53 Mil/uL (3.80-5.20); RED CELL DISTRIBUTION WIDTH 15.2 % (11.5-14.5); WHITE BLOOD COUNT 8.1 K/uL (4.8-10.8)
[2018-04-07] MEDS ORDERED: Iohexol 240 (50 ml) PO ONE (08:00)
[2018-04-07 08:23] LABS: ALB/GLOB RATIO 0.8 (1.0-2.1); ALT/SGPT 20 U/L (9-52); AST/SGOT 48 U/L (14-36); BLOOD UREA NITROGEN 9 mg/dL (7-17); CALCIUM 9.1 mg/dl (8.6-10.4); GFR AFRICAN-AMERICAN > 60; GFR NON-AFRICAN AMERICAN > 60
[2018-04-07] MEDS: RANITIDINE HCL 150 MG TAB PO SCH ×2 (09:31→18:04)
[2018-04-07] MEDS: Potassium Chloride 20 mEq ER Tab PO SCH (09:31)
[2018-04-07] MEDS: Lidocaine 5% Patch TD SCH (09:31)
[2018-04-07] MEDS: Enoxaparin 40 mg Syringe SC SCH (09:31)
[2018-04-07] MEDS: Patient's Own Medication - Tablet/Capusle PO SCH (09:31)
[2018-04-07] MEDS: Vancomycin 1 gm/NS 200 ml 1 GM/200 ML BAG IVPB SCH ×2 (09:32→10:00)
--- NOTE | 2018-04-07 10:21 | CP.PCM.PN ---
Subjective - Date & Time of Evaluation Date of Evaluation: 04/07/18 Time of Evaluation: 09:20 - Subjective Subjective: the patient seen and examined Patient refusing antibiotics Had diarrhea once Denies shortness of breath Afebrile Complaining off epigastric discomfort Objective - Vital Signs/Intake and Output Vital Signs (last 24 hours): Temp Pulse Resp BP Pulse Ox 98.1 F 107 H 18 128/78 94 L 04/07/18 07:30 04/07/18 09:30 04/07/18 07:30 04/07/18 09:30 04/07/18 07:30 Intake and Output: 04/07/18 04/07/18 06:59 18:59 Intake Total 600 Balance 600 - Medications Medications: Current Medications Acetaminophen (Tylenol 325mg Tab) 650 mg PO Q4H PRN PRN Reason: pain fever Albuterol (Ventolin Hfa 90 Mcg/Actuation (8 G)) 2 puff IH Q8H PRN PRN Reason: Shortness of Breath Albuterol/Ipratropium (Duoneb 3 Mg/0.5 Mg (3 Ml) Ud) 3 ml IH RQ6 [facility] Last Admin: 04/07/18 08:22 Dose: 3 ml Alprazolam (Xanax) 0.25 mg PO BID PRN PRN Reason: Anxiety Stop: 04/12/18 16:55 Last Admin: 04/06/18 21:57 Dose: 0.25 mg Bismuth Subsalicylate (Pepto-Bismol) 262 mg PO Q6 PRN PRN Reason: Diarrhea Last Admin: 04/05/18 21:54 Dose: 262 mg Enoxaparin Sodium (Lovenox) 40 mg SC DAILY [facility] Last Admin: 04/07/18 09:31 Dose: 40 mg Home Med (Patient's Own Medication) 1 tab PO DAILY [facility] Last Admin: 04/07/18 09:31 Dose: 1 tab Home Med (Patient's Own Medication) 1 tab PO BID [facility] Last Admin: 04/07/18 09:31 Dose: 1 tab Home Med (Patient's Own Medication) 1 tab PO Q12 PRN PRN Reason: Pain, moderate (4-7) Aztreonam 1 gm/ Sodium (Chloride) 100 mls @ 200 mls/hr IVPB Q8H [facility] PRN Reason: Protocol Last Admin: 04/07/18 04:43 Dose: 200 mls/hr Vancomycin/Sodium Chloride (Vancomycin 1 Gm/Ns 200 Ml) 1 gm in 200 mls @ 133 mls/hr IVPB Q12H [facility] PRN Reason: Protocol Stop: 04/08/18 22:01 Last Admin: 04/07/18 09:32 Dose: 133 mls/hr Sodium Chloride (Sodium Chloride 0.9%) 1,000 mls @ 100 mls/hr IV .Q10H [facility] Last Admin: 04/06/18 21:58 Dose: 100 mls/hr Ketorolac Tromethamine (Toradol) 30 mg IVP Q6 PRN PRN Reason: Pain, moderate (4-7) Last Admin: 04/07/18 09:33 Dose: 30 mg Lidocaine (Lidoderm) 1 ea TD DAILY [facility] Last Admin: 04/06/18 10:30 Dose: Not Given Nicotine (Nicoderm Cq) 1 patch TD DAILY [facility] Last Admin: 04/06/18 10:30 Dose: Not Given Potassium Chloride (K-Dur 20 Meq Er Tab) 20 meq PO DAILY [facility] Last Admin: 04/07/18 09:31 Dose: 20 meq Tramadol HCl (Ultram) 50 mg PO DAILY PRN PRN Reason: Pain, moderate (4-7) Last Admin: 04/06/18 05:14 Dose: 50 mg - Labs Labs: 04/07/18 07:40 04/07/18 07:40 PT 14.0 SECONDS (9.7-12.2) H 04/03/18 01:53 INR 1.3 04/03/18 01:53 APTT 29 SECONDS (21-34) 04/03/18 01:53 - Head Exam Head Exam: ATRAUMATIC, NORMOCEPHALIC - ENT Exam ENT Exam: Mucous Membranes Moist - Neck Exam Neck Exam: Normal Inspection - Respiratory Exam Respiratory Exam: Decreased Breath Sounds - Cardiovascular Exam Cardiovascular Exam: REGULAR RHYTHM - GI/Abdominal Exam GI & Abdominal Exam: Soft, Normal Bowel Sounds Assessment and Plan (1) Collapse of left lung Assessment & Plan: status post lung biopsy of large endobronchial lesion Rule out malignancy continue nebulizer treatment Discontinue vancomycin Status: Acute
[2018-04-07] MEDS: Sodium Chloride 0.9% 1,000 ML IV SCH (18:04)
[2018-04-07] MEDS: Bismuth Subsalicylate 262 mg/15 ml Sus (240 ml) PO PRN (18:13)
--- NOTE | 2018-04-07 18:17 | CT ---
PROCEDURE: CT Abdomen and Pelvis without intravenous contrast HISTORY: abdominal pain COMPARISON: Upper abdomen sections from prior chest CT 07/01/2018 with no prior abdomen and pelvis CT available for comparison. TECHNIQUE: Helical CT of the abdomen and pelvis was performed without oral or intravenous contrast as per referring physician request. Contrast dose: None Radiation dose: Total exam DLP = 1218.71 mGy-cm. This CT exam was performed using one or more of the following dose reduction techniques: Automated exposure control, adjustment of the mA and/or kV according to patient size, and/or use of iterative reconstruction technique. FINDINGS: Lack of intravenous contrast limits interpretation significantly. LOWER THORAX: Right base remains clear with dense atelectasis or infiltrate affects the left lower lobe as well as minimal left pleural effusion. Cardiomegaly again evident. LIVER: Diffuse hepatic steatosis is evident without prominent intrahepatic biliary dilatation appreciated or definite mass. GALLBLADDER AND BILE DUCTS: Unremarkable. PANCREAS: Unremarkable. No gross lesion or ductal dilatation. SPLEEN: Unremarkable. ADRENALS: Unremarkable. No mass. KIDNEYS AND URETERS: 6.2 cm cyst is seen at the upper pole left kidney. Multiple indentations along the peripheral margins of the right kidney suggest multiple chronic infarcts. Infrequent similar foci are seen at the mid to lower pole left kidney. No obstructive uropathy bilaterally. VASCULATURE: Atherosclerotic nonaneurysmal abdominal aorta is identified. BOWEL: No bowel obstruction is appreciated involving large or small bowel segments. Scattered colonic diverticular seen throughout the colon without diverticulitis. APPENDIX: Unremarkable. Normal appendix. PERITONEUM: Unremarkable. No free fluid. No free air. LYMPH NODES: Unremarkable. No enlarged lymph nodes. BLADDER: A distended but thin walled urinary bladder is identified. REPRODUCTIVE: Myomatous uterine changes identified. BONES: Lytic lesions suspicious for metastases are seen at the L3 vertebral body as well as the right iliac bone with a questionable pathological fracture present at the posteromedial right iliac wing. Lytic lesion is also seen the right side of the sacrum. The patient is apparently status post prior laminectomies at L3 and L4 with limited grade 1 spondylolisthesis at L3-4. OTHER FINDINGS: None. IMPRESSION: 1. No definitive acute abdominal findings. 2. Fatty steatosis. 3. 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 4. Scattered colonic diverticulosis without diverticulitis, mild. 5. Myomatous uterine changes. 6. 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 Prior laminectomies L3 and L4 levels incidentally noted.
--- NOTE | 2018-04-07 21:15 | CP.PCM.PN ---
Subjective - Date & Time of Evaluation Date of Evaluation: 04/07/18 Time of Evaluation: 21:15 - Subjective Subjective: AFEBRILE, PRESENTLY DENIES SOB. C/O OF DIARRHEA AFTER ANTIBIOTICS. BACKACHE PERSISTS. LABS . STOOL C. DIFFICILE NEGATIVE X2. CXR. 04/05/18 NOTED MARKED IMPROVED LUNG AERATION AND RESIDUAL LLL CONSOLIDATION/ AND LT. SUBSEGMENTAL ATELECTASIS. wbc IMPROVING 8.1 .LFTS AST 48 SLIGHTLY HIGH, ast NORMAL. Objective - Vital Signs/Intake and Output Vital Signs (last 24 hours): Temp Pulse Resp BP Pulse Ox 98.1 F 108 H 20 128/82 95 04/07/18 15:00 04/07/18 16:30 04/07/18 15:00 04/07/18 15:00 04/07/18 15:00 Intake and Output: 04/07/18 04/08/18 18:59 06:59 Intake Total 800 Balance 800 - Medications Medications: Current Medications Acetaminophen (Tylenol 325mg Tab) 650 mg PO Q4H PRN PRN Reason: pain fever Albuterol (Ventolin Hfa 90 Mcg/Actuation (8 G)) 2 puff IH Q8H PRN PRN Reason: Shortness of Breath Albuterol/Ipratropium (Duoneb 3 Mg/0.5 Mg (3 Ml) Ud) 3 ml IH RQ6 [facility] Last Admin: 04/07/18 20:01 Dose: 3 ml Alprazolam (Xanax) 0.25 mg PO BID PRN PRN Reason: Anxiety Stop: 04/12/18 16:55 Last Admin: 04/06/18 21:57 Dose: 0.25 mg Bismuth Subsalicylate (Pepto-Bismol) 262 mg PO Q6 PRN PRN Reason: Diarrhea Last Admin: 04/07/18 18:13 Dose: 262 mg Enoxaparin Sodium (Lovenox) 40 mg SC DAILY [facility] Last Admin: 04/07/18 09:31 Dose: 40 mg Home Med (Patient's Own Medication) 1 tab PO DAILY [facility] Last Admin: 04/07/18 09:31 Dose: 1 tab Home Med (Patient's Own Medication) 1 tab PO BID [facility] Last Admin: 04/07/18 18:04 Dose: Not Given Home Med (Patient's Own Medication) 1 tab PO Q12 PRN PRN Reason: Pain, moderate (4-7) Aztreonam 1 gm/ Sodium (Chloride) 100 mls @ 200 mls/hr IVPB Q8H [facility] PRN Reason: Protocol Last Admin: 04/07/18 19:28 Dose: 200 mls/hr Sodium Chloride (Sodium Chloride 0.9%) 1,000 mls @ 100 mls/hr IV .Q10H [facility] Last Admin: 04/07/18 18:04 Dose: 100 mls/hr Ketorolac Tromethamine (Toradol) 30 mg IVP Q6 PRN PRN Reason: Pain, moderate (4-7) Last Admin: 04/07/18 15:42 Dose: 30 mg Lidocaine (Lidoderm) 1 ea TD DAILY [facility] Last Admin: 04/07/18 09:31 Dose: Not Given Nicotine (Nicoderm Cq) 1 patch TD DAILY [facility] Last Admin: 04/06/18 10:30 Dose: Not Given Potassium Chloride (K-Dur 20 Meq Er Tab) 20 meq PO DAILY [facility] Last Admin: 04/07/18 09:31 Dose: 20 meq Saccharomyces Boulardii (Florastor) 250 mg PO DAILY [facility] Tramadol HCl (Ultram) 50 mg PO DAILY PRN PRN Reason: Pain, moderate (4-7) Last Admin: 04/06/18 05:14 Dose: 50 mg - Labs Labs: 04/07/18 07:40 04/07/18 07:40 PT 14.0 SECONDS (9.7-12.2) H 04/03/18 01:53 INR 1.3 04/03/18 01:53 APTT 29 SECONDS (21-34) 04/03/18 01:53 - Constitutional Appears: No Acute Distress - Head Exam Head Exam: NORMAL INSPECTION - Eye Exam Eye Exam: EOMI, PERRL - ENT Exam ENT Exam: Normal Oropharynx - Neck Exam Neck Exam: Normal Inspection - Respiratory Exam Respiratory Exam: Decreased Breath Sounds, Rhonchi - Cardiovascular Exam Cardiovascular Exam: REGULAR RHYTHM, +S1, +S2 - GI/Abdominal Exam GI & Abdominal Exam: Soft, Tenderness (MILD TENDERNESS EPIGASTRIUM.), Normal Bowel Sounds - Extremities Exam Extremities Exam: Normal Capillary Refill. absent: Calf Tenderness, Pedal Edema - Neurological Exam Neurological Exam: Alert, Awake, CN II-XII Intact, Normal Gait, Oriented x3 - Psychiatric Exam Psychiatric exam: Anxious - Skin Skin Exam: Pallor, Warm Assessment and Plan (1) Pneumonia Assessment & Plan: OFF IV VANCOMYCIN .' CONTINUE IV AZACTAM 1GM IVPB Q8HRLY. ON IV AZITHROMYCIN . F/U BX AND CULTURES. Status: Acute (2) Chest pain Status: Acute (3) Chronic back pain Status: Acute (4) Sciatica Status: Acute (5) Abdominal pain Assessment & Plan: CT ABDOMEN/PELVIS -P RESULTS. TO F/U. Status: Acute
[2018-04-08] MEDS: Albuterol-Ipratrop 3 mg / 0.5 (3 ml) UD IH SCH ×2 (01:43→07:10)
[2018-04-08] MEDS: Aztreonam 1 GM in Sodium Chloride 0.9% 100 ML IVPB SCH ×3 (04:50→12:03)
[2018-04-08] MEDS: Morphine 4 MG/ML VIAL IVP PRN ×3 (09:20→21:57)
[2018-04-08] MEDS: Patient's Own Medication - Tablet/Capusle PO SCH (09:27)
[2018-04-08] MEDS: Saccharomyces Boulardi 250 mg Cap PO SCH (09:27)
[2018-04-08] MEDS: Potassium Chloride 20 mEq ER Tab PO SCH (09:27)
[2018-04-08] MEDS: RANITIDINE HCL 150 MG TAB PO SCH ×2 (09:28→18:00)
[2018-04-08] MEDS: Enoxaparin 40 mg Syringe SC SCH (09:29)
[2018-04-08] MEDS: Lidocaine 5% Patch TD SCH (09:30)
[2018-04-08] MEDS: Sodium Chloride 0.9% 1,000 ML IV SCH (13:50)
[2018-04-08] MEDS: TIZANIDINE HCL 4 MG TAB PO PRN (14:35)
--- NOTE | 2018-04-09 01:36 | PN ---
DATE: SUBJECTIVE: The patient is seen and examined at the bedside, looking comfortable, complaining about still abdominal pain especially back pain going to the leg. No nausea, vomiting. Diarrhea is settling down. No headaches. No dizziness. No fever. No chills. PHYSICAL EXAMINATION: VITAL SIGNS: Temperature 98.2, pulse 103, blood pressure 98/61, respiratory rate 20. HEENT: Head normocephalic, atraumatic. Eyes, PERRLA. Extraocular muscles intact. Conjunctivae clear. Nose patent. NECK: Supple. No carotid bruits. No JVD or thyromegaly. CHEST: Bilaterally symmetrical. HEART: S1, S2 positive. LUNGS: Clear to auscultation. ABDOMEN: Soft. Bowel sounds present. No organomegaly. EXTREMITIES: No edema. No cyanosis. NEUROLOGIC: The patient is awake, alert, moving all 4 extremities. No focal deficits. MEDICATIONS: Potassium, Lidoderm, Lovenox, morphine, Nicoderm. HOME MEDICATIONS: Pepto-Bismuth, Tylenol or tramadol. LABORATORY DATA: C. difficile toxin is negative in all three samples. Hemoglobin 9.8, hematocrit 28.6, sodium 139, potassium 3.5. ASSESSMENT AND PLAN: Mrs. Lucita Mcclelland is a 63-year-old female with postobstructive pneumonia because of a tumor, chest pain, chronic back pain, lumbosacral radiculopathy, sciatica, abdominal pain. ID is on the case. Sputum on outpatient has yeast. CAT scan of the abdomen and pelvis reviewed by me. According to Dr. 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 Bronchoscopy done with biopsy, waiting for the result. Biopsy was done by Dr. cathy Allan. patient's sons are informed about their mother condition. GI, DVT prophylaxis, may be will discharge her home tomorrow or rehabilitation because she is not able to do her ADL. We will follow up as outpatient. Alice Bowling MD PHU
--- NOTE | 2018-04-09 04:49 | PN ---
DATE: 04/07/2018 SUBJECTIVE: The patient is a 63-year-old female. The patient is seen and examined at the bedside on 05/08/2018. No nausea, vomiting, or diarrhea. No hematuria or hematochezia. No swelling of the leg. No chest pain, no palpitation, but having abdominal pain and back pain going towards the right leg. PHYSICAL EXAMINATION: VITAL SIGNS: Temperature 98.1, pulse 107, respiratory rate 18, and blood pressure 113/70, pulse oximetry is 94%. HEENT: Head: Normocephalic, atraumatic. Eyes: PERRLA, extraocular movements intact, conjunctivae clear. Nose: Patent. Mucous membranes moist. NECK: Supple. No carotid bruits. No JVD or thyromegaly. CHEST: Bilaterally symmetrical. HEART: S1 and S2 positive. LUNGS: Clear to auscultation. ABDOMEN: Soft. Bowel sounds positive. No organomegaly. EXTREMITIES: No edema, no cyanosis. NEUROLOGIC: The patient is awake, alert, moving all 4 extremities. No focal deficits. MEDICATIONS: Tylenol, Ventolin, DuoNeb, Xanax, Pepto-Bismol, Lovenox. HOME MEDICATIONS: Lidoderm patch, Nicoderm, potassium replacement. LABORATORY DATA: White blood cells 8.1, hemoglobin, 9.8, hematocrit 28.6, platelets 318. Sodium 131, potassium 3.5, BUN 9, creatinine 0.9, glucose 96. ASSESSMENT AND PLAN: Ms. Lucita Mcclelland is a 63-year-old female with anemia, with hypokalemia, has collapsed left lung, status post lung biopsy of a large endotracheal lesion, rule out malignancy. Continue nebulizer treatment. He discontinued the vancomycin. Dr. Colton Velarde, export coordinator is on the case. CAT scan of the abdomen and pelvis done. Reviewed by me, discussion done with the patient's son and other family members. Seen by Infectious Disease, Dr. Dago Neely. History of diarrhea, but improved, bacteria has persisted. Stool Clostridium difficile toxin is negative x3. Out of bed, physical therapy taking care of the patient's pain. History of obstructive pneumonia. Off the antibiotics . Azactam, and azithromycin. Follow up with cultures, chest pain, sciatica, and abdominal pain. Waiting for the pathology. Repeat labs. We will follow up. Alice Bowling MD MTDSy
[2018-04-09] MEDS: Morphine 4 MG/ML VIAL IVP PRN ×3 (07:03→19:39)
[2018-04-09] MEDS: Sodium Chloride 0.9% 1,000 ML IV SCH ×5 (07:06→20:59)
[2018-04-09 08:25] LABS: HEMOGLOBIN 9.4 g/dL (11.0-16.0); MEAN CELL VOLUME 81.1 fL (81.0-99.0); MEAN CORPUSCULAR HEMOGLOBIN 27.9 pg (27.0-31.0); MEAN CORPUSCULAR HGB CONC 34.3 g/dL (33.0-37.0); MEAN PLATELET VOLUME 6.9 fL (7.2-11.7); RBC 3.36 Mil/uL (3.80-5.20); RED CELL DISTRIBUTION WIDTH 15.4 % (11.5-14.5)
[2018-04-09 08:40] LABS: BLOOD UREA NITROGEN 8 mg/dL (7-17); GFR AFRICAN-AMERICAN > 60; GFR NON-AFRICAN AMERICAN > 60
[2018-04-09] MEDS: Potassium Chloride 20 mEq ER Tab PO SCH (09:41)
[2018-04-09] MEDS: Saccharomyces Boulardi 250 mg Cap PO SCH (09:41)
[2018-04-09] MEDS: Lidocaine 5% Patch TD SCH (09:42)
[2018-04-09] MEDS: Enoxaparin 40 mg Syringe SC SCH (09:42)
[2018-04-09] MEDS: TIZANIDINE HCL 4 MG TAB PO PRN ×2 (09:43→19:45)
[2018-04-09] MEDS: RANITIDINE HCL 150 MG TAB PO SCH ×2 (09:43→17:20)
[2018-04-09] MEDS: Patient's Own Medication - Tablet/Capusle PO SCH (09:44)
--- NOTE | 2018-04-09 15:38 | CP.PCM.PN ---
Subjective - Date & Time of Evaluation Date of Evaluation: 04/09/18 Time of Evaluation: 10:00 - Subjective Subjective: patient seen and examined Complaining of back pain radiating to legs Denies shortness of breath Slight cough Biopsy consistent with adenocarcinoma Objective - Vital Signs/Intake and Output Vital Signs (last 24 hours): Temp Pulse Resp BP Pulse Ox 98.1 F 103 H 18 130/81 97 04/09/18 07:00 04/09/18 07:00 04/09/18 07:00 04/09/18 07:00 04/09/18 07:00 Intake and Output: 04/09/18 04/09/18 06:59 18:59 Intake Total 500 Balance 500 - Medications Medications: Current Medications Acetaminophen (Tylenol 325mg Tab) 650 mg PO Q4H PRN PRN Reason: pain fever Albuterol (Ventolin Hfa 90 Mcg/Actuation (8 G)) 2 puff IH Q8H [facility] Albuterol/Ipratropium (Duoneb 3 Mg/0.5 Mg (3 Ml) Ud) 3 ml INH RQ6 [facility] Alprazolam (Xanax) 0.25 mg PO BID PRN PRN Reason: Anxiety Stop: 04/12/18 16:55 Last Admin: 04/07/18 21:44 Dose: 0.25 mg Bismuth Subsalicylate (Pepto-Bismol) 262 mg PO Q6 PRN PRN Reason: Diarrhea Last Admin: 04/07/18 18:13 Dose: 262 mg Enoxaparin Sodium (Lovenox) 40 mg SC DAILY [facility] Last Admin: 04/09/18 09:42 Dose: 40 mg Home Med (Patient's Own Medication) 1 tab PO DAILY [facility] Last Admin: 04/09/18 09:44 Dose: 1 tab Home Med (Patient's Own Medication) 1 tab PO BID [facility] Last Admin: 04/09/18 09:43 Dose: 1 tab Home Med (Patient's Own Medication) 1 tab PO Q12 PRN PRN Reason: Pain, moderate (4-7) Last Admin: 04/09/18 09:43 Dose: 1 tab Sodium Chloride (Sodium Chloride 0.9%) 1,000 mls @ 100 mls/hr IV .Q10H [facility] Last Admin: 04/09/18 09:48 Dose: Not Given Lidocaine (Lidoderm) 1 ea TD DAILY [facility] Last Admin: 04/09/18 09:42 Dose: 1 ea Morphine Sulfate (Morphine) 1 mg IVP Q6 PRN PRN Reason: Pain, SEVERE (8-10) Last Admin: 04/09/18 13:12 Dose: 1 mg Nicotine (Nicoderm Cq) 1 patch TD DAILY [facility] Last Admin: 04/06/18 10:30 Dose: Not Given Potassium Chloride (K-Dur 20 Meq Er Tab) 20 meq PO DAILY [facility] Last Admin: 04/09/18 09:41 Dose: 20 meq Saccharomyces Boulardii (Florastor) 250 mg PO DAILY [facility] Last Admin: 04/09/18 09:41 Dose: 250 mg Tramadol HCl (Ultram) 50 mg PO DAILY PRN PRN Reason: Pain, moderate (4-7) Last Admin: 04/06/18 05:14 Dose: 50 mg - Labs Labs: 04/09/18 08:21 04/09/18 08:21 PT 14.0 SECONDS (9.7-12.2) H 04/03/18 01:53 INR 1.3 04/03/18 01:53 APTT 29 SECONDS (21-34) 04/03/18 01:53 - Head Exam Head Exam: ATRAUMATIC, NORMOCEPHALIC - Eye Exam Eye Exam: Normal appearance - Neck Exam Neck Exam: Normal Inspection - Respiratory Exam Respiratory Exam: Decreased Breath Sounds - Cardiovascular Exam Cardiovascular Exam: REGULAR RHYTHM - GI/Abdominal Exam GI & Abdominal Exam: Soft, Normal Bowel Sounds - Extremities Exam Extremities Exam: Normal Inspection - Neurological Exam Neurological Exam: Alert, Oriented x3 Assessment and Plan (1) Collapse of left lung Assessment & Plan: Lung collapse secondary to left lower lobe endobronchial lesion Biopsy consistent with adenocarcinoma Possible metastases to bone Oncology evaluation Subacute rehabilitation Pain medicine consult Status: Acute
--- NOTE | 2018-04-09 16:38 | CP.PCM.PN ---
Subjective - Date & Time of Evaluation Date of Evaluation: 04/09/18 Time of Evaluation: 16:38 - Subjective Subjective: AFEBRILE, PRESENTLY DENIES SOB. C/O BACKPAIN/ AND SACRAL PAIN RT SIDE. PULMONARY FOLLOW-UP NOTED. PATIENT OFF ANTIBIOTICS. DISCUSSED WITH ONE OF THE SONS. AWAIT PULMONARY DISCUSSION. Objective - Vital Signs/Intake and Output Vital Signs (last 24 hours): Temp Pulse Resp BP Pulse Ox 98.1 F 103 H 18 130/81 97 04/09/18 07:00 04/09/18 07:00 04/09/18 07:00 04/09/18 07:00 04/09/18 07:00 Intake and Output: 04/09/18 04/09/18 06:59 18:59 Intake Total 500 1100 Balance 500 1100 - Medications Medications: Current Medications Acetaminophen (Tylenol 325mg Tab) 650 mg PO Q4H PRN PRN Reason: pain fever Albuterol (Ventolin Hfa 90 Mcg/Actuation (8 G)) 2 puff IH Q8H [facility] Albuterol/Ipratropium (Duoneb 3 Mg/0.5 Mg (3 Ml) Ud) 3 ml INH RQ6 [facility] Alprazolam (Xanax) 0.25 mg PO BID PRN PRN Reason: Anxiety Stop: 04/12/18 16:55 Last Admin: 04/07/18 21:44 Dose: 0.25 mg Bismuth Subsalicylate (Pepto-Bismol) 262 mg PO Q6 PRN PRN Reason: Diarrhea Last Admin: 04/07/18 18:13 Dose: 262 mg Enoxaparin Sodium (Lovenox) 40 mg SC DAILY [facility] Last Admin: 04/09/18 09:42 Dose: 40 mg Home Med (Patient's Own Medication) 1 tab PO DAILY [facility] Last Admin: 04/09/18 09:44 Dose: 1 tab Home Med (Patient's Own Medication) 1 tab PO BID [facility] Last Admin: 04/09/18 09:43 Dose: 1 tab Home Med (Patient's Own Medication) 1 tab PO Q12 PRN PRN Reason: Pain, moderate (4-7) Last Admin: 04/09/18 09:43 Dose: 1 tab Sodium Chloride (Sodium Chloride 0.9%) 1,000 mls @ 100 mls/hr IV .Q10H [facility] Last Admin: 04/09/18 09:48 Dose: Not Given Lidocaine (Lidoderm) 1 ea TD DAILY [facility] Last Admin: 04/09/18 09:42 Dose: 1 ea Morphine Sulfate (Morphine) 1 mg IVP Q6 PRN PRN Reason: Pain, SEVERE (8-10) Last Admin: 04/09/18 13:12 Dose: 1 mg Nicotine (Nicoderm Cq) 1 patch TD DAILY [facility] Last Admin: 04/06/18 10:30 Dose: Not Given Potassium Chloride (K-Dur 20 Meq Er Tab) 20 meq PO DAILY [facility] Last Admin: 04/09/18 09:41 Dose: 20 meq Saccharomyces Boulardii (Florastor) 250 mg PO DAILY [facility] Last Admin: 04/09/18 09:41 Dose: 250 mg Tramadol HCl (Ultram) 50 mg PO DAILY PRN PRN Reason: Pain, moderate (4-7) Last Admin: 04/06/18 05:14 Dose: 50 mg - Labs Labs: 04/09/18 08:21 04/09/18 08:21 PT 14.0 SECONDS (9.7-12.2) H 04/03/18 01:53 INR 1.3 04/03/18 01:53 APTT 29 SECONDS (21-34) 04/03/18 01:53 - Constitutional Appears: No Acute Distress - Head Exam Head Exam: NORMAL INSPECTION - Eye Exam Eye Exam: EOMI, PERRL - ENT Exam ENT Exam: Normal Oropharynx - Respiratory Exam Respiratory Exam: Clear to Ausculation Bilateral, Rhonchi (OCCASIONAL RHONCHI LEFT SIDE.) - Cardiovascular Exam Cardiovascular Exam: REGULAR RHYTHM, +S1, +S2 - GI/Abdominal Exam GI & Abdominal Exam: Soft, Normal Bowel Sounds - Extremities Exam Extremities Exam: Normal Capillary Refill. absent: Calf Tenderness, Pedal Edema - Neurological Exam Neurological Exam: Awake, CN II-XII Intact, Oriented x3 - Psychiatric Exam Psychiatric exam: Anxious, Depressed - Skin Skin Exam: Normal Color, Warm Assessment and Plan (1) Pneumonia Assessment & Plan: PATIENT OFF ANTIBIOTICS. pULMONARY FOLLOW-UP NOTED. BIOPSY LUNG CONSISTENT WITH ADENOCARCINOMA. Status: Acute (2) Chest pain Status: Acute (3) Chronic back pain Assessment & Plan: PATIENT FOR ONCOLOGY EVALUATION AND METASTATIC WORKUP. Status: Acute (4) Sciatica Status: Acute (5) Abdominal pain Assessment & Plan: PER ATTENDING Status: Acute
[2018-04-10] MEDS: Morphine 4 MG/ML VIAL IVP PRN ×4 (01:25→21:14)
[2018-04-10] MEDS: Albuterol-Ipratrop 3 mg / 0.5 (3 ml) UD INH SCH ×4 (02:10→19:47)
[2018-04-10] MEDS: Albuterol HFA 90 mcg/actuation (8 g) IH SCH (02:10)
[2018-04-10] MEDS ORDERED: Morphine 4 MG/ML VIAL IVP STA (05:56)
[2018-04-10] MEDS: TIZANIDINE HCL 4 MG TAB PO PRN ×2 (08:16→20:30)
[2018-04-10] MEDS: Lidocaine 5% Patch TD SCH (09:30)
[2018-04-10] MEDS: RANITIDINE HCL 150 MG TAB PO SCH ×2 (09:30→17:00)
[2018-04-10] MEDS: Enoxaparin 40 mg Syringe SC SCH (09:30)
[2018-04-10] MEDS: Patient's Own Medication - Tablet/Capusle PO SCH (09:30)
[2018-04-10] MEDS: Saccharomyces Boulardi 250 mg Cap PO SCH (09:30)
[2018-04-10] MEDS: Potassium Chloride 20 mEq ER Tab PO SCH (09:30)
--- NOTE | 2018-04-10 16:53 | CP.PCM.PN ---
Subjective - Date & Time of Evaluation Date of Evaluation: 04/10/18 Time of Evaluation: 11:20 - Subjective Subjective: Patient seen and examined Still complaining of back pain Afebrile Shortness of breath on exertion No chest pain Awaiting for oncology evaluation For transfer to subacute rehabilitation Follow up if necessary Continue nebulizer treatment Objective - Vital Signs/Intake and Output Vital Signs (last 24 hours): Temp Pulse Resp BP Pulse Ox 98.7 F 105 H 20 101/67 96 04/10/18 16:00 04/10/18 16:00 04/10/18 16:00 04/10/18 16:00 04/10/18 16:00 Intake and Output: 04/10/18 04/10/18 06:59 18:59 Intake Total 100 400 Balance 100 400 - Medications Medications: Current Medications Acetaminophen (Tylenol 325mg Tab) 650 mg PO Q4H PRN PRN Reason: pain fever Albuterol (Ventolin Hfa 90 Mcg/Actuation (8 G)) 2 puff IH Q8H [facility] Last Admin: 04/10/18 02:10 Dose: Not Given Albuterol/Ipratropium (Duoneb 3 Mg/0.5 Mg (3 Ml) Ud) 3 ml INH RQ6 [facility] Last Admin: 04/10/18 12:46 Dose: 3 ml Alprazolam (Xanax) 0.25 mg PO BID PRN PRN Reason: Anxiety Stop: 04/12/18 16:55 Last Admin: 04/07/18 21:44 Dose: 0.25 mg Bismuth Subsalicylate (Pepto-Bismol) 262 mg PO Q6 PRN PRN Reason: Diarrhea Last Admin: 04/07/18 18:13 Dose: 262 mg Enoxaparin Sodium (Lovenox) 40 mg SC DAILY [facility] Last Admin: 04/10/18 09:30 Dose: 40 mg Home Med (Patient's Own Medication) 1 tab PO DAILY [facility] Last Admin: 04/10/18 09:30 Dose: 1 tab Home Med (Patient's Own Medication) 1 tab PO BID [facility] Last Admin: 04/10/18 09:30 Dose: 1 tab Home Med (Patient's Own Medication) 1 tab PO Q12 PRN PRN Reason: Pain, moderate (4-7) Last Admin: 04/10/18 08:16 Dose: 1 tab Lidocaine (Lidoderm) 1 ea TD DAILY [facility] Last Admin: 04/10/18 09:30 Dose: 1 ea Morphine Sulfate (Morphine) 1 mg IVP Q4H PRN PRN Reason: Pain, SEVERE (8-10) Nicotine (Nicoderm Cq) 1 patch TD DAILY [facility] Last Admin: 04/06/18 10:30 Dose: Not Given Ondansetron HCl (Zofran Inj) 4 mg IVP Q6H PRN PRN Reason: Nausea/Vomiting Potassium Chloride (K-Dur 20 Meq Er Tab) 20 meq PO DAILY [facility] Last Admin: 04/10/18 09:30 Dose: 20 meq Saccharomyces Boulardii (Florastor) 250 mg PO DAILY [facility] Last Admin: 04/10/18 09:30 Dose: 250 mg Tramadol HCl (Ultram) 50 mg PO DAILY PRN PRN Reason: Pain, moderate (4-7) Last Admin: 04/06/18 05:14 Dose: 50 mg - Labs Labs: 04/09/18 08:21 04/09/18 08:21 PT 14.0 SECONDS (9.7-12.2) H 04/03/18 01:53 INR 1.3 04/03/18 01:53 APTT 29 SECONDS (21-34) 04/03/18 01:53 Assessment and Plan (1) Collapse of left lung Status: Acute
--- NOTE | 2018-04-10 18:57 | PN ---
DATE: 04/09/2018 SUBJECTIVE: The patient is a 63-year-old female. The patient was seen and examined at the bedside on 04/09/2018, whose son and daughter were sitting on the bedside also. No nausea, vomiting, or diarrhea. Still having back pain, going towards the leg. Coughing with shortness of breath. Diarrhea is getting better. PHYSICAL EXAMINATION: VITAL SIGNS: Temperature 98.1, pulse 103, respiratory rate 18, and blood pressure 113/81, pulse oximetry is 97%. HEENT: Head: Normocephalic, atraumatic. Eyes: PERRLA, extraocular movements intact, Conjunctivae clear. Nose: Patent. NECK: Supple. No carotid bruits. No JVD or thyromegaly. CHEST: Bilaterally symmetrical. HEART: S1 and S2 positive. LUNGS: Clear to auscultation. ABDOMEN: Soft. Bowel sounds positive. No organomegaly. EXTREMITIES: No edema, no cyanosis. NEUROLOGIC: The patient is awake, moving all 4 extremities. No focal deficits. MEDICATIONS: Tylenol, Ventolin, Pepto-Bismol, Lovenox, Nicoderm patch, K-Dur, and Tramadol. LABORATORY DATA: White blood cell 9, hemoglobin 9.7, hematocrit 27.6, platelets 302. Sodium 140, potassium 3.6, BUN 8, creatinine 0.7, glucose 82. ASSESSMENT AND PLAN: Ms. Mcclelland is a 63-year-old lady with anemia, has lung prolapse secondary to left lower lobe endotracheal lesion. Biopsy consistent with adenocarcinoma. Discussion done with the oncologist for possible metastasis to the groin. Oncology consult called with Dr. Samaniego. Need subacute rehab. The patient is not able to do her activities of daily living. Pain medication. She was getting antibiotics, status post severe pneumonia. The patient has back pain and sacral pain on the right side. Now, the patient is off the antibiotics as per Infectious Disease and Dr. Neely. Discussion done with both the sons. Consult called with Dr. Samaniego for input. Trying to get rehab for the patient. We will follow. Alice Bowling MD [facility] # [id number]
[2018-04-11] MEDS: Albuterol-Ipratrop 3 mg / 0.5 (3 ml) UD INH SCH ×5 (03:02→19:31)
[2018-04-11] MEDS: Albuterol HFA 90 mcg/actuation (8 g) IH SCH (03:03)
[2018-04-11] MEDS: Morphine 4 MG/ML VIAL IVP PRN ×3 (03:42→17:01)
[2018-04-11 08:02] LABS: BASO # 0.1 K/uL (0.0-0.2); EOS # 0.1 K/uL (0.0-0.7); EOS % 1.2 % (0.0-4.0); HEMOGLOBIN 9.8 g/dL (11.0-16.0); LYMPH % 18.9 % (20.0-40.0); MEAN CELL VOLUME 80.7 fL (81.0-99.0); MEAN CORPUSCULAR HEMOGLOBIN 28.1 pg (27.0-31.0); MEAN CORPUSCULAR HGB CONC 34.8 g/dL (33.0-37.0); MEAN PLATELET VOLUME 7.1 fL (7.2-11.7); MONO # 0.8 K/uL (0.0-0.8); MONO % 7.6 % (0.0-10.0); NEUT # 7.4 K/uL (1.8-7.0); NEUT % 71.3 % (50.0-75.0); RBC 3.48 Mil/uL (3.80-5.20); RED CELL DISTRIBUTION WIDTH 15.4 % (11.5-14.5); WHITE BLOOD COUNT 10.4 K/uL (4.8-10.8)
[2018-04-11 08:20] LABS: ALB/GLOB RATIO 0.8 (1.0-2.1); ALBUMIN 3.2 g/dL (3.5-5.0); ALT/SGPT 76 U/L (9-52); AST/SGOT 87 U/L (14-36); BLOOD UREA NITROGEN 7 mg/dL (7-17); CALCIUM 9.7 mg/dl (8.6-10.4); GFR AFRICAN-AMERICAN > 60; GFR NON-AFRICAN AMERICAN > 60
[2018-04-11] MEDS: TIZANIDINE HCL 4 MG TAB PO PRN ×2 (09:05→17:02)
[2018-04-11] MEDS: Saccharomyces Boulardi 250 mg Cap PO SCH (09:05)
[2018-04-11] MEDS: Potassium Chloride 20 mEq ER Tab PO SCH (09:05)
[2018-04-11] MEDS: Lidocaine 5% Patch TD SCH (09:05)
[2018-04-11] MEDS: Enoxaparin 40 mg Syringe SC SCH (09:05)
[2018-04-11] MEDS: RANITIDINE HCL 150 MG TAB PO SCH ×2 (09:05→17:02)
[2018-04-11] MEDS: Patient's Own Medication - Tablet/Capusle PO SCH (09:05)
--- NOTE | 2018-04-11 12:19 | PN ---
DATE: 04/10/2018 SUBJECTIVE: The patient seen and examined at the bedside on 04/10/2018, still complaining about back pain. Son was standing on the bed side also. Back pain is going to her leg, has good bowel movement. Lung biopsy came back like adenocarcinoma. Oncology consult called with Dr. Samaniego, up to last evening was waiting for Dr. Samaniego's input. Family was waiting. Maybe, we have to transfer the patient to rehab, working with social work regarding the insurance. No nausea, vomiting, or diarrhea. No hematuria or hematochezia. No swelling of the legs. PHYSICAL EXAMINATION VITAL SIGNS: Temperature 98.7, pulse 105, respiratory rate 20, blood pressure 101/67, pulse oximetry is 96%. HEENT: Head: Normocephalic, atraumatic. Eyes: PERRLA, extraocular movements intact, conjunctivae clear. Nose: Patent. NECK: Supple. No carotid bruits. No JVD or thyromegaly. CHEST: Bilaterally symmetrical. HEART: S1 and S2 positive. LUNGS: Clear to auscultation. ABDOMEN: Soft. Bowel sounds positive. No organomegaly. EXTREMITIES: No edema, no cyanosis. NEUROLOGIC: The patient is awake, alert, moving all 4 extremities. No focal deficits. MEDICATIONS: Tylenol, Ventolin, DuoNeb, Xanax, Pepto-Bismol, Lovenox, Lidoderm, morphine, Zofran, potassium, tramadol. LABORATORY DATA: White blood cells 9, hemoglobin 9.4, hematocrit 27.3, platelets 306. Sodium 140, potassium 3.6, BUN 8, creatinine 0.9, glucose 82. ASSESSMENT AND PLAN: Ms. Stas Landrum is a 53-year-old lady with anemia, with collapsed left lung, post-obstructive pneumonia, bronchoscopy with biopsy done by Dr. Syd Segura shows adenocarcinoma, intractable back pain, especially sacral pain on the right side. Length of time discussion done with the patient's son standing on the bedside. All the questions answered. The patient came with chest pain. Oncology consult called. Metastatic workup is in process. Sciatic abdominal pain, but improving. History of diarrhea off and on. GI was on the case. Patient needs a good rehab, working on that. Repeat labs. We will follow up. Alice Bowling MD [facility] # [id number]
[2018-04-11] MEDS: Dexamethasone 4 mg/1 ml IV SCH (19:47)
--- NOTE | 2018-04-11 19:51 | CP.PCM.CON ---
History of Present Illness - History of Present Illness History of Present Illness: 63 yo woman admitted with SOB, pain in the chest and lower spine with difficulty walking, increasing pain lower back and groin. The patient denies weight loss, headaches, cough, lightheadedness. Past Patient History - Past Medical History & Family History Past Medical History?: Yes - Past Social History Smoking Status: Heavy Smoker > 10 Cigarettes Daily - CARDIAC Hx Cardiac Disorders: Yes Hx Hypertension: Yes - PULMONARY Hx Chronic Obstructive Pulmonary Disease (COPD): Yes (however uses nebulizer at home) - NEUROLOGICAL Hx Neurological Disorder: No - HEENT Hx HEENT Problems: No - RENAL Hx Chronic Kidney Disease: No - ENDOCRINE/METABOLIC Hx Endocrine Disorders: No - HEMATOLOGICAL/ONCOLOGICAL Hx Blood Disorders: No - INTEGUMENTARY Hx Dermatological Problems: No - MUSCULOSKELETAL/RHEUMATOLOGICAL Hx Musculoskeletal Disorders: Yes Hx Back Pain: Yes Hx Falls: No Other/Comment: sciatica - GASTROINTESTINAL Hx Gastrointestinal Disorders: No - GENITOURINARY/GYNECOLOGICAL Hx Genitourinary Disorders: No - PSYCHIATRIC Hx Psychophysiologic Disorder: Yes Hx Anxiety: Yes Hx Substance Use: No - SURGICAL HISTORY Hx Surgeries: Yes Other/Comment: SPINE SURGERY 2010 PER PATIENT - ANESTHESIA Hx Anesthesia: Yes Hx Anesthesia Reactions: Yes (severe hypotension) Meds Home Medications: Home Medication List Medication Instructions Recorded Confirmed Type Ketorolac [Ketorolac Tromethamine] 15 mg IVP Q8 #1 vial 04/04/18 Rx Bismuth Subsalicylate 262 mg PO Q6 PRN dose 04/09/18 Rx [Pepto-Bismol] Ibuprofen [Motrin Tab] 400 mg PO Q6H PRN tab 04/09/18 Rx Saccharomyces Boulardi [Florastor] 250 mg PO DAILY cap 04/09/18 Rx Allergies/Adverse Reactions: Allergies Allergy/AdvReac Type Severity Reaction Status Date / Time doxycycline Allergy Verified 04/01/18 10:41 Penicillins Allergy Verified 04/01/18 10:41 - Medications Medications: Current Medications Acetaminophen (Tylenol 325mg Tab) 650 mg PO Q4H PRN PRN Reason: pain fever Albuterol (Ventolin Hfa 90 Mcg/Actuation (8 G)) 2 puff IH Q8H [facility] Last Admin: 04/11/18 03:03 Dose: Not Given Albuterol/Ipratropium (Duoneb 3 Mg/0.5 Mg (3 Ml) Ud) 3 ml INH RQ6 [facility] Last Admin: 04/11/18 19:31 Dose: Not Given Alprazolam (Xanax) 0.25 mg PO BID PRN PRN Reason: Anxiety Stop: 04/12/18 16:55 Last Admin: 04/07/18 21:44 Dose: 0.25 mg Bismuth Subsalicylate (Pepto-Bismol) 262 mg PO Q6 PRN PRN Reason: Diarrhea Last Admin: 04/07/18 18:13 Dose: 262 mg Dexamethasone (Decadron Inj) 4 mg IV Q8H [facility] Enoxaparin Sodium (Lovenox) 40 mg SC DAILY [facility] Last Admin: 04/11/18 09:05 Dose: 40 mg Fentanyl (Duragesic) 1 patch TD Q72H [facility] Last Admin: 04/11/18 10:10 Dose: 1 patch Home Med (Patient's Own Medication) 1 tab PO DAILY [facility] Last Admin: 04/11/18 09:05 Dose: 1 tab Home Med (Patient's Own Medication) 1 tab PO BID [facility] Last Admin: 04/11/18 17:02 Dose: 1 tab Home Med (Patient's Own Medication) 1 tab PO TID PRN Last Admin: 04/11/18 17:02 Dose: 1 tab Lidocaine (Lidoderm) 1 ea TD DAILY [facility] Last Admin: 04/11/18 09:05 Dose: 1 ea Morphine Sulfate (Morphine) 1 mg IVP Q4H PRN PRN Reason: Pain, SEVERE (8-10) Last Admin: 04/11/18 17:01 Dose: 1 mg Nicotine (Nicoderm Cq) 1 patch TD DAILY [facility] Last Admin: 04/06/18 10:30 Dose: Not Given Ondansetron HCl (Zofran Inj) 4 mg IVP Q6H PRN PRN Reason: Nausea/Vomiting Potassium Chloride (K-Dur 20 Meq Er Tab) 20 meq PO DAILY [facility] Last Admin: 04/11/18 09:05 Dose: 20 meq Saccharomyces Boulardii (Florastor) 250 mg PO DAILY [facility] Last Admin: 04/11/18 09:05 Dose: 250 mg Tramadol HCl (Ultram) 50 mg PO TID [facility] Results - Vital Signs Recent Vital Signs: Last Vital Signs Temp 98.2 F 04/11/18 16:00 Pulse 101 H 04/11/18 18:00 Resp 18 04/11/18 16:00 BP 103/68 04/11/18 16:00 Pulse Ox 95 04/11/18 16:00 - Labs Result Diagrams: 04/11/18 07:41 04/11/18 07:41 Labs: Laboratory Results - last 24 hr 04/05/18 04/11/18 04/11/18 16:11 07:41 07:41 WBC 10.4 RBC 3.48 L Hgb 9.8 L Hct 28.1 L MCV 80.7 L MCH 28.1 MCHC 34.8 RDW 15.4 H Plt Count 304 MPV 7.1 L Neut % (Auto) 71.3 Lymph % (Auto) 18.9 L Perkins % (Auto) 7.6 Eos % (Auto) 1.2 Baso % (Auto) 1.0 Neut # (Auto) 7.4 H Lymph # (Auto) 2.0 Perkins # (Auto) 0.8 Eos # (Auto) 0.1 Baso # (Auto) 0.1 Sodium 139 Potassium 3.5 L Chloride 98 Carbon Dioxide 28 Anion Gap 17 BUN 7 Creatinine 0.8 Est GFR ( Amer) > 60 Est GFR (Non-Af Amer) > 60 Random Glucose 95 Calcium 9.7 Total Bilirubin 0.5 AST 87 H D ALT 76 H D Alkaline Phosphatase 105 Total Protein 7.0 Albumin 3.2 L Globulin 3.8 Albumin/Globulin Ratio 0.8 L 25-OH Vitamin D Total Stool Sodium TNP Stool Potassium TNP Stool Chloride TNP 04/11/18 11:27 WBC RBC Hgb Hct MCV MCH MCHC RDW Plt Count MPV Neut % (Auto) Lymph % (Auto) Perkins % (Auto) Eos % (Auto) Baso % (Auto) Neut # (Auto) Lymph # (Auto) Perkins # (Auto) Eos # (Auto) Baso # (Auto) Sodium Potassium Chloride Carbon Dioxide Anion Gap BUN Creatinine Est GFR ( Amer) Est GFR (Non-Af Amer) Random Glucose Calcium Total Bilirubin AST ALT Alkaline Phosphatase Total Protein Albumin Globulin Albumin/Globulin Ratio 25-OH Vitamin D Total < 12.8 L Stool Sodium Stool Potassium Stool Chloride Assessment & Plan (1) Lung cancer Assessment and Plan: 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 groin pain without associated weakness. Get MRI lumbar spine, r/o cauda equina or nerve root compression, no clear clinical evidence of this. Lengthy discussion with the patient and the family about diagnosis, treatment options and prognosis. Start iv low dose steroids for now, Rad onc eval. Do testing for PD L1, EGFR, ALK, ROS-1 and BRAF mutations. If there is no cauda equinq or nerve root compromise, will start iv bisphosphonates and chemotherapy. Also order anemia work up Status: Acute
[2018-04-11] MEDS ORDERED: Ergocalciferol 50,000 Intl Units Cap PO SCH (20:00)
--- NOTE | 2018-04-11 22:42 | CP.PCM.PN ---
Subjective - Date & Time of Evaluation Date of Evaluation: 04/11/18 Time of Evaluation: 22:42 - Subjective Subjective: AFEBRILE, DENIES SOB OR CHEST PAIN C/O BACK PAIN SEEN BY ONCOLOGY. W/U IN PROGRESS Objective - Vital Signs/Intake and Output Vital Signs (last 24 hours): Temp Pulse Resp BP Pulse Ox 98.2 F 101 H 18 103/68 95 04/11/18 16:00 04/11/18 18:00 04/11/18 16:00 04/11/18 16:00 04/11/18 16:00 Intake and Output: 04/11/18 04/12/18 18:59 06:59 Intake Total 480 Balance 480 - Medications Medications: Current Medications Acetaminophen (Tylenol 325mg Tab) 650 mg PO Q4H PRN PRN Reason: pain fever Albuterol (Ventolin Hfa 90 Mcg/Actuation (8 G)) 2 puff IH Q8H [facility] Last Admin: 04/11/18 03:03 Dose: Not Given Albuterol/Ipratropium (Duoneb 3 Mg/0.5 Mg (3 Ml) Ud) 3 ml INH RQ6 [facility] Last Admin: 04/11/18 19:31 Dose: Not Given Alprazolam (Xanax) 0.25 mg PO BID PRN PRN Reason: Anxiety Stop: 04/12/18 16:55 Last Admin: 04/07/18 21:44 Dose: 0.25 mg Bismuth Subsalicylate (Pepto-Bismol) 262 mg PO Q6 PRN PRN Reason: Diarrhea Last Admin: 04/07/18 18:13 Dose: 262 mg Dexamethasone (Decadron Inj) 4 mg IV Q8H [facility] Last Admin: 04/11/18 19:47 Dose: 4 mg Enoxaparin Sodium (Lovenox) 40 mg SC DAILY [facility] Last Admin: 04/11/18 09:05 Dose: 40 mg Ergocalciferol (Drisdol 50,000 Intl Units Cap) 1 cap PO Q7D [facility] Last Admin: 04/11/18 20:09 Dose: 1 cap Fentanyl (Duragesic) 1 patch TD Q72H [facility] Last Admin: 04/11/18 10:10 Dose: 1 patch Home Med (Patient's Own Medication) 1 tab PO DAILY [facility] Last Admin: 04/11/18 09:05 Dose: 1 tab Home Med (Patient's Own Medication) 1 tab PO BID [facility] Last Admin: 04/11/18 17:02 Dose: 1 tab Home Med (Patient's Own Medication) 1 tab PO TID PRN Last Admin: 04/11/18 17:02 Dose: 1 tab Lidocaine (Lidoderm) 1 ea TD DAILY [facility] Last Admin: 04/11/18 09:05 Dose: 1 ea Morphine Sulfate (Morphine) 1 mg IVP Q4H PRN PRN Reason: Pain, SEVERE (8-10) Last Admin: 04/11/18 17:01 Dose: 1 mg Nicotine (Nicoderm Cq) 1 patch TD DAILY [facility] Last Admin: 04/06/18 10:30 Dose: Not Given Ondansetron HCl (Zofran Inj) 4 mg IVP Q6H PRN PRN Reason: Nausea/Vomiting Potassium Chloride (K-Dur 20 Meq Er Tab) 20 meq PO DAILY [facility] Last Admin: 04/11/18 09:05 Dose: 20 meq Saccharomyces Boulardii (Florastor) 250 mg PO DAILY [facility] Last Admin: 04/11/18 09:05 Dose: 250 mg Tramadol HCl (Ultram) 50 mg PO TID [facility] - Labs Labs: 04/11/18 07:41 04/11/18 07:41 PT 14.0 SECONDS (9.7-12.2) H 04/03/18 01:53 INR 1.3 04/03/18 01:53 APTT 29 SECONDS (21-34) 04/03/18 01:53 - Constitutional Appears: No Acute Distress - Head Exam Head Exam: NORMAL INSPECTION - Eye Exam Eye Exam: EOMI, PERRL - ENT Exam ENT Exam: Normal Oropharynx - Neck Exam Neck Exam: Normal Inspection - Respiratory Exam Respiratory Exam: Rhonchi, NORMAL BREATHING PATTERN - Cardiovascular Exam Cardiovascular Exam: REGULAR RHYTHM, +S1, +S2 - GI/Abdominal Exam GI & Abdominal Exam: Soft, Normal Bowel Sounds - Extremities Exam Extremities Exam: Normal Capillary Refill. absent: Calf Tenderness, Pedal Edema - Neurological Exam Neurological Exam: Awake, CN II-XII Intact, Oriented x3, Reflexes Normal - Psychiatric Exam Psychiatric exam: Depressed - Skin Skin Exam: Normal Color, Warm Assessment and Plan (1) Pneumonia Assessment & Plan: pULMONARY FOLLOW-UP NOTED. BIOPSY LUNG CONSISTENT WITH ADENOCARCINOMA. Status: Acute Status: Acute (2) Chest pain Status: Acute (3) Chronic back pain Assessment & Plan: METASTATIC W/U IN PROGRESS. MRI LUMBER SPINE R/O NERVE ROOT COMPRESSION SYNDROME PER ONCOLOGY. Status: Acute (4) Sciatica Status: Acute (5) Abdominal pain Status: Acute
[2018-04-12] MEDS: Albuterol HFA 90 mcg/actuation (8 g) IH SCH (01:27)
[2018-04-12] MEDS: Albuterol-Ipratrop 3 mg / 0.5 (3 ml) UD INH SCH ×4 (01:27→21:03)
[2018-04-12] MEDS: Dexamethasone 4 mg/1 ml IV SCH ×3 (03:26→17:55)
[2018-04-12] MEDS: Morphine 4 MG/ML VIAL IVP PRN ×4 (03:30→22:09)
--- NOTE | 2018-04-12 05:02 | PN ---
DATE: SUBJECTIVE: The patient is a 63-year-old female. The patient was seen and examined at the bedside, looking comfortable. No nausea, vomiting, or diarrhea. No hematuria, no hematochezia. No swelling of the leg. No chest pain or palpitation. No headache, no dizziness. Still having intractable back pain, moving towards her leg. PHYSICAL EXAMINATION: VITAL SIGNS: Temperature 98.2, pulse 101, respiratory rate 18, and blood pressure 103/58, pulse oximetry 95%. HEENT: Head is normocephalic and atraumatic. Eyes, PERRLA. Extraocular muscles intact. Conjunctivae clear. Nose patent. Mucosa membranes are moist. NECK: Supple. No carotid bruits. No JVD or thyromegaly. CHEST: Bilaterally symmetrical. HEART: S1 and S2 positive. LUNGS: Clear to auscultation. ABDOMEN: Soft. Bowel sounds positive. No organomegaly. EXTREMITIES: No edema, no cyanosis. NEUROLOGIC: The patient is awake, alert, moving all 4 extremities. No focal deficits. MEDICATIONS: Tylenol, Ventolin, DuoNeb, Xanax, Pepto-Bismol, Decadron, Lovenox, Duragesic, K-Dur, Zofran. LABORATORY DATA: White blood cells 10.4, hemoglobin 9.8, hematocrit 28.1, platelets 304. Sodium 139, potassium 3.5, BUN 7, creatinine 0.8, glucose 95. ASSESSMENT AND PLAN: Ms. Stas Landrum is a 63-year-old female with anemia, hypokalemia, abnormal liver function test, proteinuria, hematuria, came with postoperative pneumonia, got antibiotics with chest pain, chronic back pain, sciatica, abdominal pain, history of on and off diarrhea. Seen by Dr. Colton Velarde and Dr. Dago Neely, and also seen by Dr. Lanny Jasmine. 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 No clear clinical evidence of this. Lengthy discussion with the patient and family about diagnoses, treatment options, and prognosis. She is on lower dose of steroids. Radiation Oncology on the case. Tumor marker was sent by Dr. Dago Neely. Gastrointestinal and deep venous thrombosis prophylaxis. Repeat labs. We will follow up. Alice Bowling MD [facility]
[2018-04-12 08:54] LABS: BASO # 0.1 K/uL (0.0-0.2); BASO % 0.5 % (0.0-2.0); HEMOGLOBIN 9.8 g/dL (11.0-16.0); LYMPH # 1.1 K/uL (1.0-4.3); LYMPH % 10.9 % (20.0-40.0); MEAN CORPUSCULAR HEMOGLOBIN 27.7 pg (27.0-31.0); MEAN CORPUSCULAR HGB CONC 33.7 g/dL (33.0-37.0); MEAN PLATELET VOLUME 7.2 fL (7.2-11.7); MONO # 0.3 K/uL (0.0-0.8); MONO % 3.3 % (0.0-10.0); NEUT # 8.8 K/uL (1.8-7.0); NEUT % 85.3 % (50.0-75.0); NRBC % 0.1 % (0.0-2.0); RBC 3.55 Mil/uL (3.80-5.20); RED CELL DISTRIBUTION WIDTH 15.7 % (11.5-14.5); WHITE BLOOD COUNT 10.3 K/uL (4.8-10.8)
[2018-04-12 09:09] LABS: ALB/GLOB RATIO 0.9 (1.0-2.1); ALBUMIN 3.5 g/dL (3.5-5.0); ALT/SGPT 57 U/L (9-52); AST/SGOT 67 U/L (14-36); BLOOD UREA NITROGEN 9 mg/dL (7-17); CALCIUM 9.8 mg/dl (8.6-10.4); GFR AFRICAN-AMERICAN > 60; GFR NON-AFRICAN AMERICAN > 60
[2018-04-12] MEDS: Saccharomyces Boulardi 250 mg Cap PO SCH (10:24)
[2018-04-12] MEDS: Patient's Own Medication - Tablet/Capusle PO SCH (10:25)
[2018-04-12] MEDS: Potassium Chloride 20 mEq ER Tab PO SCH (10:25)
[2018-04-12] MEDS: Enoxaparin 40 mg Syringe SC SCH (10:25)
[2018-04-12] MEDS: RANITIDINE HCL 150 MG TAB PO SCH ×2 (10:25→17:57)
[2018-04-12] MEDS: Lidocaine 5% Patch TD SCH (10:25)
[2018-04-12] MEDS: TIZANIDINE HCL 4 MG TAB PO PRN (11:56)
[2018-04-12] MEDS ORDERED: Gadodiamide 287 mg/ml 20 ml IV ONE (14:21)
--- NOTE | 2018-04-12 22:32 | CP.PCM.PN ---
Subjective - Date & Time of Evaluation Date of Evaluation: 04/12/18 Time of Evaluation: 22:32 - Subjective Subjective: AFEBRILE, FEELING SLIGHTLY BETTER ON STEROIDS DENIES SOB OR CHEST PAIN C/O BACK PAIN SEEN BY ONCOLOGY. W/U IN PROGRESS PT FOR MRI -LUMBER SPINE PER ONCOLOGY Objective - Vital Signs/Intake and Output Vital Signs (last 24 hours): Temp Pulse Resp BP Pulse Ox 97.5 F L 99 H 20 123/74 96 04/12/18 16:41 04/12/18 16:41 04/12/18 16:41 04/12/18 16:41 04/12/18 16:41 Intake and Output: 04/12/18 04/13/18 18:59 06:59 Intake Total 20 Balance 20 - Medications Medications: Current Medications Acetaminophen (Tylenol 325mg Tab) 650 mg PO Q4H PRN PRN Reason: pain fever Albuterol (Ventolin Hfa 90 Mcg/Actuation (8 G)) 2 puff IH Q8H [facility] Last Admin: 04/12/18 01:27 Dose: Not Given Albuterol/Ipratropium (Duoneb 3 Mg/0.5 Mg (3 Ml) Ud) 3 ml INH RQ6 [facility] Last Admin: 04/12/18 21:03 Dose: 3 ml Bismuth Subsalicylate (Pepto-Bismol) 262 mg PO Q6 PRN PRN Reason: Diarrhea Last Admin: 04/07/18 18:13 Dose: 262 mg Dexamethasone (Decadron Inj) 4 mg IV Q8H [facility] Last Admin: 04/12/18 17:55 Dose: 4 mg Enoxaparin Sodium (Lovenox) 40 mg SC DAILY [facility] Last Admin: 04/12/18 10:25 Dose: Not Given Ergocalciferol (Drisdol 50,000 Intl Units Cap) 1 cap PO Q7D [facility] Last Admin: 04/11/18 20:09 Dose: 1 cap Fentanyl (Duragesic) 1 patch TD Q72H [facility] Last Admin: 04/12/18 17:57 Dose: 1 patch Home Med (Patient's Own Medication) 1 tab PO DAILY [facility] Last Admin: 04/12/18 10:25 Dose: Not Given Home Med (Patient's Own Medication) 1 tab PO BID [facility] Last Admin: 04/12/18 17:57 Dose: 1 tab Home Med (Patient's Own Medication) 1 tab PO TID PRN Last Admin: 04/12/18 11:56 Dose: 1 tab Lidocaine (Lidoderm) 1 ea TD DAILY [facility] Last Admin: 04/12/18 10:25 Dose: Not Given Morphine Sulfate (Morphine) 1 mg IVP Q4H PRN PRN Reason: Pain, SEVERE (8-10) Last Admin: 04/12/18 22:09 Dose: 1 mg Nicotine (Nicoderm Cq) 1 patch TD DAILY [facility] Last Admin: 04/06/18 10:30 Dose: Not Given Ondansetron HCl (Zofran Inj) 4 mg IVP Q6H PRN PRN Reason: Nausea/Vomiting Potassium Chloride (K-Dur 20 Meq Er Tab) 20 meq PO DAILY [facility] Last Admin: 04/12/18 10:25 Dose: Not Given Saccharomyces Boulardii (Florastor) 250 mg PO DAILY [facility] Last Admin: 04/12/18 10:24 Dose: Not Given Tramadol HCl (Ultram) 50 mg PO TID [facility] - Labs Labs: 04/12/18 08:43 04/12/18 08:43 PT 14.0 SECONDS (9.7-12.2) H 04/03/18 01:53 INR 1.3 04/03/18 01:53 APTT 29 SECONDS (21-34) 04/03/18 01:53 - Constitutional Appears: No Acute Distress - Head Exam Head Exam: NORMAL INSPECTION - Eye Exam Eye Exam: EOMI, PERRL - ENT Exam ENT Exam: Normal Oropharynx - Respiratory Exam Respiratory Exam: Decreased Breath Sounds (LT SIDE). absent: Wheezes - Cardiovascular Exam Cardiovascular Exam: REGULAR RHYTHM, +S1, +S2 - GI/Abdominal Exam GI & Abdominal Exam: Soft, Normal Bowel Sounds - Extremities Exam Extremities Exam: Normal Capillary Refill. absent: Calf Tenderness, Pedal Edema - Neurological Exam Neurological Exam: Awake, CN II-XII Intact, Oriented x3 - Psychiatric Exam Psychiatric exam: Normal Mood - Skin Skin Exam: Normal Color, Warm Assessment and Plan (1) Pneumonia Assessment & Plan: pULMONARY FOLLOW-UP NOTED. BIOPSY LUNG CONSISTENT WITH ADENOCARCINOMA. ONCOLOGY WORKUP IN PROGRESS. WILL SEE PRN NEEDED. Status: Acute (2) Chest pain Status: Acute (3) Chronic back pain Assessment & Plan: PATIENT FOR mri LUMBAR SPINE WITH AND WITHOUT HARVINDER ORDERED. wILL FOLLOW Status: Acute (4) Sciatica Status: Acute (5) Abdominal pain Status: Acute
[2018-04-13] MEDS: Dexamethasone 4 mg/1 ml IV SCH ×3 (00:03→17:12)
[2018-04-13] MEDS: TIZANIDINE HCL 4 MG TAB PO PRN ×3 (00:03→17:13)
[2018-04-13] MEDS: Albuterol-Ipratrop 3 mg / 0.5 (3 ml) UD INH SCH ×4 (01:07→21:24)
[2018-04-13] MEDS: Morphine 4 MG/ML VIAL IVP PRN ×2 (03:14→09:14)
--- NOTE | 2018-04-13 06:38 | PN ---
DATE: 04/12/2018 SUBJECTIVE: The patient is a 63-year-old female. The patient was seen and examined on 04/12/2018 at bedside. Daughter, son, the patient's nurse practitioner, and physical therapist were at the bedside. Tried to make the patient go for physical therapy. She came back for MRI. No nausea or vomiting. No abdominal pain or diarrhea. Still having pain in the back as well as her right leg. MEDICATIONS: Tylenol, Ventolin, DuoNeb, Pepto-Bismol, Decadron, Lovenox, vitamin D, Duragesic patch, Lidoderm, morphine, Nicoderm, Zofran, potassium, Florastor, tramadol. LABORATORY DATA: White blood cells 10.3, hemoglobin 9.8, hematocrit 29.1, platelets 321. Sodium 139, potassium 4.1, BUN 9, creatinine 0.9, glucose 122. ASSESSMENT AND PLAN: Ms. 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 MRI of the back done, results are still pending. Seen by the oncologist, Dr. Lanny Jasmine, history of chronic obstructive pulmonary disease, history of heavy smoking. According to Oncology, lung cancer is poorly differentiated adenocarcinoma of the lung with bone metastasis causing pain in the right lower extremity with difficulty walking. Because of right groin pain without associated weakness, did MRI to see the nerve compression. Results are pending. discussion was done with the patient's family, especially son and daughter and reviewed Dr. Lanny Jasmine's notes, even she gave options and prognosis. Started the patient on steroids. Dr. Ca ordered tumor markers. There is no cauda equina or nerve root compression looks like, but still we will consult with neurosurgeon. Meanwhile, continue on treatment, ask the patient to get physical therapy, so we can decide about the patient's SARS. We will follow up. Alice Bowling MD [facility] # [id number] [facility]
--- NOTE | 2018-04-13 10:13 | MRI ---
PROCEDURE: MR LUMBAR SPINE WITH AND WITHOUT CONTRAST HISTORY: Lung cancer, bone mets, r/o nerve root compromise COMPARISON: None available. TECHNIQUE: Multiecho multiplanar sequences were performed through the lumbar spine with (Omniscan 18 cc) and without the use of intravenous contrast. FINDINGS: Normal lumbar curvature appreciate without fracture or spondylolisthesis identified. Patient is status was bilateral L3 and L4 laminectomies. Marrow signal is heterogeneous but is focally dark in a large segment of the L3 vertebral body accompanied by edema on the STIR sequence with similar rounded focus identified at the T12 vertebral body. Both of these areas enhance in a [id number] fashion following gadolinium administration including the right L3 pedicle with both foci suspicious for metastasis no infectious process is not completely excluded. Additional abnormal area of enhancement and edema is seen at the upper right L2 vertebral body proximal to the right pedicle. No definite pattern of diskitis throughout. Bright enhancement around a Schmorl's node is noted at the upper endplate of L3 which may indicate acute subacute timing of this fracture. Presence of this fracture is not felt to be the major cause of the amount of edema throughout the majority of the L3 vertebral body nevertheless. Prevertebral paraspinal soft tissues appear unremarkable exclusive of postoperative changes related to prior laminectomies at L3 and L4 with additional postoperative scarring appreciated more cephalad at the L2 and L3 vertebral body levels. No definite suspicious epidural or intrathecal enhancement. A large left renal cyst measures 6.2 cm incidentally. T12-L1: No disc herniation, spinal canal stenosis or neural foraminal narrowing. L1-2: No disc herniation, spinal canal stenosis or neural foraminal narrowing. L2-3: No disc herniation, spinal canal stenosis or neural foraminal narrowing. L3-4: A convex posterior border of the right side of the L3 vertebral body is appreciated, associated with abnormal signal in vertebral body suspicious for metastatic disease. A large circumferential disc bulge is appreciated with residual osteophytes at the facet joints resulting in mild central canal stenosis which rapidly decompresses inferior to the disc interspace level due to bilateral laminectomies. Moderate to severe right neural foraminal stenosis on a degenerative basis with a borderline left neural foraminal stenosis. L4-5: No disc herniation is identified with lateral recess is encroached by facet arthropathy. No significant generalized central canal or neural foraminal stenosis. A small postoperative pseudomeningocele or seroma is identified measuring 1.7 x 0.9 x 2.1 cm (transverse by anteroposterior by superoinferior dimensions). L5-S1: No disc herniation, spinal canal stenosis or neural foraminal narrowing. Minimal disc bulge encountered. OTHER FINDINGS: None. IMPRESSION: 1. Prior L3 and L4 bilateral laminectomies with a small pseudomeningocele or postoperative seroma at the posterior epidural space at L4 measuring 1.7 x 0.9 x 2.1 cm. No suspicious intrathecal or epidural enhancement throughout the lumbar spine. 2. Multifocal metastases are suspected at T12, L2 and L3 vertebral bodies which exhibit abnormal signal intensity prior to and following contrast administration. 3. No disc herniation or severe central spinal stenosis appreciated. A mild degenerative central stenosis appreciated L3-4 with moderate to severe degenerative right L3-4 neural foraminal stenosis.
[2018-04-13] MEDS: RANITIDINE HCL 150 MG TAB PO SCH ×2 (10:34→17:13)
[2018-04-13] MEDS: Saccharomyces Boulardi 250 mg Cap PO SCH (10:34)
[2018-04-13] MEDS: Patient's Own Medication - Tablet/Capusle PO SCH (10:35)
[2018-04-13] MEDS: Enoxaparin 40 mg Syringe SC SCH (10:35)
[2018-04-13] MEDS: Potassium Chloride 20 mEq ER Tab PO SCH (10:36)
[2018-04-13] MEDS: Lidocaine 5% Patch TD SCH (10:36)
[2018-04-13] MEDS: Albuterol HFA 90 mcg/actuation (8 g) IH SCH ×2 (11:07→21:24)
--- NOTE | 2018-04-13 12:03 | CP.PCM.PN ---
Subjective - Date & Time of Evaluation Date of Evaluation: 04/13/18 Time of Evaluation: 11:51 - Subjective Subjective: The patient was seen yesterday, pain better, improved appetite on steroids, able to ambulate. Discussed with pathologist regarding biopsy, neuroendocrine differentiation making it difficult to classify, may need additional biopsy sample. Plan- Biopsy cannot be done today, will see if the patient can be disharged home and be scheduled as an outpatient Objective - Vital Signs/Intake and Output Vital Signs (last 24 hours): Temp Pulse Resp BP Pulse Ox 98.1 F 96 H 20 122/74 95 04/13/18 07:00 04/13/18 07:00 04/13/18 07:00 04/13/18 07:00 04/13/18 07:00 Intake and Output: 04/13/18 04/13/18 06:59 18:59 Intake Total 400 Balance 400 - Medications Medications: Current Medications Acetaminophen (Tylenol 325mg Tab) 650 mg PO Q4H PRN PRN Reason: pain fever Albuterol (Ventolin Hfa 90 Mcg/Actuation (8 G)) 2 puff IH Q8H [facility] Last Admin: 04/13/18 11:07 Dose: Not Given Albuterol/Ipratropium (Duoneb 3 Mg/0.5 Mg (3 Ml) Ud) 3 ml INH RQ6 [facility] Last Admin: 04/13/18 07:55 Dose: 3 ml Bismuth Subsalicylate (Pepto-Bismol) 262 mg PO Q6 PRN PRN Reason: Diarrhea Last Admin: 04/07/18 18:13 Dose: 262 mg Dexamethasone (Decadron Inj) 4 mg IV Q8H [facility] Last Admin: 04/13/18 08:18 Dose: 4 mg Enoxaparin Sodium (Lovenox) 40 mg SC DAILY [facility] Last Admin: 04/13/18 10:35 Dose: 40 mg Ergocalciferol (Drisdol 50,000 Intl Units Cap) 1 cap PO Q7D [facility] Last Admin: 04/11/18 20:09 Dose: 1 cap Fentanyl (Duragesic) 1 patch TD Q72H [facility] Last Admin: 04/12/18 17:57 Dose: 1 patch Home Med (Patient's Own Medication) 1 tab PO DAILY [facility] Last Admin: 04/13/18 10:35 Dose: 1 tab Home Med (Patient's Own Medication) 1 tab PO BID [facility] Last Admin: 04/13/18 10:34 Dose: 1 tab Home Med (Patient's Own Medication) 1 tab PO TID PRN Last Admin: 04/13/18 09:14 Dose: 1 tab Lidocaine (Lidoderm) 1 ea TD DAILY [facility] Last Admin: 04/13/18 10:36 Dose: 1 ea Morphine Sulfate (Morphine) 1 mg IVP Q4H PRN PRN Reason: Pain, SEVERE (8-10) Last Admin: 04/13/18 09:14 Dose: 1 mg Nicotine (Nicoderm Cq) 1 patch TD DAILY [facility] Last Admin: 04/06/18 10:30 Dose: Not Given Ondansetron HCl (Zofran Inj) 4 mg IVP Q6H PRN PRN Reason: Nausea/Vomiting Potassium Chloride (K-Dur 20 Meq Er Tab) 20 meq PO DAILY [facility] Last Admin: 04/13/18 10:36 Dose: Not Given Saccharomyces Boulardii (Florastor) 250 mg PO DAILY [facility] Last Admin: 04/13/18 10:34 Dose: 250 mg Tramadol HCl (Ultram) 50 mg PO TID [facility] - Labs Labs: 04/12/18 08:43 04/12/18 08:43 PT 14.0 SECONDS (9.7-12.2) H 04/03/18 01:53 INR 1.3 04/03/18 01:53 APTT 29 SECONDS (21-34) 04/03/18 01:53 Assessment and Plan (1) Lung cancer Status: Acute
--- NOTE | 2018-04-13 15:06 | CP.PCM.PN ---
Subjective - Date & Time of Evaluation Date of Evaluation: 04/13/18 Time of Evaluation: 15:06 - Subjective Subjective: PATIENT AAOX3 / NO SIGN OF DISTRESS NOTED Objective - Vital Signs/Intake and Output Vital Signs (last 24 hours): Temp Pulse Resp BP Pulse Ox 98.1 F 96 H 20 122/74 95 04/13/18 07:00 04/13/18 07:00 04/13/18 07:00 04/13/18 07:00 04/13/18 07:00 Intake and Output: 04/13/18 04/13/18 06:59 18:59 Intake Total 400 Balance 400 - Medications Medications: Current Medications Acetaminophen (Tylenol 325mg Tab) 650 mg PO Q4H PRN PRN Reason: pain fever Albuterol (Ventolin Hfa 90 Mcg/Actuation (8 G)) 2 puff IH Q8H [facility] Last Admin: 04/13/18 11:07 Dose: Not Given Albuterol/Ipratropium (Duoneb 3 Mg/0.5 Mg (3 Ml) Ud) 3 ml INH RQ6 [facility] Last Admin: 04/13/18 07:55 Dose: 3 ml Bismuth Subsalicylate (Pepto-Bismol) 262 mg PO Q6 PRN PRN Reason: Diarrhea Last Admin: 04/07/18 18:13 Dose: 262 mg Dexamethasone (Decadron Inj) 4 mg IV Q8H [facility] Last Admin: 04/13/18 08:18 Dose: 4 mg Enoxaparin Sodium (Lovenox) 40 mg SC DAILY [facility] Last Admin: 04/13/18 10:35 Dose: 40 mg Ergocalciferol (Drisdol 50,000 Intl Units Cap) 1 cap PO Q7D [facility] Last Admin: 04/11/18 20:09 Dose: 1 cap Fentanyl (Duragesic) 1 patch TD Q72H [facility] Last Admin: 04/12/18 17:57 Dose: 1 patch Home Med (Patient's Own Medication) 1 tab PO DAILY [facility] Last Admin: 04/13/18 10:35 Dose: 1 tab Home Med (Patient's Own Medication) 1 tab PO BID [facility] Last Admin: 04/13/18 10:34 Dose: 1 tab Home Med (Patient's Own Medication) 1 tab PO TID PRN Last Admin: 04/13/18 09:14 Dose: 1 tab Lidocaine (Lidoderm) 1 ea TD DAILY [facility] Last Admin: 04/13/18 10:36 Dose: 1 ea Morphine Sulfate (Morphine) 1 mg IVP Q4H PRN PRN Reason: Pain, SEVERE (8-10) Last Admin: 04/13/18 09:14 Dose: 1 mg Nicotine (Nicoderm Cq) 1 patch TD DAILY [facility] Last Admin: 04/06/18 10:30 Dose: Not Given Ondansetron HCl (Zofran Inj) 4 mg IVP Q6H PRN PRN Reason: Nausea/Vomiting Potassium Chloride (K-Dur 20 Meq Er Tab) 20 meq PO DAILY [facility] Last Admin: 04/13/18 10:36 Dose: Not Given Saccharomyces Boulardii (Florastor) 250 mg PO DAILY [facility] Last Admin: 04/13/18 10:34 Dose: 250 mg Tramadol HCl (Ultram) 50 mg PO TID [facility] - Labs Labs: 04/12/18 08:43 04/12/18 08:43 PT 14.0 SECONDS (9.7-12.2) H 04/03/18 01:53 INR 1.3 04/03/18 01:53 APTT 29 SECONDS (21-34) 04/03/18 01:53 Assessment and Plan - Assessment and Plan (Free Text) Assessment: PLACE UNDER THE SERVICE OF DR FARLEY AT [facility] ----CALL FOR ADMITTING ORDER CONTINUE ALL YOUR MEDICATION PER MED REC ACTIVITY AND PHYSICAL THERAPY TOLERATED AND FACILITY PROTOCOL CALL DR FARLEY FOR FURTHER ORDER PLEASE ARRANGE FOR FOLLOW UP WITH DR BARRIENTOS AT HIS OFFICE ---CALL FOR APPOINTMENT F/U BIOPSY RESULT AND FURTHER TREATMENT PLEASE ARRANGE FOR FOLLOW UP WITH DR PIERCE AT HER OFFICE ---CALL FOR APPOINTMENT
[2018-04-14] MEDS: Dexamethasone 4 mg/1 ml IV SCH ×4 (00:03→23:55)
[2018-04-14] MEDS: Albuterol-Ipratrop 3 mg / 0.5 (3 ml) UD INH SCH ×3 (01:04→13:24)
[2018-04-14] MEDS: Albuterol HFA 90 mcg/actuation (8 g) IH SCH ×3 (01:05→19:40)
[2018-04-14] MEDS: Lidocaine 5% Patch TD SCH (09:03)
[2018-04-14] MEDS: Potassium Chloride 20 mEq ER Tab PO SCH (09:04)
[2018-04-14] MEDS: Enoxaparin 40 mg Syringe SC SCH (09:04)
[2018-04-14] MEDS: Saccharomyces Boulardi 250 mg Cap PO SCH (09:04)
[2018-04-14] MEDS: TIZANIDINE HCL 4 MG TAB PO PRN ×2 (09:06→17:16)
[2018-04-14] MEDS: RANITIDINE HCL 150 MG TAB PO SCH ×2 (09:06→17:16)
[2018-04-14] MEDS: Patient's Own Medication - Tablet/Capusle PO SCH (09:08)
[2018-04-14] MEDS: Morphine 4 MG/ML VIAL IVP PRN ×3 (10:58→23:54)
[2018-04-14] MEDS: Bismuth Subsalicylate 262 mg/15 ml Sus (240 ml) PO PRN (13:55)
--- NOTE | 2018-04-15 01:45 | PN ---
DATE: SUBJECTIVE: The patient is a 63-year-old female. The patient is seen and examined at the bedside. Looking comfortable. Pain is getting better. No nausea, vomiting, or diarrhea. No hematuria or hematochezia. No swelling of the legs. Having diarrhea off and on. No fever. No chills. PHYSICAL EXAMINATION: VITAL SIGNS: Temperature 97.8, pulse 101, blood pressure 119/71, respiratory rate 20. HEENT: Head: Normocephalic, atraumatic. Eyes: PERRLA. Extraocular muscles intact. Conjunctivae clear. Nose Patent. Mucous membranes moist. NECK: Supple. No carotid bruit, JVD, or thyromegaly. CHEST: Bilaterally symmetrical. HEART: S1 and S2 positive. LUNGS: Clear to auscultation. ABDOMEN: Soft. Bowel sounds positive. No organomegaly. EXTREMITIES: No edema, no cyanosis. NEUROLOGICAL: The patient is awake and alert. Moving all four extremities. No focal deficits. MEDICATIONS: Decadron, vitamin D, Duragesic patch, potassium, Lidoderm, Lovenox, morphine sulfate, Nicoderm patch, Pepto-Bismol, Tylenol, tramadol, Zofran. LABORATORY DATA: White blood cells 10.3, hemoglobin 9.8, hematocrit 29.1, platelets 321. Sodium 139, potassium 4.2, BUN 9, creatinine 0.9. Random glucose 122. ASSESSMENT AND PLAN: Ms. Lucita Mcclelland is a 63-year-old lady with anemia. Has history of hypokalemia but now potassium is okay. Abnormal liver function tests, trending down. History of adenocarcinoma of the lung, intractable back pain, oncologist saw the patient, has postoperative pneumonia, completed antibiotics. Biopsy shows adenocarcinoma of the lungs. Chest pain, chronic back pain, sciatica, abdominal pain with on and off diarrhea. According to oncology, they need more tissues to work on that. Mainly, the patient will go for bronchoscopy again to get more tissues. Gastrointestinal and deep venous thrombosis prophylaxis. I am trying to reach Dr. Colton Velarde. We will follow up. Alice Bowling MD
[2018-04-15] MEDS: Dexamethasone 4 mg/1 ml IV SCH ×2 (06:54→17:12)
[2018-04-15 07:56] LABS: HEMOGLOBIN 9.5 g/dL (11.0-16.0); MEAN CORPUSCULAR HEMOGLOBIN 28.1 pg (27.0-31.0); MEAN CORPUSCULAR HGB CONC 34.3 g/dL (33.0-37.0); MEAN PLATELET VOLUME 7.6 fL (7.2-11.7); RBC 3.37 Mil/uL (3.80-5.20); RED CELL DISTRIBUTION WIDTH 15.9 % (11.5-14.5); WHITE BLOOD COUNT 13.2 K/uL (4.8-10.8)
[2018-04-15 08:22] LABS: BLOOD UREA NITROGEN 19 mg/dL (7-17); CALCIUM 9.6 mg/dl (8.6-10.4); GFR AFRICAN-AMERICAN > 60; GFR NON-AFRICAN AMERICAN > 60
[2018-04-15] MEDS: Albuterol HFA 90 mcg/actuation (8 g) IH SCH ×2 (08:55→20:41)
[2018-04-15] MEDS: Enoxaparin 40 mg Syringe SC SCH (09:33)
[2018-04-15] MEDS: Lidocaine 5% Patch TD SCH (09:33)
[2018-04-15] MEDS: Potassium Chloride 20 mEq ER Tab PO SCH (09:37)
[2018-04-15] MEDS: Saccharomyces Boulardi 250 mg Cap PO SCH (09:37)
[2018-04-15] MEDS: TIZANIDINE HCL 4 MG TAB PO PRN ×2 (09:38→17:14)
[2018-04-15] MEDS: RANITIDINE HCL 150 MG TAB PO SCH ×2 (09:39→17:14)
[2018-04-15] MEDS: Patient's Own Medication - Tablet/Capusle PO SCH (09:39)
[2018-04-15] MEDS: Morphine 4 MG/ML VIAL IVP PRN ×2 (09:49→17:13)
[2018-04-16] MEDS: Dexamethasone 4 mg/1 ml IV SCH ×4 (00:48→22:59)
[2018-04-16] MEDS: Albuterol HFA 90 mcg/actuation (8 g) IH SCH ×3 (02:10→19:01)
[2018-04-16 08:21] LABS: INR 1.1; PROTHROMBIN TIME 12.3 SECONDS (9.7-12.2)
--- NOTE | 2018-04-16 08:23 | PN ---
DATE: 04/13/2018 SUBJECTIVE: The patient was seen and examined at bedside on 04/13/2018 in the morning, looking comfortable. Son was standing at the bedside. She did physical therapy. Improved appetite and the patient is better. Appreciated Dr. Lanny Jasmine's input. According to her, biopsy is not enough for neuroendocrine differentiation, making it difficult to classify mainly the additional biopsy samples. I did call Dr. Colton Velarde. We will try to arrange another biopsy. No headache. No dizziness. No chest pain. No palpitation. PHYSICAL EXAMINATION: VITAL SIGNS: Temperature is 98.1, pulse 96, respiratory rate 20, blood pressure 122/74, pulse oximetry 95%. HEENT: Head: Normocephalic and atraumatic. Eyes: PERRLA. Extraocular muscles intact. Conjunctivae clear. Nose: Patent. Mucous membranes moist. NECK: Supple. No carotid bruits. No JVD or thyromegaly. CHEST: Bilaterally symmetrical. HEART: S1 and S2 positive. LUNGS: Clear to auscultation. ABDOMEN: Soft. Bowel sounds present. No organomegaly. EXTREMITIES: No edema, no cyanosis. NEUROLOGIC: The patient is awake, alert, moving all 4 extremities. No focal deficits. MEDICATIONS: Tylenol, Ventolin, DuoNeb, Pepto-Bismol, Decadron, Lovenox, vitamin D, Duragesic patch, Lidoderm, morphine, Nicoderm, Zofran, potassium, tramadol. LABORATORY DATA: White blood cells 10.3, hemoglobin 9.8, hematocrit 29.1, platelets 321. Sodium 139, potassium 4.2, BUN 9, creatinine 0.9, glucose 132. ASSESSMENT AND PLAN: The patient is a 53-year-old lady with anemia, with hypochloremia, hyperglycemia, has lung cancer. Oncology, Dr. Lanny Jasmine is on the case. The patient is starting Decadron with that, getting little more ambulation. According to Dr. Jasmine, she has discussion done with the oncologist regarding biopsy, neuroendocrine differentiation make it difficult to classify, may need additional biopsy samples. We will discuss with Dr. Colton Velarde regarding for rebiopsy. The patient has a history of sciatica, history of anemia, hyperchloremia, hyperglycemia, post-obstructive pneumonia, got antibiotics, now off antibiotics. Adenocarcinoma of the lungs, kit assembler and oncologist are on the case. MRI reviewed by me. Prior L3-L4 bilateral laminectomy , postoperative with sarcoma, seroma at posterior epidural space at L4 measuring 1.7 cm x 0.9 cm x 2.1 cm. No suspicious intrathecal spine. Multifocal metastases suspected at T12, L2, L3 vertebral bodies , No disk herniation. No severe central spinal stenosis appreciated. Mild degenerative changes appreciated at L3-L4 with [id number] at right L3-L4 foraminal stenosis. Physical therapy, continue present treatment. Repeat labs. We will follow up. Alice Bowling MD [facility]
[2018-04-16] MEDS ORDERED: ePHEDrine 50 mg/ml Inj ONE (10:11)
[2018-04-16] MEDS ORDERED: Midazolam 2 MG/2 ML VIAL ONE ×2 (10:17)
[2018-04-16] MEDS ORDERED: Absorbable Gelatin Sponge Size 12-7 ONE (10:20)
[2018-04-16] MEDS: Saccharomyces Boulardi 250 mg Cap PO SCH ×2 (10:21→14:00)
[2018-04-16] MEDS: Potassium Chloride 20 mEq ER Tab PO SCH ×2 (10:21→14:00)
[2018-04-16] MEDS: Patient's Own Medication - Tablet/Capusle PO SCH ×2 (10:22→14:02)
[2018-04-16] MEDS: Enoxaparin 40 mg Syringe SC SCH (10:22)
[2018-04-16] MEDS: Lidocaine 5% Patch TD SCH ×2 (10:22→14:02)
[2018-04-16] MEDS: RANITIDINE HCL 150 MG TAB PO SCH ×2 (10:23→18:08)
--- NOTE | 2018-04-16 10:59 | PCM.SURG1 ---
Surgeon's Initial Post Op Note - Surgeon's Notes Surgeon: Jeet Cano MD Butadiene Converter Utility Operator: NONE Type of Anesthesia: IV Sedation Pre-Operative Diagnosis: Lung cancer, right lung nodule Operative Findings: CT showed a small right upper lobe lung nodule Post-Operative Diagnosis: lung cancer Operation Performed: CT guided core biopsy of right lung nodule Specimen/Specimens Removed: 20 g core x 2 Estimated Blood Loss: EBL {In ML}: 0 Blood Products Given: N/A Drains Used: No Drains Post-Op Condition: Fair Date of Surgery/Procedure: 04/16/18 Time of Surgery/Procedure: 10:55
--- NOTE | 2018-04-16 12:29 | RAD ---
PROCEDURE: CHEST RADIOGRAPH, 1 VIEW HISTORY: status post right lung nodule biopsy COMPARISON: Images from right lung biopsy performed approximately 1 hour prior FINDINGS: LUNGS: Pulmonary vascular congestion. 1.6 cm right upper lobe nodule redemonstrated. PLEURA: No pneumothorax or pleural fluid seen. CARDIOVASCULAR: Atherosclerotic aortic calcifications. Cardiomediastinal silhouette stably enlarged. OSSEOUS STRUCTURES: Unchanged. VISUALIZED UPPER ABDOMEN: Normal. OTHER FINDINGS: None. IMPRESSION: Redemonstration of 1.6 cm right upper lobe nodule. No appreciable pneumothorax status post right lung nodule core needle biopsy.
--- NOTE | 2018-04-16 12:51 | CT ---
PROCEDURE: Date of procedure: 04/16/2018 Procedure: 1. CT-guided lung mass biopsy, CPT [address] Guidance for biopsy, [address] Radiation:1699.43 mGy-cm Medications: The patient was sedated by anesthesiologist along with physiologic monitoring. HISTORY: Right upper lobe lung nodule, left lung cancer TECHNIQUE: Following informed consent, the Pt's chest was marked. The Pt was placed prone on the CT table and procedure time out was performed. A noncontrast CT scan was performed. Noncontrast CT scan confirmed the presence of a peripheral 1.6 cm nodule. A skin localizer was placed on the patient's right back and a repeat CT scan was performed. The skin was marked, prepped, and draped in the usual sterile fashion. After the skin was anesthetized with lidocaine and the patient sedated by the anesthesiologist, a 20 gauge core needle was advanced percutaneously under direct CT guidance into the mass. Upon confirmation of needle position, two 20-gauge core specimens were obtained and sent for routine pathology. The needle was removed and a xeroform dressing was applied. A post biopsy CT scan showed no pneumothorax. IMPRESSION: CT guided core biopsy right lung nodule.
[2018-04-16] MEDS: TIZANIDINE HCL 4 MG TAB PO PRN ×2 (14:00→21:54)
[2018-04-16] MEDS: Morphine 4 MG/ML VIAL IVP PRN ×2 (14:02→21:51)
--- NOTE | 2018-04-16 18:25 | CP.PCM.PN ---
Subjective - Date & Time of Evaluation Date of Evaluation: 04/16/18 Time of Evaluation: 18:05 - Subjective Subjective: The patient is clinically unchanged. Concerned about going home, with difficulty in ambulating without pain. Discussed with the patient and son regarding importance of being an outpatient for treatment with chemo, bisphosphonates, etc. She denies SOB, cough, unchanges lower back pain. Appetite good Objective - Vital Signs/Intake and Output Vital Signs (last 24 hours): Temp Pulse Resp BP Pulse Ox 97.6 F 103 H 20 97/57 L 98 04/16/18 16:44 04/16/18 16:44 04/16/18 16:44 04/16/18 16:44 04/16/18 16:44 - Medications Medications: Current Medications Acetaminophen (Tylenol 325mg Tab) 650 mg PO Q4H PRN PRN Reason: pain fever Albuterol (Ventolin Hfa 90 Mcg/Actuation (8 G)) 2 puff IH Q8H [facility] Last Admin: 04/16/18 08:50 Dose: 2 puff Bismuth Subsalicylate (Pepto-Bismol) 262 mg PO Q6 PRN PRN Reason: Diarrhea Last Admin: 04/14/18 13:55 Dose: 262 mg Dexamethasone (Decadron Inj) 4 mg IV Q8H [facility] Last Admin: 04/16/18 16:43 Dose: 4 mg Enoxaparin Sodium (Lovenox) 40 mg SC DAILY [facility] Last Admin: 04/16/18 10:22 Dose: Not Given Ergocalciferol (Drisdol 50,000 Intl Units Cap) 1 cap PO Q7D [facility] Last Admin: 04/11/18 20:09 Dose: 1 cap Fentanyl (Duragesic) 1 patch TD Q72H [facility] Last Admin: 04/15/18 13:33 Dose: 1 patch Home Med (Patient's Own Medication) 1 tab PO DAILY [facility] Last Admin: 04/16/18 14:02 Dose: 1 tab Home Med (Patient's Own Medication) 1 tab PO BID [facility] Last Admin: 04/16/18 10:23 Dose: Not Given Home Med (Patient's Own Medication) 1 tab PO TID PRN Last Admin: 04/16/18 14:00 Dose: 1 tab Lidocaine (Lidoderm) 1 ea TD DAILY [facility] Last Admin: 04/16/18 14:02 Dose: 1 ea Morphine Sulfate (Morphine) 1 mg IVP Q6 PRN PRN Reason: Pain, severe (8-10) Last Admin: 04/16/18 14:02 Dose: 1 mg Nicotine (Nicoderm Cq) 1 patch TD DAILY [facility] Last Admin: 04/06/18 10:30 Dose: Not Given Ondansetron HCl (Zofran Inj) 4 mg IVP Q6H PRN PRN Reason: Nausea/Vomiting Potassium Chloride (K-Dur 20 Meq Er Tab) 20 meq PO DAILY [facility] Last Admin: 04/16/18 14:00 Dose: 20 meq Saccharomyces Boulardii (Florastor) 250 mg PO DAILY [facility] Last Admin: 04/16/18 14:00 Dose: 250 mg Tramadol HCl (Ultram) 50 mg PO TID [facility] - Labs Labs: 04/15/18 07:43 04/15/18 07:43 PT 12.3 SECONDS (9.7-12.2) H 04/16/18 08:06 INR 1.1 04/16/18 08:06 APTT 31 SECONDS (21-34) 04/16/18 08:06 Assessment and Plan (1) Lung cancer Assessment & Plan: Second lung biopsy to rule out neuroendocrine or small cell component in the cancer and also special stains like PDL1, EGFR, ROS1, ALK mutation testing. Slow steroid taper. Status: Acute
[2018-04-16] MEDS: Albuterol-Ipratrop 3 mg / 0.5 (3 ml) UD INH SCH (19:15)
--- NOTE | 2018-04-16 22:23 | CP.PCM.PN ---
Subjective - Date & Time of Evaluation Date of Evaluation: 04/16/18 Time of Evaluation: 22:23 - Subjective Subjective: AFEBRILE, DEPRESSED, BACK PAIN IMPROVED WITH STEROIDS AMBULATING S/P NEW LUNG NODULE BIOPSY BY IR TODAY REQUESTED BY ONCOLOGIST. TOLERATED PROCEDURE 04/16/18 Objective - Vital Signs/Intake and Output Vital Signs (last 24 hours): Temp Pulse Resp BP Pulse Ox 97.6 F 103 H 20 97/57 L 98 04/16/18 16:44 04/16/18 16:44 04/16/18 16:44 04/16/18 16:44 04/16/18 16:44 - Medications Medications: Current Medications Acetaminophen (Tylenol 325mg Tab) 650 mg PO Q4H PRN PRN Reason: pain fever Albuterol (Ventolin Hfa 90 Mcg/Actuation (8 G)) 2 puff IH Q8H [facility] Last Admin: 04/16/18 19:01 Dose: 2 puff Albuterol/Ipratropium (Duoneb 3 Mg/0.5 Mg (3 Ml) Ud) 3 ml INH RQ6 [facility] Last Admin: 04/16/18 19:15 Dose: 3 ml Bismuth Subsalicylate (Pepto-Bismol) 262 mg PO Q6 PRN PRN Reason: Diarrhea Last Admin: 04/14/18 13:55 Dose: 262 mg Dexamethasone (Decadron Inj) 4 mg IV Q8H [facility] Last Admin: 04/16/18 16:43 Dose: 4 mg Enoxaparin Sodium (Lovenox) 40 mg SC DAILY [facility] Last Admin: 04/16/18 10:22 Dose: Not Given Ergocalciferol (Drisdol 50,000 Intl Units Cap) 1 cap PO Q7D [facility] Last Admin: 04/11/18 20:09 Dose: 1 cap Fentanyl (Duragesic) 1 patch TD Q72H [facility] Last Admin: 04/15/18 13:33 Dose: 1 patch Home Med (Patient's Own Medication) 1 tab PO DAILY [facility] Last Admin: 04/16/18 14:02 Dose: 1 tab Home Med (Patient's Own Medication) 1 tab PO BID [facility] Last Admin: 04/16/18 18:08 Dose: 1 tab Home Med (Patient's Own Medication) 1 tab PO TID PRN Last Admin: 04/16/18 21:54 Dose: 1 tab Lidocaine (Lidoderm) 1 ea TD DAILY [facility] Last Admin: 04/16/18 14:02 Dose: 1 ea Morphine Sulfate (Morphine) 1 mg IVP Q6 PRN PRN Reason: Pain, severe (8-10) Last Admin: 04/16/18 21:51 Dose: 1 mg Nicotine (Nicoderm Cq) 1 patch TD DAILY [facility] Last Admin: 04/06/18 10:30 Dose: Not Given Ondansetron HCl (Zofran Inj) 4 mg IVP Q6H PRN PRN Reason: Nausea/Vomiting Potassium Chloride (K-Dur 20 Meq Er Tab) 20 meq PO DAILY [facility] Last Admin: 04/16/18 14:00 Dose: 20 meq Saccharomyces Boulardii (Florastor) 250 mg PO DAILY [facility] Last Admin: 04/16/18 14:00 Dose: 250 mg Tramadol HCl (Ultram) 50 mg PO TID [facility] - Labs Labs: 04/15/18 07:43 04/15/18 07:43 PT 12.3 SECONDS (9.7-12.2) H 04/16/18 08:06 INR 1.1 04/16/18 08:06 APTT 31 SECONDS (21-34) 04/16/18 08:06 - Constitutional Appears: No Acute Distress - Head Exam Head Exam: NORMAL INSPECTION - Eye Exam Eye Exam: EOMI, PERRL - ENT Exam ENT Exam: Normal Oropharynx - Neck Exam Neck Exam: Normal Inspection - Respiratory Exam Respiratory Exam: Decreased Breath Sounds - Cardiovascular Exam Cardiovascular Exam: REGULAR RHYTHM, +S1, +S2 - GI/Abdominal Exam GI & Abdominal Exam: Soft, Normal Bowel Sounds - Extremities Exam Extremities Exam: Normal Capillary Refill. absent: Calf Tenderness, Pedal Edema - Neurological Exam Neurological Exam: Awake, CN II-XII Intact, Oriented x3, Reflexes Normal - Psychiatric Exam Psychiatric exam: Depressed - Skin Skin Exam: Normal Color, Warm Assessment and Plan (1) Lung cancer Assessment & Plan: s/p second lung biopsy nodule by interventional radiology dr Cano today under CT guidance. Patient tolerated procedure well. Status: Acute (2) Collapse of left lung Assessment & Plan: follow-up chest x-ray. Status: Acute (3) Chest pain Status: Acute (4) Chronic back pain Assessment & Plan: MRI lumbar spine with HARVINDER.\\ REPORT NOTED. L3-L4 BILATERAL LAMINECTOMIES. mULTIFOCAL METASTASIS T12, L2,L3. VERTEBRAL BODIES. ( SEE FULL REPORT ) WITH DEGENERATIVE CHANGES. Status: Acute (5) Sciatica Status: Acute
[2018-04-17] MEDS: Albuterol HFA 90 mcg/actuation (8 g) IH SCH ×3 (01:21→19:06)
[2018-04-17] MEDS: Albuterol-Ipratrop 3 mg / 0.5 (3 ml) UD INH SCH ×4 (01:22→19:05)
[2018-04-17] MEDS: Morphine 4 MG/ML VIAL IVP PRN ×3 (04:45→18:08)
[2018-04-17] MEDS: Dexamethasone 4 mg/1 ml IV SCH ×3 (08:37→22:24)
[2018-04-17] MEDS: Saccharomyces Boulardi 250 mg Cap PO SCH (09:09)
[2018-04-17] MEDS: Potassium Chloride 20 mEq ER Tab PO SCH (09:09)
[2018-04-17] MEDS: Enoxaparin 40 mg Syringe SC SCH (09:10)
[2018-04-17] MEDS: Lidocaine 5% Patch TD SCH (09:10)
[2018-04-17] MEDS: RANITIDINE HCL 150 MG TAB PO SCH ×2 (09:11→18:10)
[2018-04-17] MEDS: Patient's Own Medication - Tablet/Capusle PO SCH (09:11)
--- NOTE | 2018-04-17 22:36 | PN ---
DATE: 04/16/2018 SUBJECTIVE: The patient was seen and examined at bedside on 04/16/2018. Looking comfortable. No nausea, vomiting or diarrhea. No hematuria or hematochezia. No swelling of the legs. No chest pain. No palpitation. No headache or dizziness. PHYSICAL EXAMINATION: VITAL SIGNS: Temperature 97.6, pulse 83, respiratory rate 20, blood pressure 197/57, pulse oximetry 98. HEENT: Head is normocephalic, atraumatic. Eyes, PERRLA. Extraocular muscles intact. Conjunctivae clear. Nose patent. Mucous membrane moist. NECK: Supple. No carotid bruit, JVD or thyromegaly. CHEST: Bilaterally symmetrical. HEART: S1 and S2 positive. LUNGS: Clear to auscultation. ABDOMEN: Soft. Bowel sounds present. No organomegaly. EXTREMITIES: No edema. No cyanosis. NEUROLOGIC: The patient is awake, alert. Moving all four extremities. No focal deficits. MEDICATIONS: Tylenol, albuterol, Pepto-Bismol, Decadron, Lovenox, vitamin D, Duragesic patch, Nicoderm. LABORATORY DATA: White blood cells 13.2, hemoglobin 9.5, hematocrit 27.6, platelets 325. ASSESSMENT AND PLAN: Ms. Lucita Mcclelland is a 63-year-old female with a history of leukocytosis and anemia. Has lung cancer, taken lung biopsy to rule out neuroendocrine or small-cell, a component of cancer and also special screening like PDL-1 and EGFR ROS1 ALK mutation testing. The patient is getting a steroid with tapering down. The patient has a history of lumbosacral radiculopathy. The patient is afebrile. Mood is depressed, but will not hurt herself or some others. Back pain is improving. Collapsed left lung. Chest pain is musculoskeletal. Chronic back pain. MRI of the lumbar spine is reviewed by me. Sciatica. Repeat labs. We will follow up. Alice Bowling MD
[2018-04-18] MEDS: Morphine 4 MG/ML VIAL IVP PRN ×3 (00:16→13:50)
[2018-04-18] MEDS: Albuterol HFA 90 mcg/actuation (8 g) IH SCH (01:42)
[2018-04-18] MEDS: Albuterol-Ipratrop 3 mg / 0.5 (3 ml) UD INH SCH ×3 (01:42→13:02)
--- NOTE | 2018-04-18 02:36 | PN ---
DATE: SUBJECTIVE: The patient is seen and examined at bedside. Looking comfortable. She is still complaining about back pain. No nausea, vomiting or diarrhea. No hematuria or hematochezia. No headache or dizziness. No chest pain or palpitations. PHYSICAL EXAMINATION: VITAL SIGNS: Temperature 97.6, pulse 95, respiratory rate 25, blood pressure 104/84. HEENT: Head is normocephalic and atraumatic. Eyes PERRLA. Extraocular muscles intact. Conjunctivae clear. Nose patent. NECK: Supple. No carotid bruits, JVD or thyromegaly. CHEST: Bilaterally symmetrical. HEART: S1, S2 positive. LUNGS: Clear to auscultation. ABDOMEN: Soft. Bowel sounds present. No organomegaly. EXTREMITIES: No edema. No cyanosis. NEUROLOGIC: The patient is awake and alert. Moving all four extremities. No focal deficits. MEDICATIONS: Decadron, vitamin D, DuoNeb, Duragesic patch, Flonase, K-Dur, Lidoderm, Lovenox, morphine, Nicoderm patch, tramadol, Ventolin, Zofran, LABORATORY DATA: White blood cells 13.2, hemoglobin 9.5, hematocrit 27.6, platelets 345. Sodium 136, potassium 4.3, BUN 19, creatinine 0.9, glucose 127. AST 57, ALT 57. ASSESSMENT AND PLAN: Ms. Lucita Mcclelland is 63 years old lady with anemia, thrombocytopenia, hypochloremia, diabetes mellitus, abnormal liver function tests trending down, carcinoembryonic antigen is high at 68.3, vitamin D deficiency, proteinuria, hematuria. Clostridium difficile toxin colitis is negative. Influenza type A and B is negative. Mycoplasma pneumoniae immunoglobulin is negative. Urine Legionella antigen is negative. The patient is clinically unchanged. Oncology, Dr. Jasmine is on the case. Biopsy was done, waiting for the result. Meanwhile, continue current treatment with vitamin D and calcium. We will follow. Alice Bowling MD [facility]
--- NOTE | 2018-04-18 05:29 | PN ---
DATE: 04/15/2018 SUBJECTIVE: The patient was seen and examined at the bedside on 04/15/2018. Looking comfortable. No nausea, vomiting or diarrhea. No hematuria or hematochezia. No swelling of the leg. No chest pain or palpitation. No headache or dizziness. PHYSICAL EXAMINATION: VITAL SIGNS: Temperature 97.6, pulse 97, blood pressure 143/82, respiratory rate 20. HEENT: Head is normocephalic and atraumatic. Eyes PERRLA. Extraocular muscles intact. Conjunctivae clear. Nose patent. Mucous membrane moist. NECK: Supple. No carotid bruits, JVD or thyromegaly. CHEST: Bilaterally symmetrical. HEART: S1, S2 positive. LUNGS: Clear to auscultation. ABDOMEN: Soft. Bowel sounds present. No organomegaly. EXTREMITIES: No edema. No cyanosis. NEUROLOGIC: The patient is awake and alert. Moving all four extremities. No focal deficits. MEDICATIONS: Decadron, vitamin D, DuoNeb, Duragesic patch, Florastor, potassium, Lidoderm, Lovenox, morphine, Nicoderm, Pepto-Bismuth, tramadol. LABORATORY DATA: White blood cells 13.2, hemoglobin 9.5, hematocrit 27.6, platelets 345. Sodium 136, potassium 4.3, BUN 19, creatinine 0.9, glucose 127. ASSESSMENT AND PLAN: Ms. 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 Oncologist saw the patient. Has postoperative pneumonia. Complete the antibiotics. Biopsy shows adenocarcinoma of the lungs. Chest pain, chronic pain, sciatica related with metastasis according to Oncology. They also need tissues to work on that. Meantime, the patient is going to bronchoscopy again to get more tissues. Appreciated Dr. Colton Velarde's input. Gastrointestinal and deep venous thrombosis prophylaxis. Repeat labs. We will follow up. Alice Bowling MD [facility] # [id number]
[2018-04-18] MEDS: Dexamethasone 4 mg/1 ml IV SCH (06:17)
[2018-04-18 07:40] LABS: HEMOGLOBIN 9.6 g/dL (11.0-16.0); MEAN CELL VOLUME 82.3 fL (81.0-99.0); MEAN CORPUSCULAR HEMOGLOBIN 27.9 pg (27.0-31.0); MEAN CORPUSCULAR HGB CONC 33.8 g/dL (33.0-37.0); MEAN PLATELET VOLUME 7.4 fL (7.2-11.7); RBC 3.45 Mil/uL (3.80-5.20); RED CELL DISTRIBUTION WIDTH 16.3 % (11.5-14.5); WHITE BLOOD COUNT 13.8 K/uL (4.8-10.8)
[2018-04-18 07:47] VITALS: BP 113/73; PULSE 91; RESP 18; TEMP 98; O2SAT 96
[2018-04-18 07:50] LABS: ALBUMIN 3.6 g/dL (3.5-5.0); ALT/SGPT 31 U/L (9-52); AST/SGOT 40 U/L (14-36); BLOOD UREA NITROGEN 25 mg/dL (7-17); GFR AFRICAN-AMERICAN > 60; GFR NON-AFRICAN AMERICAN > 60
[2018-04-18] MEDS: Saccharomyces Boulardi 250 mg Cap PO SCH (10:56)
[2018-04-18] MEDS: Patient's Own Medication - Tablet/Capusle PO SCH (10:57)
[2018-04-18] MEDS: Potassium Chloride 20 mEq ER Tab PO SCH (10:57)
[2018-04-18] MEDS: TIZANIDINE HCL 4 MG TAB PO PRN (10:57)
[2018-04-18] MEDS: RANITIDINE HCL 150 MG TAB PO SCH (10:57)
[2018-04-18] MEDS: Lidocaine 5% Patch TD SCH (10:59)
[2018-04-18] MEDS: Enoxaparin 40 mg Syringe SC SCH (10:59)
[2018-04-18] MEDS ORDERED: Dexamethasone 4 mg/1 ml IV SCH (14:58)
[2018-04-18] MEDS ORDERED: Oxycodone/Acetaminophen 5/325 mg Tab PO STA (15:05)
--- NOTE | 2018-04-24 07:53 | DS ---
CHIEF COMPLAINT: Chest pain and back pain. HISTORY OF PRESENT ILLNESS: Ms. Lucita Segura is a 63-year-old female with history of heavy smoking for long time, came into the emergency room with acute onset of chest pain. The patient stated that it began about 4 hours prior to emergency room arrival. The patient described the chest pain as more prominent on the left side of the chest, complaining of shortness of breath. Denies diaphoresis, nausea, vomiting, pleuritic or positional changes. Never had similar symptoms before that. We admitted the patient and did CAT scan of the chest, chest x-ray, again with the CAT scan of the chest. Biopsy was done by Dr. Syd Riggins. Results came adenocarcinoma, but according to oncologist, that samples were not enough for neuro classification so we have to do biopsy again. The patient was seen by Dr. Dago Neely because of fever and postoperative pneumonia. Length of time discussion done with patient and her sons and daughter. With their permission, I have called Dr. Lanny Jasmine, oncologist. The patient was also having intractable back pain. CAT scan and MRI of the back done. Consult call of neurosurgeon, they saw the patient, advised medical treatment. 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 Pathology was done, that was pending. PAST MEDICAL HISTORY: Anxiety, back pain, hypertension. PAST SURGICAL HISTORY: Heavy smoking. FAMILY HISTORY: Father and mother, noncontributory. HABITS: Tobacco, yes. Alcohol, no. Substance abuse, no. ALLERGIES: THE PATIENT IS ALLERGIC TO DOXYCYCLINE AND PENICILLIN. REVIEW OF SYSTEMS: The patient was seen and examined at the bedside on 04/18/2018, looking comfortable, still having back pain, but doing little bit physical therapy, recommended subacute rehab. No fever. No chills. No nausea, vomiting, or diarrhea. No hematuria or hematochezia. No swelling of the legs. No dysuria. PHYSICAL EXAMINATION: VITAL SIGNS: Temperature 98, pulse 91, blood pressure 117/73, respiratory rate 18. HEENT: Head is normocephalic and atraumatic. Eyes, PERRLA. Extraocular movements are intact. Conjunctivae clear. Nose patent mucous membranes and moist. NECK: Supple. No carotid bruits. No JVD or thyromegaly. CHEST: Bilaterally symmetrical. HEART: S1 and S2 positive. LUNGS: Clear to auscultation. ABDOMEN: Soft. Bowel sounds present. No organomegaly. EXTREMITIES: No edema. No cyanosis. NEUROLOGIC: The patient is awake, alert. Moving all four extremities. No focal deficits. LABORATORY DATA: White blood cells 13.8, hemoglobin 9.6, hematocrit 28.4, platelets 378. Sodium 135, potassium 4.6, BUN 25, creatinine 0.8, glucose 105. AST 40. ASSESSMENT AND PLAN: Ms. Lucita Segura is a 53-year-old lady who has leukocytosis; anemia; hyperchloremia, rule out dehydration; hyperglycemia; abnormal liver function test, trending down; vitamin D deficiency, replaced; proteinuria, hematuria, The patient has smoking history of adenocarcinoma of the lung resulting in metastasis . Intractable back pain. Oncologist on the case, may be postoperative pneumonia. Complete the course of the antibiotics. Biopsy showed adenocarcinoma of the lung. Chest pain better. she had Sciatica , chronic pain and metastasis according to the Oncology. The patient was sent for biopsy two times. Discussion done with Dr. Velarde multiple times, and with the patient's family and patient herself. GI and DVT prophylaxis provided. We will followup. The patient sent to [facility] under care of Dr. Logan Ellison, and Dr. Logan Ellison can have approach to the [facility] record. If he has questions, he can get information from there or I will communicate with him. We will follow up. Alice Bowling MD [facility]
== END 2018-04-18 16:56 | disposition home or self-care (01) | DRG 541 ==
LOC: C.ER 01:12 → C.9E 05:02 → C.5S 07:17
PROVIDERS: ADMIT Internal Medicine; ATTEND Internal Medicine
PROC: 0BBB8ZX Excision of Left Lower Lobe Bronchus, Via Natural or Artificial Opening Endoscopic, Diagnostic (ICD-10-PCS; principal; 2018-04-05 10:00)
PROC: 0BBC3ZX Excision of Right Upper Lung Lobe, Percutaneous Approach, Diagnostic (ICD-10-PCS; 2018-04-16)
PROC: BB24ZZZ Computerized Tomography (CT Scan) of Bilateral Lungs (ICD-10-PCS; 2018-04-16)
DX: C34.32 Malignant neoplasm of lower lobe, left bronchus or lung (principal); J18.9 Pneumonia, unspecified organism; C34.11 Malignant neoplasm of upper lobe, right bronchus or lung; C79.51 Secondary malignant neoplasm of bone; B37.49 Other urogenital candidiasis; D69.6 Thrombocytopenia, unspecified; E11.65 Type 2 diabetes mellitus with hyperglycemia; E87.6 Hypokalemia; E87.8 Other disorders of electrolyte and fluid balance, not elsewhere classified; J44.0 Chronic obstructive pulmonary disease with (acute) lower respiratory infection; J90 Pleural effusion, not elsewhere classified; J98.11 Atelectasis; D64.9 Anemia, unspecified; E55.9 Vitamin D deficiency, unspecified; E66.01 Morbid (severe) obesity due to excess calories; F41.1 Generalized anxiety disorder; G89.29 Other chronic pain; I10 Essential (primary) hypertension; M48.061 Spinal stenosis, lumbar region without neurogenic claudication; M53.3 Sacrococcygeal disorders, not elsewhere classified; M54.17 Radiculopathy, lumbosacral region; M54.40 Lumbago with sciatica, unspecified side; R79.1 Abnormal coagulation profile; F17.210 Nicotine dependence, cigarettes, uncomplicated

== ENCOUNTER 2018-05-31 15:01 | Emergency (ER) | payer OTHER ==
[2018-05-31 15:04] VITALS: BMI 33.3
[2018-05-31 15:15] VITALS: O2SAT 96
--- NOTE | 2018-05-31 15:56 | C.PDOC ---
History Of Present Illness 63 y/o female with history of Lung CA presents to ED with c/o sob and chest pain developed earlier today. Patient states pain radiated to abdomen and reports post-tussive vomiting x1 episode. At ED patient states she feels "drained" and denies fever, chills, leg swelling or any other complaints at this time. Time Seen by Provider: 05/31/18 15:39 Chief Complaint (Nursing): Abdominal Pain History Per: Patient History/Exam Limitations: no limitations Onset/Duration Of Symptoms: Hrs Current Symptoms Are (Timing): Still Present Past Medical History Reviewed: Historical Data, Nursing Documentation, Vital Signs Vital Signs: Last Vital Signs Temp 98.4 F 05/31/18 15:07 Pulse 110 H 05/31/18 16:18 Resp 20 05/31/18 16:18 BP 101/60 05/31/18 16:18 Pulse Ox 96 05/31/18 16:40 - Medical History PMH: Anemia, Anxiety, Arthritis, Back Problems, Bronchitis, COPD (however uses nebulizer at home), Fractures (rt. hip fracture), HTN Surgical History: Back Surgery - [facility] Procedures COMPUTERIZED TOMOGRAPHY (CT SCAN) OF BILATERAL LUNGS (04/03/18) EXCISION OF LEFT LOWER LOBE BRONCHUS, ENDO, DIAGN (04/03/18) EXCISION OF RIGHT UPPER LUNG LOBE, PERC APPROACH, DIAGN (04/03/18) Family History: States: No Known Family Hx - Social History Hx Tobacco Use: Yes Hx Alcohol Use: No Hx Substance Use: No - Immunization History Hx Tetanus Toxoid Vaccination: No Hx Influenza Vaccination: No Hx Pneumococcal Vaccination: No Review Of Systems Constitutional: Negative for: Fever, Chills Cardiovascular: Positive for: Chest Pain Respiratory: Positive for: Cough, Shortness of Breath Gastrointestinal: Positive for: Vomiting. Negative for: Nausea Musculoskeletal: Negative for: Back Pain Skin: Negative for: Rash Physical Exam - Physical Exam Appears: Non-toxic, No Acute Distress Skin: Warm, Dry, No Rash Head: Atraumatic, Normacephalic Eye(s): bilateral: Normal Inspection Oral Mucosa: Moist Neck: Normal ROM, Supple Cardiovascular: Rhythm Regular Respiratory: No Rales, No Rhonchi, Wheezing (right side) Gastrointestinal/Abdominal: No Tenderness, No Guarding, No Rebound, Other (firm abdomen) Extremity: Normal ROM, No Pedal Edema, Capillary Refill (<2 seconds) Neurological/Psych: Oriented x3, Normal Speech ED Course And Treatment - Laboratory Results Result Diagrams: 05/31/18 16:21 05/31/18 16:21 ECG: Interpreted By Me, Viewed By Me ECG Rhythm: Sinus Tachycardia Rate From EC (BPM) O2 Sat by Pulse Oximetry: 96 (RA) Pulse Ox Interpretation: Normal Medical Decision Making Medical Decision Making: Progress: D/W Dr. Patel states if patient wants to stay in hospital, she is okay with decision or if patient feels okay to go home, patient can go home. Disposition Counseled Patient/Family Regarding: Studies Performed, Need For Followup - Disposition Referrals: Lanny Jasmine MD [Staff Provider] - Disposition: HOME/ ROUTINE Disposition Time: 17:22 Condition: GUARDED Forms: [facility] (Lithuanian), General Discharge Instructions - POA Present On Arrival: None - Clinical Impression Clinical Impression: Malaise, SOB (shortness of breath) - Scribe Statement The provider has reviewed the documentation as recorded by the Scribyasmany Brock All medical record entries made by the Scribe were at my direction and personally dictated by me. I have reviewed the chart and agree that the record accurately reflects my personal performance of the history, physical exam, medical decision making, and the department course for this patient. I have also personally directed, reviewed, and agree with the discharge instructions and disposition.
[2018-05-31 16:20] VITALS: BP 101/60
[2018-05-31 16:26] LABS: BASO % 0.3 % (0.0-2.0); EOS % 0.6 % (0.0-4.0); HEMOGLOBIN 9.4 g/dL (11.0-16.0); LYMPH # 1.2 K/uL (1.0-4.3); LYMPH % 19.3 % (20.0-40.0); MEAN CELL VOLUME 86.1 fL (81.0-99.0); MEAN CORPUSCULAR HEMOGLOBIN 28.8 pg (27.0-31.0); MEAN CORPUSCULAR HGB CONC 33.5 g/dL (33.0-37.0); MEAN PLATELET VOLUME 6.6 fL (7.2-11.7); MONO # 0.1 K/uL (0.0-0.8); MONO % 1.1 % (0.0-10.0); NEUT # 4.7 K/uL (1.8-7.0); NEUT % 78.7 % (50.0-75.0); NRBC % 0.2 % (0.0-2.0); RBC 3.26 Mil/uL (3.80-5.20); RED CELL DISTRIBUTION WIDTH 18.4 % (11.5-14.5)
--- NOTE | 2018-05-31 16:43 | RAD ---
PROCEDURE: CHEST RADIOGRAPH, 1 VIEW HISTORY: SOB COMPARISON: Chest radiograph dated 04/16/2018. FINDINGS: LUNGS: Prominence of pulmonary vasculature may be secondary to AP technique and/or pulmonary vascular congestion. Retrocardiac opacity. PLEURA: No pneumothorax or pleural fluid seen. CARDIOVASCULAR: Atherosclerotic aortic calcifications. Cardiomediastinal silhouette stably enlarged. OSSEOUS STRUCTURES: Unchanged. VISUALIZED UPPER ABDOMEN: Normal. OTHER FINDINGS: None. IMPRESSION: Prominence of pulmonary vasculature may be secondary to AP technique and/or pulmonary vascular congestion. Retrocardiac density was secondary to atelectasis, infiltrate and/or pleural effusion.
[2018-05-31 16:44] LABS: ALBUMIN 3.2 g/dL (3.5-5.0); ALT/SGPT 33 U/L (9-52); AST/SGOT 91 U/L (14-36); BLOOD UREA NITROGEN 10 mg/dL (7-17); CALCIUM 7.7 mg/dl (8.6-10.4); GFR AFRICAN-AMERICAN > 60; GFR NON-AFRICAN AMERICAN > 60
[2018-05-31 21:30] VITALS: PULSE 112; RESP 17; TEMP 97.9
--- NOTE | 2018-06-03 21:26 | CARD ---
APPROVED REPORT EKG Measurement Heart [id number] <Conclusion> Sinus tachycardia Possible Left atrial enlargement Left ventricular hypertrophy Abnormal ECG
== END 2018-05-31 21:46 | disposition home or self-care (01) ==
LOC: C.ER 15:01
DX: R06.02 Shortness of breath (principal); R53.81 Other malaise; I10 Essential (primary) hypertension; J44.9 Chronic obstructive pulmonary disease, unspecified; D64.9 Anemia, unspecified; F17.210 Nicotine dependence, cigarettes, uncomplicated

== ENCOUNTER 2018-06-21 11:19 | Inpatient (IN) | payer OTHER ==
[2018-06-21 11:20] VITALS: BMI 33.3
[2018-06-21] MEDS ORDERED: Albuterol-Ipratrop 3 mg / 0.5 (3 ml) UD INH STA ×2 (12:02→16:35)
--- NOTE | 2018-06-21 12:10 | C.PDOC ---
History Of Present Illness 63 y/o female with PMHx of COPD, cancer, s/p chemotherapy, brought in from rehab facility with complaints of chest pressure since 5:00am. Associated with a cough productive of yellow sputum, but patient feels she is unable to bring up the phlegm. States she vomited once after coughing a lot. Patient also complains of bilateral leg swelling and pain. Otherwise denies any fevers, chills, SOB, dizziness, weakness, or lightheadedness. Reports the chest pain feels pressure-like. Denies history of prior cardiac problems. Time Seen by Provider: 06/21/18 11:26 Chief Complaint (Nursing): Chest Pain History Per: Patient History/Exam Limitations: no limitations Onset/Duration Of Symptoms: Hrs Current Symptoms Are (Timing): Still Present Past Medical History Reviewed: Historical Data, Nursing Documentation, Vital Signs Vital Signs: Last Vital Signs Temp 98.1 F 06/27/18 07:00 Pulse 99 H 06/27/18 07:00 Resp 20 06/27/18 07:00 BP 99/62 L 06/27/18 07:00 Pulse Ox 94 L 06/27/18 12:26 - Medical History PMH: Anemia, Anxiety, Arthritis, Back Problems, Bronchitis, COPD (however uses nebulizer at home), Depression, Fractures (rt. hip fracture), HTN Denies: Chronic Kidney Disease Surgical History: Back Surgery - [facility] Procedures COMPUTERIZED TOMOGRAPHY (CT SCAN) OF BILATERAL LUNGS (04/03/18) EXCISION OF LEFT LOWER LOBE BRONCHUS, ENDO, DIAGN (04/03/18) EXCISION OF RIGHT UPPER LUNG LOBE, PERC APPROACH, DIAGN (04/03/18) Family History: States: Unknown Family Hx Denies: CAD - Social History Hx Tobacco Use: Yes Hx Alcohol Use: No Hx Substance Use: No - Immunization History Hx Tetanus Toxoid Vaccination: No Hx Influenza Vaccination: No Hx Pneumococcal Vaccination: No Review Of Systems Constitutional: Negative for: Fever, Chills Cardiovascular: Positive for: Chest Pain. Negative for: Light Headedness Respiratory: Positive for: Cough, Sputum. Negative for: Shortness of Breath Gastrointestinal: Positive for: Vomiting Musculoskeletal: Positive for: Leg Pain (and swelling) Neurological: Negative for: Weakness, Dizziness Physical Exam - Physical Exam Appears: Non-toxic, No Acute Distress Skin: Normal Color, Warm, No Rash Head: Atraumatic, Normacephalic Eye(s): bilateral: PERRL, EOMI Oral Mucosa: Moist Neck: Normal ROM, Supple Chest: Symmetrical, No Tenderness Cardiovascular: Rhythm Regular (but tachycardic), No Murmur Respiratory: Decreased Breath Sounds (bilaterally), No Rales, No Rhonchi, Wheezing (bilaterally) Gastrointestinal/Abdominal: Soft, No Tenderness, No Distention Extremity: Normal ROM, No Pedal Edema, Calf Tenderness (bilaterally on palpation of posterior calves), Swelling (mild edema to bilateral ankles) Pulses: Left Dorsalis Pedis: Normal, Right Dorsalis Pedis: Normal Neurological/Psych: Oriented x3, Normal Speech ED Course And Treatment - Laboratory Results Result Diagrams: 06/21/18 12:13 06/21/18 12:13 ECG: Interpreted By Me, Viewed By Me ECG Rhythm: Sinus Tachycardia, PVC Interpretation Of ECG: Minimal voltage criteria for LVH. No acute ST changes. Rate From EC O2 Sat by Pulse Oximetry: 94 (RA) Pulse Ox Interpretation: Normal - Other Rad CXR X-Ray: Read By Radiologist Interpretation: Accession No. : [id number]. Patient Name / ID : TYLER GONZALEZ / [id number]. Exam Date : 06/21/2018 12:23:07 ( Approved ). Study Comment : Sex / Age : F / 63Y. Creator : Luis Romero MD. Dictator : Luis Romero MD. Portfolio Lead : Sports Doctor : Luis Romero MD. Approver2 : Report Date : 06/21/2018 12:32:43. My Comment : . Date of service: 06/21/2018. PROCEDURE: CHEST RADIOGRAPH, 1 VIEW. HISTORY: SOB. COMPARISON: Radiograph dated 05/31/2018. FINDINGS: LUNGS: Clear. PLEURA: Small left pleural effusion. No appreciable pneumothorax. CARDIOVASCULAR: Atherosclerotic aortic calcifications. Cardiomediastinal silhouette stably enlarged. OSSEOUS STRUCTURES: Unchanged. VISUALIZED UPPER ABDOMEN: Normal. OTHER FINDINGS: None. IMPRESSION: No active disease. - CT Scan/US CTA Chest Other Rad Studies (CT/US): Read By Radiologist, Radiology Report Reviewed CT/US Interpretation: Accession No. : [id number]. Patient Name / ID : TYLER GONZALEZ / [id number]. Exam Date : 06/21/2018 13:53:40 ( Approved ) . Study Comment : Sex / Age : F / 63Y. Creator : Cady Luis. Dictator : Luis Romero MD. Portfolio Lead : Sports Doctor : Luis Romero MD. Approver2 : Report Date : 06/21/2018 14:32:53. My Comment : . Date of service: 06/21/2018. PROCEDURE: CT Chest with contrast (Pulmonary Angiogram) . HISTORY: cp, tachy. o2 sat 93, hx cancer, sob. COMPARISON: CT angiography of the pulmonary arteries performed 04/03/2018. TECHNIQUE: Axial computed tomography images were obtained of the chest in the pulmonary arterial phase of enhancement. Coronal and sagittal reformatted images were created and reviewed. Intravenous contrast dose: 100 mL Visipaque 320. Radiation dose: Total exam DLP = 476.5 mGy-cm. This CT exam was performed using one or more of the following dose reduction techniques: Automated exposure control, adjustment of the mA and/or kV according to patient size, and/or use of iterative reconstruction technique. FINDINGS: PULMONARY ARTERIES: Unremarkable. No pulmonary embolism. AORTA: No acute findings. No thoracic aortic aneurysm. LUNGS: Stable right upper lobe 1.7 cm nodule. Enlargement of medial right upper lobe nodule now measuring 8 mm (series 2, image 68). Stable occlusion of left lower lobe bronchus with complete lobar atelectasis. No mass or pulmonary consolidation. PLEURAL SPACES: Unremarkable. No effusion or pneumothorax. HEART: Unremarkable. No cardiomegaly. No significant pericardial effusion. LYMPH NODES: Worsening mediastinal adenopathy with multiple small lymph nodes including a 2.5 x 1.8 cm precarinal node. Enlargement of the prevascular mass now measuring 2.6 x 3.6 cm. Bilateral hilar adenopathy. BONES, CHEST WALL: Enlargement of right breast soft tissue nodule now measuring 1.9 x 1.6 cm with new 5 mm adjacent satellite nodule. Stable right lower outer quadrant 1.5 cm nodule. Larger T3 lytic lesion. New lytic lesions in the superior portion of T5 superior T8, anterior T9, posterior inferior T11 and inferior T12 vertebral bodies. OTHER FINDINGS: Unremarkable. IMPRESSION: Unremarkable CT pulmonary angiogram. No pulmonary embolus. Worsening mediastinal/hilar adenopathy and enlargement of mediastinal lymph nodes/ mass now measuring up to 3.6 cm. Stable 1.7 cm right upper lobe nodule with enlargement of medial right upper lobe nodule now measuring 8 mm. Stable occlusion of left lower lobe bronchus with complete lobar atelectasis. Enlargement of right upper outer breast soft tissue nodule now measuring up to 1.9 cm with new 5 mm adjacent satellite nodule. Stable right lower outer quadrant 1.5 cm nodule. Multiple new lytic lesions in multiple thoracic vertebral bodies as described above. - Physician Consult Information Time Consulting Physician Contacted: 15:00 Physician Contacted: Marge Ellison Outcome Of Conversation: Patient accepted for admission Medical Decision Making Medical Decision Making: Impression: 63 y/o F with Chest Pain, Productive Cough, Calf Pain Differential diagnosis includes, but is not limited to: COPD exacerbation, PNA, also consider PE Plan: --EKG --CMP --CBC --Troponin I --Blood culture --Urinalysis --O2 via nasal cannula --Chest X-Ray --Duoneb x1 --Peak Flow pre/post neb Labs reviewed, troponin negative. Ordered CTA Chest to rule out PE. Discussed CT finding with Dr. Jojo Ellison, who agrees with plan to admit patient for COPD exacerbation and worsening chest ct findings. pt declines anohther nebulizer tx now. Dr Jasmine called to discuss ct findings. Disposition - Disposition Disposition: HOSPITALIZED Disposition Time: 17:30 Condition: SERIOUS - Clinical Impression Clinical Impression: Lung cancer, Chest pain - PA / EMERGENCY MEDICAL TECHNICIAN / Resident Statement MD/DO has reviewed & agrees with the documentation as recorded. - Scribe Statement The provider has reviewed the documentation as recorded by the Scribe (Christi Lujan) All medical record entries made by the Scribe were at my direction and personally dictated by me. I have reviewed the chart and agree that the record accurately reflects my personal performance of the history, physical exam, medical decision making, and the department course for this patient. I have also personally directed, reviewed, and agree with the discharge instructions and disposition.
[2018-06-21 12:20] LABS: SQUAMOUS EPITHIAL 1 /hpf (0-5); URINE BILIRUBIN NEGATIVE (NEGATIVE); URINE BLOOD NEGATIVE (NEGATIVE); URINE CLARITY Clear (Clear); URINE COLOR Straw (YELLOW); URINE GLUCOSE (UA) NORMAL (Normal); URINE LEUKOCYTE ESTERASE NEG Leu/uL (Negative); URINE PROTEIN NEGATIVE (NEGATIVE); URINE UROBILINOGEN NORMAL mg/dL (0.2-1.0)
[2018-06-21 12:21] LABS: BASO # 0.1 K/uL (0.0-0.2); BASO % 0.7 % (0.0-2.0); EOS % 0.2 % (0.0-4.0); HEMOGLOBIN 9.6 g/dL (11.0-16.0); LYMPH # 0.9 K/uL (1.0-4.3); MEAN CELL VOLUME 85.7 fL (81.0-99.0); MEAN CORPUSCULAR HEMOGLOBIN 28.4 pg (27.0-31.0); MEAN CORPUSCULAR HGB CONC 33.2 g/dL (33.0-37.0); MEAN PLATELET VOLUME 6.6 fL (7.2-11.7); MONO # 0.1 K/uL (0.0-0.8); MONO % 1.4 % (0.0-10.0); NEUT # 6.5 K/uL (1.8-7.0); NEUT % 85.7 % (50.0-75.0); RBC 3.36 Mil/uL (3.80-5.20); RED CELL DISTRIBUTION WIDTH 19.3 % (11.5-14.5); WHITE BLOOD COUNT 7.6 K/uL (4.8-10.8)
[2018-06-21] MEDS ORDERED: Albuterol-Ipratrop 3 mg / 0.5 (3 ml) UD ONE (12:22)
--- NOTE | 2018-06-21 12:34 | RAD ---
Date of service: 06/21/2018 PROCEDURE: CHEST RADIOGRAPH, 1 VIEW HISTORY: SOB COMPARISON: Radiograph dated 05/31/2018. FINDINGS: LUNGS: Clear. PLEURA: Small left pleural effusion. No appreciable pneumothorax. CARDIOVASCULAR: Atherosclerotic aortic calcifications. Cardiomediastinal silhouette stably enlarged. OSSEOUS STRUCTURES: Unchanged. VISUALIZED UPPER ABDOMEN: Normal. OTHER FINDINGS: None. IMPRESSION: No active disease.
[2018-06-21 12:37] LABS: ALBUMIN 3.4 g/dL (3.5-5.0); ALT/SGPT 27 U/L (9-52); AST/SGOT 70 U/L (14-36); BLOOD UREA NITROGEN 7 mg/dL (7-17); CALCIUM 8.5 mg/dl (8.6-10.4); GFR AFRICAN-AMERICAN > 60; GFR NON-AFRICAN AMERICAN > 60
[2018-06-21] MEDS ORDERED: Iodixanol 320 MG/ML 100 ML BOTTLE IV ONE (13:18)
--- NOTE | 2018-06-21 14:55 | CT ---
Date of service: 06/21/2018 PROCEDURE: CT Chest with contrast (Pulmonary Angiogram) HISTORY: cp, tachy. o2 sat 93, hx cancer, sob COMPARISON: CT angiography of the pulmonary arteries performed 04/03/2018. TECHNIQUE: Axial computed tomography images were obtained of the chest in the pulmonary arterial phase of enhancement. Coronal and sagittal reformatted images were created and reviewed. Intravenous contrast dose: 100 mL Visipaque 320 Radiation dose: Total exam DLP = 476.5 mGy-cm. This CT exam was performed using one or more of the following dose reduction techniques: Automated exposure control, adjustment of the mA and/or kV according to patient size, and/or use of iterative reconstruction technique. FINDINGS: PULMONARY ARTERIES: Unremarkable. No pulmonary embolism. AORTA: No acute findings. No thoracic aortic aneurysm. LUNGS: Stable right upper lobe 1.7 cm nodule. Enlargement of medial right upper lobe nodule now measuring 8 mm (series 2, image 68). Stable occlusion of left lower lobe bronchus with complete lobar atelectasis. No mass or pulmonary consolidation. PLEURAL SPACES: Unremarkable. No effusion or pneumothorax. HEART: Unremarkable. No cardiomegaly. No significant pericardial effusion. LYMPH NODES: Worsening mediastinal adenopathy with multiple small lymph nodes including a 2.5 x 1.8 cm precarinal node. Enlargement of the prevascular mass now measuring 2.6 x 3.6 cm. Bilateral hilar adenopathy. BONES, CHEST WALL: Enlargement of right breast soft tissue nodule now measuring 1.9 x 1.6 cm with new 5 mm adjacent satellite nodule. Stable right lower outer quadrant 1.5 cm nodule. Larger T3 lytic lesion. New lytic lesions in the superior portion of T5 superior T8, anterior T9, posterior inferior T11 and inferior T12 vertebral bodies. OTHER FINDINGS: Unremarkable. IMPRESSION: Unremarkable CT pulmonary angiogram. No pulmonary embolus. Worsening mediastinal/hilar adenopathy and enlargement of mediastinal lymph nodes/ mass now measuring up to 3.6 cm. Stable 1.7 cm right upper lobe nodule with enlargement of medial right upper lobe nodule now measuring 8 mm. Stable occlusion of left lower lobe bronchus with complete lobar atelectasis. Enlargement of right upper outer breast soft tissue nodule now measuring up to 1.9 cm with new 5 mm adjacent satellite nodule. Stable right lower outer quadrant 1.5 cm nodule. Multiple new lytic lesions in multiple thoracic vertebral bodies as described above.
[2018-06-21] MEDS ORDERED: Magnesium Hydroxide Susp 30 ml UD PO PRN (16:16)
[2018-06-21] MEDS ORDERED: TIZANIDINE HCL 4 MG PO PRN (16:16)
--- NOTE | 2018-06-21 16:16 | CP.PCM.HP ---
Past Patient History - Past Medical History & Family History Past Medical History?: Yes - Past Social History Smoking Status: Heavy Smoker > 10 Cigarettes Daily - CARDIAC Hx Hypertension: Yes - PULMONARY Hx Bronchitis: Yes Hx Chronic Obstructive Pulmonary Disease (COPD): Yes (however uses nebulizer at home) - NEUROLOGICAL Hx Neurological Disorder: No - HEENT Hx HEENT Problems: No - RENAL Hx Chronic Kidney Disease: No - ENDOCRINE/METABOLIC Hx Endocrine Disorders: No - HEMATOLOGICAL/ONCOLOGICAL Hx Anemia: Yes - INTEGUMENTARY Hx Dermatological Problems: Yes - MUSCULOSKELETAL/RHEUMATOLOGICAL Hx Arthritis: Yes Hx Fractures: Yes (rt. hip fracture) - GASTROINTESTINAL Hx Gastrointestinal Disorders: No Other/Comment: GERD - GENITOURINARY/GYNECOLOGICAL Hx Genitourinary Disorders: No - PSYCHIATRIC Hx Anxiety: Yes Hx Depression: Yes Hx Substance Use: No - SURGICAL HISTORY Hx Surgeries: Yes Other/Comment: SPINE SURGERY 2009 PER PATIENT - ANESTHESIA Hx Anesthesia: Yes Hx Anesthesia Reactions: Yes (severe hypotension) Meds Allergies/Adverse Reactions: Allergies Allergy/AdvReac Type Severity Reaction Status Date / Time doxycycline Allergy Verified 04/01/18 10:41 Penicillins Allergy Verified 04/01/18 10:41 Physical Exam - Constitutional Appears: Well - Head Exam Head Exam: ATRAUMATIC, NORMAL INSPECTION, NORMOCEPHALIC - Eye Exam Eye Exam: EOMI, Normal appearance, PERRL Pupil Exam: NORMAL ACCOMODATION, PERRL - ENT Exam ENT Exam: Mucous Membranes Moist, Normal Exam - Neck Exam Neck exam: Positive for: Normal Inspection - Respiratory Exam Respiratory Exam: Decreased Breath Sounds - Cardiovascular Exam Cardiovascular Exam: REGULAR RHYTHM, +S1, +S2 - GI/Abdominal Exam GI & Abdominal Exam: Diminished Bowel Sounds, Soft - Rectal Exam Rectal Exam: Deferred Results - Vital Signs Recent Vital Signs: Last Vital Signs Temp 97 F L 06/21/18 11:26 Pulse 102 H 06/21/18 13:15 Resp 20 06/21/18 13:15 BP 127/78 06/21/18 13:15 Pulse Ox 94 L 06/21/18 15:08 - Labs Result Diagrams: 06/21/18 12:13 06/21/18 12:13 Labs: Laboratory Results - last 24 hr 06/21/18 06/21/18 06/21/18 12:13 12:13 12:13 WBC 7.6 RBC 3.36 L Hgb 9.6 L Hct 28.8 L MCV 85.7 MCH 28.4 MCHC 33.2 RDW 19.3 H Plt Count 319 MPV 6.6 L Neut % (Auto) 85.7 H Lymph % (Auto) 12.0 L [place] % (Auto) 1.4 Eos % (Auto) 0.2 Baso % (Auto) 0.7 Neut # (Auto) 6.5 Lymph # (Auto) 0.9 L [place] # (Auto) 0.1 Eos # (Auto) 0.0 Baso # (Auto) 0.1 Sodium 142 Potassium 3.7 Chloride 101 Carbon Dioxide 31 H Anion Gap 14 BUN 7 Creatinine 0.6 L Est GFR ( Amer) > 60 Est GFR (Non-Af Amer) > 60 Random Glucose 114 H Calcium 8.5 L Total Bilirubin 0.6 AST 70 H ALT 27 Alkaline Phosphatase 129 H Troponin I < 0.0120 Total Protein 6.9 Albumin 3.4 L Globulin 3.4 Albumin/Globulin Ratio 1.0 Urine Color Straw Urine Clarity Clear Urine pH 8.0 Ur Specific [place] 1.006 Urine Protein Negative Urine Glucose (UA) Normal Urine Ketones Negative Urine Blood Negative Urine Nitrate Negative Urine Bilirubin Negative Urine Urobilinogen Normal Ur Leukocyte Esterase Neg Urine WBC (Auto) < 1 Ur Squamous Epith Cells 1
[2018-06-21] MEDS ORDERED: NYSTATIN TOP SCH (18:00)
[2018-06-21] MEDS: Zinc Oxide Topical 30 gm Tube TOP SCH ×2 (19:47→19:50)
[2018-06-21 19:58] LABS: CK-MB 0.64 ng/mL (0.0-3.38)
[2018-06-21] MEDS: Albuterol-Ipratrop 3 mg / 0.5 (3 ml) UD INH SCH (19:59)
[2018-06-21] MEDS: Morphine 15 mg Immediate Release Tab PO PRN (21:44)
[2018-06-21] MEDS ORDERED: Morphine 30 mg SR Tab PO ONE (21:56)
[2018-06-21] MEDS ORDERED: Morphine 30 mg SR Tab PO SCH (22:00)
[2018-06-22] MEDS: Albuterol-Ipratrop 3 mg / 0.5 (3 ml) UD INH SCH ×4 (01:29→20:02)
[2018-06-22] MEDS ORDERED: Home Med 1 UNIT PO PRN (01:38)
[2018-06-22 03:43] LABS: CK-MB 0.47 ng/mL (0.0-3.38)
--- NOTE | 2018-06-22 08:08 | CP.PCM.CON ---
History of Present Illness - History of Present Illness History of Present Illness: patient seen/examined full conuslt to follow patient is a 63 pino old femael with PMH HTN lung cancer, on chemotherapy admitted with chest pain. cardiac enzymes are negative thus far. CT angio negative for PE, but here is worsening hilar and mediastinal lymphadenopathy. will check echocardiogram to assess for pericardial effusion. Past Patient History - Past Medical History & Family History Past Medical History?: Yes - Past Social History Smoking Status: Heavy Smoker > 10 Cigarettes Daily - CARDIAC Hx Hypertension: Yes - PULMONARY Hx Bronchitis: Yes Hx Chronic Obstructive Pulmonary Disease (COPD): Yes (however uses nebulizer at home) - NEUROLOGICAL Hx Neurological Disorder: No - HEENT Hx HEENT Problems: No - RENAL Hx Chronic Kidney Disease: No - ENDOCRINE/METABOLIC Hx Endocrine Disorders: No - HEMATOLOGICAL/ONCOLOGICAL Hx Anemia: Yes - INTEGUMENTARY Hx Dermatological Problems: Yes - MUSCULOSKELETAL/RHEUMATOLOGICAL Hx Arthritis: Yes Hx Fractures: Yes (rt. hip fracture) - GASTROINTESTINAL Hx Gastrointestinal Disorders: No Other/Comment: GERD - GENITOURINARY/GYNECOLOGICAL Hx Genitourinary Disorders: No - PSYCHIATRIC Hx Anxiety: Yes Hx Depression: Yes Hx Substance Use: No - SURGICAL HISTORY Hx Surgeries: Yes Other/Comment: SPINE SURGERY 2009 PER PATIENT - ANESTHESIA Hx Anesthesia: Yes Hx Anesthesia Reactions: Yes (severe hypotension) Meds Allergies/Adverse Reactions: Allergies Allergy/AdvReac Type Severity Reaction Status Date / Time doxycycline Allergy Verified 04/01/18 10:41 Penicillins Allergy Verified 04/01/18 10:41 - Medications Medications: Current Medications Acetaminophen (Tylenol 325mg Tab) 650 mg PO Q4H PRN PRN Reason: Fever >100.4 F Albuterol/Ipratropium (Duoneb 3 Mg/0.5 Mg (3 Ml) Ud) 3 ml INH RQ6 [facility] Last Admin: 06/22/18 07:47 Dose: Not Given Aspirin (Aspirin) 325 mg PO DAILY [facility] Duloxetine HCl (Cymbalta) 30 mg PO DAILY [facility] Enoxaparin Sodium (Lovenox) 40 mg SC DAILY [facility] Ergocalciferol (Drisdol 50,000 Intl Units Cap) 1 cap PO QWK [facility] Famotidine (Pepcid) 20 mg PO DAILY [facility] Last Admin: 06/21/18 20:12 Dose: Not Given Folic Acid (Folic Acid) 1 mg PO DAILY [facility] Gabapentin (Neurontin) 300 mg PO BID [facility] Last Admin: 06/21/18 19:17 Dose: 300 mg Home Med (Meloxicam [Meloxicam]) 7.5 mg PO DAILY [facility] Home Med (Nystatin [Nystatin]) 1 applic TOP BID [facility] Home Med (Tizanidine Hcl [Tizanidine Hcl]) 4 mg PO Q6H PRN PRN Reason: Muscle spasm Home Med (Home Med) unit PO Q4 PRN PRN Reason: heartburn/indigestion Loperamide HCl (Imodium) 2 mg PO Q8H PRN PRN Reason: Diarrhea Lorazepam (Ativan) 0.5 mg PO Q8H PRN PRN Reason: Anxiety Magnesium Hydroxide (Milk Of Magnesia) 30 ml PO Q24H PRN PRN Reason: Constipation Metoclopramide HCl (Reglan) 10 mg PO Q8H PRN PRN Reason: Nausea/Vomiting Last Admin: 06/21/18 19:17 Dose: 10 mg Morphine Sulfate (Morphine Immediate Release Tab) 15 mg PO Q2H PRN PRN Reason: Other Morphine Sulfate (Morphine Extended Release Tab) 60 mg PO Q12 [facility] Ondansetron HCl (Zofran Tab) 4 mg PO Q6H PRN PRN Reason: Nausea/Vomiting Last Admin: 06/21/18 22:32 Dose: 4 mg Petrolatum (Desitin Original) 0 gm TOP TID [facility] Last Admin: 06/21/18 19:50 Dose: Not Given Results - Vital Signs Recent Vital Signs: Last Vital Signs Temp 98.0 F 06/22/18 00:25 Pulse 102 H 06/22/18 00:25 Resp 20 06/22/18 00:25 BP 93/52 L 06/22/18 00:25 Pulse Ox 95 06/22/18 04:11 - Labs Result Diagrams: 06/21/18 12:13 06/21/18 12:13 Labs: Laboratory Results - last 24 hr 06/21/18 06/21/18 06/21/18 12:13 12:13 12:13 WBC 7.6 RBC 3.36 L Hgb 9.6 L Hct 28.8 L MCV 85.7 MCH 28.4 MCHC 33.2 RDW 19.3 H Plt Count 319 MPV 6.6 L Neut % (Auto) 85.7 H Lymph % (Auto) 12.0 L [place] % (Auto) 1.4 Eos % (Auto) 0.2 Baso % (Auto) 0.7 Neut # (Auto) 6.5 Lymph # (Auto) 0.9 L [place] # (Auto) 0.1 Eos # (Auto) 0.0 Baso # (Auto) 0.1 Sodium 142 Potassium 3.7 Chloride 101 Carbon Dioxide 31 H Anion Gap 14 BUN 7 Creatinine 0.6 L Est GFR ( Amer) > 60 Est GFR (Non-Af Amer) > 60 Random Glucose 114 H Calcium 8.5 L Total Bilirubin 0.6 AST 70 H ALT 27 Alkaline Phosphatase 129 H Total Creatine Kinase CK-MB (Mass) Troponin I < 0.0120 Total Protein 6.9 Albumin 3.4 L Globulin 3.4 Albumin/Globulin Ratio 1.0 Urine Color Straw Urine Clarity Clear Urine pH 8.0 Ur Specific [place] 1.006 Urine Protein Negative Urine Glucose (UA) Normal Urine Ketones Negative Urine Blood Negative Urine Nitrate Negative Urine Bilirubin Negative Urine Urobilinogen Normal Ur Leukocyte Esterase Neg Urine WBC (Auto) < 1 Ur Squamous Epith Cells 1 06/21/18 06/22/18 19:25 03:13 WBC RBC Hgb Hct MCV MCH MCHC RDW Plt Count MPV Neut % (Auto) Lymph % (Auto) [place] % (Auto) Eos % (Auto) Baso % (Auto) Neut # (Auto) Lymph # (Auto) [place] # (Auto) Eos # (Auto) Baso # (Auto) Sodium Potassium Chloride Carbon Dioxide Anion Gap BUN Creatinine Est GFR ( Amer) Est GFR (Non-Af Amer) Random Glucose Calcium Total Bilirubin AST ALT Alkaline Phosphatase Total Creatine Kinase 25 L 30 CK-MB (Mass) 0.64 0.47 Troponin I < 0.0120 < 0.0120 Total Protein Albumin Globulin Albumin/Globulin Ratio Urine Color Urine Clarity Urine pH Ur Specific [place] Urine Protein Urine Glucose (UA) Urine Ketones Urine Blood Urine Nitrate Urine Bilirubin Urine Urobilinogen Ur Leukocyte Esterase Urine WBC (Auto) Ur Squamous Epith Cells
[2018-06-22] MEDS: Zinc Oxide Topical 30 gm Tube TOP SCH ×3 (09:53→17:49)
[2018-06-22] MEDS: Enoxaparin 40 mg Syringe SC SCH (09:53)
[2018-06-22] MEDS: Morphine 30 mg SR Tab PO SCH ×2 (09:53→21:47)
[2018-06-22] MEDS ORDERED: Morphine 60 mg SR Tab PO SCH (10:00)
[2018-06-22] MEDS ORDERED: Home Med 1 UNIT (Meloxicam [Meloxicam] 7.5 MG) PO SCH (10:00)
--- NOTE | 2018-06-22 10:21 | CP.PCM.CON ---
History of Present Illness - History of Present Illness History of Present Illness: Reason for consultation: history of lung CA and complaining of cough 63-year-old female with history of lung cancer on chemotherapy, COPD presented to emergency room with chest pain and slight cough productive off yellowish phlegm. Patient also complaining of pain in the left leg. Denies shortness of breath, denies fever chills, denies dizziness or lightheadedness. CT scan of the chest showed no pulmonary embolism Review of Systems - Review of Systems All systems: reviewed and no additional remarkable complaints except (chest pain ) Past Patient History - Past Medical History & Family History Past Medical History?: Yes - Past Social History Smoking Status: Heavy Smoker > 10 Cigarettes Daily - CARDIAC Hx Hypertension: Yes - PULMONARY Hx Bronchitis: Yes Hx Chronic Obstructive Pulmonary Disease (COPD): Yes (however uses nebulizer at home) - NEUROLOGICAL Hx Neurological Disorder: No - HEENT Hx HEENT Problems: No - RENAL Hx Chronic Kidney Disease: No - ENDOCRINE/METABOLIC Hx Endocrine Disorders: No - HEMATOLOGICAL/ONCOLOGICAL Hx Anemia: Yes - INTEGUMENTARY Hx Dermatological Problems: Yes - MUSCULOSKELETAL/RHEUMATOLOGICAL Hx Arthritis: Yes Hx Fractures: Yes (rt. hip fracture) - GASTROINTESTINAL Hx Gastrointestinal Disorders: No Other/Comment: GERD - GENITOURINARY/GYNECOLOGICAL Hx Genitourinary Disorders: No - PSYCHIATRIC Hx Anxiety: Yes Hx Depression: Yes Hx Substance Use: No - SURGICAL HISTORY Hx Surgeries: Yes Other/Comment: SPINE SURGERY 2009 PER PATIENT - ANESTHESIA Hx Anesthesia: Yes Hx Anesthesia Reactions: Yes (severe hypotension) Meds Allergies/Adverse Reactions: Allergies Allergy/AdvReac Type Severity Reaction Status Date / Time doxycycline Allergy Verified 04/01/18 10:41 Penicillins Allergy Verified 04/01/18 10:41 - Medications Medications: Current Medications Acetaminophen (Tylenol 325mg Tab) 650 mg PO Q4H PRN PRN Reason: Fever >100.4 F Albuterol/Ipratropium (Duoneb 3 Mg/0.5 Mg (3 Ml) Ud) 3 ml INH RQ6 [facility] Last Admin: 06/22/18 07:47 Dose: Not Given Aspirin (Aspirin) 325 mg PO DAILY [facility] Last Admin: 06/22/18 09:53 Dose: 325 mg Duloxetine HCl (Cymbalta) 30 mg PO DAILY [facility] Last Admin: 06/22/18 09:53 Dose: 30 mg Enoxaparin Sodium (Lovenox) 40 mg SC DAILY [facility] Last Admin: 06/22/18 09:53 Dose: 40 mg Ergocalciferol (Drisdol 50,000 Intl Units Cap) 1 cap PO QWK [facility] Famotidine (Pepcid) 20 mg PO DAILY [facility] Last Admin: 06/22/18 09:53 Dose: 20 mg Folic Acid (Folic Acid) 1 mg PO DAILY [facility] Last Admin: 06/22/18 09:53 Dose: 1 mg Gabapentin (Neurontin) 300 mg PO BID [facility] Last Admin: 06/22/18 09:53 Dose: 300 mg Home Med (Meloxicam [Meloxicam]) 7.5 mg PO DAILY [facility] Home Med (Nystatin [Nystatin]) 1 applic TOP BID [facility] Home Med (Tizanidine Hcl [Tizanidine Hcl]) 4 mg PO Q6H PRN PRN Reason: Muscle spasm Home Med (Home Med) unit PO Q4 PRN PRN Reason: heartburn/indigestion Loperamide HCl (Imodium) 2 mg PO Q8H PRN PRN Reason: Diarrhea Lorazepam (Ativan) 0.5 mg PO Q8H PRN PRN Reason: Anxiety Magnesium Hydroxide (Milk Of Magnesia) 30 ml PO Q24H PRN PRN Reason: Constipation Metoclopramide HCl (Reglan) 10 mg PO Q8H PRN PRN Reason: Nausea/Vomiting Last Admin: 06/22/18 09:58 Dose: 10 mg Morphine Sulfate (Morphine Immediate Release Tab) 15 mg PO Q2H PRN PRN Reason: Other Morphine Sulfate (Morphine Extended Release Tab) 60 mg PO Q12 [facility] Last Admin: 06/22/18 09:53 Dose: 60 mg Ondansetron HCl (Zofran Tab) 4 mg PO Q6H PRN PRN Reason: Nausea/Vomiting Last Admin: 06/21/18 22:32 Dose: 4 mg Petrolatum (Desitin Original) 0 gm TOP TID [facility] Last Admin: 06/22/18 09:53 Dose: 1 applic Physical Exam - Head Exam Head Exam: ATRAUMATIC, NORMOCEPHALIC - Eye Exam Eye Exam: Normal appearance - ENT Exam ENT Exam: Mucous Membranes Moist - Neck Exam Neck exam: Positive for: Normal Inspection - Respiratory Exam Respiratory Exam: Decreased Breath Sounds - Cardiovascular Exam Cardiovascular Exam: REGULAR RHYTHM - GI/Abdominal Exam GI & Abdominal Exam: Normal Bowel Sounds, Soft - Extremities Exam Extremities exam: Positive for: normal inspection Results - Vital Signs Recent Vital Signs: Last Vital Signs Temp 97.8 F 06/22/18 08:00 Pulse 98 H 06/22/18 08:00 Resp 18 06/22/18 08:00 BP 126/80 06/22/18 08:00 Pulse Ox 98 06/22/18 08:00 - Labs Result Diagrams: 06/21/18 12:13 06/21/18 12:13 Labs: Laboratory Results - last 24 hr 06/21/18 06/21/18 06/21/18 12:13 12:13 12:13 WBC 7.6 RBC 3.36 L Hgb 9.6 L Hct 28.8 L MCV 85.7 MCH 28.4 MCHC 33.2 RDW 19.3 H Plt Count 319 MPV 6.6 L Neut % (Auto) 85.7 H Lymph % (Auto) 12.0 L Pike % (Auto) 1.4 Eos % (Auto) 0.2 Baso % (Auto) 0.7 Neut # (Auto) 6.5 Lymph # (Auto) 0.9 L Pike # (Auto) 0.1 Eos # (Auto) 0.0 Baso # (Auto) 0.1 Sodium 142 Potassium 3.7 Chloride 101 Carbon Dioxide 31 H Anion Gap 14 BUN 7 Creatinine 0.6 L Est GFR ( Amer) > 60 Est GFR (Non-Af Amer) > 60 Random Glucose 114 H Calcium 8.5 L Total Bilirubin 0.6 AST 70 H ALT 27 Alkaline Phosphatase 129 H Total Creatine Kinase CK-MB (Mass) Troponin I < 0.0120 Total Protein 6.9 Albumin 3.4 L Globulin 3.4 Albumin/Globulin Ratio 1.0 Urine Color Straw Urine Clarity Clear Urine pH 8.0 Ur Specific [place] 1.006 Urine Protein Negative Urine Glucose (UA) Normal Urine Ketones Negative Urine Blood Negative Urine Nitrate Negative Urine Bilirubin Negative Urine Urobilinogen Normal Ur Leukocyte Esterase Neg Urine WBC (Auto) < 1 Ur Squamous Epith Cells 1 06/21/18 06/22/18 19:25 03:13 WBC RBC Hgb Hct MCV MCH MCHC RDW Plt Count MPV Neut % (Auto) Lymph % (Auto) Pike % (Auto) Eos % (Auto) Baso % (Auto) Neut # (Auto) Lymph # (Auto) Pike # (Auto) Eos # (Auto) Baso # (Auto) Sodium Potassium Chloride Carbon Dioxide Anion Gap BUN Creatinine Est GFR ( Amer) Est GFR (Non-Af Amer) Random Glucose Calcium Total Bilirubin AST ALT Alkaline Phosphatase Total Creatine Kinase 25 L 30 CK-MB (Mass) 0.64 0.47 Troponin I < 0.0120 < 0.0120 Total Protein Albumin Globulin Albumin/Globulin Ratio Urine Color Urine Clarity Urine pH Ur Specific [place] Urine Protein Urine Glucose (UA) Urine Ketones Urine Blood Urine Nitrate Urine Bilirubin Urine Urobilinogen Ur Leukocyte Esterase Urine WBC (Auto) Ur Squamous Epith Cells Assessment & Plan (1) COPD (chronic obstructive pulmonary disease) Assessment and Plan: continue nebulizer treatment CAT scan of the chest noted No DVT Status: Acute (2) Chest pain Assessment and Plan: Cardiac workup Status: Acute (3) Lung cancer Status: Acute
--- NOTE | 2018-06-22 10:51 | VASCLAB ---
Date of service: 06/21/2018 PROCEDURE: Lower Extremity Venous Duplex Exam. HISTORY: bilateral leg pain, hx cancer eval for dvt PRIORS: None. TECHNIQUE: Bilateral common femoral, femoral, popliteal and posterior tibial, peroneal and great saphenous veins were evaluated. Flow was assessed with color Doppler, compressibility, assessment of phasic flow and augmentation response. Report prepared by Cam Schmitt, BS, RVT FINDINGS: RIGHT: 1. Common Femoral Vein: 1.1. Compressibility - Fully compressible: Thrombus - None : Flow - Phasic: Augmentation -Normal: Reflux - None. 2. Femoral Vein: 2.1. Compressibility - Fully compressible: Thrombus - None : Flow - Phasic: Augmentation -Normal: Reflux - None. 3. Popliteal Vein: 3.1. Compressibility - Fully compressible: Thrombus - None : Flow - Phasic: Augmentation -Normal: Reflux - None. 4. Posterior Tibial Vein: 4.1. Compressibility - Fully compressible: Thrombus - None: Flow - Phasic: Augmentation -Normal: Reflux - None. 5. Peroneal Vein: 5.1. Compressibility - Fully compressible: Thrombus - None: Flow - Phasic: Augmentation -Normal: Reflux - None. 6. Great Saphenous Vein: 6.1. Compressibility - Fully compressible: Thrombus - None: Flow - Phasic: Augmentation - Normal: Reflux - None. LEFT: 1. Common Femoral Vein: 1.1. Compressibility - Fully compressible: Thrombus - None: Flow - Phasic: Augmentation -Normal: Reflux - None. 2. Femoral Vein: 2.1. Compressibility - Fully compressible: Thrombus - None: Flow - Phasic: Augmentation -Normal: Reflux - None. 3. Popliteal Vein: 3.1. Compressibility - Fully compressible: Thrombus - None : Flow - Phasic: Augmentation -Normal: Reflux - None. 4. Posterior Tibial Vein: 4.1. Compressibility - Fully compressible: Thrombus - None: Flow - Phasic: Augmentation -Normal: Reflux - None. 5. Peroneal Vein: 5.1. Compressibility - Fully compressible: Thrombus - None: Flow - Phasic: Augmentation -Normal: Reflux - None. 6. Great Saphenous Vein: 6.1. Compressibility - Fully compressible: Thrombus - None: Flow - Phasic: Augmentation - Normal: Reflux - None. OTHER FINDINGS: Right: None significant. Left: None significant. IMPRESSION: Right: No evidence of deep or superficial vein thrombosis of the right lower extremity. Normal valve function noted of the right side. Left: No evidence of deep or superficial vein thrombosis of the left lower extremity. Normal valve function noted of the left side.
--- NOTE | 2018-06-22 12:19 | CARD ---
APPROVED REPORT Date of service: 06/21/2018 EKG Measurement Heart [id number] <Conclusion> Sinus tachycardia with premature supraventricular complexes Borderline ECG
[2018-06-22] MEDS: Morphine 15 mg Immediate Release Tab PO PRN (17:47)
[2018-06-22] MEDS: RANITIDINE 150 MG PO SCH (17:48)
--- NOTE | 2018-06-22 19:10 | CP.PCM.PN ---
Subjective - Date & Time of Evaluation Time of Evaluation: 11:00 - Subjective Subjective: clinically same Objective - Vital Signs/Intake and Output Vital Signs (last 24 hours): Temp Pulse Resp BP Pulse Ox 98.2 F 95 H 20 120/75 98 06/22/18 15:05 06/22/18 16:00 06/22/18 15:05 06/22/18 15:05 06/22/18 16:00 - Medications Medications: Current Medications Acetaminophen (Tylenol 325mg Tab) 650 mg PO Q4H PRN PRN Reason: Fever >100.4 F Albuterol/Ipratropium (Duoneb 3 Mg/0.5 Mg (3 Ml) Ud) 3 ml INH RQ6 [facility] Last Admin: 06/22/18 13:35 Dose: Not Given Aspirin (Aspirin) 325 mg PO DAILY [facility] Last Admin: 06/22/18 09:53 Dose: 325 mg Duloxetine HCl (Cymbalta) 30 mg PO DAILY [facility] Last Admin: 06/22/18 09:53 Dose: 30 mg Enoxaparin Sodium (Lovenox) 40 mg SC DAILY [facility] Last Admin: 06/22/18 09:53 Dose: 40 mg Ergocalciferol (Drisdol 50,000 Intl Units Cap) 1 cap PO QWK [facility] Famotidine (Pepcid) 20 mg PO DAILY [facility] Last Admin: 06/22/18 09:53 Dose: 20 mg Folic Acid (Folic Acid) 1 mg PO DAILY [facility] Last Admin: 06/22/18 09:53 Dose: 1 mg Gabapentin (Neurontin) 300 mg PO BID [facility] Last Admin: 06/22/18 17:47 Dose: 300 mg Home Med (Patient's Own Medication) 1 tab PO BID [facility] Last Admin: 06/22/18 17:48 Dose: 1 tab Loperamide HCl (Imodium) 2 mg PO Q8H PRN PRN Reason: Diarrhea Lorazepam (Ativan) 0.5 mg PO Q8H PRN PRN Reason: Anxiety Magnesium Hydroxide (Milk Of Magnesia) 30 ml PO Q24H PRN PRN Reason: Constipation Metoclopramide HCl (Reglan) 10 mg PO Q8H PRN PRN Reason: Nausea/Vomiting Last Admin: 06/22/18 09:58 Dose: 10 mg Morphine Sulfate (Morphine Immediate Release Tab) 15 mg PO Q2H PRN PRN Reason: Other Last Admin: 06/22/18 17:47 Dose: 15 mg Morphine Sulfate (Morphine Extended Release Tab) 60 mg PO Q12 [facility] Last Admin: 06/22/18 09:53 Dose: 60 mg Ondansetron HCl (Zofran Tab) 4 mg PO Q6H PRN PRN Reason: Nausea/Vomiting Last Admin: 06/21/18 22:32 Dose: 4 mg Petrolatum (Desitin Original) 0 gm TOP TID [facility] Last Admin: 06/22/18 17:49 Dose: 1 applic - Labs Labs: 06/21/18 12:13 06/21/18 12:13 - Constitutional Appears: Well - Head Exam Head Exam: ATRAUMATIC, NORMAL INSPECTION, NORMOCEPHALIC - Eye Exam Eye Exam: EOMI, Normal appearance, PERRL Pupil Exam: NORMAL ACCOMODATION, PERRL - ENT Exam ENT Exam: Mucous Membranes Moist, Normal Exam - Neck Exam Neck Exam: Full ROM, Normal Inspection. absent: Lymphadenopathy - Respiratory Exam Respiratory Exam: Decreased Breath Sounds - Cardiovascular Exam Cardiovascular Exam: REGULAR RHYTHM, +S1, +S2 - GI/Abdominal Exam GI & Abdominal Exam: Soft, Diminished Bowel Sounds - Rectal Exam Rectal Exam: Deferred
--- NOTE | 2018-06-22 19:25 | CARD ---
APPROVED REPORT Date of service: 06/22/2018 EXAM: Two-dimensional and M-mode echocardiogram with Doppler and color Doppler. Other Information Quality : GoodRhythm : INDICATION Dyspnea Pleural Effusion Chest Pain 2D DIMENSIONS IVSd0.9 (0.7-1.1cm)LVDd4.0 (3.9-5.9cm) PWd1.0 (0.7-1.1cm)LVDs2.1 (2.5-4.0cm) FS (%) 47.9 %LVEF (%)70.0 (>50%) M-Mode DIMENSIONS Left Atrium (MM)3.81 (2.5-4.0cm)IVSd1.02 (0.7-1.1cm) Aortic Root2.99 (2.2-3.7cm)LVDd4.34 (4.0-5.6cm) Aortic Cusp Exc.2.13 (1.5-2.0cm)PWd0.82 (0.7-1.1cm) FS (%) 33 %LVDs2.90 (2.0-3.8cm) LVEF (%)62 (>50%) Mitral Valve MV E Abmlyxlo35.8cm/sMV A Xjuhnixq248.3cm/sE/A ratio0.8 TDI E/Lateral E'0.0E/Medial E'0.0 Tricuspid Valve TR Peak Rbsoaipb312bx/sTR Peak Gr.[id number] <Conclusion> normal size la,lv & ra rv. normal lv wall otion,thickness,systolic function with lvef of 65-70%. lv diastolic dysfunction grade one. normal aortic,mitral,tv & pv. mild mr,moderate tr with calculated pulmonary systolic pressures of 55 mm of hg,c/w moderate degree of pulmonary hypertension. normal size aortic root, mildly dilated ivc,2.2 cm. no pericardial effusion seen.
--- NOTE | 2018-06-22 20:25 | CON ---
DATE: 06/22/2018 ONCOLOGY CONSULTATION HISTORY OF PRESENT ILLNESS: This is a 63-year-old woman who is being followed by Dr. Jasmine for lung cancer. The patient tells me that she was diagnosed in 03/2018. At that point, she was sent to [place], [place], where she received five radiation therapy treatments to her right knee region. She is very vague. She initially claims that she did not know that she had cancer in her bones, but from what I can piece together this seems to be a bone metastasis on presentation. She says that she gets chemotherapy with Dr. Jasmine once a month, and that it is given in the outpatient chemotherapy here at [facility]. She received two treatments. The last one being on Monday, three to four days ago. She says the reason why she is in the hospital now is that she has panic attacks. She is short of breath, she gets very anxious, and that is why she was brought to the hospital. She has not been home since the diagnosis in March. She has been in rehab places, and she was brought from the rehab place to the hospital because of her breathing. PHYSICAL EXAMINATION: SKIN: No petechiae. No bruises. HEENT: Anicteric. NODES: Nonpalpable in the axillary, cervical, supraclavicular, or inguinal regions. LUNGS: Clear. The patient is able to lie flat in bed and she seems to be comfortable. HEART: S1, S2. BREASTS: Show no mass, discharge, or dimpling. ABDOMEN: Shows no liver, no spleen. No tenderness. No rebound. No ascites. EXTREMITIES: There is some tenderness of the right knee area, but she is able to bend the knee and Homans sign negative. No edema. HARBOR BOAT PILOT: Plantars are downgoing bilaterally. ASSESSMENT AND PLAN: So at this point, she has made better prognosis and now she is going to walk. Again, she is aware that she did have pathologic fracture of her hip, I am not sure what that status is. Dr. Jasmine is in [place] in a conference today. I told the patient that unclear what her schedule is and when she will be coming to the hospital, but at this point, continue with . I will defer to Dr. Jasmine the discussion as to prognosis. Zander Samaniego MD [facility] # [id number]
[2018-06-23] MEDS: Albuterol-Ipratrop 3 mg / 0.5 (3 ml) UD INH SCH ×4 (01:14→19:39)
[2018-06-23] MEDS: Enoxaparin 40 mg Syringe SC SCH (09:03)
[2018-06-23] MEDS: RANITIDINE 150 MG PO SCH ×2 (09:04→17:24)
[2018-06-23] MEDS: Zinc Oxide Topical 30 gm Tube TOP SCH ×3 (09:06→17:24)
[2018-06-23] MEDS: Morphine 30 mg SR Tab PO SCH ×2 (09:39→21:29)
--- NOTE | 2018-06-23 10:47 | CP.PCM.CON ---
History of Present Illness - History of Present Illness History of Present Illness: I was asked to evaluate patient by Dr Jojo Ellison Patient is a 63 year old female with history of lung CA, HTN presents with chest pain. She describes intermittent chest pressure which is worse with inspiration. The patient states symptoms imrpove without deep breaths. The patient was admitted for furhter management. She denies syncope or palpitations. Review of Systems - Constitutional Constitutional: absent: As Per HPI, Anorexia, Chills, Daytime Sleepiness, Excessive Sweating, Fatigue, Fever, Frequent Falls, Headache, Increased Appetite , Lethargy, Malaise, Night Sweats, Snoring, Sleep Apnea, Weight Gain, Weight Loss, Weakness, Other - EENT Eyes: absent: As Per HPI, Blind Spots, Blurred Vision, Change in Vision, Decreased Night Vision, Diplopia, Discharge, Dry Eye, Exophthalmos, Floaters, Irritation, Itchy Eyes, Loss of Peripheral Vision, Pain, Photophobia, Requires Corrective Lenses, Sees Flashes, Spots in Vision, Tunnel Vision, Other Visual Disturbances, Loss of Vision, Other Ears: absent: As Per HPI, Decreased Hearing, Ear Discharge, Ear Pain, Tinnitus, Abnormal Hearing, Disequilibrium, Dizziness, Other Nose/Mouth/Throat: absent: As Per HPI, Epistaxis, Nasal Congestion, Nasal Discharge, Nasal Obstruction, Nasal Trauma, Nose Pain, Post Nasal Drip, Sinus Pain, Sinus Pressure, Bleeding Gums, Change in Voice, Dental Pain, Dry Mouth, Dysphagia, Halitosis, Hoarsness, Lip Swelling, Mouth Lesions, Mouth Pain, Odynophagia, Sore Throat, Throat Swelling, Tongue Swelling, Facial Pain, Neck Pain, Neck Mass, Other - Cardiovascular Cardiovascular: Chest Pain. absent: As Per HPI, Acrocyanosis, Chest Pain at Rest, Chest Pain with Activity, Claudication, Diaphoresis, Dyspnea, Dyspnea on Exertion, Edema, Irregular Heart Rhythm, Pain Radiating to Arm/Neck/Jaw, Leg Edema, Leg Ulcers, Lightheadedness, Orthopnea, Palpitations, Paroxysmal Nocturnal Dyspnea, Pedal Edema, Radiating Pain, Rapid Heart Rate, Slow Heart Rate, Syncope, Other - Respiratory Respiratory: absent: As Per HPI, Cough, Dyspnea, Hemoptysis, Dyspnea on Exertion , Wheezing, Snoring, Stridor, Pain on Inspiration, Chest Congestion, Excessive Mucous Production, Change in Mucous Color, Pain with Coughing, Other - Gastrointestinal Gastrointestinal: absent: As Per HPI, Abdominal Pain, Belching, Bloating, Change in Bowel Habits, Change in Stool Character, Coffee Ground Emesis, Constipation, Cramping, Diarrhea, Dyspepsia, Dysphagia, Early Satiety, Excessive Flatus, Fecal Incontinence, Heartburn, Hematemesis, Hematochezia, Loose Stools, Melena, Nausea, Odynophagia, Temesmus, Vomiting, Other - Genitourinary Genitourinary: absent: As Per HPI, Change in Urinary Stream, Difficulty Urinating, Dysuria, Flank Pain, Hematuria, Pyuria, Nocturia, Urinary Incontinence, Urinary Frequency, Urinary Hesitance, Urinary Urgency, Voiding Freq/Small Amts, Freq UTI, Hx Renal/Bladder Calculi, Hx /Renal Surgery, Bladder Distension, Other - Musculoskeletal Musculoskeletal: absent: As Per HPI, Abnormal Gait, Arthralgias, Atrophy, Back Pain, Deformity, Joint Swelling, Limited Range of Motion, Loss of Height, Muscle Cramps, Muscle Weakness, Myalgias, Neck Pain, Numbness, Radiating Pain into Limb, Stiffness, Tingling, Other - Integumentary Integumentary: absent: As Per HPI, Acne, Alopecia, Bleeding Lesions, Change in Hair, Change in Nails, Change in Pigmentation, Changing Lesions, Dry Skin, Erythema, Furuncle, Hirsutism, Lesions, New Lesions, Non-Healing Lesions, Photosensitivity, Pruritus, Rash, Skin Pain, Skin Ulcer, Sores, Striae, Swelling , Unusual Bruising, Wounds, Jaundice, Other - Neurological Neurological: absent: As Per HPI, Abnormal Gait, Abnormal Hearing, Abnormal Movements, Abnormal Speech, Behavioral Changes, Burning Sensations, Confusion, Convulsions, Disequilibrium, Dizziness, Numbness, Focal Weakness, Frequent Falls , Headaches, Lack of Coordination, Loss of Vision, Memory Loss, Paresthesias, Radicular Pain, Restless Legs, Sensory Deficit, Syncope, Tingling, Tremor, Vertigo, Weakness, Other Visual Disturbances, Other - Psychiatric Psychiatric: absent: As Per HPI, Abnormal Sleep Pattern, Anhedonia, Anxiety, Auditory Hallucinations, Behavioral Changes, Change in Appetite, Change in Libido, Confusion, Depression, Difficulty Concentrating, Hallucinations, Homicidal Ideation, Hopelessness, Irritability, Memory Loss, Mood Swings, Panic Attacks, Paranoia, Suicidal Ideation, Visual Hallucinations, Tactile Hallucinations, Other - Endocrine Endocrine: absent: As Per HPI, Change in Body Appearance, Change in Libido, Cold Intolorance, Deepening of Voice, Excessive Sweating, Fatigue, Flushing, Heat Intolorance, Increase in Ring/Shoe/Hat Size, Palpitations, Polydipsia, Polyphagia, Polyuria, Other - Hematologic/Lymphatic Hematologic: absent: As Per HPI, Easy Bleeding, Easy Bruising, Lymphadenopathy, Other Past Patient History - Past Medical History & Family History Past Medical History?: Yes - Past Social History Smoking Status: Heavy Smoker > 10 Cigarettes Daily - CARDIAC Hx Hypertension: Yes - PULMONARY Hx Bronchitis: Yes Hx Chronic Obstructive Pulmonary Disease (COPD): Yes (however uses nebulizer at home) - NEUROLOGICAL Hx Neurological Disorder: No - HEENT Hx HEENT Problems: No - RENAL Hx Chronic Kidney Disease: No - ENDOCRINE/METABOLIC Hx Endocrine Disorders: No - HEMATOLOGICAL/ONCOLOGICAL Hx Anemia: Yes - INTEGUMENTARY Hx Dermatological Problems: Yes - MUSCULOSKELETAL/RHEUMATOLOGICAL Hx Arthritis: Yes Hx Fractures: Yes (rt. hip fracture) - GASTROINTESTINAL Hx Gastrointestinal Disorders: No Other/Comment: GERD - GENITOURINARY/GYNECOLOGICAL Hx Genitourinary Disorders: No - PSYCHIATRIC Hx Anxiety: Yes Hx Depression: Yes Hx Substance Use: No - SURGICAL HISTORY Hx Surgeries: Yes Other/Comment: SPINE SURGERY 2010 PER PATIENT - ANESTHESIA Hx Anesthesia: Yes Hx Anesthesia Reactions: Yes (severe hypotension) Meds Allergies/Adverse Reactions: Allergies Allergy/AdvReac Type Severity Reaction Status Date / Time doxycycline Allergy Verified 04/01/18 10:41 Penicillins Allergy Verified 04/01/18 10:41 - Medications Medications: Current Medications Acetaminophen (Tylenol 325mg Tab) 650 mg PO Q4H PRN PRN Reason: Fever >100.4 F Albuterol/Ipratropium (Duoneb 3 Mg/0.5 Mg (3 Ml) Ud) 3 ml INH RQ6 [facility] Last Admin: 06/23/18 08:00 Dose: Not Given Aspirin (Aspirin) 325 mg PO DAILY [facility] Last Admin: 06/23/18 09:02 Dose: 325 mg Duloxetine HCl (Cymbalta) 30 mg PO DAILY [facility] Last Admin: 06/23/18 09:02 Dose: 30 mg Enoxaparin Sodium (Lovenox) 40 mg SC DAILY [facility] Last Admin: 06/23/18 09:03 Dose: 40 mg Ergocalciferol (Drisdol 50,000 Intl Units Cap) 1 cap PO QWK [facility] Famotidine (Pepcid) 20 mg PO DAILY [facility] Last Admin: 06/23/18 09:05 Dose: Not Given Folic Acid (Folic Acid) 1 mg PO DAILY [facility] Last Admin: 06/23/18 09:03 Dose: 1 mg Gabapentin (Neurontin) 300 mg PO BID [facility] Last Admin: 06/23/18 09:03 Dose: 300 mg Home Med (Patient's Own Medication) 1 tab PO BID [facility] Last Admin: 06/23/18 09:04 Dose: 1 tab Loperamide HCl (Imodium) 2 mg PO Q8H PRN PRN Reason: Diarrhea Lorazepam (Ativan) 0.5 mg PO Q8H PRN PRN Reason: Anxiety Last Admin: 06/23/18 09:03 Dose: 0.5 mg Magnesium Hydroxide (Milk Of Magnesia) 30 ml PO Q24H PRN PRN Reason: Constipation Metoclopramide HCl (Reglan) 10 mg PO Q8H PRN PRN Reason: Nausea/Vomiting Last Admin: 06/22/18 09:58 Dose: 10 mg Morphine Sulfate (Morphine Immediate Release Tab) 15 mg PO Q2H PRN PRN Reason: Other Last Admin: 06/22/18 17:47 Dose: 15 mg Morphine Sulfate (Morphine Extended Release Tab) 60 mg PO Q12 [facility] Last Admin: 06/23/18 09:39 Dose: 60 mg Ondansetron HCl (Zofran Tab) 4 mg PO Q6H PRN PRN Reason: Nausea/Vomiting Last Admin: 06/21/18 22:32 Dose: 4 mg Petrolatum (Desitin Original) 0 gm TOP TID [facility] Last Admin: 06/23/18 09:06 Dose: 1 applic Physical Exam - Constitutional Appears: Non-toxic - Head Exam Head Exam: NORMAL INSPECTION - Eye Exam Eye Exam: Normal appearance - ENT Exam ENT Exam: Mucous Membranes Moist - Neck Exam Neck exam: Positive for: Full Rom - Respiratory Exam Respiratory Exam: NORMAL BREATHING PATTERN - Cardiovascular Exam Cardiovascular Exam: REGULAR RHYTHM - GI/Abdominal Exam GI & Abdominal Exam: Normal Bowel Sounds - Rectal Exam Rectal Exam: Deferred - Extremities Exam Extremities exam: Positive for: normal inspection - Back Exam Back exam: NORMAL INSPECTION - Neurological Exam Neurological exam: Alert, Oriented x3 - Psychiatric Exam Psychiatric exam: Normal Affect - Skin Skin Exam: Normal Color Results - Vital Signs Recent Vital Signs: Last Vital Signs Temp 98.3 F 06/23/18 07:00 Pulse 103 H 06/23/18 08:47 Resp 20 06/23/18 07:00 BP 110/65 06/23/18 07:00 Pulse Ox 94 L 06/23/18 07:00 - Labs Result Diagrams: 06/21/18 12:13 06/21/18 12:13 - EKG Data EKG Interpreted by: Myself EKG shows normal: Sinus rhythm Assessment & Plan (1) Chest pain Assessment and Plan: cardaic enzymes are negative thus far. recommend echocardiogram Status: Acute (2) Lung cancer Assessment and Plan: has hilar adenopathy. may be contributor to pain. Status: Acute
--- NOTE | 2018-06-23 10:50 | CP.PCM.PN ---
Subjective - Date & Time of Evaluation Date of Evaluation: 06/23/18 Time of Evaluation: 10:40 - Subjective Subjective: no current chest pain Objective - Vital Signs/Intake and Output Vital Signs (last 24 hours): Temp Pulse Resp BP Pulse Ox 98.3 F 103 H 20 110/65 94 L 06/23/18 07:00 06/23/18 08:47 06/23/18 07:00 06/23/18 07:00 06/23/18 07:00 Intake and Output: 06/23/18 06/23/18 06:59 18:59 Intake Total 250 Output Total 200 Balance 50 - Medications Medications: Current Medications Acetaminophen (Tylenol 325mg Tab) 650 mg PO Q4H PRN PRN Reason: Fever >100.4 F Albuterol/Ipratropium (Duoneb 3 Mg/0.5 Mg (3 Ml) Ud) 3 ml INH RQ6 [facility] Last Admin: 06/23/18 08:00 Dose: Not Given Aspirin (Aspirin) 325 mg PO DAILY [facility] Last Admin: 06/23/18 09:02 Dose: 325 mg Duloxetine HCl (Cymbalta) 30 mg PO DAILY [facility] Last Admin: 06/23/18 09:02 Dose: 30 mg Enoxaparin Sodium (Lovenox) 40 mg SC DAILY [facility] Last Admin: 06/23/18 09:03 Dose: 40 mg Ergocalciferol (Drisdol 50,000 Intl Units Cap) 1 cap PO QWK [facility] Famotidine (Pepcid) 20 mg PO DAILY [facility] Last Admin: 06/23/18 09:05 Dose: Not Given Folic Acid (Folic Acid) 1 mg PO DAILY [facility] Last Admin: 06/23/18 09:03 Dose: 1 mg Gabapentin (Neurontin) 300 mg PO BID [facility] Last Admin: 06/23/18 09:03 Dose: 300 mg Home Med (Patient's Own Medication) 1 tab PO BID [facility] Last Admin: 06/23/18 09:04 Dose: 1 tab Loperamide HCl (Imodium) 2 mg PO Q8H PRN PRN Reason: Diarrhea Lorazepam (Ativan) 0.5 mg PO Q8H PRN PRN Reason: Anxiety Last Admin: 06/23/18 09:03 Dose: 0.5 mg Magnesium Hydroxide (Milk Of Magnesia) 30 ml PO Q24H PRN PRN Reason: Constipation Metoclopramide HCl (Reglan) 10 mg PO Q8H PRN PRN Reason: Nausea/Vomiting Last Admin: 06/22/18 09:58 Dose: 10 mg Morphine Sulfate (Morphine Immediate Release Tab) 15 mg PO Q2H PRN PRN Reason: Other Last Admin: 06/22/18 17:47 Dose: 15 mg Morphine Sulfate (Morphine Extended Release Tab) 60 mg PO Q12 [facility] Last Admin: 06/23/18 09:39 Dose: 60 mg Ondansetron HCl (Zofran Tab) 4 mg PO Q6H PRN PRN Reason: Nausea/Vomiting Last Admin: 06/21/18 22:32 Dose: 4 mg Petrolatum (Desitin Original) 0 gm TOP TID [facility] Last Admin: 06/23/18 09:06 Dose: 1 applic - Labs Labs: 06/21/18 12:13 06/21/18 12:13 - Constitutional Appears: Non-toxic - Head Exam Head Exam: NORMAL INSPECTION - Eye Exam Eye Exam: Normal appearance - ENT Exam ENT Exam: Mucous Membranes Moist - Neck Exam Neck Exam: Full ROM - Respiratory Exam Respiratory Exam: NORMAL BREATHING PATTERN - Cardiovascular Exam Cardiovascular Exam: REGULAR RHYTHM - GI/Abdominal Exam GI & Abdominal Exam: Normal Bowel Sounds - Rectal Exam Rectal Exam: Deferred - Extremities Exam Extremities Exam: absent: Pedal Edema - Back Exam Back Exam: NORMAL INSPECTION - Neurological Exam Neurological Exam: Alert - Psychiatric Exam Psychiatric exam: Normal Affect - Skin Skin Exam: Normal Color Assessment and Plan (1) Chest pain Assessment & Plan: negative cardiac enzymes. no pericardial effusion on echo Status: Acute (2) Lung cancer Assessment & Plan: oncology following Status: Acute
--- NOTE | 2018-06-23 11:58 | RAD ---
Date of service: 06/23/2018 PROCEDURE: AP pelvis and oblique right hip x-rays HISTORY: R/O PATHOLOGICAL FRACTURE COMPARISON: Comparison is made with 02/12/2015 TECHNIQUE: AP view of the pelvis. Oblique view of the right hip. FINDINGS: No evidence of acute fracture or dislocation. IMPRESSION: No evidence of fracture or dislocation.
--- NOTE | 2018-06-23 18:21 | CP.PCM.PN ---
Subjective - Date & Time of Evaluation Date of Evaluation: 06/23/18 Time of Evaluation: 12:00 - Subjective Subjective: clinically same Objective - Vital Signs/Intake and Output Vital Signs (last 24 hours): Temp Pulse Resp BP Pulse Ox 97.9 F 102 H 20 94/61 L 95 06/23/18 15:10 06/23/18 16:15 06/23/18 15:10 06/23/18 15:10 06/23/18 15:10 Intake and Output: 06/23/18 06/23/18 06:59 18:59 Intake Total 250 Output Total 200 Balance 50 - Medications Medications: Current Medications Acetaminophen (Tylenol 325mg Tab) 650 mg PO Q4H PRN PRN Reason: Fever >100.4 F Albuterol/Ipratropium (Duoneb 3 Mg/0.5 Mg (3 Ml) Ud) 3 ml INH RQ6 [facility] Last Admin: 06/23/18 13:59 Dose: Not Given Aspirin (Aspirin) 325 mg PO DAILY [facility] Last Admin: 06/23/18 09:02 Dose: 325 mg Duloxetine HCl (Cymbalta) 30 mg PO DAILY [facility] Last Admin: 06/23/18 09:02 Dose: 30 mg Enoxaparin Sodium (Lovenox) 40 mg SC DAILY [facility] Last Admin: 06/23/18 09:03 Dose: 40 mg Ergocalciferol (Drisdol 50,000 Intl Units Cap) 1 cap PO QWK [facility] Famotidine (Pepcid) 20 mg PO DAILY [facility] Last Admin: 06/23/18 09:05 Dose: Not Given Folic Acid (Folic Acid) 1 mg PO DAILY [facility] Last Admin: 06/23/18 09:03 Dose: 1 mg Gabapentin (Neurontin) 300 mg PO BID [facility] Last Admin: 06/23/18 17:23 Dose: 300 mg Home Med (Patient's Own Medication) 1 tab PO BID [facility] Last Admin: 06/23/18 17:24 Dose: 1 tab Loperamide HCl (Imodium) 2 mg PO Q8H PRN PRN Reason: Diarrhea Lorazepam (Ativan) 0.5 mg PO Q8H PRN PRN Reason: Anxiety Last Admin: 06/23/18 09:03 Dose: 0.5 mg Magnesium Hydroxide (Milk Of Magnesia) 30 ml PO Q24H PRN PRN Reason: Constipation Metoclopramide HCl (Reglan) 10 mg PO Q8H PRN PRN Reason: Nausea/Vomiting Last Admin: 06/22/18 09:58 Dose: 10 mg Morphine Sulfate (Morphine Immediate Release Tab) 15 mg PO Q2H PRN PRN Reason: Other Last Admin: 06/22/18 17:47 Dose: 15 mg Morphine Sulfate (Morphine Extended Release Tab) 60 mg PO Q12 [facility] Last Admin: 06/23/18 09:39 Dose: 60 mg Ondansetron HCl (Zofran Tab) 4 mg PO Q6H PRN PRN Reason: Nausea/Vomiting Last Admin: 06/21/18 22:32 Dose: 4 mg Petrolatum (Desitin Original) 0 gm TOP TID [facility] Last Admin: 06/23/18 17:24 Dose: 1 applic - Labs Labs: 06/21/18 12:13 06/21/18 12:13 - Constitutional Appears: Well - Head Exam Head Exam: ATRAUMATIC, NORMAL INSPECTION, NORMOCEPHALIC - Eye Exam Eye Exam: EOMI, Normal appearance, PERRL Pupil Exam: NORMAL ACCOMODATION, PERRL - ENT Exam ENT Exam: Mucous Membranes Moist, Normal Exam - Neck Exam Neck Exam: Full ROM, Normal Inspection. absent: Lymphadenopathy - Respiratory Exam Respiratory Exam: Decreased Breath Sounds - Cardiovascular Exam Cardiovascular Exam: REGULAR RHYTHM, +S1, +S2 - GI/Abdominal Exam GI & Abdominal Exam: Soft, Diminished Bowel Sounds - Rectal Exam Rectal Exam: Deferred
--- NOTE | 2018-06-23 22:22 | CP.PCM.CON ---
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 The patient is aware of the poor response, and is unsure if she wants to get any more treatments. The patient is not in pain, but is extremely weak, unable to stand up on her own. The patient is anxious about her future treatments, even though she seems to be tolerating them fairly well, except for nausea Past Patient History - Past Medical History & Family History Past Medical History?: Yes - Past Social History Smoking Status: Heavy Smoker > 10 Cigarettes Daily - CARDIAC Hx Hypertension: Yes - PULMONARY Hx Bronchitis: Yes Hx Chronic Obstructive Pulmonary Disease (COPD): Yes (however uses nebulizer at home) - NEUROLOGICAL Hx Neurological Disorder: No - HEENT Hx HEENT Problems: No - RENAL Hx Chronic Kidney Disease: No - ENDOCRINE/METABOLIC Hx Endocrine Disorders: No - HEMATOLOGICAL/ONCOLOGICAL Hx Anemia: Yes - INTEGUMENTARY Hx Dermatological Problems: Yes - MUSCULOSKELETAL/RHEUMATOLOGICAL Hx Arthritis: Yes Hx Fractures: Yes (rt. hip fracture) - GASTROINTESTINAL Hx Gastrointestinal Disorders: No Other/Comment: GERD - GENITOURINARY/GYNECOLOGICAL Hx Genitourinary Disorders: No - PSYCHIATRIC Hx Anxiety: Yes Hx Depression: Yes Hx Substance Use: No - SURGICAL HISTORY Hx Surgeries: Yes Other/Comment: SPINE SURGERY 2010 PER PATIENT - ANESTHESIA Hx Anesthesia: Yes Hx Anesthesia Reactions: Yes (severe hypotension) Meds Allergies/Adverse Reactions: Allergies Allergy/AdvReac Type Severity Reaction Status Date / Time doxycycline Allergy Verified 04/01/18 10:41 Penicillins Allergy Verified 04/01/18 10:41 - Medications Medications: Current Medications Acetaminophen (Tylenol 325mg Tab) 650 mg PO Q4H PRN PRN Reason: Fever >100.4 F Albuterol/Ipratropium (Duoneb 3 Mg/0.5 Mg (3 Ml) Ud) 3 ml INH RQ6 [facility] Last Admin: 06/23/18 19:39 Dose: Not Given Aspirin (Aspirin) 325 mg PO DAILY [facility] Last Admin: 06/23/18 09:02 Dose: 325 mg Duloxetine HCl (Cymbalta) 30 mg PO DAILY [facility] Last Admin: 06/23/18 09:02 Dose: 30 mg Enoxaparin Sodium (Lovenox) 40 mg SC DAILY [facility] Last Admin: 06/23/18 09:03 Dose: 40 mg Ergocalciferol (Drisdol 50,000 Intl Units Cap) 1 cap PO QWK [facility] Famotidine (Pepcid) 20 mg PO DAILY [facility] Last Admin: 06/23/18 09:05 Dose: Not Given Folic Acid (Folic Acid) 1 mg PO DAILY [facility] Last Admin: 06/23/18 09:03 Dose: 1 mg Gabapentin (Neurontin) 300 mg PO BID [facility] Last Admin: 06/23/18 17:23 Dose: 300 mg Home Med (Patient's Own Medication) 1 tab PO BID [facility] Last Admin: 06/23/18 17:24 Dose: 1 tab Loperamide HCl (Imodium) 2 mg PO Q8H PRN PRN Reason: Diarrhea Lorazepam (Ativan) 0.5 mg PO Q8H PRN PRN Reason: Anxiety Last Admin: 06/23/18 09:03 Dose: 0.5 mg Magnesium Hydroxide (Milk Of Magnesia) 30 ml PO Q24H PRN PRN Reason: Constipation Metoclopramide HCl (Reglan) 10 mg PO Q8H PRN PRN Reason: Nausea/Vomiting Last Admin: 06/22/18 09:58 Dose: 10 mg Morphine Sulfate (Morphine Immediate Release Tab) 15 mg PO Q2H PRN PRN Reason: Other Last Admin: 06/22/18 17:47 Dose: 15 mg Morphine Sulfate (Morphine Extended Release Tab) 60 mg PO Q12 [facility] Last Admin: 06/23/18 21:29 Dose: 60 mg Ondansetron HCl (Zofran Tab) 4 mg PO Q6H PRN PRN Reason: Nausea/Vomiting Last Admin: 06/21/18 22:32 Dose: 4 mg Petrolatum (Desitin Original) 0 gm TOP TID [facility] Last Admin: 06/23/18 17:24 Dose: 1 applic Results - Vital Signs Recent Vital Signs: Last Vital Signs Temp 97.9 F 06/23/18 15:10 Pulse 102 H 06/23/18 16:15 Resp 20 06/23/18 15:10 BP 94/61 L 06/23/18 15:10 Pulse Ox 95 07/28/18 15:10 - Labs Result Diagrams: 06/21/18 12:13 06/21/18 12:13 Assessment & Plan (1) Lung cancer Assessment and Plan: 63 yo woman with advanced, stage 4 non small cell cancer of the lung, poor response to cycle #1 so far, since the patient remains unsure, will discuss with her son regarding further treatments, because at this time, the options are limited, continuing chemo versus palliative care. Status: Acute
[2018-06-24] MEDS: Albuterol-Ipratrop 3 mg / 0.5 (3 ml) UD INH SCH ×4 (01:08→19:17)
[2018-06-24] MEDS: Morphine 30 mg SR Tab PO SCH ×2 (09:44→21:29)
[2018-06-24] MEDS: RANITIDINE 150 MG PO SCH ×2 (09:44→18:28)
[2018-06-24] MEDS: Enoxaparin 40 mg Syringe SC SCH (09:45)
[2018-06-24] MEDS: Zinc Oxide Topical 30 gm Tube TOP SCH ×3 (09:45→21:33)
--- NOTE | 2018-06-24 14:54 | CP.PCM.PN ---
Subjective - Date & Time of Evaluation Date of Evaluation: 06/24/18 Time of Evaluation: 12:20 - Subjective Subjective: clinically same Objective - Vital Signs/Intake and Output Vital Signs (last 24 hours): Temp Pulse Resp BP Pulse Ox 98.3 F 93 H 20 106/71 98 06/24/18 07:00 06/24/18 07:32 06/24/18 07:00 06/24/18 07:00 06/24/18 08:00 Intake and Output: 06/24/18 06/24/18 06:59 18:59 Intake Total 10 Balance 10 - Medications Medications: Current Medications Acetaminophen (Tylenol 325mg Tab) 650 mg PO Q4H PRN PRN Reason: Fever >100.4 F Albuterol/Ipratropium (Duoneb 3 Mg/0.5 Mg (3 Ml) Ud) 3 ml INH RQ6 [facility] Last Admin: 06/24/18 13:30 Dose: Not Given Aspirin (Aspirin) 325 mg PO DAILY [facility] Last Admin: 06/24/18 09:44 Dose: 325 mg Duloxetine HCl (Cymbalta) 30 mg PO DAILY [facility] Last Admin: 06/24/18 09:44 Dose: 30 mg Enoxaparin Sodium (Lovenox) 40 mg SC DAILY [facility] Last Admin: 06/24/18 09:45 Dose: 40 mg Ergocalciferol (Drisdol 50,000 Intl Units Cap) 1 cap PO QWK [facility] Famotidine (Pepcid) 20 mg PO DAILY [facility] Last Admin: 06/24/18 09:44 Dose: 20 mg Folic Acid (Folic Acid) 1 mg PO DAILY [facility] Last Admin: 06/24/18 09:44 Dose: 1 mg Gabapentin (Neurontin) 300 mg PO BID [facility] Last Admin: 06/24/18 09:44 Dose: 300 mg Home Med (Patient's Own Medication) 1 tab PO BID [facility] Last Admin: 06/24/18 09:44 Dose: 1 tab Loperamide HCl (Imodium) 2 mg PO Q8H PRN PRN Reason: Diarrhea Lorazepam (Ativan) 0.5 mg PO Q8H PRN PRN Reason: Anxiety Last Admin: 06/23/18 22:31 Dose: 0.5 mg Magnesium Hydroxide (Milk Of Magnesia) 30 ml PO Q24H PRN PRN Reason: Constipation Metoclopramide HCl (Reglan) 10 mg PO Q8H PRN PRN Reason: Nausea/Vomiting Last Admin: 06/24/18 12:55 Dose: 10 mg Morphine Sulfate (Morphine Immediate Release Tab) 15 mg PO Q2H PRN PRN Reason: Other Last Admin: 06/22/18 17:47 Dose: 15 mg Morphine Sulfate (Morphine Extended Release Tab) 60 mg PO Q12 [facility] Last Admin: 06/24/18 09:44 Dose: 60 mg Ondansetron HCl (Zofran Tab) 4 mg PO Q6H PRN PRN Reason: Nausea/Vomiting Last Admin: 06/21/18 22:32 Dose: 4 mg Petrolatum (Desitin Original) 0 gm TOP TID [facility] Last Admin: 06/24/18 09:45 Dose: 1 applic - Labs Labs: 06/21/18 12:13 06/21/18 12:13 - Constitutional Appears: Well - Head Exam Head Exam: ATRAUMATIC, NORMAL INSPECTION, NORMOCEPHALIC - Eye Exam Eye Exam: EOMI, Normal appearance, PERRL Pupil Exam: NORMAL ACCOMODATION, PERRL - ENT Exam ENT Exam: Mucous Membranes Moist, Normal Exam - Neck Exam Neck Exam: Full ROM, Normal Inspection. absent: Lymphadenopathy - Respiratory Exam Respiratory Exam: Decreased Breath Sounds - Cardiovascular Exam Cardiovascular Exam: REGULAR RHYTHM, +S1, +S2 - GI/Abdominal Exam GI & Abdominal Exam: Soft, Diminished Bowel Sounds - Rectal Exam Rectal Exam: Deferred
[2018-06-25] MEDS: Albuterol-Ipratrop 3 mg / 0.5 (3 ml) UD INH SCH ×4 (01:01→20:04)
[2018-06-25] MEDS: Morphine 30 mg SR Tab PO SCH ×2 (09:57→21:27)
[2018-06-25] MEDS: RANITIDINE 150 MG PO SCH ×2 (10:01→18:37)
[2018-06-25] MEDS: Zinc Oxide Topical 30 gm Tube TOP SCH ×3 (10:05→19:57)
[2018-06-25] MEDS: Enoxaparin 40 mg Syringe SC SCH (10:14)
[2018-06-25] MEDS: Morphine 15 mg Immediate Release Tab PO PRN (18:36)
--- NOTE | 2018-06-25 19:15 | CP.PCM.PN ---
Subjective - Date & Time of Evaluation Date of Evaluation: 06/25/18 Time of Evaluation: 11:40 - Subjective Subjective: clinically same Objective - Vital Signs/Intake and Output Vital Signs (last 24 hours): Temp Pulse Resp BP Pulse Ox 98.2 F 98 H 20 105/69 98 06/25/18 15:00 06/25/18 17:19 06/25/18 15:00 06/25/18 15:00 06/25/18 15:00 - Medications Medications: Current Medications Acetaminophen (Tylenol 325mg Tab) 650 mg PO Q4H PRN PRN Reason: Fever >100.4 F Albuterol/Ipratropium (Duoneb 3 Mg/0.5 Mg (3 Ml) Ud) 3 ml INH RQ6 [facility] Last Admin: 06/25/18 13:52 Dose: Not Given Aspirin (Aspirin) 325 mg PO DAILY [facility] Last Admin: 06/25/18 10:15 Dose: 325 mg Duloxetine HCl (Cymbalta) 30 mg PO DAILY [facility] Last Admin: 06/25/18 09:59 Dose: 30 mg Enoxaparin Sodium (Lovenox) 40 mg SC DAILY [facility] Last Admin: 06/25/18 10:14 Dose: 40 mg Ergocalciferol (Drisdol 50,000 Intl Units Cap) 1 cap PO QWK [facility] Famotidine (Pepcid) 20 mg PO DAILY [facility] Last Admin: 06/25/18 10:04 Dose: Not Given Folic Acid (Folic Acid) 1 mg PO DAILY [facility] Last Admin: 06/25/18 09:58 Dose: 1 mg Gabapentin (Neurontin) 300 mg PO BID [facility] Last Admin: 06/25/18 18:37 Dose: 300 mg Home Med (Patient's Own Medication) 1 tab PO BID [facility] Last Admin: 06/25/18 18:37 Dose: 1 tab Loperamide HCl (Imodium) 2 mg PO Q8H PRN PRN Reason: Diarrhea Lorazepam (Ativan) 0.5 mg PO Q8H PRN PRN Reason: Anxiety Last Admin: 06/24/18 21:29 Dose: 0.5 mg Magnesium Hydroxide (Milk Of Magnesia) 30 ml PO Q24H PRN PRN Reason: Constipation Metoclopramide HCl (Reglan) 10 mg PO Q8H PRN PRN Reason: Nausea/Vomiting Last Admin: 06/25/18 10:15 Dose: 10 mg Morphine Sulfate (Morphine Immediate Release Tab) 15 mg PO Q2H PRN PRN Reason: Other Last Admin: 06/25/18 18:36 Dose: 15 mg Morphine Sulfate (Morphine Extended Release Tab) 60 mg PO Q12 [facility] Ondansetron HCl (Zofran Tab) 4 mg PO Q6H PRN PRN Reason: Nausea/Vomiting Last Admin: 06/21/18 22:32 Dose: 4 mg Petrolatum (Desitin Original) 0 gm TOP TID [facility] Last Admin: 06/25/18 13:07 Dose: Not Given - Labs Labs: 06/21/18 12:13 06/21/18 12:13 - Constitutional Appears: Well - Head Exam Head Exam: ATRAUMATIC, NORMAL INSPECTION, NORMOCEPHALIC - Eye Exam Eye Exam: EOMI, Normal appearance, PERRL Pupil Exam: NORMAL ACCOMODATION, PERRL - ENT Exam ENT Exam: Mucous Membranes Moist, Normal Exam - Neck Exam Neck Exam: Full ROM, Normal Inspection. absent: Lymphadenopathy - Respiratory Exam Respiratory Exam: Decreased Breath Sounds - Cardiovascular Exam Cardiovascular Exam: REGULAR RHYTHM, +S1, +S2 - GI/Abdominal Exam GI & Abdominal Exam: Soft, Diminished Bowel Sounds - Rectal Exam Rectal Exam: Deferred
[2018-06-26] MEDS: Albuterol-Ipratrop 3 mg / 0.5 (3 ml) UD INH SCH ×4 (01:55→19:19)
[2018-06-26] MEDS: Morphine 15 mg Immediate Release Tab PO PRN ×2 (07:52→16:03)
[2018-06-26] MEDS: Morphine 30 mg SR Tab PO SCH ×2 (09:54→21:33)
[2018-06-26] MEDS: Enoxaparin 40 mg Syringe SC SCH (09:55)
[2018-06-26] MEDS: RANITIDINE 150 MG PO SCH ×2 (09:55→17:13)
[2018-06-26] MEDS: Zinc Oxide Topical 30 gm Tube TOP SCH ×2 (09:56→15:51)
--- NOTE | 2018-06-26 17:41 | CP.PCM.PN ---
Subjective - Date & Time of Evaluation Date of Evaluation: 06/26/18 Time of Evaluation: 10:20 - Subjective Subjective: clinically same Objective - Vital Signs/Intake and Output Vital Signs (last 24 hours): Temp Pulse Resp BP Pulse Ox 98.4 F 102 H 20 114/76 98 06/26/18 15:04 06/26/18 15:04 06/26/18 15:04 06/26/18 15:04 06/26/18 15:04 - Medications Medications: Current Medications Acetaminophen (Tylenol 325mg Tab) 650 mg PO Q4H PRN PRN Reason: Fever >100.4 F Albuterol/Ipratropium (Duoneb 3 Mg/0.5 Mg (3 Ml) Ud) 3 ml INH RQ6 [facility] Last Admin: 06/26/18 13:30 Dose: Not Given Aspirin (Aspirin) 325 mg PO DAILY [facility] Last Admin: 06/26/18 09:54 Dose: 325 mg Duloxetine HCl (Cymbalta) 30 mg PO DAILY [facility] Last Admin: 06/26/18 09:55 Dose: 30 mg Enoxaparin Sodium (Lovenox) 40 mg SC DAILY [facility] Last Admin: 06/26/18 09:55 Dose: 40 mg Ergocalciferol (Drisdol 50,000 Intl Units Cap) 1 cap PO QWK [facility] Famotidine (Pepcid) 20 mg PO DAILY [facility] Last Admin: 06/26/18 10:19 Dose: Not Given Folic Acid (Folic Acid) 1 mg PO DAILY [facility] Last Admin: 06/26/18 09:54 Dose: 1 mg Gabapentin (Neurontin) 300 mg PO BID [facility] Last Admin: 06/26/18 17:13 Dose: 300 mg Home Med (Patient's Own Medication) 1 tab PO BID [facility] Last Admin: 06/26/18 17:13 Dose: 1 tab Loperamide HCl (Imodium) 2 mg PO Q8H PRN PRN Reason: Diarrhea Lorazepam (Ativan) 0.5 mg PO Q8H PRN PRN Reason: Anxiety Last Admin: 06/24/18 21:29 Dose: 0.5 mg Magnesium Hydroxide (Milk Of Magnesia) 30 ml PO Q24H PRN PRN Reason: Constipation Metoclopramide HCl (Reglan) 10 mg PO Q8H PRN PRN Reason: Nausea/Vomiting Last Admin: 06/26/18 17:13 Dose: 10 mg Morphine Sulfate (Morphine Immediate Release Tab) 15 mg PO Q2H PRN PRN Reason: Other Last Admin: 06/26/18 16:03 Dose: 15 mg Morphine Sulfate (Morphine Extended Release Tab) 60 mg PO Q12 [facility] Last Admin: 06/26/18 09:54 Dose: 60 mg Ondansetron HCl (Zofran Tab) 4 mg PO Q6H PRN PRN Reason: Nausea/Vomiting Last Admin: 06/26/18 09:55 Dose: 4 mg Petrolatum (Desitin Original) 0 gm TOP TID [facility] Last Admin: 06/26/18 15:51 Dose: Not Given - Labs Labs: 06/21/18 12:13 06/21/18 12:13 - Constitutional Appears: Well - Head Exam Head Exam: ATRAUMATIC, NORMAL INSPECTION, NORMOCEPHALIC - Eye Exam Eye Exam: EOMI, Normal appearance, PERRL Pupil Exam: NORMAL ACCOMODATION, PERRL - ENT Exam ENT Exam: Mucous Membranes Moist, Normal Exam - Neck Exam Neck Exam: Full ROM, Normal Inspection. absent: Lymphadenopathy - Respiratory Exam Respiratory Exam: Decreased Breath Sounds - Cardiovascular Exam Cardiovascular Exam: REGULAR RHYTHM, +S1, +S2 - GI/Abdominal Exam GI & Abdominal Exam: Soft, Diminished Bowel Sounds - Rectal Exam Rectal Exam: Deferred
[2018-06-27] MEDS: Albuterol-Ipratrop 3 mg / 0.5 (3 ml) UD INH SCH ×4 (01:19→19:19)
--- NOTE | 2018-06-27 08:56 | RAD ---
Date of service: 06/26/2018 HISTORY: sob, vomiting, r/o aspiration COMPARISON: Portable chest 06/21/2018 FINDINGS: LUNGS: Patient rotated toward the right accentuating left hilar vascular markings. Mild left pleural effusion persists with underlying atelectasis or infiltrate difficult to exclude. No right-sided infiltrate or pleural effusion. No pneumothorax bilaterally. CARDIOVASCULAR: Normal. OSSEOUS STRUCTURES: No significant abnormalities. VISUALIZED UPPER ABDOMEN: Normal. OTHER FINDINGS: None. IMPRESSION: Stable mild left pleural effusion. Underlying left basilar airspace disease not completely excluded.
--- NOTE | 2018-06-27 09:13 | RAD ---
Date of service: 06/26/2018 PROCEDURE: Left Knee Radiographs. HISTORY: Pain. COMPARISON: None. FINDINGS: BONES: No acute fracture or destructive bony lesion identified. A small bone island is suspected at the proximal metaphysis of the tibia. No lytic bony changes appreciated. JOINTS: Limited medial femorotibial and patellofemoral joint space narrowing is identified compatible mild degenerative joint disease. JOINT EFFUSION: None. OTHER FINDINGS: None. IMPRESSION: Mild degenerative joint disease. No acute fracture or dislocation identified.
[2018-06-27] MEDS: Morphine 30 mg SR Tab PO SCH ×2 (09:18→21:42)
[2018-06-27] MEDS: Enoxaparin 40 mg Syringe SC SCH (09:19)
[2018-06-27] MEDS: RANITIDINE 150 MG PO SCH ×2 (09:19→17:52)
[2018-06-27] MEDS: Zinc Oxide Topical 30 gm Tube TOP SCH ×3 (09:24→19:00)
--- NOTE | 2018-06-27 11:21 | CP.PCM.PN ---
Subjective - Date & Time of Evaluation Date of Evaluation: 06/27/18 Time of Evaluation: 11:06 - Subjective Subjective: PGY3 progress note for Dr. 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 Pt seen and examined at bedside. No acute events overnight. Patient tolerating diet. Patient still c/ o LE weakness and unable to stand due to the weakness. Denies having any CP, SOB, abd pain, N/V/D/C, F/c. Objective - Vital Signs/Intake and Output Vital Signs (last 24 hours): Temp Pulse Resp BP Pulse Ox 98.1 F 99 H 20 99/62 L 95 06/27/18 07:00 06/27/18 07:00 06/27/18 07:00 06/27/18 07:00 06/27/18 07:00 Intake and Output: 06/27/18 06/27/18 06:59 18:59 Intake Total 0 Balance 0 - Medications Medications: Current Medications Acetaminophen (Tylenol 325mg Tab) 650 mg PO Q4H PRN PRN Reason: Fever >100.4 F Albuterol/Ipratropium (Duoneb 3 Mg/0.5 Mg (3 Ml) Ud) 3 ml INH RQ6 [facility] Last Admin: 06/27/18 08:00 Dose: Not Given Aspirin (Aspirin) 325 mg PO DAILY [facility] Last Admin: 06/27/18 09:17 Dose: 325 mg Duloxetine HCl (Cymbalta) 30 mg PO DAILY [facility] Last Admin: 06/27/18 09:19 Dose: 30 mg Enoxaparin Sodium (Lovenox) 40 mg SC DAILY [facility] Last Admin: 06/27/18 09:19 Dose: 40 mg Ergocalciferol (Drisdol 50,000 Intl Units Cap) 1 cap PO QWK [facility] Famotidine (Pepcid) 20 mg PO DAILY [facility] Last Admin: 06/27/18 09:24 Dose: Not Given Folic Acid (Folic Acid) 1 mg PO DAILY [facility] Last Admin: 06/27/18 09:17 Dose: 1 mg Gabapentin (Neurontin) 300 mg PO BID [facility] Last Admin: 06/27/18 09:17 Dose: 300 mg Home Med (Patient's Own Medication) 1 tab PO BID [facility] Last Admin: 06/27/18 09:19 Dose: 1 tab Loperamide HCl (Imodium) 2 mg PO Q8H PRN PRN Reason: Diarrhea Lorazepam (Ativan) 0.5 mg PO Q8H PRN PRN Reason: Anxiety Last Admin: 06/24/18 21:29 Dose: 0.5 mg Magnesium Hydroxide (Milk Of Magnesia) 30 ml PO Q24H PRN PRN Reason: Constipation Metoclopramide HCl (Reglan) 10 mg PO Q8H PRN PRN Reason: Nausea/Vomiting Last Admin: 06/26/18 17:13 Dose: 10 mg Morphine Sulfate (Morphine Immediate Release Tab) 15 mg PO Q2H PRN PRN Reason: Other Last Admin: 06/26/18 16:03 Dose: 15 mg Morphine Sulfate (Morphine Extended Release Tab) 60 mg PO Q12 [facility] Last Admin: 06/27/18 09:18 Dose: 60 mg Ondansetron HCl (Zofran Tab) 4 mg PO Q6H PRN PRN Reason: Nausea/Vomiting Last Admin: 06/27/18 09:19 Dose: 4 mg Petrolatum (Desitin Original) 0 gm TOP TID [facility] Last Admin: 06/27/18 09:24 Dose: Not Given - Labs Labs: 06/21/18 12:13 06/21/18 12:13 - Constitutional Appears: Non-toxic, No Acute Distress - Head Exam Head Exam: ATRAUMATIC, NORMOCEPHALIC - ENT Exam ENT Exam: Mucous Membranes Moist - Respiratory Exam Respiratory Exam: Clear to Ausculation Bilateral, NORMAL BREATHING PATTERN. absent: Rales, Rhonchi, Wheezes, Respiratory Distress - Cardiovascular Exam Cardiovascular Exam: REGULAR RHYTHM, +S1, +S2. absent: Gallop, Rubs, Murmur - GI/Abdominal Exam GI & Abdominal Exam: Soft, Normal Bowel Sounds. absent: Distended, Firm, Guarding, Rigid, Tenderness, Organomegaly - Extremities Exam Extremities Exam: absent: Calf Tenderness, Joint Swelling, Pedal Edema, Tenderness - Neurological Exam Neurological Exam: Alert, Awake, Oriented x3 - Psychiatric Exam Psychiatric exam: Normal Affect, Normal Mood - Skin Skin Exam: Dry, Intact, Normal Color, Warm Assessment and Plan - Assessment and Plan (Free Text) Assessment: 63 year old female with past medical history of adenocarcinoma of lungs stage IV with mets to brain, liver and bone, HTN, COPD is admitted for chest pain. Patient is s/p radiation and currently undergoing chemotherapy. She had 2nd round of chemotherapy. Chest pain likely due to hilar LAD vs. bone mets - Troponins and EKG x 3 were negative - CTA of chest was negative for PE. However, CT showed worsening medistinal and hilar adenopathy; enlargement of right upper outer breast soft tissue nodule; multiple new lytic lesions in thoracic vertebral bodies - Echo done during this admission showed normal LV function with EF of 65-70% with moderate degree of pulm HTN - LE duplex negative for DVT - Cardiology, Dr. Deluca was consulted - Continue Aspirin 325 mg po qd COPD - Will continue duoneb breathing treatment - Pulmonology, Dr. Velarde was consulted Stage IV adenocarcinoma of lungs - Oncology, Dr. Jasmine is consulted - Continue pain manegemnt with morphine and neurontin and cymbalta - Ativan prn for anxiety - Will consider consulting palliative care to discuss advance directives Vitamin d deficiency - Continue ergocalciferol qw Hx of HTN - Continue to monitor. Currently pt is hypotensive Prophylaxis - Pepcid - Lovenox - SCDs All orders and management per Dr. Ellison
[2018-06-27] MEDS: Morphine 15 mg Immediate Release Tab PO PRN ×2 (12:57→17:53)
--- NOTE | 2018-06-27 19:27 | CP.PCM.PN ---
Subjective - Date & Time of Evaluation Date of Evaluation: 06/27/18 Time of Evaluation: 09:20 - Subjective Subjective: clinically same Objective - Vital Signs/Intake and Output Vital Signs (last 24 hours): Temp Pulse Resp BP Pulse Ox 98.6 F 99 H 20 100/67 96 06/27/18 15:06 06/27/18 15:06 06/27/18 15:06 06/27/18 15:06 06/27/18 15:06 - Medications Medications: Current Medications Acetaminophen (Tylenol 325mg Tab) 650 mg PO Q4H PRN PRN Reason: Fever >100.4 F Albuterol/Ipratropium (Duoneb 3 Mg/0.5 Mg (3 Ml) Ud) 3 ml INH RQ6 [facility] Last Admin: 06/27/18 19:19 Dose: Not Given Aspirin (Aspirin) 325 mg PO DAILY [facility] Last Admin: 06/27/18 09:17 Dose: 325 mg Duloxetine HCl (Cymbalta) 30 mg PO DAILY [facility] Last Admin: 06/27/18 09:19 Dose: 30 mg Enoxaparin Sodium (Lovenox) 40 mg SC DAILY [facility] Last Admin: 06/27/18 09:19 Dose: 40 mg Ergocalciferol (Drisdol 50,000 Intl Units Cap) 1 cap PO QWK [facility] Famotidine (Pepcid) 20 mg PO DAILY [facility] Last Admin: 06/27/18 09:24 Dose: Not Given Folic Acid (Folic Acid) 1 mg PO DAILY [facility] Last Admin: 06/27/18 09:17 Dose: 1 mg Gabapentin (Neurontin) 300 mg PO BID [facility] Last Admin: 06/27/18 17:53 Dose: 300 mg Home Med (Patient's Own Medication) 1 tab PO BID [facility] Last Admin: 06/27/18 17:52 Dose: 1 tab Loperamide HCl (Imodium) 2 mg PO Q8H PRN PRN Reason: Diarrhea Lorazepam (Ativan) 0.5 mg PO Q8H PRN PRN Reason: Anxiety Last Admin: 06/24/18 21:29 Dose: 0.5 mg Magnesium Hydroxide (Milk Of Magnesia) 30 ml PO Q24H PRN PRN Reason: Constipation Metoclopramide HCl (Reglan) 10 mg PO Q8H PRN PRN Reason: Nausea/Vomiting Last Admin: 06/26/18 17:13 Dose: 10 mg Morphine Sulfate (Morphine Immediate Release Tab) 15 mg PO Q2H PRN PRN Reason: Other Last Admin: 06/27/18 17:53 Dose: 15 mg Morphine Sulfate (Morphine Extended Release Tab) 60 mg PO Q12 [facility] Last Admin: 06/27/18 09:18 Dose: 60 mg Ondansetron HCl (Zofran Tab) 4 mg PO Q6H PRN PRN Reason: Nausea/Vomiting Last Admin: 06/27/18 09:19 Dose: 4 mg Petrolatum (Desitin Original) 0 gm TOP TID [facility] Last Admin: 06/27/18 13:54 Dose: 1 applic - Labs Labs: 06/21/18 12:13 06/21/18 12:13 - Constitutional Appears: Non-toxic - Head Exam Head Exam: NORMAL INSPECTION - Eye Exam Eye Exam: Normal appearance - ENT Exam ENT Exam: Normal Exam - Neck Exam Neck Exam: Normal Inspection - Respiratory Exam Respiratory Exam: Decreased Breath Sounds - Cardiovascular Exam Cardiovascular Exam: REGULAR RHYTHM - GI/Abdominal Exam GI & Abdominal Exam: Diminished Bowel Sounds - Rectal Exam Rectal Exam: Deferred
[2018-06-28] MEDS: Albuterol-Ipratrop 3 mg / 0.5 (3 ml) UD INH SCH ×3 (01:24→13:50)
--- NOTE | 2018-06-28 07:25 | CP.PCM.PN ---
Subjective - Date & Time of Evaluation Date of Evaluation: 06/28/18 Time of Evaluation: 07:24 - Subjective Subjective: PGY2- Progress note for Dr. Jojo Ellison Patient was seen and examined at bedside in no acute distress. Patient reports feeling "not very good" but does not explain why. Patient says she has been nausea since her last chemo last week, but is tolerating her diet and denies vomiting. Patient denies chest pain, palpitations, abdominal pain, dyspnea, coughing, wheezing, palpitations, vomiting, fevers, headaches, leg pain, and leg swelling. Objective - Vital Signs/Intake and Output Vital Signs (last 24 hours): Temp Pulse Resp BP Pulse Ox 97.9 F 104 H 20 103/53 L 95 06/28/18 04:15 06/28/18 04:15 06/28/18 04:15 06/28/18 04:15 06/28/18 04:15 Intake and Output: 06/28/18 06/28/18 06:59 18:59 Intake Total 300 Balance 300 - Medications Medications: Current Medications Acetaminophen (Tylenol 325mg Tab) 650 mg PO Q4H PRN PRN Reason: Fever >100.4 F Albuterol/Ipratropium (Duoneb 3 Mg/0.5 Mg (3 Ml) Ud) 3 ml INH RQ6 [facility] Last Admin: 06/28/18 01:24 Dose: Not Given Aspirin (Aspirin) 325 mg PO DAILY [facility] Last Admin: 06/27/18 09:17 Dose: 325 mg Duloxetine HCl (Cymbalta) 30 mg PO DAILY [facility] Last Admin: 06/27/18 09:19 Dose: 30 mg Enoxaparin Sodium (Lovenox) 40 mg SC DAILY [facility] Last Admin: 06/27/18 09:19 Dose: 40 mg Ergocalciferol (Drisdol 50,000 Intl Units Cap) 1 cap PO QWK [facility] Famotidine (Pepcid) 20 mg PO DAILY [facility] Last Admin: 06/27/18 09:24 Dose: Not Given Folic Acid (Folic Acid) 1 mg PO DAILY [facility] Last Admin: 06/27/18 09:17 Dose: 1 mg Gabapentin (Neurontin) 300 mg PO BID [facility] Last Admin: 06/27/18 17:53 Dose: 300 mg Home Med (Patient's Own Medication) 1 tab PO BID [facility] Last Admin: 06/27/18 17:52 Dose: 1 tab Loperamide HCl (Imodium) 2 mg PO Q8H PRN PRN Reason: Diarrhea Lorazepam (Ativan) 0.5 mg PO Q8H PRN PRN Reason: Anxiety Last Admin: 06/24/18 21:29 Dose: 0.5 mg Magnesium Hydroxide (Milk Of Magnesia) 30 ml PO Q24H PRN PRN Reason: Constipation Metoclopramide HCl (Reglan) 10 mg PO Q8H PRN PRN Reason: Nausea/Vomiting Last Admin: 06/26/18 17:13 Dose: 10 mg Morphine Sulfate (Morphine Immediate Release Tab) 15 mg PO Q2H PRN PRN Reason: Other Last Admin: 06/27/18 17:53 Dose: 15 mg Morphine Sulfate (Morphine Extended Release Tab) 60 mg PO Q12 [facility] Last Admin: 06/27/18 21:42 Dose: 60 mg Ondansetron HCl (Zofran Tab) 4 mg PO Q6H PRN PRN Reason: Nausea/Vomiting Last Admin: 06/27/18 09:19 Dose: 4 mg Petrolatum (Desitin Original) 0 gm TOP TID [facility] Last Admin: 06/27/18 19:00 Dose: 1 applic - Labs Labs: 06/21/18 12:13 06/21/18 12:13 - Constitutional Appears: No Acute Distress - Head Exam Head Exam: NORMAL INSPECTION - Eye Exam Eye Exam: EOMI, Normal appearance - ENT Exam ENT Exam: Mucous Membranes Moist - Respiratory Exam Respiratory Exam: Clear to Ausculation Bilateral, NORMAL BREATHING PATTERN. absent: Rales, Rhonchi, Wheezes - Cardiovascular Exam Cardiovascular Exam: REGULAR RHYTHM, +S1, +S2 - GI/Abdominal Exam GI & Abdominal Exam: Soft, Normal Bowel Sounds. absent: Distended, Firm, Tenderness - Extremities Exam Extremities Exam: Pedal Edema (left LE). absent: Calf Tenderness, Tenderness - Neurological Exam Neurological Exam: Alert, Awake - Psychiatric Exam Psychiatric exam: Flat Affect - Skin Skin Exam: Dry, Intact, Normal Color, Warm Assessment and Plan - Assessment and Plan (Free Text) Plan: 63 year old female with past medical history of adenocarcinoma of lungs stage IV with mets to brain, liver and bone, HTN, COPD is admitted for chest pain. Patient is s/p radiation and currently undergoing chemotherapy. She had 2nd round of chemotherapy. Chest pain likely due to hilar LAD vs. bone mets - Troponins and EKG x 3 were negative - CTA of chest was negative for PE. However, CT showed worsening medistinal and hilar adenopathy; enlargement of right upper outer breast soft tissue nodule; multiple new lytic lesions in thoracic vertebral bodies - Echo done during this admission showed normal LV function with EF of 65-70% with moderate degree of pulm HTN - LE duplex negative for DVT - Cardiology, Dr. Deluca was consulted - Continue Aspirin 325 mg po qd Anemia - Hgb 8.4 - Stool occult: f/u - Type and cross Stage IV adenocarcinoma of lungs - Oncology, Dr. Russellgal is consulted - Continue pain manegemnt with morphine and neurontin and cymbalta - Ativan prn for anxiety - Will consider consulting palliative care to discuss advance directives COPD - Will continue duoneb breathing treatment - Pulmonology, Dr. Velarde was consulted LE swelling - Venous doppler (06/21/18): negative for DVT Vitamin D deficiency - Continue ergocalciferol qw Hx of HTN - Continue to monitor. Currently pt is hypotensive Prophylaxis - Pepcid - Lovenox - SCDs Case discussed with Dr. Jojo Ellison. Management per Dr Jojo Ellison.
[2018-06-28 08:22] LABS: BASO % 0.3 % (0.0-2.0); EOS # 0.1 K/uL (0.0-0.7); EOS % 2.1 % (0.0-4.0); HEMOGLOBIN 8.4 g/dL (11.0-16.0); LYMPH # 0.9 K/uL (1.0-4.3); LYMPH % 33.7 % (20.0-40.0); MEAN CELL VOLUME 85.5 fL (81.0-99.0); MEAN CORPUSCULAR HEMOGLOBIN 28.5 pg (27.0-31.0); MEAN CORPUSCULAR HGB CONC 33.4 g/dL (33.0-37.0); MEAN PLATELET VOLUME 7.5 fL (7.2-11.7); MONO # 0.5 K/uL (0.0-0.8); MONO % 18.5 % (0.0-10.0); NEUT # 1.3 K/uL (1.8-7.0); NEUT % 45.4 % (50.0-75.0); NRBC % 0.1 % (0.0-2.0); RBC 2.94 Mil/uL (3.80-5.20); RED CELL DISTRIBUTION WIDTH 17.7 % (11.5-14.5)
[2018-06-28 08:29] LABS: WHITE BLOOD COUNT 2.8 K/uL (4.8-10.8)
[2018-06-28 08:32] LABS: ALBUMIN 3.2 g/dL (3.5-5.0); ALT/SGPT 28 U/L (9-52); AST/SGOT 67 U/L (14-36); BLOOD UREA NITROGEN 5 mg/dL (7-17); CALCIUM 8.5 mg/dl (8.6-10.4); GFR AFRICAN-AMERICAN > 60; GFR NON-AFRICAN AMERICAN > 60
[2018-06-28] MEDS ORDERED: Ergocalciferol 50,000 Intl Units Cap PO SCH (10:00)
[2018-06-28] MEDS: Morphine 30 mg SR Tab PO SCH ×2 (10:29→22:03)
[2018-06-28] MEDS: Enoxaparin 40 mg Syringe SC SCH (10:31)
[2018-06-28] MEDS: RANITIDINE 150 MG PO SCH ×2 (10:33→17:55)
[2018-06-28] MEDS: Zinc Oxide Topical 30 gm Tube TOP SCH ×2 (10:45→19:00)
[2018-06-28] MEDS ORDERED: Potassium Chloride 20 mEq ER Tab PO ONE ×2 (11:00→21:40)
[2018-06-28] MEDS: Morphine 15 mg Immediate Release Tab PO PRN (17:55)
--- NOTE | 2018-06-28 20:15 | CP.PCM.PN ---
Subjective - Date & Time of Evaluation Date of Evaluation: 06/28/18 Time of Evaluation: 09:20 - Subjective Subjective: clinically same Objective - Vital Signs/Intake and Output Vital Signs (last 24 hours): Temp Pulse Resp BP Pulse Ox 98.0 F 105 H 20 102/68 94 L 06/28/18 15:14 06/28/18 15:14 06/28/18 15:14 06/28/18 15:14 06/28/18 15:14 Intake and Output: 06/28/18 06/29/18 18:59 06:59 Intake Total 350 Balance 350 - Medications Medications: Current Medications Acetaminophen (Tylenol 325mg Tab) 650 mg PO Q4H PRN PRN Reason: Fever >100.4 F Albuterol/Ipratropium (Duoneb 3 Mg/0.5 Mg (3 Ml) Ud) 3 ml INH RQ6 [facility] Last Admin: 06/28/18 13:50 Dose: Not Given Aspirin (Aspirin) 325 mg PO DAILY [facility] Last Admin: 06/28/18 10:32 Dose: 325 mg Duloxetine HCl (Cymbalta) 30 mg PO DAILY [facility] Last Admin: 06/28/18 10:31 Dose: 30 mg Enoxaparin Sodium (Lovenox) 40 mg SC DAILY [facility] Last Admin: 06/28/18 10:31 Dose: 40 mg Ergocalciferol (Drisdol 50,000 Intl Units Cap) 1 cap PO QWK [facility] Last Admin: 06/28/18 10:31 Dose: 1 cap Famotidine (Pepcid) 20 mg PO DAILY [facility] Last Admin: 06/28/18 10:32 Dose: 20 mg Folic Acid (Folic Acid) 1 mg PO DAILY [facility] Last Admin: 06/28/18 10:31 Dose: 1 mg Gabapentin (Neurontin) 300 mg PO BID [facility] Last Admin: 06/28/18 17:55 Dose: 300 mg Home Med (Patient's Own Medication) 1 tab PO BID [facility] Last Admin: 06/28/18 17:55 Dose: 1 tab Potassium Chloride (Potassium Chloride 20 Meq/100 Ml) 20 meq in 100 mls @ 50 mls/hr IVPB Q2 [facility] Stop: 06/28/18 23:59 Loperamide HCl (Imodium) 2 mg PO Q8H PRN PRN Reason: Diarrhea Lorazepam (Ativan) 0.5 mg PO Q8H PRN PRN Reason: Anxiety Last Admin: 06/28/18 13:24 Dose: 0.5 mg Magnesium Hydroxide (Milk Of Magnesia) 30 ml PO Q24H PRN PRN Reason: Constipation Metoclopramide HCl (Reglan) 10 mg PO Q8H PRN PRN Reason: Nausea/Vomiting Last Admin: 06/26/18 17:13 Dose: 10 mg Morphine Sulfate (Morphine Immediate Release Tab) 15 mg PO Q2H PRN PRN Reason: Other Last Admin: 06/28/18 17:55 Dose: 15 mg Morphine Sulfate (Morphine Extended Release Tab) 60 mg PO Q12 [facility] Last Admin: 06/28/18 10:29 Dose: 60 mg Ondansetron HCl (Zofran Tab) 4 mg PO Q6H PRN PRN Reason: Nausea/Vomiting Last Admin: 06/27/18 09:19 Dose: 4 mg Petrolatum (Desitin Original) 0 gm TOP TID [facility] Last Admin: 06/28/18 10:45 Dose: Not Given - Labs Labs: 06/28/18 08:07 06/28/18 08:07 - Constitutional Appears: Well - Head Exam Head Exam: ATRAUMATIC, NORMAL INSPECTION, NORMOCEPHALIC - Eye Exam Eye Exam: EOMI, Normal appearance, PERRL Pupil Exam: NORMAL ACCOMODATION, PERRL - ENT Exam ENT Exam: Mucous Membranes Moist, Normal Exam - Neck Exam Neck Exam: Full ROM, Normal Inspection. absent: Lymphadenopathy - Respiratory Exam Respiratory Exam: Decreased Breath Sounds - Cardiovascular Exam Cardiovascular Exam: REGULAR RHYTHM, +S1, +S2 - GI/Abdominal Exam GI & Abdominal Exam: Soft, Diminished Bowel Sounds - Rectal Exam Rectal Exam: Deferred
[2018-06-29] MEDS: Albuterol-Ipratrop 3 mg / 0.5 (3 ml) UD INH SCH ×3 (01:18→20:10)
--- NOTE | 2018-06-29 07:41 | CP.PCM.PN ---
Subjective - Date & Time of Evaluation Date of Evaluation: 06/29/18 Time of Evaluation: 07:41 - Subjective Subjective: PGY-[address] Logan Ellison Patient seen and examined at bedside. Per nursing no acute events occurred overnight. Patient still reporting some abdominal pain upon today's examination. Patient reports tolerating diet with no complaints. Patient denies any chest pain, fevers, chills, shortness of breath, or any other complaints. Objective - Vital Signs/Intake and Output Vital Signs (last 24 hours): Temp Pulse Resp BP Pulse Ox 97.9 F 105 H 20 93/53 L 94 L 06/28/18 23:20 06/28/18 23:20 06/28/18 23:20 06/28/18 23:20 06/28/18 23:20 Intake and Output: 06/29/18 06/29/18 06:59 18:59 Intake Total 300 Balance 300 - Medications Medications: Current Medications Acetaminophen (Tylenol 325mg Tab) 650 mg PO Q4H PRN PRN Reason: Fever >100.4 F Albuterol/Ipratropium (Duoneb 3 Mg/0.5 Mg (3 Ml) Ud) 3 ml INH RQ6 [facility] Last Admin: 06/29/18 01:18 Dose: Not Given Aspirin (Aspirin) 325 mg PO DAILY [facility] Last Admin: 06/28/18 10:32 Dose: 325 mg Duloxetine HCl (Cymbalta) 30 mg PO DAILY [facility] Last Admin: 06/28/18 10:31 Dose: 30 mg Enoxaparin Sodium (Lovenox) 40 mg SC DAILY [facility] Last Admin: 06/28/18 10:31 Dose: 40 mg Ergocalciferol (Drisdol 50,000 Intl Units Cap) 1 cap PO QWK [facility] Last Admin: 06/28/18 10:31 Dose: 1 cap Famotidine (Pepcid) 20 mg PO DAILY [facility] Last Admin: 06/28/18 10:32 Dose: 20 mg Folic Acid (Folic Acid) 1 mg PO DAILY [facility] Last Admin: 06/28/18 10:31 Dose: 1 mg Gabapentin (Neurontin) 300 mg PO BID [facility] Last Admin: 06/28/18 17:55 Dose: 300 mg Home Med (Patient's Own Medication) 1 tab PO BID [facility] Last Admin: 06/28/18 17:55 Dose: 1 tab Loperamide HCl (Imodium) 2 mg PO Q8H PRN PRN Reason: Diarrhea Lorazepam (Ativan) 0.5 mg PO Q8H PRN PRN Reason: Anxiety Last Admin: 06/28/18 13:24 Dose: 0.5 mg Magnesium Hydroxide (Milk Of Magnesia) 30 ml PO Q24H PRN PRN Reason: Constipation Metoclopramide HCl (Reglan) 10 mg PO Q8H PRN PRN Reason: Nausea/Vomiting Last Admin: 06/26/18 17:13 Dose: 10 mg Morphine Sulfate (Morphine Immediate Release Tab) 15 mg PO Q2H PRN PRN Reason: Other Last Admin: 06/28/18 17:55 Dose: 15 mg Morphine Sulfate (Morphine Extended Release Tab) 60 mg PO Q12 [facility] Last Admin: 06/28/18 22:03 Dose: 60 mg Ondansetron HCl (Zofran Tab) 4 mg PO Q6H PRN PRN Reason: Nausea/Vomiting Last Admin: 06/27/18 09:19 Dose: 4 mg Petrolatum (Desitin Original) 0 gm TOP TID [facility] Last Admin: 06/28/18 19:00 Dose: 1 applic - Labs Labs: 06/28/18 08:07 06/28/18 08:07 - Head Exam Head Exam: ATRAUMATIC, NORMAL INSPECTION, NORMOCEPHALIC - Eye Exam Eye Exam: EOMI, Normal appearance, PERRL Pupil Exam: NORMAL ACCOMODATION, PERRL - ENT Exam ENT Exam: Mucous Membranes Moist - Respiratory Exam Respiratory Exam: Clear to Ausculation Bilateral, NORMAL BREATHING PATTERN - Cardiovascular Exam Cardiovascular Exam: REGULAR RHYTHM, +S1, +S2 - GI/Abdominal Exam GI & Abdominal Exam: Soft, Normal Bowel Sounds - Extremities Exam Extremities Exam: Normal Inspection. absent: Pedal Edema - Back Exam Back Exam: NORMAL INSPECTION. 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 Patient is s/p radiation and currently undergoing chemotherapy. She had 2nd round of chemotherapy. Chest pain likely due to hilar LAD vs. bone mets - Troponins and EKG x 3 were negative - CTA of chest was negative for PE. However, CT showed worsening medistinal and hilar adenopathy; enlargement of right upper outer breast soft tissue nodule; multiple new lytic lesions in thoracic vertebral bodies - Echo done during this admission showed normal LV function with EF of 65-70% with moderate degree of pulm HTN - LE duplex negative for DVT - Cardiology, Dr. Deluca was consulted - Continue Aspirin 325 mg po qd Anemia - Hgb 7.9 - Stool occult: f/u - Type and cross -Transfuse is Hemoglobin below 7. Stage IV adenocarcinoma of lungs - Oncology, Dr. Jasmine is consulted - Continue pain management with morphine and neurontin and cymbalta - Ativan prn for anxiety - Will consider consulting palliative care to discuss advance directives COPD - Will continue duoneb breathing treatment - Pulmonology, Dr. Velarde was consulted LE swelling - Venous doppler (06/21/18): negative for DVT Vitamin D deficiency - Continue ergocalciferol qw Hx of HTN - Continue to monitor. Currently normotensive Prophylaxis - Pepcid - Lovenox - SCDs Case discussed with Dr. Jojo Ellison. Management per Dr Jojo Ellison.
[2018-06-29] MEDS: Zinc Oxide Topical 30 gm Tube TOP SCH ×3 (07:44→19:00)
[2018-06-29 08:23] LABS: BASO % 0.5 % (0.0-2.0); EOS # 0.1 K/uL (0.0-0.7); EOS % 2.1 % (0.0-4.0); HEMOGLOBIN 7.9 g/dL (11.0-16.0); LYMPH % 38.7 % (20.0-40.0); MEAN CELL VOLUME 85.3 fL (81.0-99.0); MEAN CORPUSCULAR HEMOGLOBIN 28.4 pg (27.0-31.0); MEAN CORPUSCULAR HGB CONC 33.3 g/dL (33.0-37.0); MEAN PLATELET VOLUME 7.4 fL (7.2-11.7); MONO # 0.7 K/uL (0.0-0.8); MONO % 26.6 % (0.0-10.0); NEUT # 0.8 K/uL (1.8-7.0); NEUT % 32.1 % (50.0-75.0); NRBC % 0.2 % (0.0-2.0); RBC 2.78 Mil/uL (3.80-5.20); RED CELL DISTRIBUTION WIDTH 17.7 % (11.5-14.5); WHITE BLOOD COUNT 2.6 K/uL (4.8-10.8)
[2018-06-29 08:31] LABS: PLATELET COUNT 125 K/uL (130-400)
[2018-06-29 08:32] LABS: BLOOD UREA NITROGEN 5 mg/dL (7-17); GFR AFRICAN-AMERICAN > 60; GFR NON-AFRICAN AMERICAN > 60
[2018-06-29 08:33] LABS: ALB/GLOB RATIO 0.9 (1.0-2.1); ALBUMIN 3.2 g/dL (3.5-5.0); ALT/SGPT 30 U/L (9-52); AST/SGOT 61 U/L (14-36); CALCIUM 8.5 mg/dl (8.6-10.4)
[2018-06-29] MEDS: RANITIDINE 150 MG PO SCH ×2 (09:35→18:05)
[2018-06-29] MEDS: Morphine 30 mg SR Tab PO SCH ×2 (09:55→21:45)
[2018-06-29 10:35] LABS: ANISOCYTOSIS SLIGHT; BASOPHIL 1 % (0-2); EOSINOPHIL 2 % (0-4); LYMPHOCYTE 36 % (20-40); MONOCYTE 26 % (0-10); NEUTROPHIL 35 % (50-75); PLATELET ESTIMATE SLIGHTLY DECREASED (NORMAL); TOTAL CELLS COUNTED 100
[2018-06-29 10:36] LABS: HYPOCHROMIC SLIGHT
--- NOTE | 2018-06-29 16:46 | CP.PCM.PN ---
Subjective - Date & Time of Evaluation Date of Evaluation: 06/28/18 Time of Evaluation: 16:47 - Subjective Subjective: The patient seems comfortable, pain is fairly well controlled, is aware of the extent of her disease, have discussed with the family and the patient several times about the increased lesions in the lung, lymph nodes, and bone. Have also discussed options, including continuing chemo, changing to single agent biologic therapy or palliative care. The patient still remains unsure about what she would choose to do going forward, remains anxious. The patient will have a family discussion to determine if she wants to be actively treated for her cancer. Objective - Vital Signs/Intake and Output Vital Signs (last 24 hours): Temp Pulse Resp BP Pulse Ox 98.1 F 107 H 20 104/62 95 06/29/18 15:08 06/29/18 15:08 06/29/18 15:08 06/29/18 15:08 06/29/18 15:08 Intake and Output: 06/29/18 06/29/18 06:59 18:59 Intake Total 300 300 Balance 300 300 - Medications Medications: Current Medications Acetaminophen (Tylenol 325mg Tab) 650 mg PO Q4H PRN PRN Reason: Fever >100.4 F Albuterol/Ipratropium (Duoneb 3 Mg/0.5 Mg (3 Ml) Ud) 3 ml INH RQ6 [facility] Last Admin: 06/29/18 07:30 Dose: Not Given Aspirin (Aspirin) 325 mg PO DAILY [facility] Last Admin: 06/29/18 09:34 Dose: 325 mg Duloxetine HCl (Cymbalta) 30 mg PO DAILY [facility] Last Admin: 06/29/18 09:34 Dose: 30 mg Enoxaparin Sodium (Lovenox) 40 mg SC DAILY [facility] Last Admin: 06/28/18 10:31 Dose: 40 mg Ergocalciferol (Drisdol 50,000 Intl Units Cap) 1 cap PO QWK [facility] Last Admin: 06/28/18 10:31 Dose: 1 cap Famotidine (Pepcid) 20 mg PO DAILY [facility] Last Admin: 06/29/18 09:34 Dose: 20 mg Folic Acid (Folic Acid) 1 mg PO DAILY [facility] Last Admin: 06/29/18 09:34 Dose: 1 mg Gabapentin (Neurontin) 300 mg PO BID [facility] Last Admin: 06/29/18 09:34 Dose: 300 mg Home Med (Patient's Own Medication) 1 tab PO BID [facility] Last Admin: 06/29/18 09:35 Dose: 1 tab Loperamide HCl (Imodium) 2 mg PO Q8H PRN PRN Reason: Diarrhea Lorazepam (Ativan) 0.5 mg PO Q8H PRN PRN Reason: Anxiety Last Admin: 06/28/18 13:24 Dose: 0.5 mg Magnesium Hydroxide (Milk Of Magnesia) 30 ml PO Q24H PRN PRN Reason: Constipation Metoclopramide HCl (Reglan) 10 mg PO Q8H PRN PRN Reason: Nausea/Vomiting Last Admin: 06/29/18 09:57 Dose: 10 mg Morphine Sulfate (Morphine Immediate Release Tab) 15 mg PO Q2H PRN PRN Reason: Other Last Admin: 06/28/18 17:55 Dose: 15 mg Morphine Sulfate (Morphine Extended Release Tab) 60 mg PO Q12 [facility] Last Admin: 06/29/18 09:55 Dose: 60 mg Ondansetron HCl (Zofran Tab) 4 mg PO Q6H PRN PRN Reason: Nausea/Vomiting Last Admin: 06/27/18 09:19 Dose: 4 mg Petrolatum (Desitin Original) 0 gm TOP TID [facility] Last Admin: 06/29/18 09:36 Dose: Not Given - Labs Labs: 06/29/18 08:03 06/29/18 08:03 Assessment and Plan (1) Lung cancer Status: Acute
[2018-06-29] MEDS: Morphine 15 mg Immediate Release Tab PO PRN (18:04)
--- NOTE | 2018-06-29 19:39 | CP.PCM.PN ---
Subjective - Date & Time of Evaluation Date of Evaluation: 06/29/18 Time of Evaluation: 09:20 - Subjective Subjective: clinically same Objective - Vital Signs/Intake and Output Vital Signs (last 24 hours): Temp Pulse Resp BP Pulse Ox 98.1 F 107 H 20 104/62 95 06/29/18 15:08 06/29/18 15:08 06/29/18 15:08 06/29/18 15:08 06/29/18 15:08 Intake and Output: 06/29/18 06/30/18 18:59 06:59 Intake Total 300 Balance 300 - Medications Medications: Current Medications Acetaminophen (Tylenol 325mg Tab) 650 mg PO Q4H PRN PRN Reason: Fever >100.4 F Albuterol/Ipratropium (Duoneb 3 Mg/0.5 Mg (3 Ml) Ud) 3 ml INH RQ6 [facility] Last Admin: 06/29/18 07:30 Dose: Not Given Aspirin (Aspirin) 325 mg PO DAILY [facility] Last Admin: 06/29/18 09:34 Dose: 325 mg Duloxetine HCl (Cymbalta) 30 mg PO DAILY [facility] Last Admin: 06/29/18 09:34 Dose: 30 mg Enoxaparin Sodium (Lovenox) 40 mg SC DAILY [facility] Last Admin: 06/28/18 10:31 Dose: 40 mg Ergocalciferol (Drisdol 50,000 Intl Units Cap) 1 cap PO QWK [facility] Last Admin: 06/28/18 10:31 Dose: 1 cap Famotidine (Pepcid) 20 mg PO DAILY [facility] Last Admin: 06/29/18 09:34 Dose: 20 mg Folic Acid (Folic Acid) 1 mg PO DAILY [facility] Last Admin: 06/29/18 09:34 Dose: 1 mg Gabapentin (Neurontin) 300 mg PO BID [facility] Last Admin: 06/29/18 18:04 Dose: 300 mg Home Med (Patient's Own Medication) 1 tab PO BID [facility] Last Admin: 06/29/18 18:05 Dose: 1 tab Loperamide HCl (Imodium) 2 mg PO Q8H PRN PRN Reason: Diarrhea Lorazepam (Ativan) 0.5 mg PO Q8H PRN PRN Reason: Anxiety Last Admin: 06/28/18 13:24 Dose: 0.5 mg Magnesium Hydroxide (Milk Of Magnesia) 30 ml PO Q24H PRN PRN Reason: Constipation Metoclopramide HCl (Reglan) 10 mg PO Q8H PRN PRN Reason: Nausea/Vomiting Last Admin: 06/29/18 09:57 Dose: 10 mg Morphine Sulfate (Morphine Immediate Release Tab) 15 mg PO Q2H PRN PRN Reason: Other Last Admin: 06/29/18 18:04 Dose: 15 mg Morphine Sulfate (Morphine Extended Release Tab) 60 mg PO Q12 [facility] Last Admin: 06/29/18 09:55 Dose: 60 mg Ondansetron HCl (Zofran Tab) 4 mg PO Q6H PRN PRN Reason: Nausea/Vomiting Last Admin: 06/27/18 09:19 Dose: 4 mg Petrolatum (Desitin Original) 0 gm TOP TID [facility] Last Admin: 06/29/18 09:36 Dose: Not Given - Labs Labs: 06/29/18 08:03 06/29/18 08:03 - Constitutional Appears: Well - Head Exam Head Exam: ATRAUMATIC, NORMAL INSPECTION, NORMOCEPHALIC - Eye Exam Eye Exam: EOMI, Normal appearance, PERRL Pupil Exam: NORMAL ACCOMODATION, PERRL - ENT Exam ENT Exam: Mucous Membranes Moist, Normal Exam - Neck Exam Neck Exam: Full ROM, Normal Inspection. absent: Lymphadenopathy - Respiratory Exam Respiratory Exam: Decreased Breath Sounds - Cardiovascular Exam Cardiovascular Exam: REGULAR RHYTHM, +S1, +S2 - GI/Abdominal Exam GI & Abdominal Exam: Soft, Diminished Bowel Sounds - Rectal Exam Rectal Exam: Deferred
[2018-06-30] MEDS: Albuterol-Ipratrop 3 mg / 0.5 (3 ml) UD INH SCH ×4 (01:14→19:52)
[2018-06-30] MEDS: Zinc Oxide Topical 30 gm Tube TOP SCH ×3 (10:00→21:19)
[2018-06-30] MEDS: Morphine 30 mg SR Tab PO SCH ×2 (10:42→21:19)
[2018-06-30] MEDS: RANITIDINE 150 MG PO SCH ×2 (10:43→17:08)
[2018-06-30 12:09] LABS: HEMOGLOBIN 8.7 g/dL (11.0-16.0); MEAN CELL VOLUME 86.2 fL (81.0-99.0); MEAN CORPUSCULAR HEMOGLOBIN 28.9 pg (27.0-31.0); MEAN CORPUSCULAR HGB CONC 33.6 g/dL (33.0-37.0); MEAN PLATELET VOLUME 7.8 fL (7.2-11.7); RED CELL DISTRIBUTION WIDTH 17.7 % (11.5-14.5)
[2018-06-30 12:28] LABS: BLOOD UREA NITROGEN 4 mg/dL (7-17); GFR AFRICAN-AMERICAN > 60; GFR NON-AFRICAN AMERICAN > 60
[2018-06-30 12:41] LABS: CALCIUM 8.5 mg/dl (8.6-10.4)
--- NOTE | 2018-06-30 13:26 | CP.PCM.PN ---
Subjective - Date & Time of Evaluation Date of Evaluation: 06/30/18 Time of Evaluation: 09:40 - Subjective Subjective: clinically same Objective - Vital Signs/Intake and Output Vital Signs (last 24 hours): Temp Pulse Resp BP Pulse Ox 98.5 F 104 H 20 106/71 95 06/30/18 08:43 06/30/18 08:43 06/30/18 08:43 06/30/18 08:43 06/30/18 08:43 Intake and Output: 06/30/18 06/30/18 06:59 18:59 Intake Total 350 Balance 350 - Medications Medications: Current Medications Acetaminophen (Tylenol 325mg Tab) 650 mg PO Q4H PRN PRN Reason: Fever >100.4 F Albuterol/Ipratropium (Duoneb 3 Mg/0.5 Mg (3 Ml) Ud) 3 ml INH RQ6 [facility] Last Admin: 06/30/18 01:14 Dose: Not Given Aspirin (Aspirin) 325 mg PO DAILY [facility] Last Admin: 06/30/18 10:42 Dose: 325 mg Duloxetine HCl (Cymbalta) 30 mg PO DAILY [facility] Last Admin: 06/30/18 10:44 Dose: 30 mg Enoxaparin Sodium (Lovenox) 40 mg SC DAILY [facility] Last Admin: 06/28/18 10:31 Dose: 40 mg Ergocalciferol (Drisdol 50,000 Intl Units Cap) 1 cap PO QWK [facility] Last Admin: 06/28/18 10:31 Dose: 1 cap Famotidine (Pepcid) 20 mg PO DAILY [facility] Last Admin: 06/30/18 10:43 Dose: 20 mg Folic Acid (Folic Acid) 1 mg PO DAILY [facility] Last Admin: 06/30/18 10:42 Dose: 1 mg Gabapentin (Neurontin) 300 mg PO BID [facility] Last Admin: 06/30/18 10:42 Dose: 300 mg Home Med (Patient's Own Medication) 1 tab PO BID [facility] Last Admin: 06/30/18 10:43 Dose: 1 tab Loperamide HCl (Imodium) 2 mg PO Q8H PRN PRN Reason: Diarrhea Lorazepam (Ativan) 0.5 mg PO Q8H PRN PRN Reason: Anxiety Last Admin: 06/28/18 13:24 Dose: 0.5 mg Magnesium Hydroxide (Milk Of Magnesia) 30 ml PO Q24H PRN PRN Reason: Constipation Metoclopramide HCl (Reglan) 10 mg PO Q8H PRN PRN Reason: Nausea/Vomiting Last Admin: 06/29/18 09:57 Dose: 10 mg Morphine Sulfate (Morphine Immediate Release Tab) 15 mg PO Q2H PRN PRN Reason: Other Last Admin: 06/29/18 18:04 Dose: 15 mg Morphine Sulfate (Morphine Extended Release Tab) 60 mg PO Q12 [facility] Last Admin: 06/30/18 10:42 Dose: 60 mg Ondansetron HCl (Zofran Tab) 4 mg PO Q6H PRN PRN Reason: Nausea/Vomiting Last Admin: 06/27/18 09:19 Dose: 4 mg Petrolatum (Desitin Original) 0 gm TOP TID [facility] Last Admin: 06/29/18 19:00 Dose: 1 applic - Labs Labs: 06/30/18 11:56 06/30/18 11:56 - Constitutional Appears: Well - Head Exam Head Exam: ATRAUMATIC, NORMAL INSPECTION, NORMOCEPHALIC - Eye Exam Eye Exam: EOMI, Normal appearance, PERRL Pupil Exam: NORMAL ACCOMODATION, PERRL - ENT Exam ENT Exam: Mucous Membranes Moist, Normal Exam - Neck Exam Neck Exam: Full ROM, Normal Inspection. absent: Lymphadenopathy - Respiratory Exam Respiratory Exam: Decreased Breath Sounds - Cardiovascular Exam Cardiovascular Exam: REGULAR RHYTHM, +S1, +S2 - GI/Abdominal Exam GI & Abdominal Exam: Soft, Diminished Bowel Sounds - Rectal Exam Rectal Exam: Deferred
[2018-06-30] MEDS: Morphine 15 mg Immediate Release Tab PO PRN (17:08)
[2018-07-01] MEDS: Albuterol-Ipratrop 3 mg / 0.5 (3 ml) UD INH SCH ×3 (02:25→13:31)
[2018-07-01] MEDS: Morphine 30 mg SR Tab PO SCH ×2 (09:55→22:10)
[2018-07-01] MEDS: RANITIDINE 150 MG PO SCH ×2 (09:57→18:58)
[2018-07-01] MEDS: Zinc Oxide Topical 30 gm Tube TOP SCH ×3 (10:09→18:58)
--- NOTE | 2018-07-01 13:32 | CP.PCM.PN ---
Subjective - Date & Time of Evaluation Date of Evaluation: 07/01/18 Time of Evaluation: 09:20 - Subjective Subjective: clinically same Objective - Vital Signs/Intake and Output Vital Signs (last 24 hours): Temp Pulse Resp BP Pulse Ox 98.3 F 95 H 18 99/62 L 97 07/01/18 07:00 07/01/18 07:00 07/01/18 07:00 07/01/18 07:00 07/01/18 07:00 - Medications Medications: Current Medications Acetaminophen (Tylenol 325mg Tab) 650 mg PO Q4H PRN PRN Reason: Fever >100.4 F Albuterol/Ipratropium (Duoneb 3 Mg/0.5 Mg (3 Ml) Ud) 3 ml INH RQ6 [facility] Last Admin: 07/01/18 13:31 Dose: Not Given Aspirin (Aspirin) 325 mg PO DAILY [facility] Last Admin: 07/01/18 09:56 Dose: 325 mg Duloxetine HCl (Cymbalta) 30 mg PO DAILY [facility] Last Admin: 07/01/18 09:57 Dose: 30 mg Enoxaparin Sodium (Lovenox) 40 mg SC DAILY [facility] Last Admin: 06/28/18 10:31 Dose: 40 mg Ergocalciferol (Drisdol 50,000 Intl Units Cap) 1 cap PO QWK [facility] Last Admin: 06/28/18 10:31 Dose: 1 cap Famotidine (Pepcid) 20 mg PO DAILY [facility] Last Admin: 07/01/18 09:57 Dose: 20 mg Folic Acid (Folic Acid) 1 mg PO DAILY [facility] Last Admin: 07/01/18 09:56 Dose: 1 mg Gabapentin (Neurontin) 300 mg PO BID [facility] Last Admin: 07/01/18 09:57 Dose: 300 mg Home Med (Patient's Own Medication) 1 tab PO BID [facility] Last Admin: 07/01/18 09:57 Dose: 1 tab Loperamide HCl (Imodium) 2 mg PO Q8H PRN PRN Reason: Diarrhea Lorazepam (Ativan) 0.5 mg PO Q8H PRN PRN Reason: Anxiety Last Admin: 06/28/18 13:24 Dose: 0.5 mg Magnesium Hydroxide (Milk Of Magnesia) 30 ml PO Q24H PRN PRN Reason: Constipation Metoclopramide HCl (Reglan) 10 mg PO Q8H PRN PRN Reason: Nausea/Vomiting Last Admin: 06/29/18 09:57 Dose: 10 mg Morphine Sulfate (Morphine Immediate Release Tab) 15 mg PO Q2H PRN PRN Reason: Other Last Admin: 06/30/18 17:08 Dose: 15 mg Morphine Sulfate (Morphine Extended Release Tab) 60 mg PO Q12 [facility] Last Admin: 07/01/18 09:55 Dose: 60 mg Ondansetron HCl (Zofran Tab) 4 mg PO Q6H PRN PRN Reason: Nausea/Vomiting Last Admin: 06/27/18 09:19 Dose: 4 mg Petrolatum (Desitin Original) 0 gm TOP TID [facility] Last Admin: 07/01/18 10:09 Dose: 1 applic - Labs Labs: 06/30/18 11:56 06/30/18 11:56 - Constitutional Appears: Well - Head Exam Head Exam: ATRAUMATIC, NORMAL INSPECTION, NORMOCEPHALIC - Eye Exam Eye Exam: EOMI, Normal appearance, PERRL Pupil Exam: NORMAL ACCOMODATION, PERRL - ENT Exam ENT Exam: Mucous Membranes Moist, Normal Exam - Neck Exam Neck Exam: Full ROM, Normal Inspection. absent: Lymphadenopathy - Respiratory Exam Respiratory Exam: Decreased Breath Sounds - Cardiovascular Exam Cardiovascular Exam: REGULAR RHYTHM, +S1, +S2 - GI/Abdominal Exam GI & Abdominal Exam: Soft, Diminished Bowel Sounds - Rectal Exam Rectal Exam: Deferred
[2018-07-01] MEDS: Morphine 15 mg Immediate Release Tab PO PRN (16:02)
[2018-07-01 17:17] VITALS: RESP 20
[2018-07-01] MEDS ORDERED: Morphine 15 mg Immediate Release Tab PO PRN (22:17)
[2018-07-01] MEDS ORDERED: Morphine 30 mg SR Tab PO SCH (22:30)
[2018-07-02 08:15] VITALS: O2SAT 96
[2018-07-02] MEDS: RANITIDINE 150 MG PO SCH (09:56)
[2018-07-02] MEDS: Zinc Oxide Topical 30 gm Tube TOP SCH ×2 (09:58→14:26)
--- NOTE | 2018-07-02 12:58 | CP.PCM.PN ---
Subjective - Date & Time of Evaluation Date of Evaluation: 07/02/18 Time of Evaluation: 12:58 - Subjective Subjective: PGY-[address] Logan Ellison Patient seen and examined at bedside. Per nursing no acute events occurred overnight. Patient still reporting some abdominal pain upon today's examination. Patient reports tolerating diet with no complaints. Patient denies any chest pain, fevers, chills, shortness of breath, or any other complaints. Objective - Vital Signs/Intake and Output Vital Signs (last 24 hours): Temp Pulse Resp BP Pulse Ox 98.2 F 99 H 20 117/72 96 07/02/18 07:25 07/02/18 07:25 07/02/18 07:25 07/01/18 23:15 07/02/18 07:25 - Medications Medications: Current Medications Acetaminophen (Tylenol 325mg Tab) 650 mg PO Q4H PRN PRN Reason: Fever >100.4 F Aspirin (Aspirin) 325 mg PO DAILY [facility] Last Admin: 07/02/18 09:56 Dose: 325 mg Duloxetine HCl (Cymbalta) 30 mg PO DAILY [facility] Last Admin: 07/02/18 09:56 Dose: 30 mg Enoxaparin Sodium (Lovenox) 40 mg SC DAILY [facility] Last Admin: 06/28/18 10:31 Dose: 40 mg Ergocalciferol (Drisdol 50,000 Intl Units Cap) 1 cap PO QWK [facility] Last Admin: 06/28/18 10:31 Dose: 1 cap Famotidine (Pepcid) 20 mg PO DAILY [facility] Last Admin: 07/02/18 09:56 Dose: 20 mg Folic Acid (Folic Acid) 1 mg PO DAILY [facility] Last Admin: 07/02/18 09:56 Dose: 1 mg Gabapentin (Neurontin) 300 mg PO BID [facility] Last Admin: 07/02/18 09:56 Dose: 300 mg Home Med (Patient's Own Medication) 1 tab PO BID [facility] Last Admin: 07/02/18 09:56 Dose: 1 tab Loperamide HCl (Imodium) 2 mg PO Q8H PRN PRN Reason: Diarrhea Lorazepam (Ativan) 0.5 mg PO Q8H PRN PRN Reason: Anxiety Last Admin: 06/28/18 13:24 Dose: 0.5 mg Magnesium Hydroxide (Milk Of Magnesia) 30 ml PO Q24H PRN PRN Reason: Constipation Metoclopramide HCl (Reglan) 10 mg PO Q8H PRN PRN Reason: Nausea/Vomiting Last Admin: 07/02/18 08:02 Dose: 10 mg Morphine Sulfate (Morphine Immediate Release Tab) 15 mg PO Q2H PRN PRN Reason: Pain, moderate (4-7) Morphine Sulfate (Morphine Extended Release Tab) 60 mg PO Q12 [facility] Last Admin: 07/02/18 09:55 Dose: 60 mg Ondansetron HCl (Zofran Tab) 4 mg PO Q6H PRN PRN Reason: Nausea/Vomiting Last Admin: 06/27/18 09:19 Dose: 4 mg Petrolatum (Desitin Original) 0 gm TOP TID [facility] Last Admin: 07/02/18 09:58 Dose: 1 applic - Labs Labs: 06/30/18 11:56 06/30/18 11:56 - Head Exam Head Exam: ATRAUMATIC, NORMAL INSPECTION, NORMOCEPHALIC - Eye Exam Eye Exam: EOMI, Normal appearance, PERRL - ENT Exam ENT Exam: Mucous Membranes Moist, Normal Oropharynx - Neck Exam Neck Exam: absent: Lymphadenopathy, Thyromegaly - Respiratory Exam Respiratory Exam: Clear to Ausculation Bilateral, NORMAL BREATHING PATTERN. absent: Prolonged Expiratory Phase, Respiratory Distress - Cardiovascular Exam Cardiovascular Exam: REGULAR RHYTHM, +S1, +S2 - GI/Abdominal Exam GI & Abdominal Exam: Soft, Normal Bowel Sounds. 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 Patient is s/p radiation and currently undergoing chemotherapy. She had 2nd round of chemotherapy. Chest pain likely due to hilar LAD vs. bone mets - Troponins and EKG x 3 were negative - CTA of chest was negative for PE. However, CT showed worsening medistinal and hilar adenopathy; enlargement of right upper outer breast soft tissue nodule; multiple new lytic lesions in thoracic vertebral bodies - Echo done during this admission showed normal LV function with EF of 65-70% with moderate degree of pulm HTN - LE duplex negative for DVT - Cardiology, Dr. Deluca was consulted :Negative cardiac enzymes - Continue Aspirin 325 mg po qd Anemia - Stool occult: negative - Type and cross -Transfuse is Hemoglobin below 7. Stage IV adenocarcinoma of lungs - Oncology, Dr. Jasmine is consulted - Continue pain management with morphine and neurontin and cymbalta - Ativan prn for anxiety - Will consider consulting palliative care to discuss advance directives -Zofran 4mg PO Q6H PRN COPD - Will continue duoneb breathing treatment - Pulmonology, Dr. Velarde was consulted Peripheral neuropathy -Gabapentin 300mg PO BID LE swelling - Venous doppler (06/21/18): negative for DVT Vitamin D deficiency - Continue ergocalciferol qw Constipation -Magnesium Hydroxide 30ml PO Q24H PRN Hx of HTN - Continue to monitor. Currently normotensive Anxiety -.5mg PO Q8H PRN Prophylaxis - Pepcid 20mg PO Daily - Lovenox 40mg SC Daily - SCDs Case discussed with Dr. Jojo Ellison. Management per Dr Jojo Ellison. Discharge Instructions: 1. Follow up with PMD within 5 to 7 days upon discharge. 2. F/u with Dr. Deluca upon discharge. 3.F/u with Hematology/ Oncology within 5 to 7 days upon discharge. 3. Return to hospital for any new or worsening symptoms. Medications: 1. Cymbalta 30mg PO Daily, #30, No refills 2. Zofran 4mg PO Q6, #15, No refills 3. Pepcid 20mg PO Daily, #30, No refills 4. Folic acid 1mg PO Daily, #30, No refills 5. Drisdol 1 cap PO QWK, #4, No refills
[2018-07-02] MEDS ORDERED: Albuterol 0.083% Inhal Sol (2.5 mg/3 mL) UD IH PRN (13:18)
[2018-07-02 15:35] VITALS: BP 96/58; PULSE 108; TEMP 97.9
== END 2018-07-02 17:20 | DRG 89 ==
LOC: C.ER 11:19 → C.9E 15:23 → C.6T 16:54 → OBSVTOIN 06-24 17:24
PROVIDERS: ADMIT Internal Medicine Nephrology; ATTEND Internal Medicine Nephrology
DX: J18.9 Pneumonia, unspecified organism (principal); C34.90 Malignant neoplasm of unspecified part of unspecified bronchus or lung; C79.51 Secondary malignant neoplasm of bone; C78.7 Secondary malignant neoplasm of liver and intrahepatic bile duct; C79.31 Secondary malignant neoplasm of brain; J44.9 Chronic obstructive pulmonary disease, unspecified; I10 Essential (primary) hypertension; I27.20 Pulmonary hypertension, unspecified; K21.9 Gastro-esophageal reflux disease without esophagitis; E55.9 Vitamin D deficiency, unspecified; F17.210 Nicotine dependence, cigarettes, uncomplicated; F41.9 Anxiety disorder, unspecified; R59.9 Enlarged lymph nodes, unspecified

== ENCOUNTER 2018-09-09 14:15 | Inpatient (IN) | payer OTHER ==
[2018-09-09 14:15] VITALS: BMI 33.3
--- NOTE | 2018-09-09 14:24 | C.PDOC ---
History Of Present Illness 63 year old female, with Hx of lung cancer, on chemotherapy, and COPD, presents to ED complaining of a fever since last night, associated with coughing. Otherwise she denies nausea, vomiting, diarrhea, or chest pain. Patient has cody thing treatment at home and last treatment was 3 days ago. States she currently feels better with O2 support. 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, with mets to the lymph nodes, lung lesions, bones, liver, brain, s/p hip fracture, s/p pinning and radiation, currently on chemotherapy MDM DEFER SEPSIS IVF BOLUS PENDING REVIEW IF PRIOR ECHO, CARDIAC FUNCTION <IsaiahDaniella - Last Filed: 09/09/18 18:39> History Per: Patient History/Exam Limitations: no limitations Onset/Duration Of Symptoms: Days Current Symptoms Are (Timing): Still Present <IsaiahDaniella - Last Filed: 09/09/18 18:39> <Kevin Kent - Last Filed: 09/09/18 19:41> Time Seen by Provider: 09/09/18 14:23 Chief Complaint (Nursing): Fever Past Medical History Reviewed: Historical Data, Nursing Documentation, Vital Signs Vital Signs: Last Vital Signs Temp 103.1 F H 09/09/18 14:16 Pulse 134 H 09/09/18 14:16 Resp 20 09/09/18 14:16 BP 118/74 09/09/18 14:16 Pulse Ox 99 09/09/18 14:16 - Medical History PMH: Anemia, Anxiety, Arthritis, Back Problems, Bronchitis, COPD (however uses nebulizer at home), Depression, Fractures (rt. hip fracture), HTN Denies: Chronic Kidney Disease Surgical History: Back Surgery - [facility] Procedures COMPUTERIZED TOMOGRAPHY (CT SCAN) OF BILATERAL LUNGS (04/03/18) EXCISION OF LEFT LOWER LOBE BRONCHUS, ENDO, DIAGN (04/03/18) EXCISION OF RIGHT UPPER LUNG LOBE, PERC APPROACH, DIAGN (04/03/18) Family History: States: No Known Family Hx Denies: CAD - Social History Hx Tobacco Use: Yes Hx Alcohol Use: No Hx Substance Use: No - Immunization History Hx Tetanus Toxoid Vaccination: No Hx Influenza Vaccination: No Hx Pneumococcal Vaccination: No <Daniella Colon - Last Filed: 09/09/18 18:39> Vital Signs: Last Vital Signs Temp 99.5 F 09/09/18 18:30 Pulse 117 H 09/09/18 18:30 Resp 20 09/09/18 18:30 BP 96/59 L 09/09/18 18:30 Pulse Ox 99 09/09/18 18:40 - [facility] Procedures COMPUTERIZED TOMOGRAPHY (CT SCAN) OF BILATERAL LUNGS (04/03/18) EXCISION OF LEFT LOWER LOBE BRONCHUS, ENDO, DIAGN (04/03/18) EXCISION OF RIGHT UPPER LUNG LOBE, PERC APPROACH, DIAGN (04/03/18) <Kent,Kevin R - Last Filed: 09/09/18 19:41> Review Of Systems Except As Marked, All Systems Reviewed And Found Negative. Constitutional: Positive for: Fever Cardiovascular: Negative for: Chest Pain Gastrointestinal: Negative for: Nausea, Vomiting <Daniella Colon - Last Filed: 09/09/18 18:39> Physical Exam - Physical Exam Appears: Non-toxic, In Acute Distress (Mild) Skin: Warm, Dry Head: Atraumatic, Normacephalic Eye(s): bilateral: Normal Inspection Oral Mucosa: Moist Cardiovascular: Rhythm Regular Respiratory: Decreased Breath Sounds (bilaterally), Wheezing (diffused expiratory), Other (Retractions) Neurological/Psych: Oriented x3, Normal Speech <Daniella Colon - Last Filed: 09/09/18 18:39> ED Course And Treatment - Laboratory Results Result Diagrams: 09/09/18 14:57 09/09/18 14:57 ECG: Interpreted By Me, Viewed By Me ECG Rhythm: Sinus Tachycardia Rate From EC O2 Sat by Pulse Oximetry: 99 (RA) Pulse Ox Interpretation: Normal - Other Rad Chest X-Ray X-Ray: Read By Radiologist Interpretation: FINDINGS: Examination limited by habitus, patient obliquity, a nd hypoinflation. The patient's chin obscures evaluation of the left lung apex. LUNGS: Bilateral hilar prominence. No focal consolidation. Please note that chest x-ray has limited sensitivity for the detection of pulmonary masses. PLEURA: No significant pleural effusion identified. No definite pneumothorax . CARDIOVASCULAR: Heart size appears top normal. OSSEOUS STRUCTURES: No acute osseous abnormality identified. VISUALIZED UPPER ABDOMEN: Unremarkable. OTHER FINDINGS: None. IMPRESSION: Bilateral hilar prominence. <Daniella Colon - Last Filed: 09/09/18 18:39> - Laboratory Results Result Diagrams: 09/09/18 14:57 09/09/18 14:57 <Kevin Kent - Last Filed: 09/09/18 19:41> Progress - Re-Evaluation Re-evaluation Note: 09/09/18 15:54 SBP 80S PER RN. NARD D/W DR Jojo ELLISON AWARE OF ER FINDINGS AND AGREES W PLAN. 09/09/18 16:46 HYPOTENSION BUT STRONG PALP RADIAL. NARD. FAMILY NOW STATES PT SEEN @ [facility]D 3 DAYS AGO, +HYPOTENSION IN OFFICE AND RECEIVED IVF. PT CONTINUES TO ADAMENTLY REFUSE ADMISSION, AGREES TO IVF AT THIS TIME. FAMILY @ BEDSIDE, AWARE. 09/09/18 18:27 PERSIST HYPOTENSION, TACHYCARDIA. CO CHRONIC BACK PAIN EXAC, PS DIDNT TAKE USUAL DOSE FOR HER PAIN. ESTEFANY. WILL CTA - Data Reviewed Data Reviewed: Lab, Diagnostic imaging, EKG, Old records - Critical Care Citical Care: Excluding Proc Time Critical Care Time: 90 minutes <Daniella Colon - Last Filed: 09/09/18 18:39> Medical Decision Making Medical Decision Making: Plan: --EKG --Labs --Chest X-Ray --Duoneb --Avelox --Tylenol CXR shows mediastinal pacification infiltrate vs nodes. No significant changes prior. DEFER SEPSIS IVF BOLUS PENDING REVIEW IF PRIOR ECHO, CARDIAC FUNCTION <Daniella Colon - Last Filed: 09/09/18 18:39> Disposition - Disposition Disposition Time: 19:00 <Daniella Colon - Last Filed: 09/09/18 18:39> Discussed With : Marge Ellison Doctor Will See Patient In The: Hospital Counseled Patient/Family Regarding: Diagnosis - Disposition Disposition Time: 19:40 - POA Present On Arrival: None <Kevin Kent - Last Filed: 09/09/18 19:41> - Disposition Disposition: HOSPITALIZED Condition: SERIOUS Forms: [employer] (Slovak) - Clinical Impression Clinical Impression: Hypotension, Fever, Metastatic cancer - Scribe Statement The provider has reviewed the documentation as recorded by the Eileen Castro Provider Attestation: All medical record entries made by the Tiaibe were at my direction and personally dictated by me. I have reviewed the chart and agree that the record accurately reflects my personal performance of the history, physical exam, medical decision making, and the department course for this patient. I have also personally directed, reviewed, and agree with the discharge instructions and disposition. <Daniella Colon - Last Filed: 09/09/18 18:39> Physician Patient Turnover Patient Signed Over To: Kevin Kent Handoff Comments: BETTY CALDERON, DISPO <Daniella Colon - Last Filed: 09/09/18 18:39>
[2018-09-09] MEDS ORDERED: Sodium Chloride 0.9% 1,000 ML ONE ×2 (14:38→16:23)
[2018-09-09] MEDS ORDERED: Moxifloxacin IV 400mg/250ml NS 400 MG/250 ML BAG IV STA (14:47)
[2018-09-09] MEDS: Albuterol-Ipratrop 3 mg / 0.5 (3 ml) UD IH SCH ×2 (14:52→15:01)
[2018-09-09] MEDS ORDERED: Albuterol-Ipratrop 3 mg / 0.5 (3 ml) UD ONE (14:56)
[2018-09-09 15:01] LABS: BASO # 0.1 K/uL (0.0-0.2); BASO % 0.4 % (0.0-2.0); EOS % 0.2 % (0.0-4.0); HEMOGLOBIN 8.3 g/dL (11.0-16.0); LYMPH # 0.6 K/uL (1.0-4.3); LYMPH % 5.3 % (20.0-40.0); MEAN CELL VOLUME 90.4 fL (81.0-99.0); MEAN CORPUSCULAR HEMOGLOBIN 30.5 pg (27.0-31.0); MEAN CORPUSCULAR HGB CONC 33.8 g/dL (33.0-37.0); MEAN PLATELET VOLUME 7.1 fL (7.2-11.7); MONO # 0.1 K/uL (0.0-0.8); MONO % 0.5 % (0.0-10.0); NEUT # 10.6 K/uL (1.8-7.0); NEUT % 93.6 % (50.0-75.0); PLATELET COUNT 315 K/uL (130-400); RBC 2.72 Mil/uL (3.80-5.20); RED CELL DISTRIBUTION WIDTH 16.4 % (11.5-14.5); WHITE BLOOD COUNT 11.3 K/uL (4.8-10.8)
[2018-09-09] MEDS ORDERED: Moxifloxacin IV 400mg/250ml NS 400 MG/250 ML BAG IVPB ONE (15:05)
[2018-09-09 15:12] LABS: ALB/GLOB RATIO 0.8 (1.0-2.1); ALBUMIN 3.2 g/dL (3.5-5.0); ALT/SGPT 17 U/L (9-52); AST/SGOT 53 U/L (14-36); BLOOD UREA NITROGEN 7 mg/dL (7-17); CALCIUM 7.8 mg/dl (8.6-10.4); GFR NON-AFRICAN AMERICAN > 60
[2018-09-09] MEDS ORDERED: Potassium Chloride 20 mEq/15 ml LIQ UD PO STA (15:15)
[2018-09-09 15:24] LABS: BASOPHIL 1 % (0-2); LYMPHOCYTE 3 % (20-40); MONOCYTE 1 % (0-10); NEUTROPHIL 95 % (50-75); PLATELET ESTIMATE NORMAL (NORMAL); TOTAL CELLS COUNTED 100
[2018-09-09 15:25] LABS: ANISOCYTOSIS SLIGHT; HYPOCHROMIC SLIGHT; POLYCHROMIC SLIGHT
[2018-09-09 15:27] LABS: LARGE PLATELETS PRESENT
[2018-09-09] MEDS ORDERED: Potassium Chloride 20 mEq ER Tab PO ONE (15:40)
[2018-09-09] MEDS ORDERED: SODIUM CHLORIDE 0.9% IV ONE (15:53)
--- NOTE | 2018-09-09 16:11 | RAD ---
HISTORY: Pneumonia COMPARISON: Chest x-ray performed 06/26/18 TECHNIQUE: Chest, one view. FINDINGS: Examination limited by habitus, patient obliquity, and hypoinflation. The patient's chin obscures evaluation of the left lung apex. LUNGS: Bilateral hilar prominence. No focal consolidation. Please note that chest x-ray has limited sensitivity for the detection of pulmonary masses. PLEURA: No significant pleural effusion identified. No definite pneumothorax . CARDIOVASCULAR: Heart size appears top normal. OSSEOUS STRUCTURES: No acute osseous abnormality identified. VISUALIZED UPPER ABDOMEN: Unremarkable. OTHER FINDINGS: None. IMPRESSION: Bilateral hilar prominence.
[2018-09-09 16:14] LABS: VENOUS BLOOD GAS BASE EXCESS 2.8 mmol/L (0.0-2.0); VENOUS BLOOD GAS PCO2 35 mmHg (40-60); VENOUS BLOOD GAS PO2 64 mm/Hg (30-55); VENOUS BLOOD PH 7.48 (7.32-7.43)
[2018-09-09] MEDS ORDERED: Iodixanol 320 MG/ML 100 ML BOTTLE IV ONE (18:44)
[2018-09-09] MEDS: Dextrose 5%/0.45% NS 1,000 ML IV SCH (20:13)
[2018-09-09] MEDS ORDERED: Morphine 30 mg SR Tab PO ONE (20:21)
[2018-09-09] MEDS: Morphine 60 mg SR Tab PO SCH (20:24)
[2018-09-10] MEDS: Albuterol-Ipratrop 3 mg / 0.5 (3 ml) UD INH SCH ×4 (01:25→20:57)
[2018-09-10] MEDS: Morphine 60 mg SR Tab PO SCH (08:00)
[2018-09-10 08:31] LABS: INFLUENZA A B NEGATIVE FOR FLU A/B (NEGATIVE)
[2018-09-10 08:45] LABS: LEGIONELLA AG URINE NEGATIVE (NEGATIVE)
[2018-09-10] MEDS ORDERED: Morphine 60 mg SR Tab PO SCH (08:45)
[2018-09-10] MEDS: Morphine 30 mg SR Tab PO SCH ×2 (08:45→20:57)
[2018-09-10] MEDS ORDERED: CALCIUM VIT D3 PO SCH (10:00)
[2018-09-10] MEDS: MethylPREDNISolone 40 mg Vial IVP SCH (10:32)
[2018-09-10] MEDS: Azithromycin 500 MG in Sodium Chloride 0.9% 250 ML IVPB SCH (10:32)
[2018-09-10] MEDS: Multiple Vitamins Tab PO SCH (10:34)
[2018-09-10] MEDS: Calcium-Vit D 500 mg-200 Units Tab UD PO SCH ×2 (11:00→17:12)
--- NOTE | 2018-09-10 11:31 | CT ---
Date of service: 09/09/18 CT chest with IV contrast Indication: Shortness of breath rule out PE Technique: Contiguous axial images were obtained through the chest with intravenous contrast enhancement. Sagittal and coronal reconstructions were generated and reviewed. This CT exam was performed using 1 or more of the following dose reduction techniques: Automated exposure control, adjustment of the MAA and/or kV according to patient size, and/or use of iterative reconstruction technique. IV contrast: 100 mL Visipaque IV Radiation dose (DLP): 473.60 MGy-cm. Comparison: Chest x-ray performed 09/09/18, CT chest with contrast performed 06/21/18 Findings: Heterogeneous of appearance of the included portion left lower pole thyroid gland. Heart size appears top normal. 3.9 x 2.3 cm prevascular lymph node. Hilar adenopathy appears decreased in size. No large central or segmental pulmonary embolus evident. Persistent left lower lobe mass or consolidation. 7 mm left upper lobe nodule. 5 mm left lower lobe nodule. No pleural effusion. No pneumothorax. Apparent endobronchial soft tissue in the left lower lobe branch. Limited visualization of the upper abdomen demonstrates 2.6 cm indeterminate left adrenal gland mass. Large left renal cyst. Right breast soft tissue nodule measures 13 mm. Degenerative changes of the spine. T3 lytic lesion. T9 vertebral body sclerosis. 1.7 cm lytic lesion, T12 vertebral body. Punctate sclerosis T4 vertebral body. Impression: No large central or segmental pulmonary embolus identified. Large persistent left lower lobe mass or consolidation. 7 mm left upper lobe nodule. 5 mm left lower lobe nodule. Apparent endobronchial soft tissue within the left lower lobe branch. Recommend clinical correlation and suggest bronchoscopy. 2.6 cm indeterminate left adrenal gland mass worrisome for metastases. 3.9 x 2.3 cm prevascular lymph node. Hilar adenopathy appears decreased in size. Heterogeneous appearance of the inferior pole left thyroid gland. T3 lytic lesion. T9 vertebral body sclerosis. 1.7 cm lytic lesion, T12 vertebral body. Punctate sclerosis T4 vertebral body. Findings concerning for osseous metastatic disease. Recommend further evaluation with nuclear medicine bone scan. Right breast soft tissue nodule measures approximately 13 mm. Preliminary impression was provided by [email or web address]. Study marked for PA review.
[2018-09-10 11:36] LABS: BASO % 0.5 % (0.0-2.0); EOS % 0.3 % (0.0-4.0); HEMOGLOBIN 7.5 g/dL (11.0-16.0); LYMPH # 0.6 K/uL (1.0-4.3); LYMPH % 9.1 % (20.0-40.0); MEAN CORPUSCULAR HEMOGLOBIN 30.7 pg (27.0-31.0); MEAN CORPUSCULAR HGB CONC 33.7 g/dL (33.0-37.0); MONO # 0.1 K/uL (0.0-0.8); NEUT # 6.2 K/uL (1.8-7.0); NEUT % 89.1 % (50.0-75.0); PLATELET COUNT 276 K/uL (130-400); RBC 2.43 Mil/uL (3.80-5.20); RED CELL DISTRIBUTION WIDTH 16.5 % (11.5-14.5); WHITE BLOOD COUNT 6.9 K/uL (4.8-10.8)
[2018-09-10 11:53] LABS: ALB/GLOB RATIO 0.9 (1.0-2.1); ALBUMIN 3.3 g/dL (3.5-5.0); ALT/SGPT 16 U/L (9-52); AST/SGOT 39 U/L (14-36); BLOOD UREA NITROGEN 7 mg/dL (7-17); CALCIUM 7.3 mg/dl (8.6-10.4); GFR NON-AFRICAN AMERICAN > 60
[2018-09-10 12:13] LABS: LYMPHOCYTE 5 % (20-40); MONOCYTE 1 % (0-10); NEUTROPHIL 94 % (50-75); PLATELET ESTIMATE NORMAL (NORMAL); TOTAL CELLS COUNTED 100
[2018-09-10 12:14] LABS: ANISOCYTOSIS SLIGHT; HYPOCHROMIC SLIGHT; POLYCHROMIC SLIGHT
--- NOTE | 2018-09-10 13:12 | CP.PCM.CON ---
History of Present Illness - History of Present Illness History of Present Illness: 63 year old female, with Hx of lung cancer, on chemotherapy, and COPD, presents to ED complaining of a fever since last night, associated with coughing. Otherwise she denies nausea, vomiting, diarrhea, or chest pain. Patient has breathing treatment at home and last treatment was 3 days ago. States she currently feels better with O2 support. 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, with mets to the lymph nodes, lung lesions, bones, liver, brain, s/p hip fracture, s/p pinning and radiation, currently on chemotherapy ID consulted for antibiotic management PMH: Anemia, Anxiety, Arthritis, Back Problems, Bronchitis, COPD (however uses nebulizer at home), Depression, Fractures (rt. hip fracture), HTN Denies: Chronic Kidney Disease Surgical History: Back Surgery - [facility] Procedures COMPUTERIZED TOMOGRAPHY (CT SCAN) OF BILATERAL LUNGS (04/03/18) EXCISION OF LEFT LOWER LOBE BRONCHUS, ENDO, DIAGN (04/03/18) EXCISION OF RIGHT UPPER LUNG LOBE, PERC APPROACH, DIAGN (04/03/18) Review of Systems - Constitutional Constitutional: As Per HPI - EENT Eyes: absent: As Per HPI, Blind Spots, Blurred Vision, Change in Vision, Decreased Night Vision, Diplopia, Discharge, Dry Eye, Exophthalmos, Floaters, Irritation, Itchy Eyes, Loss of Peripheral Vision, Pain, Photophobia, Requires Corrective Lenses, Sees Flashes, Spots in Vision, Tunnel Vision, Other Visual Disturbances, Loss of Vision, Other Ears: absent: As Per HPI, Decreased Hearing, Ear Discharge, Ear Pain, Tinnitus, Abnormal Hearing, Disequilibrium, Dizziness, Other Nose/Mouth/Throat: absent: As Per HPI, Epistaxis, Nasal Congestion, Nasal D ischarge, Nasal Obstruction, Nasal Trauma, Nose Pain, Post Nasal Drip, Sinus Pain, Sinus Pressure, Bleeding Gums, Change in Voice, Dental Pain, Dry Mouth, Dysphagia, Halitosis, Hoarsness, Lip Swelling, Mouth Lesions, Mouth Pain, Odynophagia, Sore Throat, Throat Swelling, Tongue Swelling, Facial Pain, Neck Pain, Neck Mass, Other - Cardiovascular Cardiovascular: absent: As Per HPI, Acrocyanosis, Chest Pain, Chest Pain at Rest, Chest Pain with Activity, Claudication, Diaphoresis, Dyspnea, Dyspnea on Exertion, Edema, Irregular Heart Rhythm, Pain Radiating to Arm/Neck/Jaw, Leg Edema, Leg Ulcers, Lightheadedness, Orthopnea, Palpitations, Paroxysmal Nocturnal Dyspnea, Pedal Edema, Radiating Pain, Rapid Heart Rate, Slow Heart Rate, Syncope, Other - Respiratory Respiratory: As Per HPI - Gastrointestinal Gastrointestinal: absent: As Per HPI, Abdominal Pain, Belching, Bloating, Change in Bowel Habits, Change in Stool Character, Coffee Ground Emesis, Constipation, Cramping, Diarrhea, Dyspepsia, Dysphagia, Early Satiety, Excessive Flatus, Fecal Incontinence, Heartburn, Hematemesis, Hematochezia, Loose Stools, Melena, Nausea, Odynophagia, Temesmus, Vomiting, Other - Genitourinary Genitourinary: absent: As Per HPI, Change in Urinary Stream, Difficulty Urinating, Dysuria, Flank Pain, Hematuria, Pyuria, Nocturia, Urinary Incontinence, Urinary Frequency, Urinary Hesitance, Urinary Urgency, Voiding Freq/Small Amts, Freq UTI, Hx Renal/Bladder Calculi, Hx /Renal Surgery, Bladder Distension, Other - Reproductive: Female Reproductive:Female: absent: As Per HPI, Amenorrhea, Amenorrhea/ Control, Currently Menstual, Cycle <21 Days, Cycle >35 Days, Cycle Variable, Menses 1-7 Days, Menses >/= 8 Days, Menses Variable, Cycle > 4 Weeks Between, No Menses for 6 Months, Heavy Menses, Light Menses, Normal Menses, Spotting Between Cycles, S/P Hysterectomy, Menopausal, Post Menopausal, Premenarche, Abnormal Vaginal Bleeding, Dysmenorrhea, Dyspareunia, Genital Lesions, Genital Pruritis, Pelvic Pain, Prolapse Symptoms, Sexual Dysfunction, Vaginal Discharge, Vaginal Dryness, Vaginal Odor, Vaginal Pruritis, Other - Menstruation Menstruation: absent: As Per HPI, Amenorrhea, Amenorrhea/ Control, Currently Menstual, Cycle <21 Days, Cycle >35 Days, Cycle Variable, Menses 1-7 Days, Menses >/= 8 Days, Menses Variable, Cycle > 4 Weeks Between, No Menses for 6 Months, Heavy Menses, Light Menses, Normal Menses, Spotting Between Cycles, S/P Hysterectomy, Menopausal, Post Menopausal, Premenarche, Abnormal Vaginal Bleeding, Dysmenorrhea, Other - Musculoskeletal Musculoskeletal: absent: As Per HPI, Abnormal Gait, Arthralgias, Atrophy, Back Pain, Deformity, Joint Swelling, Limited Range of Motion, Loss of Height, Muscle Cramps, Muscle Weakness, Myalgias, Neck Pain, Numbness, Radiating Pain into Limb, Stiffness, Tingling, Other - Integumentary Integumentary: absent: As Per HPI, Acne, Alopecia, Bleeding Lesions, Change in Hair, Change in Nails, Change in Pigmentation, Changing Lesions, Dry Skin, Erythema, Furuncle, Hirsutism, Lesions, New Lesions, Non-Healing Lesions, Photosensitivity, Pruritus, Rash, Skin Pain, Skin Ulcer, Sores, Striae, Swelling, Unusual Bruising, Wounds, Jaundice, Other Past Patient History - Past Medical History & Family History Past Medical History?: Yes - Past Social History Smoking Status: Heavy Smoker > 10 Cigarettes Daily - CARDIAC Hx Hypotension: Yes - PULMONARY Hx Asthma: Yes Hx Bronchitis: Yes Hx Chronic Obstructive Pulmonary Disease (COPD): Yes (however uses nebulizer at home) - NEUROLOGICAL Hx Neurological Disorder: No - HEENT Hx HEENT Problems: No - RENAL Hx Chronic Kidney Disease: No - ENDOCRINE/METABOLIC Hx Endocrine Disorders: No - HEMATOLOGICAL/ONCOLOGICAL Hx Blood Disorders: Yes Hx Anemia: Yes - INTEGUMENTARY Hx Dermatological Problems: Yes - MUSCULOSKELETAL/RHEUMATOLOGICAL Hx Arthritis: Yes Hx Falls: No Hx Fractures: Yes (rt. hip fracture) - GASTROINTESTINAL Hx Gastrointestinal Disorders: Yes Other/Comment: GERD - GENITOURINARY/GYNECOLOGICAL Hx Genitourinary Disorders: No - PSYCHIATRIC Hx Psychophysiologic Disorder: Yes Hx Anxiety: Yes Hx Depression: Yes Hx Substance Use: No - SURGICAL HISTORY Hx Surgeries: Yes Other/Comment: SPINE SURGERY 2009 PER PATIENT - ANESTHESIA Hx Anesthesia: Yes Hx Anesthesia Reactions: Yes (severe hypotension) Meds Allergies/Adverse Reactions: Allergies Allergy/AdvReac Type Severity Reaction Status Date / Time doxycycline Allergy Verified 04/01/18 10:41 Penicillins Allergy Verified 04/01/18 10:41 - Medications Medications: Current Medications Acetaminophen (Tylenol 325mg Tab) 650 mg PO Q6 PRN PRN Reason: Fever >100.4 F Albuterol/Ipratropium (Duoneb 3 Mg/0.5 Mg (3 Ml) Ud) 3 ml INH RQ4 [facility]ERNA[facility] Last Admin: 09/10/18 10:31 Dose: Not Given Calcium/Vitamin D (Oyster Shell Calcium/Vitamin D 500 Mg-200 Iu) 1 tab PO BID [facility] Last Admin: 09/10/18 11:00 Dose: 1 tab Ergocalciferol (Drisdol 50,000 Intl Units Cap) 1 cap PO QWK [facility] Ferrous Sulfate (Feosol) 325 mg PO BID [facility] Last Admin: 09/10/18 10:32 Dose: 325 mg Folic Acid (Folic Acid) 1 mg PO DAILY [facility] Last Admin: 09/10/18 10:23 Dose: 1 mg Heparin Sodium (Porcine) (Heparin) 5,000 units SC Q12 [facility] Last Admin: 09/10/18 10:32 Dose: 5,000 units Azithromycin 500 mg/ Sodium (Chloride) 250 mls @ 250 mls/hr IVPB DAILY [facility]; Protocol Last Admin: 09/10/18 10:32 Dose: 250 mls/hr Ceftriaxone Sodium 1 gm/ (Sodium Chloride) 100 mls @ 100 mls/hr IVPB DAILY [facility]; Protocol Last Admin: 09/10/18 10:23 Dose: 100 mls/hr Dextrose/Sodium Chloride (Dextrose 5%/0.45% Ns 1000 Ml) 1,000 mls @ 50 mls/hr IV .Q20H [facility] Last Admin: 09/09/18 20:13 Dose: 50 mls/hr Influenza Virus Vaccine (Fluzone Quad [id number]) 60 mcg IM .ONCE ONE Stop: 09/12/18 10:01 Methylprednisolone (Solu-Medrol) 40 mg IVP DAILY [facility] Last Admin: 09/10/18 10:32 Dose: 40 mg Montelukast Sodium (Singulair) 10 mg PO HS [facility] Last Admin: 09/09/18 22:27 Dose: 10 mg Morphine Sulfate (Morphine Extended Release Tab) 60 mg PO Q12H [facility] Last Admin: 09/10/18 08:45 Dose: 60 mg Multivitamins (Hexavitamin) 1 tab PO DAILY [facility] Last Admin: 09/10/18 10:34 Dose: 1 tab Olanzapine (Zyprexa) 10 mg PO DAILY [facility] Last Admin: 09/10/18 11:51 Dose: 10 mg Physical Exam - Constitutional Appears: Non-toxic, Chronically Ill - Head Exam Head Exam: NORMOCEPHALIC - Eye Exam Eye Exam: PERRL - ENT Exam ENT Exam: Mucous Membranes Dry - Neck Exam Neck exam: Negative for: Lymphadenopathy - Respiratory Exam Respiratory Exam: Decreased Breath Sounds - Cardiovascular Exam Cardiovascular Exam: REGULAR RHYTHM - GI/Abdominal Exam GI & Abdominal Exam: Diminished Bowel Sounds, Soft - Rectal Exam Rectal Exam: Deferred - Exam Exam: NORMAL INSPECTION - Extremities Exam Extremities exam: Negative for: pedal edema - Back Exam Back exam: absent: CVA tenderness (L), CVA tenderness (R) - Neurological Exam Neurological exam: Alert, CN II-XII Intact, Oriented x3, Reflexes Normal - Psychiatric Exam Psychiatric exam: Normal Mood - Skin Skin Exam: Dry Results - Vital Signs Recent Vital Signs: Last Vital Signs Temp 99.7 F H 09/10/18 08:00 Pulse 120 H 09/10/18 08:00 Resp 20 09/10/18 08:00 BP 135/79 09/10/18 08:00 Pulse Ox 95 09/10/18 08:00 - Labs Result Diagrams: 09/10/18 11:24 09/10/18 11:24 Labs: Laboratory Results - last 24 hr 09/09/18 09/09/18 09/09/18 07:11 14:57 14:57 WBC 11.3 H D RBC 2.72 L Hgb 8.3 L Hct 24.6 L MCV 90.4 D MCH 30.5 MCHC 33.8 RDW 16.4 H Plt Count 315 D MPV 7.1 L Neut % (Auto) 93.6 H Lymph % (Auto) 5.3 L [place] % (Auto) 0.5 Eos % (Auto) 0.2 Baso % (Auto) 0.4 Neut # (Auto) 10.6 H Lymph # (Auto) 0.6 L [place] # (Auto) 0.1 Eos # (Auto) 0.0 Baso # (Auto) 0.1 Neutrophils % (Manual) 95 H Lymphocytes % (Manual) 3 L Monocytes % (Manual) 1 Basophils % (Manual) 1 Platelet Estimate Normal Large Platelets Present Polychromasia Slight Hypochromasia (manual) Slight Anisocytosis (manual) Slight pO2 VBG pH VBG pCO2 VBG HCO3 VBG Total CO2 VBG O2 Sat (Calc) VBG Base Excess VBG Potassium Glucose Lactate FiO2 Sodium 139 Potassium 3.2 L Chloride 103 Carbon Dioxide 26 Anion Gap 13 BUN 7 Creatinine 0.5 L Est GFR ( Amer) > 60 Est GFR (Non-Af Amer) > 60 Random Glucose 151 H Calcium 7.8 L Total Bilirubin 1.0 AST 53 H ALT 17 Alkaline Phosphatase 140 H D Total Protein 7.1 Albumin 3.2 L Globulin 3.8 Albumin/Globulin Ratio 0.8 L Venous Blood Potassium Influenza Typ A,B (EIA) Negative for flu a/b Ur L.pneumophila Ag Negative 09/09/18 09/10/18 09/10/18 16:06 11:24 11:24 WBC 6.9 RBC 2.43 L Hgb 7.5 L Hct 22.1 L MCV 91.0 MCH 30.7 MCHC 33.7 RDW 16.5 H Plt Count 276 MPV 7.0 L Neut % (Auto) 89.1 H Lymph % (Auto) 9.1 L [place] % (Auto) 1.0 Eos % (Auto) 0.3 Baso % (Auto) 0.5 Neut # (Auto) 6.2 Lymph # (Auto) 0.6 L [place] # (Auto) 0.1 Eos # (Auto) 0.0 Baso # (Auto) 0.0 Neutrophils % (Manual) 94 H Lymphocytes % (Manual) 5 L Monocytes % (Manual) 1 Basophils % (Manual) Platelet Estimate Normal Large Platelets Polychromasia Slight Hypochromasia (manual) Slight Anisocytosis (manual) Slight pO2 64 H VBG pH 7.48 H VBG pCO2 35 L VBG HCO3 27.0 VBG Total CO2 27.2 VBG O2 Sat (Calc) 96.1 H VBG Base Excess 2.8 H VBG Potassium 3.0 L Glucose 145 H Lactate 1.1 FiO2 21.0 Sodium 139.0 141 Potassium 3.4 L Chloride 106.0 106 Carbon Dioxide 24 Anion Gap 14 BUN 7 Creatinine 0.5 L Est GFR ( Amer) > 60 Est GFR (Non-Af Amer) > 60 Random Glucose 123 H Calcium 7.3 L Total Bilirubin 1.0 AST 39 H D ALT 16 Alkaline Phosphatase 145 H Total Protein 7.0 Albumin 3.3 L Globulin 3.7 Albumin/Globulin Ratio 0.9 L Venous Blood Potassium 3.0 L Influenza Typ A,B (EIA) Ur L.pneumophila Ag Assessment & Plan (1) Fever Status: Acute (2) Metastatic cancer Status: Acute (3) COPD (chronic obstructive pulmonary disease) Status: Acute - Assessment and Plan (Free Text) Assessment: await cultures cont iv antibiotics
--- NOTE | 2018-09-10 14:51 | CP.PCM.CON ---
History of Present Illness - History of Present Illness History of Present Illness: Patient is a 63 year old female with a PMHx of Lung cancer (Stage 4 Adenocarcinoma) recently diagnosed in March 2018 with mets to bilateral hip/legs, brain and lymph nodes, Pneumonia, HTN, reflux and arthritis who presents after home health aid noticed that patient was short of breath with persistent cough. Patient states she has not felt well overall for the past couple of days. Admits to cough with white phlegm, shortness of breath, wheezing, chest congestion, fevers and chills. She used her pump at home with mild relief. It is also important to note that patient's mood is depressed. Pt reports that last chemo session was last Monday (09/05) with continued follow up by her Oncologist. Patient has had radiation to the Right leg and was told she will also need radiation to her Left leg. Patient also admits she started smoking again. Reports 1 pack per week for the last week, although she had previously quit in March with lung cancer diagnosis. Power of Web Site Specialist - Jayden Rajput (son). CXR (09/09) - bilateral hilar prominence with no focal consolidation. No pleural effusion or pneumothorax. CT Chest (09/09) - Large persistent left lower lobe mass or consolidation. 7mm left upper lobe nodule. 5 mm left lower lobe nodule. No pleural effusion. No pneumothorax. Apparent endobronchial soft tissue in the left lower lobe branch. 2.6cm indeterminate left adrenal gland mass worrisome for metastases. Right breast soft tissue nodule measures 13mm. PMHx: Stage 4 Adenocarcinoma of lung, HTN, GERD, Arthritis, Pneumonia Surgical Hx: Neck surgery in 1989 for unknown tumor, Spine surgery 2009 Meds: Unknown to patient Allergies: Doxycycline (sharp pain in her back, confusion), Penicillin Fam Hx: Mother - complication from DM (); Grandmother - stomach cancer () Social Hx: Lives alone, home health aid comes in daily. Denies alcohol and illicit drug use. Smoking Hx: Started smoking at age 11. Reports 1.5 - 2 ppd for the last 5 years. Quit in March of 2018 once diagnosed with lung cancer, but admits started smoking again last week with 1 pack per week. Review of Systems - Review of Systems All systems: reviewed and no additional remarkable complaints except (Shortness of breath and cough) Past Patient History - Past Medical History & Family History Past Medical History?: Yes - Past Social History Smoking Status: Heavy Smoker > 10 Cigarettes Daily - CARDIAC Hx Hypotension: Yes - PULMONARY Hx Asthma: Yes Hx Bronchitis: Yes Hx Chronic Obstructive Pulmonary Disease (COPD): Yes (however uses nebulizer at home) - NEUROLOGICAL Hx Neurological Disorder: No - HEENT Hx HEENT Problems: No - RENAL Hx Chronic Kidney Disease: No - ENDOCRINE/METABOLIC Hx Endocrine Disorders: No - HEMATOLOGICAL/ONCOLOGICAL Hx Blood Disorders: Yes Hx Anemia: Yes - INTEGUMENTARY Hx Dermatological Problems: Yes - MUSCULOSKELETAL/RHEUMATOLOGICAL Hx Arthritis: Yes Hx Falls: No Hx Fractures: Yes (rt. hip fracture) - GASTROINTESTINAL Hx Gastrointestinal Disorders: Yes Other/Comment: GERD - GENITOURINARY/GYNECOLOGICAL Hx Genitourinary Disorders: No - PSYCHIATRIC Hx Psychophysiologic Disorder: Yes Hx Anxiety: Yes Hx Depression: Yes Hx Substance Use: No - SURGICAL HISTORY Hx Surgeries: Yes Other/Comment: SPINE SURGERY 2009 PER PATIENT - ANESTHESIA Hx Anesthesia: Yes Hx Anesthesia Reactions: Yes (severe hypotension) Meds Allergies/Adverse Reactions: Allergies Allergy/AdvReac Type Severity Reaction Status Date / Time doxycycline Allergy Verified 04/01/18 10:41 Penicillins Allergy Verified 04/01/18 10:41 - Medications Medications: Current Medications Acetaminophen (Tylenol 325mg Tab) 650 mg PO Q6 PRN PRN Reason: Fever >100.4 F Albuterol/Ipratropium (Duoneb 3 Mg/0.5 Mg (3 Ml) Ud) 3 ml INH RQ4 [facility] Last Admin: 09/10/18 11:40 Dose: 3 ml Calcium/Vitamin D (Oyster Shell Calcium/Vitamin D 500 Mg-200 Iu) 1 tab PO BID [facility] Last Admin: 09/10/18 11:00 Dose: 1 tab Ergocalciferol (Drisdol 50,000 Intl Units Cap) 1 cap PO QWK [facility] Ferrous Sulfate (Feosol) 325 mg PO BID [facility] Last Admin: 09/10/18 10:32 Dose: 325 mg Folic Acid (Folic Acid) 1 mg PO DAILY [facility] Last Admin: 09/10/18 10:23 Dose: 1 mg Heparin Sodium (Porcine) (Heparin) 5,000 units SC Q12 [facility] Last Admin: 09/10/18 10:32 Dose: 5,000 units Azithromycin 500 mg/ Sodium (Chloride) 250 mls @ 250 mls/hr IVPB DAILY [facility]; Protocol Last Admin: 09/10/18 10:32 Dose: 250 mls/hr Ceftriaxone Sodium 1 gm/ (Sodium Chloride) 100 mls @ 100 mls/hr IVPB DAILY [facility]; Protocol Last Admin: 09/10/18 10:23 Dose: 100 mls/hr Dextrose/Sodium Chloride (Dextrose 5%/0.45% Ns 1000 Ml) 1,000 mls @ 50 mls/hr IV .Q20H [facility] Last Admin: 09/09/18 20:13 Dose: 50 mls/hr Influenza Virus Vaccine (Fluzone Quad [id number]) 60 mcg IM .ONCE ONE Stop: 09/12/18 10:01 Methylprednisolone (Solu-Medrol) 40 mg IVP DAILY [facility] Last Admin: 09/10/18 10:32 Dose: 40 mg Montelukast Sodium (Singulair) 10 mg PO HS [facility] Last Admin: 09/09/18 22:27 Dose: 10 mg Morphine Sulfate (Morphine Extended Release Tab) 60 mg PO Q12H [facility] Last Admin: 09/10/18 08:45 Dose: 60 mg Multivitamins (Hexavitamin) 1 tab PO DAILY [facility] Last Admin: 09/10/18 10:34 Dose: 1 tab Olanzapine (Zyprexa) 10 mg PO DAILY [facility] Last Admin: 09/10/18 11:51 Dose: 10 mg Potassium Chloride (K-Dur 20 Meq Er Tab) 40 meq PO ONCE ONE Stop: 09/10/18 16:01 Physical Exam - Head Exam Head Exam: ATRAUMATIC, NORMOCEPHALIC - ENT Exam ENT Exam: Mucous Membranes Moist - Neck Exam Neck exam: Positive for: Normal Inspection - Respiratory Exam Respiratory Exam: Decreased Breath Sounds - Cardiovascular Exam Cardiovascular Exam: REGULAR RHYTHM - GI/Abdominal Exam GI & Abdominal Exam: Normal Bowel Sounds, Soft - Extremities Exam Extremities exam: Positive for: normal inspection - Neurological Exam Neurological exam: Alert, Oriented x3 Results - Vital Signs Recent Vital Signs: Last Vital Signs Temp 99.7 F H 09/10/18 08:00 Pulse 120 H 09/10/18 08:00 Resp 20 09/10/18 08:00 BP 135/79 09/10/18 08:00 Pulse Ox 95 09/10/18 08:00 - Labs Result Diagrams: 09/10/18 11:24 10/15/18 11:24 Labs: Laboratory Results - last 24 hr 09/09/18 09/09/18 09/09/18 07:11 14:57 14:57 WBC 11.3 H D RBC 2.72 L Hgb 8.3 L Hct 24.6 L MCV 90.4 D MCH 30.5 MCHC 33.8 RDW 16.4 H Plt Count 315 D MPV 7.1 L Neut % (Auto) 93.6 H Lymph % (Auto) 5.3 L Hettinger % (Auto) 0.5 Eos % (Auto) 0.2 Baso % (Auto) 0.4 Neut # (Auto) 10.6 H Lymph # (Auto) 0.6 L Hettinger # (Auto) 0.1 Eos # (Auto) 0.0 Baso # (Auto) 0.1 Neutrophils % (Manual) 95 H Lymphocytes % (Manual) 3 L Monocytes % (Manual) 1 Basophils % (Manual) 1 Platelet Estimate Normal Large Platelets Present Polychromasia Slight Hypochromasia (manual) Slight Anisocytosis (manual) Slight pO2 VBG pH VBG pCO2 VBG HCO3 VBG Total CO2 VBG O2 Sat (Calc) VBG Base Excess VBG Potassium Glucose Lactate FiO2 Sodium 139 Potassium 3.2 L Chloride 103 Carbon Dioxide 26 Anion Gap 13 BUN 7 Creatinine 0.5 L Est GFR ( Amer) > 60 Est GFR (Non-Af Amer) > 60 Random Glucose 151 H Calcium 7.8 L Total Bilirubin 1.0 AST 53 H ALT 17 Alkaline Phosphatase 140 H D Total Protein 7.1 Albumin 3.2 L Globulin 3.8 Albumin/Globulin Ratio 0.8 L Venous Blood Potassium Influenza Typ A,B (EIA) Negative for flu a/b Ur L.pneumophila Ag Negative 09/09/18 09/10/18 09/10/18 16:06 11:24 11:24 WBC 6.9 RBC 2.43 L Hgb 7.5 L Hct 22.1 L MCV 91.0 MCH 30.7 MCHC 33.7 RDW 16.5 H Plt Count 276 MPV 7.0 L Neut % (Auto) 89.1 H Lymph % (Auto) 9.1 L Hettinger % (Auto) 1.0 Eos % (Auto) 0.3 Baso % (Auto) 0.5 Neut # (Auto) 6.2 Lymph # (Auto) 0.6 L Hettinger # (Auto) 0.1 Eos # (Auto) 0.0 Baso # (Auto) 0.0 Neutrophils % (Manual) 94 H Lymphocytes % (Manual) 5 L Monocytes % (Manual) 1 Basophils % (Manual) Platelet Estimate Normal Large Platelets Polychromasia Slight Hypochromasia (manual) Slight Anisocytosis (manual) Slight pO2 64 H VBG pH 7.48 H VBG pCO2 35 L VBG HCO3 27.0 VBG Total CO2 27.2 VBG O2 Sat (Calc) 96.1 H VBG Base Excess 2.8 H VBG Potassium 3.0 L Glucose 145 H Lactate 1.1 FiO2 21.0 Sodium 139.0 141 Potassium 3.4 L Chloride 106.0 106 Carbon Dioxide 24 Anion Gap 14 BUN 7 Creatinine 0.5 L Est GFR ( Amer) > 60 Est GFR (Non-Af Amer) > 60 Random Glucose 123 H Calcium 7.3 L Total Bilirubin 1.0 AST 39 H D ALT 16 Alkaline Phosphatase 145 H Total Protein 7.0 Albumin 3.3 L Globulin 3.7 Albumin/Globulin Ratio 0.9 L Venous Blood Potassium 3.0 L Influenza Typ A,B (EIA) Ur L.pneumophila Ag Assessment & Plan (1) COPD (chronic obstructive pulmonary disease) Status: Acute Comment: COPD exacerbation secondary to bronchitis. IV antibiotics. Nebulizer treatment. With IV steroids. CAT scan of the chest noted (2) Metastatic cancer Status: Acute
[2018-09-10] MEDS: Dextrose 5%/0.45% NS 1,000 ML IV SCH ×2 (16:00→21:11)
[2018-09-10] MEDS ORDERED: Potassium Chloride 20 mEq ER Tab PO ONE (16:00)
--- NOTE | 2018-09-10 16:44 | CP.PCM.HP ---
Present on Admission - Present on Admission Any Indicators Present on Admission: No Past Patient History - Past Medical History & Family History Past Medical History?: Yes - Past Social History Smoking Status: Heavy Smoker > 10 Cigarettes Daily - CARDIAC Hx Hypotension: Yes - PULMONARY Hx Asthma: Yes Hx Bronchitis: Yes Hx Chronic Obstructive Pulmonary Disease (COPD): Yes (however uses nebulizer at home) - NEUROLOGICAL Hx Neurological Disorder: No - HEENT Hx HEENT Problems: No - RENAL Hx Chronic Kidney Disease: No - ENDOCRINE/METABOLIC Hx Endocrine Disorders: No - HEMATOLOGICAL/ONCOLOGICAL Hx Blood Disorders: Yes Hx Anemia: Yes - INTEGUMENTARY Hx Dermatological Problems: Yes - MUSCULOSKELETAL/RHEUMATOLOGICAL Hx Arthritis: Yes Hx Falls: No Hx Fractures: Yes (rt. hip fracture) - GASTROINTESTINAL Hx Gastrointestinal Disorders: Yes Other/Comment: GERD - GENITOURINARY/GYNECOLOGICAL Hx Genitourinary Disorders: No - PSYCHIATRIC Hx Psychophysiologic Disorder: Yes Hx Anxiety: Yes Hx Depression: Yes Hx Substance Use: No - SURGICAL HISTORY Hx Surgeries: Yes Other/Comment: SPINE SURGERY 2009 PER PATIENT - ANESTHESIA Hx Anesthesia: Yes Hx Anesthesia Reactions: Yes (severe hypotension) Meds Home Medications: Home Medication List Medication Instructions Recorded Confirmed Type Azithromycin [Zithromax] 500 mg PO DAILY #5 tablet 09/13/18 Rx Allergies/Adverse Reactions: Allergies Allergy/AdvReac Type Severity Reaction Status Date / Time doxycycline Allergy Verified 04/01/18 10:41 Penicillins Allergy Verified 04/01/18 10:41 Physical Exam - Constitutional Appears: Well - Head Exam Head Exam: ATRAUMATIC, NORMAL INSPECTION, NORMOCEPHALIC - Eye Exam Eye Exam: EOMI, Normal appearance, PERRL Pupil Exam: NORMAL ACCOMODATION, PERRL - ENT Exam ENT Exam: Mucous Membranes Moist, Normal Exam - Neck Exam Neck exam: Positive for: Normal Inspection - Respiratory Exam Respiratory Exam: Decreased Breath Sounds - Cardiovascular Exam Cardiovascular Exam: REGULAR RHYTHM, +S1, +S2 - GI/Abdominal Exam GI & Abdominal Exam: Diminished Bowel Sounds, Soft - Rectal Exam Rectal Exam: Deferred Results - Vital Signs Recent Vital Signs: Last Vital Signs Temp 98.6 F 09/10/18 15:45 Pulse 122 H 09/10/18 15:45 Resp 20 09/10/18 15:45 BP 108/60 09/10/18 15:45 Pulse Ox 96 09/10/18 15:45 - Labs Result Diagrams: 09/13/18 11:13 09/13/18 11:13 Labs: Laboratory Results - last 24 hr 09/09/18 09/10/18 09/10/18 07:11 11:24 11:24 WBC 6.9 RBC 2.43 L Hgb 7.5 L Hct 22.1 L MCV 91.0 MCH 30.7 MCHC 33.7 RDW 16.5 H Plt Count 276 MPV 7.0 L Neut % (Auto) 89.1 H Lymph % (Auto) 9.1 L Barnes % (Auto) 1.0 Eos % (Auto) 0.3 Baso % (Auto) 0.5 Neut # (Auto) 6.2 Lymph # (Auto) 0.6 L Barnes # (Auto) 0.1 Eos # (Auto) 0.0 Baso # (Auto) 0.0 Neutrophils % (Manual) 94 H Lymphocytes % (Manual) 5 L Monocytes % (Manual) 1 Platelet Estimate Normal Polychromasia Slight Hypochromasia (manual) Slight Anisocytosis (manual) Slight Sodium 141 Potassium 3.4 L Chloride 106 Carbon Dioxide 24 Anion Gap 14 BUN 7 Creatinine 0.5 L Est GFR ( Amer) > 60 Est GFR (Non-Af Amer) > 60 Random Glucose 123 H Calcium 7.3 L Total Bilirubin 1.0 AST 39 H D ALT 16 Alkaline Phosphatase 145 H Total Protein 7.0 Albumin 3.3 L Globulin 3.7 Albumin/Globulin Ratio 0.9 L Influenza Typ A,B (EIA) Negative for flu a/b Ur L.pneumophila Ag Negative Assessment & Plan - Assessment and Plan (Free Text) Plan: Seen and examined at bedside Labs and meds reviewed Low hemoglobin 7.5 Watch for breathlessness CAT scan of the chest noted Nebulizers Antibiotics Pulmonary consult Close monitoring of oxygen saturation
[2018-09-10] MEDS: Morphine 15 mg Immediate Release Tab PO PRN (17:15)
[2018-09-10] MEDS ORDERED: Potassium Chloride 20 mEq ER Tab PO STA (20:51)
--- NOTE | 2018-09-10 22:52 | CARD ---
APPROVED REPORT Date of service: 09/09/2018 EKG Measurement Heart [id number] <Conclusion> Sinus tachycardia Possible Left atrial enlargement Left ventricular hypertrophy Nonspecific ST abnormality Abnormal ECG
[2018-09-11] MEDS: Albuterol-Ipratrop 3 mg / 0.5 (3 ml) UD INH SCH ×5 (02:10→23:53)
[2018-09-11] MEDS: Morphine 15 mg Immediate Release Tab PO PRN (04:04)
[2018-09-11 07:46] LABS: BASO % 0.1 % (0.0-2.0); LYMPH # 0.5 K/uL (1.0-4.3); LYMPH % 14.3 % (20.0-40.0); MEAN CELL VOLUME 91.3 fL (81.0-99.0); MEAN CORPUSCULAR HEMOGLOBIN 30.5 pg (27.0-31.0); MEAN CORPUSCULAR HGB CONC 33.4 g/dL (33.0-37.0); MONO # 0.1 K/uL (0.0-0.8); MONO % 1.9 % (0.0-10.0); NEUT # 2.9 K/uL (1.8-7.0); NEUT % 83.7 % (50.0-75.0); RBC 2.25 Mil/uL (3.80-5.20); RED CELL DISTRIBUTION WIDTH 16.6 % (11.5-14.5)
[2018-09-11 07:52] LABS: HEMOGLOBIN 6.9 g/dL (11.0-16.0); WHITE BLOOD COUNT 3.4 K/uL (4.8-10.8)
[2018-09-11 07:55] LABS: BLOOD UREA NITROGEN 7 mg/dL (7-17); CALCIUM 7.4 mg/dl (8.6-10.4); GFR NON-AFRICAN AMERICAN > 60
[2018-09-11] MEDS: Multiple Vitamins Tab PO SCH (09:39)
[2018-09-11] MEDS: MethylPREDNISolone 40 mg Vial IVP SCH (09:39)
[2018-09-11] MEDS: Calcium-Vit D 500 mg-200 Units Tab UD PO SCH ×2 (09:39→17:22)
[2018-09-11] MEDS: Morphine 30 mg SR Tab PO SCH ×2 (09:39→20:44)
[2018-09-11] MEDS: Azithromycin 500 MG in Sodium Chloride 0.9% 250 ML IVPB SCH (10:58)
[2018-09-11] MEDS ORDERED: Potassium Chloride 20 mEq ER Tab PO ONE (11:17)
[2018-09-11] MEDS: Dextrose 5%/0.45% NS 1,000 ML IV SCH (12:30)
--- NOTE | 2018-09-11 13:17 | CP.PCM.PN ---
Subjective - Date & Time of Evaluation Date of Evaluation: 09/11/18 Time of Evaluation: 09:00 - Subjective Subjective: awake alet nad Objective - Vital Signs/Intake and Output Vital Signs (last 24 hours): Temp Pulse Resp BP Pulse Ox 98.2 F 100 H 20 127/80 96 09/11/18 08:00 09/11/18 08:00 09/11/18 08:00 09/11/18 08:00 09/11/18 08:00 Intake and Output: 09/11/18 09/11/18 06:59 18:59 Intake Total 800 400 Balance 800 400 - Medications Medications: Current Medications Acetaminophen (Tylenol 325mg Tab) 650 mg PO Q6 PRN PRN Reason: Fever >100.4 F Albuterol/Ipratropium (Duoneb 3 Mg/0.5 Mg (3 Ml) Ud) 3 ml INH RQ4 [facility] Last Admin: 09/11/18 12:59 Dose: 3 ml Calcium/Vitamin D (Oyster Shell Calcium/Vitamin D 500 Mg-200 Iu) 1 tab PO BID [facility] Last Admin: 09/11/18 09:39 Dose: 1 tab Ergocalciferol (Drisdol 50,000 Intl Units Cap) 1 cap PO QWK [facility] Ferrous Sulfate (Feosol) 325 mg PO BID [facility] Last Admin: 09/11/18 09:38 Dose: 325 mg Folic Acid (Folic Acid) 1 mg PO DAILY [facility] Last Admin: 09/11/18 09:38 Dose: 1 mg Heparin Sodium (Porcine) (Heparin) 5,000 units SC Q12 [facility] Last Admin: 09/11/18 09:39 Dose: 5,000 units Azithromycin 500 mg/ Sodium (Chloride) 250 mls @ 250 mls/hr IVPB DAILY [facility]; Protocol Last Admin: 09/11/18 10:58 Dose: 250 mls/hr Dextrose/Sodium Chloride (Dextrose 5%/0.45% Ns 1000 Ml) 1,000 mls @ 50 mls/hr IV .Q20H [facility] Last Admin: 09/11/18 12:30 Dose: Not Given Influenza Virus Vaccine (Fluzone Quad [id number]) 60 mcg IM .ONCE ONE Stop: 09/12/18 10:01 Methylprednisolone (Solu-Medrol) 40 mg IVP DAILY [facility] Last Admin: 09/11/18 09:39 Dose: 40 mg Montelukast Sodium (Singulair) 10 mg PO HS [facility] Last Admin: 09/10/18 21:15 Dose: 10 mg Morphine Sulfate (Morphine Extended Release Tab) 60 mg PO Q12H [facility] Last Admin: 09/11/18 09:39 Dose: 60 mg Morphine Sulfate (Morphine Immediate Release Tab) 15 mg PO Q6H PRN PRN Reason: Pain, severe (8-10) Last Admin: 09/11/18 04:04 Dose: 15 mg Multivitamins (Hexavitamin) 1 tab PO DAILY [facility] Last Admin: 09/11/18 09:39 Dose: 1 tab Olanzapine (Zyprexa) 10 mg PO DAILY [facility] Last Admin: 09/11/18 09:38 Dose: 10 mg - Labs Labs: 09/11/18 07:10 09/11/18 07:10 - Constitutional Appears: Non-toxic, Chronically Ill - Head Exam Head Exam: ATRAUMATIC, NORMAL INSPECTION, NORMOCEPHALIC - Eye Exam Eye Exam: EOMI, Normal appearance, PERRL Pupil Exam: NORMAL ACCOMODATION, PERRL - ENT Exam ENT Exam: Mucous Membranes Moist, Normal Exam - Neck Exam Neck Exam: Full ROM, Normal Inspection. absent: Lymphadenopathy - Respiratory Exam Respiratory Exam: Clear to Ausculation Bilateral, NORMAL BREATHING PATTERN - Cardiovascular Exam Cardiovascular Exam: REGULAR RHYTHM, +S1, +S2. absent: Murmur - GI/Abdominal Exam GI & Abdominal Exam: Soft, Normal Bowel Sounds. absent: Tenderness - Rectal Exam Rectal Exam: NORMAL INSPECTION - Extremities Exam Extremities Exam: Full ROM, Normal Capillary Refill, Normal Inspection. absent: Joint Swelling, Pedal Edema - Back Exam Back Exam: NORMAL INSPECTION - Neurological Exam Neurological Exam: Alert, Awake, CN II-XII Intact, Normal Gait, Oriented x3 - Psychiatric Exam Psychiatric exam: Normal Affect, Normal Mood - Skin Skin Exam: Dry, Intact, Normal Color, Warm Assessment and Plan (1) Fever Status: Acute (2) Metastatic cancer Status: Acute (3) COPD (chronic obstructive pulmonary disease) Status: Acute
[2018-09-11] MEDS ORDERED: Potassium Chloride 20 mEq/15 ml LIQ UD PO ONE (14:30)
[2018-09-11 15:56] VITALS: RESP 20
--- NOTE | 2018-09-11 16:08 | CP.PCM.PN ---
Subjective - Date & Time of Evaluation Date of Evaluation: 09/11/18 Time of Evaluation: 10:00 - Subjective Subjective: Patient was seen and examined at bedside. Afebrile and in no acute distress. Patients' hemoglobin today 6.9, will receive transfusion. Reports she had a restless night. SOB is improving. Cough with mild white phlegm. Objective - Vital Signs/Intake and Output Vital Signs (last 24 hours): Temp Pulse Resp BP Pulse Ox 98.1 F 120 H 20 121/81 95 09/11/18 15:55 09/11/18 15:55 09/11/18 15:55 09/11/18 15:55 09/11/18 15:55 Intake and Output: 09/11/18 09/11/18 06:59 18:59 Intake Total 800 400 Balance 800 400 - Medications Medications: Current Medications Acetaminophen (Tylenol 325mg Tab) 650 mg PO Q6 PRN PRN Reason: Fever >100.4 F Albuterol/Ipratropium (Duoneb 3 Mg/0.5 Mg (3 Ml) Ud) 3 ml INH RQ4 [facility] Last Admin: 09/11/18 12:59 Dose: 3 ml Calcium/Vitamin D (Oyster Shell Calcium/Vitamin D 500 Mg-200 Iu) 1 tab PO BID [facility] Last Admin: 09/11/18 09:39 Dose: 1 tab Ergocalciferol (Drisdol 50,000 Intl Units Cap) 1 cap PO QWK [facility] Ferrous Sulfate (Feosol) 325 mg PO BID [facility] Last Admin: 09/11/18 09:38 Dose: 325 mg Folic Acid (Folic Acid) 1 mg PO DAILY [facility] Last Admin: 09/11/18 09:38 Dose: 1 mg Heparin Sodium (Porcine) (Heparin) 5,000 units SC Q12 [facility] Last Admin: 09/11/18 09:39 Dose: 5,000 units Azithromycin 500 mg/ Sodium (Chloride) 250 mls @ 250 mls/hr IVPB DAILY [facility]; Protocol Last Admin: 09/11/18 10:58 Dose: 250 mls/hr Dextrose/Sodium Chloride (Dextrose 5%/0.45% Ns 1000 Ml) 1,000 mls @ 50 mls/hr IV .Q20H [facility] Last Admin: 09/11/18 12:30 Dose: Not Given Influenza Virus Vaccine (Fluzone Quad [id number]) 60 mcg IM .ONCE ONE Stop: 09/12/18 10:01 Methylprednisolone (Solu-Medrol) 40 mg IVP DAILY [facility] Last Admin: 09/11/18 09:39 Dose: 40 mg Montelukast Sodium (Singulair) 10 mg PO HS [facility] Last Admin: 09/10/18 21:15 Dose: 10 mg Morphine Sulfate (Morphine Extended Release Tab) 60 mg PO Q12H [facility] Last Admin: 09/11/18 09:39 Dose: 60 mg Morphine Sulfate (Morphine Immediate Release Tab) 15 mg PO Q6H PRN PRN Reason: Pain, severe (8-10) Last Admin: 09/11/18 04:04 Dose: 15 mg Multivitamins (Hexavitamin) 1 tab PO DAILY [facility] Last Admin: 09/11/18 09:39 Dose: 1 tab Olanzapine (Zyprexa) 10 mg PO DAILY [facility] Last Admin: 09/11/18 09:38 Dose: 10 mg - Labs Labs: 09/11/18 07:10 09/11/18 07:10 Assessment and Plan (1) COPD (chronic obstructive pulmonary disease) Status: Acute (2) Metastatic cancer Status: Acute
--- NOTE | 2018-09-11 18:14 | CP.PCM.PN ---
Subjective - Date & Time of Evaluation Date of Evaluation: 09/11/18 Time of Evaluation: 08:45 - Subjective Subjective: clinically same Objective - Vital Signs/Intake and Output Vital Signs (last 24 hours): Temp Pulse Resp BP Pulse Ox 98.2 F 128 H 20 146/93 H 95 09/11/18 17:27 09/11/18 17:27 09/11/18 17:27 09/11/18 17:27 09/11/18 15:55 Intake and Output: 09/11/18 09/11/18 06:59 18:59 Intake Total 800 750 Balance 800 750 - Medications Medications: Current Medications Acetaminophen (Tylenol 325mg Tab) 650 mg PO Q6 PRN PRN Reason: Fever >100.4 F Albuterol/Ipratropium (Duoneb 3 Mg/0.5 Mg (3 Ml) Ud) 3 ml INH RQ4 [facility] Last Admin: 09/11/18 12:59 Dose: 3 ml Calcium/Vitamin D (Oyster Shell Calcium/Vitamin D 500 Mg-200 Iu) 1 tab PO BID [facility] Last Admin: 09/11/18 17:22 Dose: 1 tab Ergocalciferol (Drisdol 50,000 Intl Units Cap) 1 cap PO QWK [facility] Ferrous Sulfate (Feosol) 325 mg PO BID [facility] Last Admin: 09/11/18 17:22 Dose: 325 mg Folic Acid (Folic Acid) 1 mg PO DAILY [facility] Last Admin: 09/11/18 09:38 Dose: 1 mg Heparin Sodium (Porcine) (Heparin) 5,000 units SC Q12 [facility] Last Admin: 09/11/18 09:39 Dose: 5,000 units Azithromycin 500 mg/ Sodium (Chloride) 250 mls @ 250 mls/hr IVPB DAILY [facility]; Protocol Last Admin: 09/11/18 10:58 Dose: 250 mls/hr Dextrose/Sodium Chloride (Dextrose 5%/0.45% Ns 1000 Ml) 1,000 mls @ 50 mls/hr IV .Q20H [facility] Last Admin: 09/11/18 12:30 Dose: Not Given Influenza Virus Vaccine (Fluzone Quad [id number]) 60 mcg IM .ONCE ONE Stop: 09/12/18 10:01 Methylprednisolone (Solu-Medrol) 40 mg IVP DAILY [facility] Last Admin: 09/11/18 09:39 Dose: 40 mg Montelukast Sodium (Singulair) 10 mg PO HS [facility] Last Admin: 09/10/18 21:15 Dose: 10 mg Morphine Sulfate (Morphine Extended Release Tab) 60 mg PO Q12H [facility] Last Admin: 09/11/18 09:39 Dose: 60 mg Morphine Sulfate (Morphine Immediate Release Tab) 15 mg PO Q6H PRN PRN Reason: Pain, severe (8-10) Last Admin: 09/11/18 04:04 Dose: 15 mg Multivitamins (Hexavitamin) 1 tab PO DAILY [facility] Last Admin: 09/11/18 09:39 Dose: 1 tab Olanzapine (Zyprexa) 10 mg PO DAILY [facility] Last Admin: 09/11/18 09:38 Dose: 10 mg - Labs Labs: 09/11/18 07:10 09/11/18 07:10 - Constitutional Appears: Well - Head Exam Head Exam: ATRAUMATIC, NORMAL INSPECTION, NORMOCEPHALIC - Eye Exam Eye Exam: EOMI, Normal appearance, PERRL Pupil Exam: NORMAL ACCOMODATION, PERRL - ENT Exam ENT Exam: Mucous Membranes Moist, Normal Exam - Neck Exam Neck Exam: Full ROM, Normal Inspection. absent: Lymphadenopathy - Respiratory Exam Respiratory Exam: Decreased Breath Sounds - Cardiovascular Exam Cardiovascular Exam: REGULAR RHYTHM, +S1, +S2 - GI/Abdominal Exam GI & Abdominal Exam: Soft, Diminished Bowel Sounds - Rectal Exam Rectal Exam: Deferred Assessment and Plan (1) Abdominal pain Status: Acute (2) COPD (chronic obstructive pulmonary disease) Status: Acute (3) Chest pain Status: Acute (4) Chronic back pain Status: Acute (5) Collapse of left lung Status: Acute (6) Fever Status: Acute (7) Hypotension Status: Acute (8) Low back pain Status: Acute (9) Lung cancer Status: Acute (10) Malaise Status: Acute (11) Metastatic cancer Status: Acute (12) Mid back pain on left side Status: Acute (13) Pneumonia Status: Acute (14) SOB (shortness of breath) Status: Acute (15) Sciatica Status: Acute (16) Upper respiratory infection Status: Acute - Assessment and Plan (Free Text) Plan: overnight events noted Pulmonary consult noted ID consult Antibiotic as per ID Cultures awaited Low hemoglobin PRBC transfusion Solu-Medrol Nebulizers Pain meds Iron supplement Monitor oxygen saturation
[2018-09-12] MEDS: Albuterol-Ipratrop 3 mg / 0.5 (3 ml) UD INH SCH ×5 (03:05→20:57)
[2018-09-12] MEDS: Dextrose 5%/0.45% NS 1,000 ML IV SCH ×2 (08:00→18:57)
[2018-09-12] MEDS: Morphine 30 mg SR Tab PO SCH ×2 (08:42→21:02)
[2018-09-12] MEDS ORDERED: Influenza Vaccine 60 MCG/0.5 ML SYR (3 yr & up) IM ONE (10:00)
[2018-09-12] MEDS: MethylPREDNISolone 40 mg Vial IVP SCH (10:10)
[2018-09-12] MEDS: Azithromycin 500 MG in Sodium Chloride 0.9% 250 ML IVPB SCH (10:10)
[2018-09-12] MEDS: Calcium-Vit D 500 mg-200 Units Tab UD PO SCH ×2 (10:11→17:28)
[2018-09-12] MEDS: Multiple Vitamins Tab PO SCH (10:11)
[2018-09-12 11:35] LABS: BASO % 0.1 % (0.0-2.0); EOS % 0.3 % (0.0-4.0); LYMPH # 0.6 K/uL (1.0-4.3); LYMPH % 35.6 % (20.0-40.0); MEAN CELL VOLUME 89.8 fL (81.0-99.0); MEAN CORPUSCULAR HEMOGLOBIN 29.9 pg (27.0-31.0); MEAN CORPUSCULAR HGB CONC 33.3 g/dL (33.0-37.0); MEAN PLATELET VOLUME 6.8 fL (7.2-11.7); MONO # 0.1 K/uL (0.0-0.8); MONO % 5.9 % (0.0-10.0); NEUT % 58.1 % (50.0-75.0); NRBC % 0.3 % (0.0-2.0); RBC 3.2 Mil/uL (3.80-5.20); RED CELL DISTRIBUTION WIDTH 16.4 % (11.5-14.5)
[2018-09-12 11:44] LABS: HEMOGLOBIN 9.6 g/dL (11.0-16.0); WHITE BLOOD COUNT 1.7 K/uL (4.8-10.8)
[2018-09-12 11:52] LABS: BLOOD UREA NITROGEN 11 mg/dL (7-17); CALCIUM 8.5 mg/dl (8.6-10.4); GFR NON-AFRICAN AMERICAN > 60
[2018-09-12] MEDS: Morphine 15 mg Immediate Release Tab PO PRN (12:47)
[2018-09-12] MEDS ORDERED: Potassium Chloride 20 mEq/15 ml LIQ UD PO ONE (18:00)
--- NOTE | 2018-09-12 18:41 | CP.PCM.PN ---
Subjective - Date & Time of Evaluation Date of Evaluation: 09/12/18 Time of Evaluation: 08:00 - Subjective Subjective: iv rx in progress wbc lower todayy need heme input Objective - Vital Signs/Intake and Output Vital Signs (last 24 hours): Temp Pulse Resp BP Pulse Ox 98.7 F 119 H 20 130/81 96 09/12/18 16:00 09/12/18 16:00 09/12/18 16:00 09/12/18 16:00 09/12/18 16:00 Intake and Output: 09/12/18 09/12/18 06:59 18:59 Intake Total 1400 1080 Balance 1400 1080 - Medications Medications: Current Medications Acetaminophen (Tylenol 325mg Tab) 650 mg PO Q6 PRN PRN Reason: Fever >100.4 F Albuterol/Ipratropium (Duoneb 3 Mg/0.5 Mg (3 Ml) Ud) 3 ml INH RQ4 [facility] Last Admin: 09/12/18 11:06 Dose: 3 ml Calcium/Vitamin D (Oyster Shell Calcium/Vitamin D 500 Mg-200 Iu) 1 tab PO BID [facility] Last Admin: 09/12/18 17:28 Dose: 1 tab Ergocalciferol (Drisdol 50,000 Intl Units Cap) 1 cap PO QWK [facility] Ferrous Sulfate (Feosol) 325 mg PO BID [facility] Last Admin: 09/12/18 17:28 Dose: 325 mg Folic Acid (Folic Acid) 1 mg PO DAILY [facility] Last Admin: 09/12/18 10:11 Dose: 1 mg Heparin Sodium (Porcine) (Heparin) 5,000 units SC Q12 [facility] Last Admin: 09/12/18 10:10 Dose: 5,000 units Azithromycin 500 mg/ Sodium (Chloride) 250 mls @ 250 mls/hr IVPB DAILY [facility]; Protocol Last Admin: 09/12/18 10:10 Dose: 250 mls/hr Dextrose/Sodium Chloride (Dextrose 5%/0.45% Ns 1000 Ml) 1,000 mls @ 50 mls/hr IV .Q20H [facility] Last Admin: 09/12/18 08:00 Dose: Not Given Lorazepam (Ativan) 0.5 mg PO HS [facility] Last Admin: 09/11/18 21:52 Dose: 0.5 mg Methylprednisolone (Solu-Medrol) 40 mg IVP DAILY [facility] Last Admin: 09/12/18 10:10 Dose: 40 mg Montelukast Sodium (Singulair) 10 mg PO HS [facility] Last Admin: 09/11/18 21:52 Dose: 10 mg Morphine Sulfate (Morphine Extended Release Tab) 60 mg PO Q12H [facility] Last Admin: 09/12/18 08:42 Dose: 60 mg Morphine Sulfate (Morphine Immediate Release Tab) 15 mg PO Q6H PRN PRN Reason: Pain, severe (8-10) Last Admin: 09/12/18 12:47 Dose: 15 mg Multivitamins (Hexavitamin) 1 tab PO DAILY [facility] Last Admin: 09/12/18 10:11 Dose: 1 tab Olanzapine (Zyprexa) 10 mg PO DAILY [facility] Last Admin: 09/12/18 10:12 Dose: 10 mg - Labs Labs: 09/12/18 11:26 09/12/18 11:26 - Constitutional Appears: Non-toxic, Chronically Ill - Head Exam Head Exam: NORMOCEPHALIC - Eye Exam Eye Exam: absent: Scleral icterus - ENT Exam ENT Exam: Mucous Membranes Dry - Neck Exam Neck Exam: absent: Lymphadenopathy - Respiratory Exam Respiratory Exam: Decreased Breath Sounds - Cardiovascular Exam Cardiovascular Exam: REGULAR RHYTHM - GI/Abdominal Exam GI & Abdominal Exam: Distended, Soft Assessment and Plan (1) Fever Status: Acute (2) Metastatic cancer Status: Acute (3) COPD (chronic obstructive pulmonary disease) Status: Acute
--- NOTE | 2018-09-12 20:40 | CP.PCM.PN ---
Subjective - Date & Time of Evaluation Date of Evaluation: 09/12/18 Time of Evaluation: 08:15 - Subjective Subjective: clinically same Objective - Vital Signs/Intake and Output Vital Signs (last 24 hours): Temp Pulse Resp BP Pulse Ox 98.7 F 119 H 20 130/81 96 09/12/18 16:00 09/12/18 16:00 09/12/18 16:00 09/12/18 16:00 09/12/18 16:00 Intake and Output: 09/12/18 09/13/18 18:59 06:59 Intake Total 1080 Balance 1080 - Medications Medications: Current Medications Acetaminophen (Tylenol 325mg Tab) 650 mg PO Q6 PRN PRN Reason: Fever >100.4 F Albuterol/Ipratropium (Duoneb 3 Mg/0.5 Mg (3 Ml) Ud) 3 ml INH RQ4 [facility] Last Admin: 09/12/18 11:06 Dose: 3 ml Calcium/Vitamin D (Oyster Shell Calcium/Vitamin D 500 Mg-200 Iu) 1 tab PO BID [facility] Last Admin: 09/12/18 17:28 Dose: 1 tab Ergocalciferol (Drisdol 50,000 Intl Units Cap) 1 cap PO QWK [facility] Ferrous Sulfate (Feosol) 325 mg PO BID [facility] Last Admin: 09/12/18 17:28 Dose: 325 mg Folic Acid (Folic Acid) 1 mg PO DAILY [facility] Last Admin: 09/12/18 10:11 Dose: 1 mg Heparin Sodium (Porcine) (Heparin) 5,000 units SC Q12 [facility] Last Admin: 09/12/18 10:10 Dose: 5,000 units Azithromycin 500 mg/ Sodium (Chloride) 250 mls @ 250 mls/hr IVPB DAILY [facility]; Protocol Last Admin: 09/12/18 10:10 Dose: 250 mls/hr Dextrose/Sodium Chloride (Dextrose 5%/0.45% Ns 1000 Ml) 1,000 mls @ 50 mls/hr IV .Q20H [facility] Last Admin: 09/12/18 18:57 Dose: 50 mls/hr Lorazepam (Ativan) 0.5 mg PO HS [facility] Last Admin: 09/11/18 21:52 Dose: 0.5 mg Methylprednisolone (Solu-Medrol) 40 mg IVP DAILY [facility] Last Admin: 09/12/18 10:10 Dose: 40 mg Montelukast Sodium (Singulair) 10 mg PO HS [facility] Last Admin: 09/11/18 21:52 Dose: 10 mg Morphine Sulfate (Morphine Extended Release Tab) 60 mg PO Q12H [facility] Last Admin: 09/12/18 08:42 Dose: 60 mg Morphine Sulfate (Morphine Immediate Release Tab) 15 mg PO Q6H PRN PRN Reason: Pain, severe (8-10) Last Admin: 09/12/18 12:47 Dose: 15 mg Multivitamins (Hexavitamin) 1 tab PO DAILY [facility] Last Admin: 09/12/18 10:11 Dose: 1 tab Olanzapine (Zyprexa) 10 mg PO DAILY [facility] Last Admin: 09/12/18 10:12 Dose: 10 mg - Labs Labs: 09/12/18 11:26 09/12/18 11:26 Assessment and Plan (1) Abdominal pain Status: Acute (2) COPD (chronic obstructive pulmonary disease) Status: Acute (3) Chest pain Status: Acute (4) Chronic back pain Status: Acute (5) Collapse of left lung Status: Acute (6) Fever Status: Acute (7) Hypotension Status: Acute (8) Low back pain Status: Acute (9) Lung cancer Status: Acute (10) Malaise Status: Acute (11) Metastatic cancer Status: Acute (12) Mid back pain on left side Status: Acute (13) Pneumonia Status: Acute (14) SOB (shortness of breath) Status: Acute (15) Sciatica Status: Acute (16) Upper respiratory infection Status: Acute - Assessment and Plan (Free Text) Plan: Patient seen and examined at bedside Discussed with staff Overnight events noted Breathing better Cultures negative so far Antibiotic as per ID Solu-Medrol Leukopenia Monitor CBC Nebulizers Monitor oxygen saturation DVT/GI prophylaxis
[2018-09-13] MEDS: Albuterol-Ipratrop 3 mg / 0.5 (3 ml) UD INH SCH ×6 (00:55→19:32)
[2018-09-13] MEDS ORDERED: Metoprolol 1 mg/ml Inj IVP ONE (01:04)
[2018-09-13] MEDS: Morphine 30 mg SR Tab PO SCH ×2 (08:46→20:46)
[2018-09-13] MEDS: Multiple Vitamins Tab PO SCH (09:26)
[2018-09-13] MEDS: MethylPREDNISolone 40 mg Vial IVP SCH (09:27)
[2018-09-13] MEDS: Calcium-Vit D 500 mg-200 Units Tab UD PO SCH ×2 (09:27→17:08)
[2018-09-13] MEDS: Azithromycin 500 MG in Sodium Chloride 0.9% 250 ML IVPB SCH (09:32)
[2018-09-13 11:24] LABS: HEMOGLOBIN 9.3 g/dL (11.0-16.0); LYMPH # 0.6 K/uL (1.0-4.3); MEAN PLATELET VOLUME 6.7 fL (7.2-11.7); RBC 3.09 Mil/uL (3.80-5.20)
[2018-09-13 11:31] LABS: BASO % 0.1 % (0.0-2.0); EOS % 0.8 % (0.0-4.0); LYMPH % 33.1 % (20.0-40.0); MEAN CELL VOLUME 89.5 fL (81.0-99.0); MEAN CORPUSCULAR HEMOGLOBIN 30.1 pg (27.0-31.0); MEAN CORPUSCULAR HGB CONC 33.6 g/dL (33.0-37.0); MONO # 0.1 K/uL (0.0-0.8); MONO % 7.9 % (0.0-10.0); NEUT % 58.1 % (50.0-75.0); NRBC % 0.2 % (0.0-2.0); RED CELL DISTRIBUTION WIDTH 16.2 % (11.5-14.5)
[2018-09-13 11:38] LABS: WHITE BLOOD COUNT 1.7 K/uL (4.8-10.8)
[2018-09-13 11:49] LABS: BLOOD UREA NITROGEN 9 mg/dL (7-17); CALCIUM 8.7 mg/dl (8.6-10.4); GFR NON-AFRICAN AMERICAN > 60
[2018-09-13] MEDS: Potassium Chloride 20 mEq ER Tab PO ONE ×2 (13:46→13:47)
[2018-09-13] MEDS ORDERED: Potassium Chloride 20 mEq/15 ml LIQ UD PO ONE (14:00)
[2018-09-13] MEDS: Morphine 15 mg Immediate Release Tab PO PRN (15:39)
--- NOTE | 2018-09-13 15:39 | CP.PCM.PN ---
Subjective - Date & Time of Evaluation Date of Evaluation: 09/13/18 Time of Evaluation: 14:00 - Subjective Subjective: UTILIZATION SPECIALIST NOTES Patient seen today, denies any sob, dizziness, fever, chills, c/o non productive cough , wants to go home afebrile seen by Dr. Chiang today, cleared for discharge home otday and f/u with his office in 3-5 days Objective - Vital Signs/Intake and Output Vital Signs (last 24 hours): Temp Pulse Resp BP Pulse Ox 98.0 F 98 H 20 143/85 98 09/13/18 07:52 09/13/18 07:52 09/13/18 07:52 09/13/18 07:52 09/13/18 07:52 Intake and Output: 09/13/18 09/13/18 06:59 18:59 Intake Total 1300 550 Balance 1300 550 - Medications Medications: Current Medications Acetaminophen (Tylenol 325mg Tab) 650 mg PO Q6 PRN PRN Reason: Fever >100.4 F Albuterol/Ipratropium (Duoneb 3 Mg/0.5 Mg (3 Ml) Ud) 3 ml INH RQ4 [facility] Last Admin: 09/13/18 11:12 Dose: 3 ml Calcium/Vitamin D (Oyster Shell Calcium/Vitamin D 500 Mg-200 Iu) 1 tab PO BID [facility] Last Admin: 09/13/18 09:27 Dose: 1 tab Ergocalciferol (Drisdol 50,000 Intl Units Cap) 1 cap PO QWK [facility] Ferrous Sulfate (Feosol) 325 mg PO BID [facility] Last Admin: 09/13/18 09:26 Dose: 325 mg Folic Acid (Folic Acid) 1 mg PO DAILY [facility] Last Admin: 09/13/18 09:26 Dose: 1 mg Azithromycin 500 mg/ Sodium (Chloride) 250 mls @ 250 mls/hr IVPB DAILY [facility]; Protocol Last Admin: 09/13/18 09:32 Dose: 250 mls/hr Lorazepam (Ativan) 0.5 mg PO [facility] Last Admin: 09/12/18 22:34 Dose: 0.5 mg Methylprednisolone (Solu-Medrol) 40 mg IVP DAILY [facility] Last Admin: 09/13/18 09:27 Dose: 40 mg Montelukast Sodium (Singulair) 10 mg PO HS [facility] Last Admin: 09/12/18 21:06 Dose: 10 mg Morphine Sulfate (Morphine Extended Release Tab) 60 mg PO Q12H [facility] Last Admin: 09/13/18 08:46 Dose: 60 mg Morphine Sulfate (Morphine Immediate Release Tab) 15 mg PO Q6H PRN PRN Reason: Pain, severe (8-10) Last Admin: 09/12/18 12:47 Dose: 15 mg Multivitamins (Hexavitamin) 1 tab PO DAILY [facility] Last Admin: 09/13/18 09:26 Dose: 1 tab Olanzapine (Zyprexa) 10 mg PO DAILY [facility] Last Admin: 09/13/18 09:27 Dose: 10 mg - Labs Labs: 09/13/18 11:13 09/13/18 11:13
--- NOTE | 2018-09-13 17:27 | CP.PCM.PN ---
Subjective - Date & Time of Evaluation Date of Evaluation: 09/13/18 Time of Evaluation: 11:35 - Subjective Subjective: Patient was seen and examined at bedside. Afebrile and in no acute distress. Reports mild cough and wheezing. Denies chest pain and SOB. PLAN - Send home on PO steroids and cough medicine - Continue nebulizer therapy at home as needed - Follow up with Grill Attendant after discharge. Objective - Vital Signs/Intake and Output Vital Signs (last 24 hours): Temp Pulse Resp BP Pulse Ox 98.0 F 98 H 20 143/85 98 09/13/18 07:52 09/13/18 07:52 09/13/18 07:52 09/13/18 07:52 09/13/18 07:52 Intake and Output: 09/13/18 09/13/18 06:59 18:59 Intake Total 1300 550 Balance 1300 550 - Medications Medications: Current Medications Acetaminophen (Tylenol 325mg Tab) 650 mg PO Q6 PRN PRN Reason: Fever >100.4 F Albuterol/Ipratropium (Duoneb 3 Mg/0.5 Mg (3 Ml) Ud) 3 ml INH RQ4 [facility] Last Admin: 09/13/18 16:03 Dose: 3 ml Calcium/Vitamin D (Oyster Shell Calcium/Vitamin D 500 Mg-200 Iu) 1 tab PO BID [facility] Last Admin: 09/13/18 17:08 Dose: 1 tab Ergocalciferol (Drisdol 50,000 Intl Units Cap) 1 cap PO QWK [facility] Ferrous Sulfate (Feosol) 325 mg PO BID [facility] Last Admin: 09/13/18 17:08 Dose: 325 mg Folic Acid (Folic Acid) 1 mg PO DAILY [facility] Last Admin: 09/13/18 09:26 Dose: 1 mg Azithromycin 500 mg/ Sodium (Chloride) 250 mls @ 250 mls/hr IVPB DAILY [facility]; Protocol Last Admin: 09/13/18 09:32 Dose: 250 mls/hr Lorazepam (Ativan) 0.5 mg PO HS [facility] Last Admin: 09/12/18 22:34 Dose: 0.5 mg Methylprednisolone (Solu-Medrol) 40 mg IVP DAILY [facility] Last Admin: 09/13/18 09:27 Dose: 40 mg Montelukast Sodium (Singulair) 10 mg PO HS [facility] Last Admin: 09/12/18 21:06 Dose: 10 mg Morphine Sulfate (Morphine Extended Release Tab) 60 mg PO Q12H [facility] Last Admin: 09/13/18 08:46 Dose: 60 mg Morphine Sulfate (Morphine Immediate Release Tab) 15 mg PO Q6H PRN PRN Reason: Pain, severe (8-10) Last Admin: 09/13/18 15:39 Dose: 15 mg Multivitamins (Hexavitamin) 1 tab PO DAILY [facility] Last Admin: 09/13/18 09:26 Dose: 1 tab Olanzapine (Zyprexa) 10 mg PO DAILY [facility] Last Admin: 09/13/18 09:27 Dose: 10 mg - Labs Labs: 09/13/18 11:13 09/13/18 11:13 Assessment and Plan (1) COPD (chronic obstructive pulmonary disease) Status: Acute (2) Metastatic cancer Status: Acute
--- NOTE | 2018-09-13 17:36 | CP.PCM.PN ---
Subjective - Date & Time of Evaluation Date of Evaluation: 09/13/18 Time of Evaluation: 08:15 - Subjective Subjective: clinically same Objective - Vital Signs/Intake and Output Vital Signs (last 24 hours): Temp Pulse Resp BP Pulse Ox 98.0 F 98 H 20 143/85 98 09/13/18 07:52 09/13/18 07:52 09/13/18 07:52 09/13/18 07:52 09/13/18 07:52 Intake and Output: 09/13/18 09/13/18 06:59 18:59 Intake Total 1300 550 Balance 1300 550 - Medications Medications: Current Medications Acetaminophen (Tylenol 325mg Tab) 650 mg PO Q6 PRN PRN Reason: Fever >100.4 F Albuterol/Ipratropium (Duoneb 3 Mg/0.5 Mg (3 Ml) Ud) 3 ml INH RQ4 [facility] Last Admin: 09/13/18 16:03 Dose: 3 ml Calcium/Vitamin D (Oyster Shell Calcium/Vitamin D 500 Mg-200 Iu) 1 tab PO BID [facility] Last Admin: 09/13/18 17:08 Dose: 1 tab Ergocalciferol (Drisdol 50,000 Intl Units Cap) 1 cap PO QWK [facility] Ferrous Sulfate (Feosol) 325 mg PO BID [facility] Last Admin: 09/13/18 17:08 Dose: 325 mg Folic Acid (Folic Acid) 1 mg PO DAILY [facility] Last Admin: 09/13/18 09:26 Dose: 1 mg Azithromycin 500 mg/ Sodium (Chloride) 250 mls @ 250 mls/hr IVPB DAILY [facility]; Protocol Last Admin: 09/13/18 09:32 Dose: 250 mls/hr Lorazepam (Ativan) 0.5 mg PO [facility] Last Admin: 09/12/18 22:34 Dose: 0.5 mg Methylprednisolone (Solu-Medrol) 40 mg IVP DAILY [facility] Last Admin: 09/13/18 09:27 Dose: 40 mg Montelukast Sodium (Singulair) 10 mg PO HS [facility] Last Admin: 09/12/18 21:06 Dose: 10 mg Morphine Sulfate (Morphine Extended Release Tab) 60 mg PO Q12H [facility] Last Admin: 09/13/18 08:46 Dose: 60 mg Morphine Sulfate (Morphine Immediate Release Tab) 15 mg PO Q6H PRN PRN Reason: Pain, severe (8-10) Last Admin: 09/13/18 15:39 Dose: 15 mg Multivitamins (Hexavitamin) 1 tab PO DAILY [facility] Last Admin: 09/13/18 09:26 Dose: 1 tab Olanzapine (Zyprexa) 10 mg PO DAILY [facility] Last Admin: 09/13/18 09:27 Dose: 10 mg - Labs Labs: 09/13/18 11:13 09/13/18 11:13 - Constitutional Appears: Well, Non-toxic - Head Exam Head Exam: ATRAUMATIC, NORMAL INSPECTION - Eye Exam Eye Exam: Normal appearance - ENT Exam ENT Exam: Mucous Membranes Moist, Normal Exam - Neck Exam Neck Exam: Normal Inspection - Respiratory Exam Respiratory Exam: Decreased Breath Sounds - Cardiovascular Exam Cardiovascular Exam: +S1, +S2 - GI/Abdominal Exam GI & Abdominal Exam: Diminished Bowel Sounds - Rectal Exam Rectal Exam: Deferred Assessment and Plan (1) Abdominal pain Status: Acute (2) COPD (chronic obstructive pulmonary disease) Status: Acute (3) Chest pain Status: Acute (4) Chronic back pain Status: Acute (5) Collapse of left lung Status: Acute (6) Fever Status: Acute (7) Hypotension Status: Acute (8) Low back pain Status: Acute (9) Lung cancer Status: Acute (10) Malaise Status: Acute (11) Metastatic cancer Status: Acute (12) Mid back pain on left side Status: Acute (13) Pneumonia Status: Acute (14) SOB (shortness of breath) Status: Acute (15) Sciatica Status: Acute (16) Upper respiratory infection Status: Acute - Assessment and Plan (Free Text) Plan: Patient seen and examined at bedside Hemodynamically stable Overnight events noted Breathing improved Mild cough Plan discharge home P.o. steroids Nebulizers at home Meds as advised Follow-up in my office on Monday Follow-up with labs Return to ED if symptom recurs
[2018-09-13 20:42] VITALS: BP 155/72; PULSE 102; TEMP 98.3; O2SAT 95
[2018-09-13] MEDS ORDERED: Potassium Chloride 10 mEq ER Tab PO STA (21:12)
[2018-09-16] MEDS ORDERED: Ergocalciferol 50,000 Intl Units Cap PO SCH (10:00)
[2018-09-16] MEDS ORDERED: CHOLECALCIFEROL PO SCH (10:00)
== END 2018-09-13 22:32 | disposition home or self-care (01) | DRG 88 ==
LOC: C.ER 14:15 → C.9E 19:46 → C.3T 21:24
PROVIDERS: ADMIT Internal Medicine Nephrology; ATTEND Internal Medicine Nephrology
DX: J44.0 Chronic obstructive pulmonary disease with (acute) lower respiratory infection (principal); C78.7 Secondary malignant neoplasm of liver and intrahepatic bile duct; C79.31 Secondary malignant neoplasm of brain; C79.51 Secondary malignant neoplasm of bone; C34.90 Malignant neoplasm of unspecified part of unspecified bronchus or lung; D64.9 Anemia, unspecified; J20.9 Acute bronchitis, unspecified; J44.1 Chronic obstructive pulmonary disease with (acute) exacerbation; I10 Essential (primary) hypertension; F17.210 Nicotine dependence, cigarettes, uncomplicated; K21.9 Gastro-esophageal reflux disease without esophagitis; E27.9 Disorder of adrenal gland, unspecified; F32.9 Major depressive disorder, single episode, unspecified

== ENCOUNTER 2018-10-24 12:14 | Inpatient (IN) | payer OTHER ==
[2018-10-24 12:14] VITALS: BMI 33.3
--- NOTE | 2018-10-24 14:33 | C.PDOC ---
History Of Present Illness 63 year old female with PMHx of lung cancer status post radiation and chemotherapy with bone metastases to the left leg presents to the ED complaining of pain to left knee. Reports she had radiation treatment to last week and since then she has had increased pain to the area. States she has been taking fast acting and long acting morphine at home PO but pain persists. She called Dr. Romero at [place] and was advised to come to the ED. Time Seen by Provider: 10/24/18 13:57 Chief Complaint (Nursing): Lower Extremity Problem/Injury History Per: Patient History/Exam Limitations: no limitations Onset/Duration Of Symptoms: Days (7) Current Symptoms Are (Timing): Still Present - Knee Description Of Injury: Other (status post radiation ) Past Medical History Reviewed: Historical Data, Nursing Documentation, Vital Signs Vital Signs: Last Vital Signs Temp 99.5 F 10/24/18 12:34 Pulse 120 H 10/24/18 12:34 Resp 18 10/24/18 12:34 BP 117/70 10/24/18 12:34 Pulse Ox 95 10/24/18 12:34 - Medical History PMH: Anemia, Anxiety, Arthritis, Asthma, Back Problems, Bronchitis, COPD (stu chan uses nebulizer at home), Depression, Fractures (rt. hip fracture), HTN Denies: Chronic Kidney Disease Surgical History: Back Surgery - [facility] Procedures COMPUTERIZED TOMOGRAPHY (CT SCAN) OF BILATERAL LUNGS (04/03/18) EXCISION OF LEFT LOWER LOBE BRONCHUS, ENDO, DIAGN (04/03/18) EXCISION OF RIGHT UPPER LUNG LOBE, PERC APPROACH, DIAGN (04/03/18) Family History: States: No Known Family Hx Denies: CAD - Social History Hx Tobacco Use: Yes Hx Alcohol Use: No Hx Substance Use: No - Immunization History Hx Tetanus Toxoid Vaccination: No Hx Influenza Vaccination: No Hx Pneumococcal Vaccination: No Review Of Systems Constitutional: Negative for: Fever, Chills Cardiovascular: Negative for: Chest Pain Respiratory: Negative for: Shortness of Breath Gastrointestinal: Negative for: Nausea, Vomiting, Abdominal Pain Musculoskeletal: Positive for: Other (left knee pain ) Neurological: Negative for: Weakness, Numbness Physical Exam - Physical Exam Appears: Non-toxic, No Acute Distress Skin: Normal Color, Warm, Dry, No Rash Head: Normacephalic Eye(s): bilateral: Normal Inspection Nose: Normal Oral Mucosa: Moist Neck: Normal ROM, Supple Chest: Symmetrical Cardiovascular: Rhythm Regular Respiratory: No Rales, No Rhonchi, No Wheezing Gastrointestinal/Abdominal: Soft, No Tenderness Extremity: Tenderness (tender to light palpation of distal left femur ), Swelling (left knee), No Other (swelling of lower left extremity ) Neurological/Psych: Oriented x3, Normal Motor, Normal Sensation, Normal Reflexes Gait: Steady ED Course And Treatment - Laboratory Results Result Diagrams: 10/24/18 16:44 10/24/18 16:44 Lab Interpretation: No Acute Changes O2 Sat by Pulse Oximetry: 95 (RA) Pulse Ox Interpretation: Normal - Other Rad Left knee X-Ray: Interpreted by Me Interpretation: no evidence of fracture or dislocation. ? soft tissue density on distal femur - Physician Consult Information Time Consulting Physician Contacted: 16:26 Physician Contacted: Marge Ellison Outcome Of Conversation: Patient to be admitted for pain management for metastatic cancer with intractable bone pain. Medical Decision Making Medical Decision Making: Plan - XR left knee - Morphine 4mg IVP - Duplex scan Left EXT Disposition - Disposition Disposition: HOSPITALIZED Disposition Time: 16:27 Condition: FAIR - POA Present On Arrival: None - Clinical Impression Clinical Impression: Metastatic cancer, Intractable pain
[2018-10-24] MEDS ORDERED: Morphine 4 MG/ML VIAL ONE ×3 (14:38→19:32)
--- NOTE | 2018-10-24 16:49 | RAD ---
Date of service: 10/24/2018 PROCEDURE: Left Knee Radiographs. HISTORY: Pain. No history of recent/ related trauma provided COMPARISON: 06/26/2018 left knee radiographs FINDINGS: BONES: Normal. No fracture. JOINTS: Normal. No osteoarthritis. JOINT EFFUSION: Small joint effusion. OTHER FINDINGS: None. IMPRESSION: Small suprapatellar joint effusion, a new finding compared to prior studies. Otherwise unremarkable study.
[2018-10-24 16:58] LABS: BASO # 0.1 K/uL (0.0-0.2); BASO % 0.8 % (0.0-2.0); EOS % 0.2 % (0.0-4.0); LYMPH # 1.1 K/uL (1.0-4.3); LYMPH % 11.7 % (20.0-40.0); MEAN CORPUSCULAR HGB CONC 32.4 g/dL (33.0-37.0); MONO # 0.8 K/uL (0.0-0.8); MONO % 8.1 % (0.0-10.0); NEUT # 7.6 K/uL (1.8-7.0); NEUT % 79.2 % (50.0-75.0); NRBC % 0.1 % (0.0-2.0); RED CELL DISTRIBUTION WIDTH 17.9 % (11.5-14.5)
[2018-10-24 17:01] LABS: MEAN CELL VOLUME 92.6 fL (81.0-99.0); WHITE BLOOD COUNT 9.6 K/uL (4.8-10.8)
[2018-10-24 17:05] LABS: ALB/GLOB RATIO 0.8 (1.0-2.1); ALBUMIN 3.6 g/dL (3.5-5.0); ALT/SGPT 13 U/L (9-52); AST/SGOT 75 U/L (14-36); BLOOD UREA NITROGEN 6 mg/dL (7-17); CALCIUM 8.7 mg/dl (8.6-10.4); GFR NON-AFRICAN AMERICAN > 60
[2018-10-24] MEDS ORDERED: Morphine 4 MG/ML VIAL IVP PRN (19:18)
[2018-10-24] MEDS ORDERED: DiphenhydrAMINE 50 mg/ml Inj IVP PRN (19:49)
[2018-10-24] MEDS ORDERED: Azithromycin 500 MG in Sodium Chloride 0.9% 250 ML IVPB ONE (20:00)
--- NOTE | 2018-10-24 22:13 | CP.PCM.HP ---
Past Patient History - Past Medical History & Family History Past Medical History?: Yes - Past Social History Smoking Status: Heavy Smoker > 10 Cigarettes Daily - CARDIAC Hx Hypertension: Yes - PULMONARY Hx Asthma: Yes Hx Bronchitis: Yes Hx Chronic Obstructive Pulmonary Disease (COPD): Yes (however uses nebulizer at home) - NEUROLOGICAL Hx Neurological Disorder: No - HEENT Hx HEENT Problems: No - RENAL Hx Chronic Kidney Disease: No - ENDOCRINE/METABOLIC Hx Endocrine Disorders: No - HEMATOLOGICAL/ONCOLOGICAL Hx Anemia: Yes - INTEGUMENTARY Hx Dermatological Problems: Yes - MUSCULOSKELETAL/RHEUMATOLOGICAL Hx Arthritis: Yes Hx Fractures: Yes (rt. hip fracture) - GASTROINTESTINAL Hx Gastrointestinal Disorders: Yes Other/Comment: GERD - GENITOURINARY/GYNECOLOGICAL Hx Genitourinary Disorders: No - PSYCHIATRIC Hx Anxiety: Yes Hx Depression: Yes Hx Substance Use: No - SURGICAL HISTORY Hx Surgeries: Yes Other/Comment: SPINE SURGERY 2009 PER PATIENT - ANESTHESIA Hx Anesthesia: Yes Hx Anesthesia Reactions: Yes (severe hypotension) Meds Allergies/Adverse Reactions: Allergies Allergy/AdvReac Type Severity Reaction Status Date / Time doxycycline Allergy Verified 04/01/18 10:41 Penicillins Allergy Verified 04/01/18 10:41 Physical Exam - Constitutional Appears: Well - Head Exam Head Exam: ATRAUMATIC, NORMAL INSPECTION, NORMOCEPHALIC - Eye Exam Eye Exam: EOMI, Normal appearance, PERRL Pupil Exam: NORMAL ACCOMODATION, PERRL - ENT Exam ENT Exam: Mucous Membranes Moist, Normal Exam - Neck Exam Neck exam: Positive for: Normal Inspection - Respiratory Exam Respiratory Exam: Decreased Breath Sounds - Cardiovascular Exam Cardiovascular Exam: REGULAR RHYTHM, +S1, +S2 - GI/Abdominal Exam GI & Abdominal Exam: Diminished Bowel Sounds, Soft - Rectal Exam Rectal Exam: Deferred Results - Vital Signs Recent Vital Signs: Last Vital Signs Temp 99.5 F 10/24/18 12:34 Pulse 120 H 10/24/18 12:34 Resp 18 10/24/18 12:34 BP 117/70 10/24/18 12:34 Pulse Ox 95 10/24/18 17:17 - Labs Result Diagrams: 10/24/18 16:44 10/24/18 16:44 Labs: Laboratory Results - last 24 hr 10/24/18 10/24/18 16:44 16:44 WBC 9.6 D RBC 3.00 L Hgb 9.0 L Hct 27.8 L MCV 92.6 D MCH 30.0 MCHC 32.4 L RDW 17.9 H Plt Count 333 D MPV 7.0 L Neut % (Auto) 79.2 H Lymph % (Auto) 11.7 L [place] % (Auto) 8.1 Eos % (Auto) 0.2 Baso % (Auto) 0.8 Neut # (Auto) 7.6 H Lymph # (Auto) 1.1 [place] # (Auto) 0.8 Eos # (Auto) 0.0 Baso # (Auto) 0.1 Sodium 138 Potassium 3.0 L Chloride 95 L Carbon Dioxide 35 H Anion Gap 11 BUN 6 L Creatinine 0.5 L Est GFR ( Amer) > 60 Est GFR (Non-Af Amer) > 60 Random Glucose 147 H Calcium 8.7 Total Bilirubin 0.6 AST 75 H D ALT 13 Alkaline Phosphatase 135 H Total Protein 7.8 Albumin 3.6 Globulin 4.3 H Albumin/Globulin Ratio 0.8 L
[2018-10-24] MEDS ORDERED: Potassium Chloride 20 mEq ER Tab PO ONE (22:44)
[2018-10-25] MEDS: Albuterol-Ipratrop 3 mg / 0.5 (3 ml) UD INH SCH ×3 (08:15→20:59)
[2018-10-25] MEDS: Tmp-Smz 800 mg-160 mg DS Tab PO SCH ×2 (09:06→21:54)
[2018-10-25] MEDS ORDERED: Ferrous Sulfate 300 mg/5 mL Liq UD PO SCH (10:00)
--- NOTE | 2018-10-25 12:43 | VASCLAB ---
Date of service: 10/24/2018 PROCEDURE: Left Lower Extremity Venous Duplex Exam. HISTORY: increased pain a/p radiation to knee PRIORS: None. TECHNIQUE: Left common femoral, femoral, popliteal and posterior tibial, peroneal and great saphenous veins were evaluated. Flow was assessed with color Doppler, compressibility, assessment of phasic flow and augmentation response. Report prepared by SUSAN Willis, RVT FINDINGS: LEFT: 1. Common Femoral Vein: 1.1. Compressibility - Fully compressible: Thrombus - None : Flow - Phasic: Augmentation -Normal: Reflux - None. 2. Femoral Vein: 2.1. Compressibility - Fully compressible: Thrombus - None: Flow - Phasic: Augmentation -Normal: Reflux - None. 3. Popliteal Vein: 3.1. Compressibility - Fully compressible: Thrombus - None: Flow - Phasic: Augmentation -Normal: Reflux - None. 4. Posterior Tibial Vein: 4.1. Compressibility - Fully compressible: Thrombus - None: Flow - Phasic: Augmentation -Normal: Reflux - None. 5. Peroneal Vein: 5.1. Compressibility - Fully compressible: Thrombus - None: Flow - Phasic: Augmentation -Normal: Reflux - None. 6. Great Saphenous Vein: 6.1. Compressibility - Fully compressible: Thrombus - None: Flow - Phasic: Augmentation - Normal: Reflux - None. OTHER FINDINGS: IMPRESSION: No evidence of deep or superficial vein thrombosis of the left lower extremity with excellent venous flow. Normal valve function noted of the left side. Normal venous flow noted in the right common femoral vein.
[2018-10-25] MEDS: Lidocaine 5% Patch TD SCH (13:36)
--- NOTE | 2018-10-25 14:48 | CP.PCM.CON ---
History of Present Illness - History of Present Illness History of Present Illness: ORthopedic consultation Dr. jain 63F complains of severe left knee pain that is not controlled by pain medication she takes at home. She says she has a known tumor in her knee, and recently had 5 doses of radiation treatment. She was instructed that she would have increased pain after the treatment, but says this is intolerable. She has seen an orthopedic doctor in the past for her left knee tumor at [place] and was told that it did not need surgery. She had a tumor in her right knee/femur in the past, and it shrunk after radiation treatments and is now asymptomatic. Denies CP/SOB/dizziness. She says the pain medication is not helping. No recent trauma or falls. Denies numbness/tingling. Denies n/v Review of Systems - Review of Systems All systems: reviewed and no additional remarkable complaints except - Cardiovascular Cardiovascular: As Per HPI - Respiratory Respiratory: As Per HPI - Gastrointestinal Gastrointestinal: As Per HPI - Musculoskeletal Musculoskeletal: As Per HPI - Integumentary Integumentary: As Per HPI - Neurological Neurological: As Per HPI - Hematologic/Lymphatic Hematologic: absent: As Per HPI, Easy Bleeding, Easy Bruising, Lymphadenopathy, Other Past Patient History - Past Medical History & Family History Past Medical History?: Yes Past Family History: Reviewed and not pertinent - Past Social History Smoking Status: Heavy Smoker > 10 Cigarettes Daily - CARDIAC Hx Cardiac Disorders: Yes Hx Hypertension: Yes - PULMONARY Hx Respiratory Disorders: Yes Hx Asthma: Yes Hx Bronchitis: Yes Hx Chronic Obstructive Pulmonary Disease (COPD): Yes (however uses nebulizer at home) - NEUROLOGICAL Hx Neurological Disorder: No - HEENT Hx HEENT Problems: No - RENAL Hx Chronic Kidney Disease: No - ENDOCRINE/METABOLIC Hx Endocrine Disorders: No - HEMATOLOGICAL/ONCOLOGICAL Hx Blood Disorders: Yes Hx Anemia: Yes Hx Blood Transfusions: Yes - INTEGUMENTARY Hx Dermatological Problems: No - MUSCULOSKELETAL/RHEUMATOLOGICAL Hx Musculoskeletal Disorders: Yes Hx Arthritis: Yes Hx Back Pain: Yes Hx Falls: No Hx Fractures: Yes (rt. hip fracture) - GASTROINTESTINAL Hx Gastrointestinal Disorders: Yes Other/Comment: GERD - GENITOURINARY/GYNECOLOGICAL Hx Genitourinary Disorders: No - PSYCHIATRIC Hx Psychophysiologic Disorder: Yes Hx Anxiety: Yes Hx Depression: Yes Hx Substance Use: No - SURGICAL HISTORY Hx Surgeries: Yes Other/Comment: SPINE SURGERY 2009 PER PATIENT - ANESTHESIA Hx Anesthesia: Yes Hx Anesthesia Reactions: Yes (severe hypotension) Meds Allergies/Adverse Reactions: Allergies Allergy/AdvReac Type Severity Reaction Status Date / Time doxycycline Allergy Verified 04/01/18 10:41 Penicillins Allergy Verified 04/01/18 10:41 - Medications Medications: Current Medications Acetaminophen (Tylenol 325mg Tab) 650 mg PO Q6 PRN PRN Reason: pain Albuterol/Ipratropium (Duoneb 3 Mg/0.5 Mg (3 Ml) Ud) 3 ml INH RQ6 [facility] Last Admin: 10/25/18 13:47 Dose: Not Given Diphenhydramine HCl (Benadryl) 25 mg IVP Q6 PRN PRN Reason: Pain, severe (8-10) Ferrous Sulfate (Feosol Liq) 300 mg PO BID [facility] Last Admin: 10/25/18 09:06 Dose: 300 mg Folic Acid (Folic Acid) 1 mg PO DAILY [facility] Last Admin: 10/25/18 09:06 Dose: 1 mg Heparin Sodium (Porcine) (Heparin) 5,000 units SC Q12 [facility] Last Admin: 10/25/18 09:07 Dose: 5,000 units Hydromorphone HCl (Dilaudid) 2 mg IVP Q4H PRN PRN Reason: Pain, severe (8-10) Last Admin: 10/25/18 13:04 Dose: 2 mg Influenza Virus Vaccine (Fluzone Quad [id number]) 60 mcg IM .ONCE ONE Stop: 10/27/18 10:01 Lidocaine (Lidoderm) 1 ea TD DAILY [facility] Last Admin: 10/25/18 13:36 Dose: 1 ea Olanzapine (Zyprexa) 10 mg PO DAILY [facility] Last Admin: 10/25/18 09:06 Dose: 10 mg Olanzapine (Zyprexa) 5 mg PO DAILY [facility] Last Admin: 10/25/18 09:06 Dose: 5 mg Trimethoprim/Sulfamethoxazole (Bactrim Ds Tab) 1 tab PO Q12H [facility]; Protocol Last Admin: 10/25/18 09:06 Dose: Not Given Physical Exam - Constitutional Appears: Well, In Acute Distress - Respiratory Exam Respiratory Exam: NORMAL BREATHING PATTERN - Cardiovascular Exam Additional comments: +DP/PT pulses - Expanded Lower Extremities Exam Left Knee exam: swelling (mild swelling, pain with ROM, sensation intact, calves soft NT neg homans) Ankle exam: FULL ROM, NORMAL INSPECTION - Neurological Exam Neurological exam: Alert, Oriented x3 - Psychiatric Exam Psychiatric exam: Normal Affect, Normal Mood - Skin Skin Exam: Dry, Intact, Normal Color, Warm Results - Vital Signs Recent Vital Signs: Last Vital Signs Temp 97.9 F 10/25/18 08:35 Pulse 69 10/25/18 08:35 Resp 20 10/25/18 08:35 BP 138/70 10/25/18 08:35 Pulse Ox 96 10/25/18 08:35 - Labs Result Diagrams: 10/24/18 16:44 10/24/18 16:44 Labs: Laboratory Results - last 24 hr 10/24/18 10/24/18 16:44 16:44 WBC 9.6 D RBC 3.00 L Hgb 9.0 L Hct 27.8 L MCV 92.6 D MCH 30.0 MCHC 32.4 L RDW 17.9 H Plt Count 333 D MPV 7.0 L Neut % (Auto) 79.2 H Lymph % (Auto) 11.7 L Cuming % (Auto) 8.1 Eos % (Auto) 0.2 Baso % (Auto) 0.8 Neut # (Auto) 7.6 H Lymph # (Auto) 1.1 Cuming # (Auto) 0.8 Eos # (Auto) 0.0 Baso # (Auto) 0.1 Sodium 138 Potassium 3.0 L Chloride 95 L Carbon Dioxide 35 H Anion Gap 11 BUN 6 L Creatinine 0.5 L Est GFR ( Amer) > 60 Est GFR (Non-Af Amer) > 60 Random Glucose 147 H Calcium 8.7 Total Bilirubin 0.6 AST 75 H D ALT 13 Alkaline Phosphatase 135 H Total Protein 7.8 Albumin 3.6 Globulin 4.3 H Albumin/Globulin Ratio 0.8 L - Impressions Impression: Left knee xrays ap/lat/notch: shows [id number] tumor on ap, approx 20mm on lat tumor abutting the medial cortex of the left distal femur. Noted calcification in the soft tissue medial to this, ? soft tissue infiltration of tumor. Patient Name / ID : TYLER GONZALEZ / [id number] Exam Date : 10/24/2018 14:15:28 ( Approved ) Study Comment : Sex / Age : F / 63Y Creator : Anthony Hansen MD Dictator : Anthony Hansen MD Radio Machinist : Plant Tech : Anthony Hansen MD Approver2 : Report Date : 10/24/2018 16:45:40 My Comment : Date of service: 10/24/2018 PROCEDURE: Left Knee Radiographs. HISTORY: Pain. No history of recent/ related trauma provided COMPARISON: 06/26/2018 left knee radiographs FINDINGS: BONES: Normal. No fracture. JOINTS: Normal. No osteoarthritis. JOINT EFFUSION: Small joint effusion. OTHER FINDINGS: None. IMPRESSION: Small suprapatellar joint effusion, a new finding compared to prior studies. Otherwise unremarkable study. 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 Ellison, D/w Dr. Jain, agrees with above Status: Acute (2) Metastatic bone tumor Status: Acute
--- NOTE | 2018-10-25 21:35 | CP.PCM.PN ---
Subjective - Date & Time of Evaluation Date of Evaluation: 10/25/18 Time of Evaluation: 07:10 - Subjective Subjective: clinically same Objective - Vital Signs/Intake and Output Vital Signs (last 24 hours): Temp Pulse Resp BP Pulse Ox 99.9 F H 89 20 119/74 96 10/25/18 16:00 10/25/18 16:00 10/25/18 16:00 10/25/18 16:00 10/25/18 16:00 - Medications Medications: Current Medications Acetaminophen (Tylenol 325mg Tab) 650 mg PO Q6 PRN PRN Reason: pain Last Admin: 10/25/18 19:38 Dose: 650 mg Albuterol/Ipratropium (Duoneb 3 Mg/0.5 Mg (3 Ml) Ud) 3 ml INH RQ6 [facility] Last Admin: 10/25/18 20:59 Dose: 3 ml Diphenhydramine HCl (Benadryl) 25 mg IVP Q6 PRN PRN Reason: Pain, severe (8-10) Fentanyl (Duragesic) 1 patch TD Q72H [facility] Last Admin: 10/25/18 16:26 Dose: 1 patch Ferrous Sulfate (Feosol) 325 mg PO BID [facility] Last Admin: 10/25/18 19:16 Dose: 325 mg Folic Acid (Folic Acid) 1 mg PO DAILY [facility] Last Admin: 10/25/18 09:06 Dose: 1 mg Heparin Sodium (Porcine) (Heparin) 5,000 units SC Q12 [facility] Last Admin: 10/25/18 09:07 Dose: 5,000 units Hydromorphone HCl (Dilaudid) 4 mg IVP Q6H PRN PRN Reason: Pain, severe (8-10) Influenza Virus Vaccine (Fluzone Quad [id number]) 60 mcg IM .ONCE ONE Stop: 10/27/18 10:01 Lidocaine (Lidoderm) 1 ea TD DAILY [facility] Last Admin: 10/25/18 13:36 Dose: 1 ea Loperamide HCl (Imodium) 2 mg PO Q8 PRN PRN Reason: Irritable bowel symptoms Olanzapine (Zyprexa) 10 mg PO DAILY [facility] Last Admin: 10/25/18 09:06 Dose: 10 mg Olanzapine (Zyprexa) 5 mg PO DAILY [facility] Last Admin: 10/25/18 09:06 Dose: 5 mg Potassium Chloride (K-Dur 20 Meq Er Tab) 40 meq PO Q4 [facility] Stop: 10/26/18 04:01 Trimethoprim/Sulfamethoxazole (Bactrim Ds Tab) 1 tab PO Q12H [facility]; Protocol Last Admin: 10/25/18 09:06 Dose: Not Given - Labs Labs: 10/24/18 16:44 10/24/18 16:44 - Constitutional Appears: Well - Head Exam Head Exam: ATRAUMATIC, NORMAL INSPECTION, NORMOCEPHALIC - Eye Exam Eye Exam: EOMI, Normal appearance, PERRL Pupil Exam: NORMAL ACCOMODATION, PERRL - ENT Exam ENT Exam: Mucous Membranes Moist, Normal Exam - Neck Exam Neck Exam: Full ROM, Normal Inspection. absent: Lymphadenopathy - Respiratory Exam Respiratory Exam: Decreased Breath Sounds - Cardiovascular Exam Cardiovascular Exam: REGULAR RHYTHM, +S1, +S2 - GI/Abdominal Exam GI & Abdominal Exam: Soft, Diminished Bowel Sounds - Rectal Exam Rectal Exam: Deferred Assessment and Plan - Assessment and Plan (Free Text) Plan: Complains of diarrhea Discussed with the patient's son and daughter Discussed with orthopedic PA Patient has already orthopedic doctor from [place] [facility] claims this is a metastases which is very unusual although patient was told to take the pain medicine Patient takes very high dose of pain medications will increase the Dilaudid and will add a Duragesic patch Imodium 1 dose diarrhoea workup kcl supplementation If needed pain management consultation
[2018-10-26] MEDS: Potassium Chloride 20 mEq ER Tab PO SCH ×3 (00:07→05:45)
[2018-10-26] MEDS: Albuterol-Ipratrop 3 mg / 0.5 (3 ml) UD INH SCH ×4 (01:37→20:17)
[2018-10-26] MEDS ORDERED: Potassium Chloride 20 mEq ER Tab PO SCH (05:45)
[2018-10-26 07:37] LABS: BASO # 0.1 K/uL (0.0-0.2); EOS % 0.5 % (0.0-4.0); HEMOGLOBIN 8.3 g/dL (11.0-16.0); LYMPH # 0.9 K/uL (1.0-4.3); MEAN CELL VOLUME 91.5 fL (81.0-99.0); MEAN CORPUSCULAR HGB CONC 32.8 g/dL (33.0-37.0); MEAN PLATELET VOLUME 7.2 fL (7.2-11.7); MONO # 0.9 K/uL (0.0-0.8); MONO % 11.2 % (0.0-10.0); NEUT # 6.1 K/uL (1.8-7.0); NEUT % 76.3 % (50.0-75.0); NRBC % 0.1 % (0.0-2.0); RBC 2.77 Mil/uL (3.80-5.20); RED CELL DISTRIBUTION WIDTH 17.7 % (11.5-14.5)
[2018-10-26 08:00] LABS: BLOOD UREA NITROGEN 6 mg/dL (7-17); CALCIUM 8.4 mg/dl (8.6-10.4); GFR NON-AFRICAN AMERICAN > 60
--- NOTE | 2018-10-26 10:09 | CP.PCM.PN ---
Subjective - Date & Time of Evaluation Date of Evaluation: 10/26/18 Time of Evaluation: 10:06 - Subjective Subjective: Patient states she still has a lot of pain in her left knee. She says the medication is helping. Denies numbness/tingling. Objective - Vital Signs/Intake and Output Vital Signs (last 24 hours): Temp Pulse Resp BP Pulse Ox 99.5 F 110 H 20 121/58 L 96 10/26/18 07:26 10/26/18 07:26 10/26/18 07:26 10/26/18 07:26 10/26/18 07:26 Intake and Output: 10/26/18 10/26/18 06:59 18:59 Intake Total 250 Balance 250 - Medications Medications: Current Medications Acetaminophen (Tylenol 325mg Tab) 650 mg PO Q6 PRN PRN Reason: pain Last Admin: 10/25/18 19:38 Dose: 650 mg Albuterol/Ipratropium (Duoneb 3 Mg/0.5 Mg (3 Ml) Ud) 3 ml INH RQ6 [facility] Last Admin: 10/26/18 09:22 Dose: Not Given Diphenhydramine HCl (Benadryl) 25 mg IVP Q6 PRN PRN Reason: Pain, severe (8-10) Fentanyl (Duragesic) 1 patch TD Q72H [facility] Last Admin: 10/25/18 16:26 Dose: 1 patch Ferrous Sulfate (Feosol) 325 mg PO BID [facility] Last Admin: 10/25/18 19:16 Dose: 325 mg Folic Acid (Folic Acid) 1 mg PO DAILY [facility] Last Admin: 10/25/18 09:06 Dose: 1 mg Heparin Sodium (Porcine) (Heparin) 5,000 units SC Q12 [facility] Last Admin: 10/25/18 21:54 Dose: 5,000 units Hydromorphone HCl (Dilaudid) 4 mg IVP Q6H PRN PRN Reason: Pain, severe (8-10) Last Admin: 10/26/18 05:45 Dose: 4 mg Influenza Virus Vaccine (Fluzone Quad [id number]) 60 mcg IM .ONCE ONE Stop: 10/27/18 10:01 Lidocaine (Lidoderm) 1 ea TD DAILY [facility] Last Admin: 10/25/18 13:36 Dose: 1 ea Loperamide HCl (Imodium) 2 mg PO Q8 PRN PRN Reason: Irritable bowel symptoms Olanzapine (Zyprexa) 10 mg PO DAILY [facility] Last Admin: 10/25/18 09:06 Dose: 10 mg Olanzapine (Zyprexa) 5 mg PO DAILY [facility] Last Admin: 10/25/18 09:06 Dose: 5 mg Trimethoprim/Sulfamethoxazole (Bactrim Ds Tab) 1 tab PO Q12H [facility]; Protocol Last Admin: 10/25/18 21:54 Dose: 1 tab - Labs Labs: 10/26/18 07:25 10/26/18 07:25 - Extremities Exam Additional comments: RLE: patient removed knee immobilizer she says it causes more pain and stiffness. Left knee: no erythema, skin intact, able to tolerate more ROM of knee today, lifts knee and sits with knee in approx 30 degrees of flexion. No laxity to knee or instability noted to varus/valgus/dixon/ant/post drawer. 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 Donato TT[facility] only LLE knee immobilizer pain medication per Dr. Ellison <50% of diameter of bone, no surgical intervention indicated at this time likely metastatic from lung patient previously evaluated by orthopedic oncologist (patient doesn't remember name), recommend following up with tumor specialist [facility] LLE, knee immobilizer for comfort VTE proph PT/OT Status: Acute (2) Metastatic bone tumor Status: Acute
[2018-10-26] MEDS: Lidocaine 5% Patch TD SCH (10:11)
[2018-10-26] MEDS: Tmp-Smz 800 mg-160 mg DS Tab PO SCH ×2 (10:15→21:41)
[2018-10-26] MEDS ORDERED: Potassium Chloride 20 mEq ER Tab PO ONE ×2 (14:00→18:00)
--- NOTE | 2018-10-26 17:20 | CARD ---
APPROVED REPORT Date of service: 10/24/2018 EKG Measurement Heart [id number] <Conclusion> Sinus tachycardia Voltage criteria for left ventricular hypertrophy Nonspecific ST abnormality Abnormal ECG
--- NOTE | 2018-10-26 20:12 | CP.PCM.PN ---
Subjective - Date & Time of Evaluation Date of Evaluation: 10/26/18 Time of Evaluation: 07:15 - Subjective Subjective: clinically same Objective - Vital Signs/Intake and Output Vital Signs (last 24 hours): Temp Pulse Resp BP Pulse Ox 98.7 F 101 H 21 108/64 95 10/26/18 15:48 10/26/18 15:48 10/26/18 15:48 10/26/18 15:48 10/26/18 15:48 - Medications Medications: Current Medications Acetaminophen (Tylenol 325mg Tab) 650 mg PO Q6 PRN PRN Reason: pain Last Admin: 10/26/18 16:27 Dose: 650 mg Albuterol/Ipratropium (Duoneb 3 Mg/0.5 Mg (3 Ml) Ud) 3 ml INH RQ6 [facility] Last Admin: 10/26/18 15:26 Dose: 3 ml Diphenhydramine HCl (Benadryl) 25 mg IVP Q6 PRN PRN Reason: Pain, severe (8-10) Duloxetine HCl (Cymbalta) 60 mg PO DAILY [facility] Fentanyl (Duragesic) 1 patch TD Q72H [facility] Last Admin: 10/25/18 16:26 Dose: 1 patch Ferrous Sulfate (Feosol) 325 mg PO BID [facility] Last Admin: 10/26/18 18:00 Dose: 325 mg Folic Acid (Folic Acid) 1 mg PO DAILY [facility] Last Admin: 10/26/18 10:13 Dose: 1 mg Heparin Sodium (Porcine) (Heparin) 5,000 units SC Q12 [facility] Last Admin: 10/26/18 10:18 Dose: 5,000 units Hydromorphone HCl (Dilaudid) 4 mg IVP Q6H PRN PRN Reason: Pain, severe (8-10) Last Admin: 10/26/18 17:52 Dose: 4 mg Influenza Virus Vaccine (Fluzone Quad [id number]) 60 mcg IM .ONCE ONE Stop: 10/27/18 10:01 Lidocaine (Lidoderm) 1 ea TD DAILY [facility] Last Admin: 10/26/18 10:11 Dose: 1 ea Loperamide HCl (Imodium) 2 mg PO Q8 PRN PRN Reason: Irritable bowel symptoms Lorazepam (Ativan) 0.5 mg PO Q12 PRN PRN Reason: Anxiety Olanzapine (Zyprexa) 10 mg PO DAILY [facility] Last Admin: 10/26/18 10:13 Dose: 10 mg Olanzapine (Zyprexa) 5 mg PO DAILY [facility] Last Admin: 10/26/18 10:13 Dose: 5 mg Trimethoprim/Sulfamethoxazole (Bactrim Ds Tab) 1 tab PO Q12H [facility]; Protocol Last Admin: 10/26/18 10:15 Dose: 1 tab - Labs Labs: 10/26/18 07:25 10/26/18 07:25 - Constitutional Appears: Well - Head Exam Head Exam: ATRAUMATIC, NORMAL INSPECTION, NORMOCEPHALIC - Eye Exam Eye Exam: EOMI, Normal appearance, PERRL Pupil Exam: NORMAL ACCOMODATION, PERRL - ENT Exam ENT Exam: Mucous Membranes Moist, Normal Exam - Neck Exam Neck Exam: Full ROM, Normal Inspection. absent: Lymphadenopathy - Respiratory Exam Respiratory Exam: Decreased Breath Sounds - Cardiovascular Exam Cardiovascular Exam: REGULAR RHYTHM, +S1, +S2 - GI/Abdominal Exam GI & Abdominal Exam: Soft, Diminished Bowel Sounds - Rectal Exam Rectal Exam: Deferred
[2018-10-27] MEDS: Albuterol-Ipratrop 3 mg / 0.5 (3 ml) UD INH SCH ×4 (01:00→20:00)
[2018-10-27] MEDS ORDERED: Influenza Vaccine 60 MCG/0.5 ML SYR (3 yr & up) IM ONE (10:00)
[2018-10-27] MEDS: Tmp-Smz 800 mg-160 mg DS Tab PO SCH ×2 (10:23→21:17)
[2018-10-27] MEDS: Lidocaine 5% Patch TD SCH (10:24)
[2018-10-27] MEDS ORDERED: Sodium Chloride 0.9% 500 ML IV ONE (16:20)
--- NOTE | 2018-10-27 20:04 | CP.PCM.PN ---
Subjective - Date & Time of Evaluation Date of Evaluation: 10/27/18 Time of Evaluation: 07:15 - Subjective Subjective: clinically same Objective - Vital Signs/Intake and Output Vital Signs (last 24 hours): Temp Pulse Resp BP Pulse Ox 98.7 F 100 H 20 104/74 99 10/27/18 15:00 10/27/18 15:00 10/27/18 15:00 10/27/18 15:00 10/27/18 15:00 - Medications Medications: Current Medications Acetaminophen (Tylenol 325mg Tab) 650 mg PO Q6 PRN PRN Reason: pain Last Admin: 10/27/18 08:00 Dose: 650 mg Albuterol/Ipratropium (Duoneb 3 Mg/0.5 Mg (3 Ml) Ud) 3 ml INH RQ6 [facility] Last Admin: 10/27/18 08:17 Dose: 3 ml Diphenhydramine HCl (Benadryl) 25 mg IVP Q6 PRN PRN Reason: Pain, severe (8-10) Duloxetine HCl (Cymbalta) 60 mg PO DAILY [facility] Last Admin: 10/27/18 10:23 Dose: 60 mg Fentanyl (Duragesic) 1 patch TD Q72H [facility] Last Admin: 10/25/18 16:26 Dose: 1 patch Ferrous Sulfate (Feosol) 325 mg PO BID [facility] Last Admin: 10/27/18 17:36 Dose: 325 mg Folic Acid (Folic Acid) 1 mg PO DAILY [facility] Last Admin: 10/27/18 10:23 Dose: 1 mg Heparin Sodium (Porcine) (Heparin) 5,000 units SC Q12 [facility] Last Admin: 10/27/18 10:25 Dose: 5,000 units Hydromorphone HCl (Dilaudid) 4 mg IVP Q4H PRN PRN Reason: Pain, severe (8-10) Last Admin: 10/27/18 17:57 Dose: 4 mg Lidocaine (Lidoderm) 1 ea TD DAILY [facility] Last Admin: 10/27/18 10:24 Dose: 1 ea Loperamide HCl (Imodium) 2 mg PO Q8 PRN PRN Reason: Irritable bowel symptoms Last Admin: 10/27/18 10:40 Dose: 2 mg Lorazepam (Ativan) 0.5 mg PO Q12 PRN PRN Reason: Anxiety Last Admin: 10/26/18 21:41 Dose: 0.5 mg Olanzapine (Zyprexa) 10 mg PO DAILY [facility] Last Admin: 10/27/18 10:23 Dose: 10 mg Olanzapine (Zyprexa) 5 mg PO DAILY [facility] Last Admin: 10/27/18 10:24 Dose: 5 mg Trimethoprim/Sulfamethoxazole (Bactrim Ds Tab) 1 tab PO Q12H [facility]; Protocol Last Admin: 10/27/18 10:23 Dose: Not Given - Labs Labs: 10/26/18 07:25 10/26/18 07:25 - Constitutional Appears: Well - Head Exam Head Exam: ATRAUMATIC, NORMAL INSPECTION, NORMOCEPHALIC - Eye Exam Eye Exam: EOMI, Normal appearance, PERRL Pupil Exam: NORMAL ACCOMODATION, PERRL - ENT Exam ENT Exam: Mucous Membranes Moist, Normal Exam - Neck Exam Neck Exam: Full ROM, Normal Inspection. absent: Lymphadenopathy - Respiratory Exam Respiratory Exam: Decreased Breath Sounds - Cardiovascular Exam Cardiovascular Exam: REGULAR RHYTHM, +S1, +S2 - GI/Abdominal Exam GI & Abdominal Exam: Soft, Diminished Bowel Sounds - Rectal Exam Rectal Exam: Deferred
[2018-10-28] MEDS: Albuterol-Ipratrop 3 mg / 0.5 (3 ml) UD INH SCH ×4 (01:37→21:11)
[2018-10-28 07:18] LABS: BASO # 0.1 K/uL (0.0-0.2); BASO % 0.9 % (0.0-2.0); EOS # 0.1 K/uL (0.0-0.7); HEMOGLOBIN 8.2 g/dL (11.0-16.0); LYMPH # 1.3 K/uL (1.0-4.3); LYMPH % 14.4 % (20.0-40.0); MEAN CELL VOLUME 92.7 fL (81.0-99.0); MEAN CORPUSCULAR HEMOGLOBIN 30.5 pg (27.0-31.0); MEAN CORPUSCULAR HGB CONC 32.9 g/dL (33.0-37.0); MEAN PLATELET VOLUME 7.5 fL (7.2-11.7); MONO # 0.8 K/uL (0.0-0.8); NEUT # 6.9 K/uL (1.8-7.0); NEUT % 74.7 % (50.0-75.0); NRBC % 0.1 % (0.0-2.0); RBC 2.69 Mil/uL (3.80-5.20); RED CELL DISTRIBUTION WIDTH 17.8 % (11.5-14.5); WHITE BLOOD COUNT 9.2 K/uL (4.8-10.8)
[2018-10-28 07:50] LABS: ALB/GLOB RATIO 0.8 (1.0-2.1); ALBUMIN 3.2 g/dL (3.5-5.0); ALT/SGPT 8 U/L (9-52); AST/SGOT 67 U/L (14-36); BLOOD UREA NITROGEN 8 mg/dL (7-17); CALCIUM 8.2 mg/dl (8.6-10.4); GFR NON-AFRICAN AMERICAN > 60
[2018-10-28] MEDS: Lidocaine 5% Patch TD SCH (10:12)
--- NOTE | 2018-10-28 12:56 | CP.PCM.PN ---
Subjective - Date & Time of Evaluation Date of Evaluation: 10/28/18 Time of Evaluation: 07:15 - Subjective Subjective: clinically same Objective - Vital Signs/Intake and Output Vital Signs (last 24 hours): Temp Pulse Resp BP Pulse Ox 98 F 112 H 110 H 115/77 96 10/28/18 08:27 10/28/18 08:27 10/28/18 10:04 10/28/18 10:04 10/28/18 08:27 Intake and Output: 10/28/18 10/28/18 06:59 18:59 Intake Total 200 Balance 200 - Medications Medications: Current Medications Acetaminophen (Tylenol 325mg Tab) 650 mg PO Q6 PRN PRN Reason: pain Last Admin: 10/28/18 03:53 Dose: 650 mg Albuterol/Ipratropium (Duoneb 3 Mg/0.5 Mg (3 Ml) Ud) 3 ml INH RQ6 [facility] Last Admin: 10/28/18 07:15 Dose: 3 ml Diphenhydramine HCl (Benadryl) 25 mg IVP Q6 PRN PRN Reason: Pain, severe (8-10) Last Admin: 10/28/18 10:15 Dose: 25 mg Duloxetine HCl (Cymbalta) 60 mg PO DAILY [facility] Last Admin: 10/28/18 10:11 Dose: 60 mg Fentanyl (Duragesic) 1 patch TD Q72H [facility] Last Admin: 10/25/18 16:26 Dose: 1 patch Ferrous Sulfate (Feosol) 325 mg PO BID [facility] Last Admin: 10/28/18 10:11 Dose: 325 mg Folic Acid (Folic Acid) 1 mg PO DAILY [facility] Last Admin: 10/28/18 10:12 Dose: 1 mg Hydromorphone HCl (Dilaudid) 4 mg IVP Q4H PRN PRN Reason: Pain, severe (8-10) Last Admin: 10/28/18 10:14 Dose: 4 mg Lidocaine (Lidoderm) 1 ea TD DAILY [facility] Last Admin: 10/28/18 10:12 Dose: 1 ea Loperamide HCl (Imodium) 2 mg PO Q8 PRN PRN Reason: Irritable bowel symptoms Last Admin: 10/28/18 06:27 Dose: 2 mg Lorazepam (Ativan) 0.5 mg PO Q12 PRN PRN Reason: Anxiety Last Admin: 10/26/18 21:41 Dose: 0.5 mg Olanzapine (Zyprexa) 10 mg PO DAILY [facility] Last Admin: 10/28/18 10:11 Dose: 10 mg Olanzapine (Zyprexa) 5 mg PO DAILY [facility] Last Admin: 10/28/18 10:11 Dose: 5 mg - Labs Labs: 10/28/18 07:05 10/28/18 07:06 - Constitutional Appears: Well - Head Exam Head Exam: ATRAUMATIC, NORMAL INSPECTION, NORMOCEPHALIC - Eye Exam Eye Exam: EOMI, Normal appearance, PERRL Pupil Exam: NORMAL ACCOMODATION, PERRL - ENT Exam ENT Exam: Mucous Membranes Moist, Normal Exam - Neck Exam Neck Exam: Full ROM, Normal Inspection. absent: Lymphadenopathy - Respiratory Exam Respiratory Exam: Decreased Breath Sounds - Cardiovascular Exam Cardiovascular Exam: REGULAR RHYTHM, +S1, +S2 - GI/Abdominal Exam GI & Abdominal Exam: Soft, Diminished Bowel Sounds - Rectal Exam Rectal Exam: Deferred
[2018-10-28 19:31] LABS: CK-MB 0.68 ng/mL (0.0-3.38)
[2018-10-29] MEDS: Albuterol-Ipratrop 3 mg / 0.5 (3 ml) UD INH SCH ×4 (01:08→19:36)
[2018-10-29 08:48] VITALS: RESP 20
[2018-10-29] MEDS: Lidocaine 5% Patch TD SCH (09:39)
--- NOTE | 2018-10-29 09:47 | CARD ---
APPROVED REPORT Date of service: 10/28/2018 EKG Measurement Heart [id number] <Conclusion> Suspect arm lead reversal, interpretation assumes no reversal Sinus tachycardia Right axis deviation Abnormal ECG
--- NOTE | 2018-10-29 12:22 | CP.PCM.CON ---
History of Present Illness - History of Present Illness History of Present Illness: Palliative consult requested by Doctor Jojo Ellison for goals of care discussion Patient is a 63 yo female admitted from home with left knee pain not controlled by Morphine PO. Patient is known to me from [facility] where I used to see her for Palliative Care. Patient has been diagnosed with Lung cancer about 1 year ago and is treated by Doctor Romero at [facility], who advised this admission. The Left knee X Ray was significant for tumor size 27 mm X 17 mm. Surgical consult called. No surgical interventions recommended. PT/OT, and left knee immobilizer suggested. Dilaudid 4 mg IV Q 6 hr PRN pain, plus Fentanyl 50 mscg. Patient still complains of left knee pain and shoulders pain. PMH: Lung CA, anemia, COPD Soc. 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 Hx: denied Review of Systems - Constitutional Constitutional: Fatigue - EENT Eyes: absent: As Per HPI, Blind Spots, Blurred Vision, Change in Vision, Decreased Night Vision, Diplopia, Discharge, Dry Eye, Exophthalmos, Floaters, Irritation, Itchy Eyes, Loss of Peripheral Vision, Pain, Photophobia, Requires Corrective Lenses, Sees Flashes, Spots in Vision, Tunnel Vision, Other Visual Disturbances, Loss of Vision, Other Ears: absent: As Per HPI, Decreased Hearing, Ear Discharge, Ear Pain, Tinnitus, Abnormal Hearing, Disequilibrium, Dizziness, Other Nose/Mouth/Throat: absent: As Per HPI, Epistaxis, Nasal Congestion, Nasal Discharge, Nasal Obstruction, Nasal Trauma, Nose Pain, Post Nasal Drip, Sinus Pain, Sinus Pressure, Bleeding Gums, Change in Voice, Dental Pain, Dry Mouth, Dysphagia, Halitosis, Hoarsness, Lip Swelling, Mouth Lesions, Mouth Pain, O dynophagia, Sore Throat, Throat Swelling, Tongue Swelling, Facial Pain, Neck Pain, Neck Mass, Other - Breasts Breasts: absent: As Per HPI, Change in Shape, Mass, Pain, Nipple Discharge, Nipple Inversion, Skin Changes, Swelling, Other - Cardiovascular Cardiovascular: absent: As Per HPI, Acrocyanosis, Chest Pain, Chest Pain at Rest, Chest Pain with Activity, Claudication, Diaphoresis, Dyspnea, Dyspnea on Exertion, Edema, Irregular Heart Rhythm, Pain Radiating to Arm/Neck/Jaw, Leg Edema, Leg Ulcers, Lightheadedness, Orthopnea, Palpitations, Paroxysmal Nocturnal Dyspnea, Pedal Edema, Radiating Pain, Rapid Heart Rate, Slow Heart Rate, Syncope, Other - Respiratory Respiratory: Cough, Dyspnea, Dyspnea on Exertion - Gastrointestinal Gastrointestinal: absent: As Per HPI, Abdominal Pain, Belching, Bloating, Change in Bowel Habits, Change in Stool Character, Coffee Ground Emesis, Constipation, Cramping, Diarrhea, Dyspepsia, Dysphagia, Early Satiety, Excessive Flatus, Fecal Incontinence, Heartburn, Hematemesis, Hematochezia, Loose Stools, Melena, Nausea, Odynophagia, Temesmus, Vomiting, Other - Genitourinary Genitourinary: absent: As Per HPI, Change in Urinary Stream, Difficulty Urinating, Dysuria, Flank Pain, Hematuria, Pyuria, Nocturia, Urinary Incontinence, Urinary Frequency, Urinary Hesitance, Urinary Urgency, Voiding Freq/Small Amts, Freq UTI, Hx Renal/Bladder Calculi, Hx /Renal Surgery, Bladder Distension, Other - Reproductive: Female Reproductive:Female: Post Menopausal - Menstruation Menstruation: Post Menopausal - Musculoskeletal Musculoskeletal: Joint Swelling, Limited Range of Motion Additional comments: left knee pain, unable to put weight to left leg - Integumentary Integumentary: absent: As Per HPI, Acne, Alopecia, Bleeding Lesions, Change in Hair, Change in Nails, Change in Pigmentation, Changing Lesions, Dry Skin, Erythema, Furuncle, Hirsutism, Lesions, New Lesions, Non-Healing Lesions, Photosensitivity, Pruritus, Rash, Skin Pain, Skin Ulcer, Sores, Striae, Swelling, Unusual Bruising, Wounds, Jaundice, Other - Neurological Neurological: absent: As Per HPI, Abnormal Gait, Abnormal Hearing, Abnormal Movements, Abnormal Speech, Behavioral Changes, Burning Sensations, Confusion, Convulsions, Disequilibrium, Dizziness, Numbness, Focal Weakness, Frequent Falls, Headaches, Lack of Coordination, Loss of Vision, Memory Loss, Paresthesias, Radicular Pain, Restless Legs, Sensory Deficit, Syncope, Tingling, Tremor, Vertigo, Weakness, Other Visual Disturbances, Other - Psychiatric Psychiatric: absent: As Per HPI, Abnormal Sleep Pattern, Anhedonia, Anxiety, Auditory Hallucinations, Behavioral Changes, Change in Appetite, Change in Libido, Confusion, Depression, Difficulty Concentrating, Hallucinations, Homicidal Ideation, Hopelessness, Irritability, Memory Loss, Mood Swings, Panic Attacks, Paranoia, Suicidal Ideation, Visual Hallucinations, Tactile Hallucinations, Other - Endocrine Endocrine: absent: As Per HPI, Change in Body Appearance, Change in Libido, Cold Intolorance, Deepening of Voice, Excessive Sweating, Fatigue, Flushing, Heat Intolorance, Increase in Ring/Shoe/Hat Size, Palpitations, Polydipsia, Polyphagia, Polyuria, Other - Hematologic/Lymphatic Hematologic: absent: As Per HPI, Easy Bleeding, Easy Bruising, Lymphadenopathy, Other Past Patient History - Past Medical History & Family History Past Medical History?: Yes - Past Social History Smoking Status: Heavy Smoker > 10 Cigarettes Daily - CARDIAC Hx Cardiac Disorders: Yes Hx Hypertension: Yes - PULMONARY Hx Respiratory Disorders: Yes Hx Asthma: Yes Hx Bronchitis: Yes Hx Chronic Obstructive Pulmonary Disease (COPD): Yes (however uses nebulizer at home) - NEUROLOGICAL Hx Neurological Disorder: No - HEENT Hx HEENT Problems: No - RENAL Hx Chronic Kidney Disease: No - ENDOCRINE/METABOLIC Hx Endocrine Disorders: No - HEMATOLOGICAL/ONCOLOGICAL Hx Blood Disorders: Yes Hx Anemia: Yes Hx Blood Transfusions: Yes - INTEGUMENTARY Hx Dermatological Problems: No - MUSCULOSKELETAL/RHEUMATOLOGICAL Hx Musculoskeletal Disorders: Yes Hx Arthritis: Yes Hx Back Pain: Yes Hx Falls: No Hx Fractures: Yes (rt. hip fracture) - GASTROINTESTINAL Hx Gastrointestinal Disorders: Yes Other/Comment: GERD - GENITOURINARY/GYNECOLOGICAL Hx Genitourinary Disorders: No - PSYCHIATRIC Hx Psychophysiologic Disorder: Yes Hx Anxiety: Yes Hx Depression: Yes Hx Substance Use: No - SURGICAL HISTORY Hx Surgeries: Yes Other/Comment: SPINE SURGERY 2009 PER PATIENT - ANESTHESIA Hx Anesthesia: Yes Hx Anesthesia Reactions: Yes (severe hypotension) Meds Allergies/Adverse Reactions: Allergies Allergy/AdvReac Type Severity Reaction Status Date / Time doxycycline Allergy Verified 04/01/18 10:41 Penicillins Allergy Verified 04/01/18 10:41 - Medications Medications: Current Medications Acetaminophen (Tylenol 325mg Tab) 650 mg PO Q6 PRN PRN Reason: pain Last Admin: 10/28/18 14:50 Dose: 650 mg Albuterol/Ipratropium (Duoneb 3 Mg/0.5 Mg (3 Ml) Ud) 3 ml INH RQ6 [facility] Last Admin: 10/29/18 07:25 Dose: Not Given Diphenhydramine HCl (Benadryl) 25 mg IVP Q6 PRN PRN Reason: Pain, severe (8-10) Last Admin: 10/28/18 10:15 Dose: 25 mg Duloxetine HCl (Cymbalta) 60 mg PO DAILY [facility] Last Admin: 10/29/18 09:40 Dose: 60 mg Fentanyl (Duragesic) 1 patch TD Q72H [facility] Last Admin: 10/28/18 16:18 Dose: 1 patch Ferrous Sulfate (Feosol) 325 mg PO BID [facility] Last Admin: 10/29/18 09:40 Dose: 325 mg Folic Acid (Folic Acid) 1 mg PO DAILY [facility] Last Admin: 10/29/18 09:40 Dose: 1 mg Hydromorphone HCl (Dilaudid) 4 mg IVP Q4H PRN PRN Reason: Pain, severe (8-10) Last Admin: 10/29/18 10:20 Dose: 4 mg Lidocaine (Lidoderm) 1 ea TD DAILY [facility] Last Admin: 10/29/18 09:39 Dose: Not Given Loperamide HCl (Imodium) 2 mg PO Q8 PRN PRN Reason: Irritable bowel symptoms Last Admin: 10/28/18 06:27 Dose: 2 mg Lorazepam (Ativan) 0.5 mg PO Q12 PRN PRN Reason: Anxiety Last Admin: 10/28/18 18:49 Dose: 0.5 mg Olanzapine (Zyprexa) 10 mg PO DAILY [facility] Last Admin: 10/29/18 09:40 Dose: 10 mg Olanzapine (Zyprexa) 5 mg PO DAILY [facility] Last Admin: 10/29/18 09:40 Dose: 5 mg Physical Exam - Constitutional Appears: Chronically Ill - Head Exam Head Exam: ATRAUMATIC, NORMAL INSPECTION, NORMOCEPHALIC - Eye Exam Eye Exam: EOMI, Normal appearance, PERRL Pupil Exam: NORMAL ACCOMODATION, PERRL - ENT Exam ENT Exam: Mucous Membranes Moist, Normal Exam - Neck Exam Neck exam: Positive for: Normal Inspection - Respiratory Exam Respiratory Exam: Decreased Breath Sounds, NORMAL BREATHING PATTERN - Cardiovascular Exam Cardiovascular Exam: Tachycardia, REGULAR RHYTHM - GI/Abdominal Exam GI & Abdominal Exam: Normal Bowel Sounds, Soft - Rectal Exam Rectal Exam: Deferred - Extremities Exam Additional comments: left knee pain, limited ROM - Back Exam Back exam: NORMAL INSPECTION - Neurological Exam Neurological exam: Abnormal Gait, Alert, Oriented x3 - Psychiatric Exam Psychiatric exam: Anxious - Skin Skin Exam: Dry, Intact, Normal Color, Warm Results - Vital Signs Recent Vital Signs: Last Vital Signs Temp 98.6 F 10/29/18 07:00 Pulse 100 H 10/29/18 07:00 Resp 20 10/29/18 07:00 BP 105/68 10/29/18 07:00 Pulse Ox 96 10/29/18 07:00 - Labs Result Diagrams: 10/28/18 07:05 10/28/18 07:06 Labs: Laboratory Results - last 24 hr 10/28/18 19:03 Total Creatine Kinase 43 CK-MB (Mass) 0.68 Troponin I < 0.0120 Assessment & Plan - Assessment and Plan (Free Text) Assessment: Palliative consult Full Code, no advance directive on the chart, PPS 40% I reviewed Medical records, all diagnostic studies, examined and interviewed patient in the bed Patient is alert, oriented X 3, with affect that is anxious and clear speech. Patient gets easily irritated. Skin is pale. Hb 8.2. Diminished breath sounds. Complains of chronic,dry, cough.Neb. Tx on board. Abdomen soft, active bowel sounds, last BM today. Limited ROM to left leg. Unable to ambulate. Patient does not use immobilizer as ordered, reports making her more pain.Uses commode with extensive assistance. Complains of moderate pain to left knee and pain to both arms. Patient feels the arms pain started " when I got this Fentanyl patch". I reassured patient of Fentanyl Patch benefices. Home meds : MS Contin 60 mg PO BID, Morphine tb 15 mg PRN WBC 9.2, Hb 8.2 BP 105/86, HR 100, O2Sat 96% RA, afebrile I reviewed with patient her clinical condition. She was aware of left knee x Ray findings. Her biggest concern was her pain. Patient wishes to return home. When I questioned her concerns regarding her condition, she said she wished could walk again. Patient tends to fallow up with her Oncologist at [facility]. Patient had signed DNR DNI with me in the past at [place], than she revoked it for a FULL CODE. I offered the Code status discussion again. Patient is decided to remain Full Code for now. 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 Tx * Discharge home with home health aid * Full Code Palliative care will sign off at this time. Advance care planing 46 min
--- NOTE | 2018-10-29 13:23 | NM ---
Date of service: 10/29/2018 PROCEDURE: Whole Body Bone Scan HISTORY: ca COMPARISON: None available. TECHNIQUE: Following administration of 23.3 miCu of Tc MDP multiplanar whole body images were obtained. FINDINGS: Evidence for bony metastatic disease: Calvarium, thoracic spine, lumbar spine, pelvis, bilateral femurs, bilateral humeri. Degenerative uptake: None. Physiologic uptake: Normal physiologic activity in the kidneys. Other findings: None. IMPRESSION: Widely disseminated metastatic disease to the axial and appendicular skeleton.
--- NOTE | 2018-10-29 14:18 | CP.PCM.PN ---
Subjective - Date & Time of Evaluation Date of Evaluation: 10/29/18 Time of Evaluation: 07:15 - Subjective Subjective: clinically same Objective - Vital Signs/Intake and Output Vital Signs (last 24 hours): Temp Pulse Resp BP Pulse Ox 98.6 F 100 H 20 105/68 96 10/29/18 07:00 10/29/18 07:00 10/29/18 07:00 10/29/18 07:00 10/29/18 07:00 Intake and Output: 10/29/18 10/29/18 06:59 18:59 Intake Total 150 Balance 150 - Medications Medications: Current Medications Acetaminophen (Tylenol 325mg Tab) 650 mg PO Q6 PRN PRN Reason: pain Last Admin: 10/28/18 14:50 Dose: 650 mg Albuterol/Ipratropium (Duoneb 3 Mg/0.5 Mg (3 Ml) Ud) 3 ml INH RQ6 [facility] Last Admin: 10/29/18 13:13 Dose: Not Given Diphenhydramine HCl (Benadryl) 25 mg IVP Q6 PRN PRN Reason: Pain, severe (8-10) Last Admin: 10/28/18 10:15 Dose: 25 mg Duloxetine HCl (Cymbalta) 60 mg PO DAILY [facility] Last Admin: 10/29/18 09:40 Dose: 60 mg Fentanyl (Duragesic) 1 patch TD Q72H [facility] Last Admin: 10/28/18 16:18 Dose: 1 patch Ferrous Sulfate (Feosol) 325 mg PO BID [facility] Last Admin: 10/29/18 09:40 Dose: 325 mg Folic Acid (Folic Acid) 1 mg PO DAILY [facility] Last Admin: 10/29/18 09:40 Dose: 1 mg Hydromorphone HCl (Dilaudid) 4 mg IVP Q4H PRN PRN Reason: Pain, severe (8-10) Last Admin: 10/29/18 10:20 Dose: 4 mg Lidocaine (Lidoderm) 1 ea TD DAILY [facility] Last Admin: 10/29/18 09:39 Dose: Not Given Loperamide HCl (Imodium) 2 mg PO Q8 PRN PRN Reason: Irritable bowel symptoms Last Admin: 10/28/18 06:27 Dose: 2 mg Lorazepam (Ativan) 0.5 mg PO Q12 PRN PRN Reason: Anxiety Last Admin: 10/28/18 18:49 Dose: 0.5 mg Olanzapine (Zyprexa) 10 mg PO DAILY [facility] Last Admin: 10/29/18 09:40 Dose: 10 mg Olanzapine (Zyprexa) 5 mg PO DAILY [facility] Last Admin: 10/29/18 09:40 Dose: 5 mg - Labs Labs: 10/28/18 07:05 10/28/18 07:06 - Constitutional Appears: Well - Head Exam Head Exam: ATRAUMATIC, NORMAL INSPECTION, NORMOCEPHALIC - Eye Exam Eye Exam: EOMI, Normal appearance, PERRL Pupil Exam: NORMAL ACCOMODATION, PERRL - ENT Exam ENT Exam: Mucous Membranes Moist, Normal Exam - Neck Exam Neck Exam: Full ROM, Normal Inspection. absent: Lymphadenopathy - Respiratory Exam Respiratory Exam: Decreased Breath Sounds - Cardiovascular Exam Cardiovascular Exam: REGULAR RHYTHM, +S1, +S2 - GI/Abdominal Exam GI & Abdominal Exam: Soft, Diminished Bowel Sounds - Rectal Exam Rectal Exam: Deferred
--- NOTE | 2018-10-29 16:15 | CP.PCM.PN ---
Subjective - Date & Time of Evaluation Date of Evaluation: 10/29/18 Time of Evaluation: 16:13 - Subjective Subjective: Patient seen and examined sitting at bedside. Pain controlled at this time, pain intermittent and with WB. No new complaints. Only able to transfer from bed to commode with PT, unable to ambulate. Denies CP/SOB/fever/ABBASI. Objective - Vital Signs/Intake and Output Vital Signs (last 24 hours): Temp Pulse Resp BP Pulse Ox 98.6 F 100 H 20 105/68 96 10/29/18 07:00 10/29/18 07:00 10/29/18 07:00 10/29/18 07:00 10/29/18 07:00 Intake and Output: 10/29/18 10/29/18 06:59 18:59 Intake Total 150 480 Balance 150 480 - Medications Medications: Current Medications Acetaminophen (Tylenol 325mg Tab) 650 mg PO Q6 PRN PRN Reason: pain Last Admin: 10/28/18 14:50 Dose: 650 mg Albuterol/Ipratropium (Duoneb 3 Mg/0.5 Mg (3 Ml) Ud) 3 ml INH RQ6 [facility] Last Admin: 10/29/18 13:13 Dose: Not Given Diphenhydramine HCl (Benadryl) 25 mg IVP Q6 PRN PRN Reason: Pain, severe (8-10) Last Admin: 10/28/18 10:15 Dose: 25 mg Duloxetine HCl (Cymbalta) 60 mg PO DAILY [facility] Last Admin: 10/29/18 09:40 Dose: 60 mg Ferrous Sulfate (Feosol) 325 mg PO BID [facility] Last Admin: 10/29/18 09:40 Dose: 325 mg Folic Acid (Folic Acid) 1 mg PO DAILY [facility] Last Admin: 10/29/18 09:40 Dose: 1 mg Hydromorphone HCl (Dilaudid) 4 mg IVP Q4H PRN PRN Reason: Pain, severe (8-10) Last Admin: 10/29/18 15:59 Dose: 4 mg Lidocaine (Lidoderm) 1 ea TD DAILY [facility] Last Admin: 10/29/18 09:39 Dose: Not Given Loperamide HCl (Imodium) 2 mg PO Q8 PRN PRN Reason: Irritable bowel symptoms Last Admin: 10/28/18 06:27 Dose: 2 mg Lorazepam (Ativan) 0.5 mg PO Q12 PRN PRN Reason: Anxiety Last Admin: 10/28/18 18:49 Dose: 0.5 mg Olanzapine (Zyprexa) 10 mg PO DAILY [facility] Last Admin: 10/29/18 09:40 Dose: 10 mg Olanzapine (Zyprexa) 5 mg PO DAILY [facility] Last Admin: 10/29/18 09:40 Dose: 5 mg - Labs Labs: 10/28/18 07:05 10/28/18 07:06 - Extremities Exam Additional comments: LLE: medial knee soft tissue swelling, nontender able to extend to 0 deg, flex to 60 deg with mild pain sensation intact SP/DP/TN motor intact EHL/FHL/TA/G/Q/HS pedal pulses intact calves soft NT b/l Assessment and Plan (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 Donato -PT/OT TTWB LLE -knee immobilizer -MRI of L knee to evaluate neoplasm -Dr. Donato recommends follow up with Orthopedic oncologist, Dr. Romero, of [facility] who has been following and treating patient. -pain control -above d/w Dr. Donato in agreement Status: Acute
[2018-10-30] MEDS: Albuterol-Ipratrop 3 mg / 0.5 (3 ml) UD INH SCH (01:13)
--- NOTE | 2018-10-30 07:51 | CP.PCM.PN ---
Subjective - Date & Time of Evaluation Date of Evaluation: 10/30/18 Time of Evaluation: 07:49 - Subjective Subjective: Patient states she is feeling a little better, but is still having a lot of pain. Denies any new complaints. Objective - Vital Signs/Intake and Output Vital Signs (last 24 hours): Temp Pulse Resp BP Pulse Ox 98.6 F 105 H 20 109/73 97 10/30/18 00:00 10/30/18 00:00 10/30/18 00:00 10/30/18 00:00 10/30/18 00:00 Intake and Output: 10/30/18 10/30/18 06:59 18:59 Intake Total 450 Balance 450 - Medications Medications: Current Medications Acetaminophen (Tylenol 325mg Tab) 650 mg PO Q6 PRN PRN Reason: pain Last Admin: 10/30/18 06:02 Dose: 650 mg Diphenhydramine HCl (Benadryl) 25 mg IVP Q6 PRN PRN Reason: Pain, severe (8-10) Last Admin: 10/28/18 10:15 Dose: 25 mg Duloxetine HCl (Cymbalta) 60 mg PO DAILY [facility] Last Admin: 10/29/18 09:40 Dose: 60 mg Ferrous Sulfate (Feosol) 325 mg PO BID [facility] Last Admin: 10/29/18 17:11 Dose: 325 mg Folic Acid (Folic Acid) 1 mg PO DAILY [facility] Last Admin: 10/29/18 09:40 Dose: 1 mg Hydromorphone HCl (Dilaudid) 4 mg IVP Q4H PRN PRN Reason: Pain, severe (8-10) Last Admin: 10/30/18 02:44 Dose: 4 mg Lidocaine (Lidoderm) 1 ea TD DAILY [facility] Last Admin: 10/29/18 09:39 Dose: Not Given Loperamide HCl (Imodium) 2 mg PO Q8 PRN PRN Reason: Irritable bowel symptoms Last Admin: 10/28/18 06:27 Dose: 2 mg Lorazepam (Ativan) 0.5 mg PO Q12 PRN PRN Reason: Anxiety Last Admin: 10/28/18 18:49 Dose: 0.5 mg Olanzapine (Zyprexa) 10 mg PO DAILY [facility] Last Admin: 10/29/18 09:40 Dose: 10 mg Olanzapine (Zyprexa) 5 mg PO DAILY [facility] Last Admin: 10/29/18 09:40 Dose: 5 mg - Labs Labs: 10/28/18 07:05 10/28/18 07:06 - Constitutional Appears: Well, No Acute Distress - Head Exam Head Exam: ATRAUMATIC - Neck Exam Neck Exam: Full ROM, Normal Inspection - Respiratory Exam Respiratory Exam: NORMAL BREATHING PATTERN - Cardiovascular Exam Additional comments: +DP/PT pulses - Extremities Exam Additional comments: refusing knee immobilizer sitting on edge of bed with left knee flexed under right leg this is significant improvement Calves soft NT neg homans sensation intact - Neurological Exam Neurological Exam: Alert, Awake, Oriented x3 Neuro motor strength exam: Right Lower Extremity: 5 - Psychiatric Exam Psychiatric exam: Normal Affect, Normal Mood - Skin Skin Exam: Dry, Intact, Normal Color, Warm Assessment and Plan (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 Donato VTE proph pain medication as per Dr. Ellison No acute orthopedic intervention at this time per Dr. Donato PT/OT TTWB LLE knee immobilizer -Dr. Donato recommends follow up with Orthopedic oncologist, Dr. Romero, of [facility] who has been following and treating patient. d/w Dr. Donato, agrees with above Status: Acute (2) Metastatic bone tumor Status: Acute
[2018-10-30] MEDS: Lidocaine 5% Patch TD SCH (09:38)
--- NOTE | 2018-10-30 15:10 | MRI ---
MRI left knee History: Knee pain. History of metastatic disease. COMPARISON: None available. Technique: Multi-echo multiplanar sequences were performed through the left knee without the use of intravenous contrast. Findings: Large mass seen within the distal femur which is only partially imaged on this study extending from the proximal medullary cavity to the epiphysis of the distal femur at the level of the intercondylar notch extending medially. The lesion also demonstrates circumferential cortical involvement including the distal medullary cavity with associated cortical thickening as well as soft tissue proliferation including the anterior, posterior, and medial cortices. There is extensive reticulation and edema within the adjacent soft tissues. There is extensive signal abnormality with prominent heterogeneously decreased T1 signal, increased STIR signal, and heterogeneously increased T2 signal. This is only partially imaged and measurement is limited however in craniocaudal dimension the lesion is significant and measures more than 8 centimeters in length. The cortical thickening and/or periosteal elevation measures up to 1.4 centimeters anteriorly, 1.3 centimeters posteriorly, and 8 millimeters medially. These findings in the setting of diffuse metastatic disease may represent a large osseous metastatic neoplasm; however, primary osseous neoplasm cannot be excluded including osteosarcoma and or additional etiology. Superimposed acute infectious and or inflammatory changes cannot be excluded. Clinical correlation. Focal marrow signal abnormality seen within the proximal fibula extending from the level of the physis into the medullary cavity, partially imaged measuring up to 3.5 centimeters in craniocaudal dimension with decreased T1 signal and increased STIR signal. This may also represent a site of metastatic disease and or osseous neoplasm. Clinical correlation. Thinning and attenuation with increased signal seen within the visualized anterior cruciate ligament suggestive for low grade sprain with some interstitial delamination. Posterior cruciate ligament is preserved. Motion artifact somewhat limits evaluation of the menisci. Linear increased signal seen within the posterior horn of the medial meniscus suggestive for intrasubstance degeneration and or intrasubstance partial tearing. Linear increased signal seen within the anterior root and horn of the lateral meniscus is also suggestive for intrasubstance degeneration and or intrasubstance partial tearing. Medial collateral ligament is preserved. Lateral collateral ligament complex structures are preserved. Quadriceps tendon is preserved. Patellar tendon is preserved. Patellar cartilage is preserved. Cartilage thinning and loss involving the medial compartment of the femorotibial joint space. Small suprapatellar joint effusion. Impression: 1. Large mass seen within the distal femur which is only partially imaged on this study extending from the proximal medullary cavity to the epiphysis of the distal femur at the level of the intercondylar notch extending medially. The lesion also demonstrates circumferential cortical involvement including the distal medullary cavity with associated cortical thickening as well as soft tissue proliferation including the anterior, posterior, and medial cortices. There is extensive reticulation and edema within the adjacent soft tissues. There is extensive signal abnormality with prominent heterogeneously decreased T1 signal, increased STIR signal, and heterogeneously increased T2 signal. This is only partially imaged and measurement is limited however in craniocaudal dimension the lesion is significant and measures more than 8 centimeters in length. The cortical thickening and/or periosteal elevation measures up to 1.4 centimeters anteriorly, 1.3 centimeters posteriorly, and 8 millimeters medially. These findings in the setting of diffuse metastatic disease may represent a large osseous metastatic neoplasm; however, primary osseous neoplasm cannot be excluded including osteosarcoma and or additional etiology. Superimposed acute infectious and or inflammatory changes cannot be excluded. Clinical correlation. 2. Focal marrow signal abnormality seen within the proximal fibula extending from the level of the physis into the medullary cavity, partially imaged measuring up to 3.5 centimeters in craniocaudal dimension with decreased T1 signal and increased STIR signal. This may also represent a site of metastatic disease and or osseous neoplasm. Clinical correlation. 3. Thinning and attenuation with increased signal seen within the visualized anterior cruciate ligament suggestive for low grade sprain with some interstitial delamination. 4. Motion artifact somewhat limits evaluation of the menisci. Linear increased signal seen within the posterior horn of the medial meniscus suggestive for intrasubstance degeneration and or intrasubstance partial tearing. 5. Linear increased signal seen within the anterior root and horn of the lateral meniscus is also suggestive for intrasubstance degeneration and or intrasubstance partial tearing. 6. Cartilage thinning and loss involving the medial compartment of the femorotibial joint space. 7. Small suprapatellar joint effusion.
--- NOTE | 2018-10-30 16:29 | RAD ---
Date of service: 10/30/2018 PROCEDURE: Radiographs of both shoulders HISTORY: left shoulder pain COMPARISON: No prior. FINDINGS: BONES: Right shoulder: No fracture or lytic lesion. 7 to 8 mm oval sclerotic focus projects over humeral head may be intra-articular per scapular view. Additional more dense calcification ossification borders the greater tuberosity-subacromial subdeltoid calcific bursitis and/or calcific rotator cuff tendinopathy compatible with this. Left shoulder: No fracture or lytic lesion. More amorphous appearing calcifications ossifications bordering the humeral head contour-calcific rotator cuff tendinopathy and/or calcific bursitis subdeltoid bursa-favored considerations. Additional sclerotic like focus borders the left glenoid fossa possible bone island. Conceivably a tiny loose body here cannot be excluded. JOINTS: Right shoulder: Arthrosis Left shoulder: Arthrosis SOFT TISSUES: Right shoulder: As above Right shoulder: As above OTHER FINDINGS: None. IMPRESSION: No fracture or lytic lesions. No dislocations. Bilateral calcific and/or ossific bursitis and/or rotator cuff tendinopathy findings are bilateral-findings are more extensive on the right Other findings as above.
[2018-10-30 16:42] VITALS: BP 100/63; PULSE 101; TEMP 99; O2SAT 95
--- NOTE | 2018-10-30 17:10 | CP.PCM.PN ---
Subjective - Date & Time of Evaluation Date of Evaluation: 10/30/18 Time of Evaluation: 17:10 - Subjective Subjective: Alert, awake, no sob or acute pains, NAD. Objective - Vital Signs/Intake and Output Vital Signs (last 24 hours): Temp Pulse Resp BP Pulse Ox 99 F 101 H 20 100/63 95 10/30/18 15:30 10/30/18 15:30 10/30/18 15:30 10/30/18 15:30 10/30/18 15:30 Intake and Output: 10/30/18 10/30/18 06:59 18:59 Intake Total 450 Balance 450 - Labs Labs: 10/28/18 07:05 10/28/18 07:06 Assessment and Plan - Assessment and Plan (Free Text) Assessment: 63 year old female admitted with intractable pain on the left knee, has metastatic lung cancer, seen and examined. Alert and oriented x3, denies sob or chest pains. No acute pain on the left knee now, on pain medications. Discussed with ortho and DR Jojo Ellison , plan to discharge home today. Advised to follow up with orthopedic oncologist for further treatment. Right and left shoulder x-ray done for pain, negative for any fracture or dislocation.
== END 2018-10-30 16:43 | disposition home or self-care (01) | DRG 239 ==
LOC: C.ER 12:14 → C.9E 16:19 → C.3T 22:50 → OBSVTOIN 10-26 13:33
PROVIDERS: ADMIT Internal Medicine Nephrology; ATTEND Internal Medicine Nephrology
DX: C79.51 Secondary malignant neoplasm of bone (principal); C34.90 Malignant neoplasm of unspecified part of unspecified bronchus or lung; J44.9 Chronic obstructive pulmonary disease, unspecified; D63.0 Anemia in neoplastic disease; I10 Essential (primary) hypertension; G89.3 Neoplasm related pain (acute) (chronic); F17.210 Nicotine dependence, cigarettes, uncomplicated; M19.90 Unspecified osteoarthritis, unspecified site; K21.9 Gastro-esophageal reflux disease without esophagitis; F41.9 Anxiety disorder, unspecified; F32.9 Major depressive disorder, single episode, unspecified

== ENCOUNTER 2018-12-18 13:12 | Inpatient (IN) | payer OTHER ==
[2018-12-18 13:13] VITALS: BMI 33.3
--- NOTE | 2018-12-18 14:09 | C.PDOC ---
History Of Present Illness 63 y/o with a PMHx of stage IV lung cancer with mets, last came home 2 months ago, presents today for evaluation of weakness. Family notes for the past month patient has had decreased ADLs and generalized weakness. Today while family was attempting to transition her, she collapsed. Patient hit the left side of her head, denies LOC. Patient complains of feeling weak and fatigued. She also reports feeling short of breath, more so than normal. Otherwise patient denies any cough, fever, chills, chest pain, or urinary complaints. Time Seen by Provider: 12/18/18 13:28 Chief Complaint (Nursing): Weakness/Neurological Deficit History Per: Patient History/Exam Limitations: no limitations Current Symptoms Are (Timing): Still Present Activity At Onset Of Symptoms: Had Just Stood up Seizure Or Post-ictal Symptoms: None Fall Associated With With Symptoms: Yes Additional History Per: Family Past Medical History Reviewed: Historical Data, Nursing Documentation, Vital Signs Vital Signs: Last Vital Signs Temp 100.2 F H 12/18/18 13:21 Pulse 122 H 12/18/18 13:21 Resp 18 12/18/18 13:21 BP 120/82 12/18/18 13:21 Pulse Ox 95 12/18/18 13:21 - Medical History PMH: Anemia, Anxiety, Arthritis, Asthma, Back Problems, Bronchitis, COPD (however uses nebulizer at home), Depression, Fractures (rt. hip fracture), HTN, Malignancy (stage 4 lung CA, with mets) Denies: Chronic Kidney Disease Surgical History: Back Surgery - [facility] Procedures COMPUTERIZED TOMOGRAPHY (CT SCAN) OF BILATERAL LUNGS (04/03/18) EXCISION OF LEFT LOWER LOBE BRONCHUS, ENDO, DIAGN (04/03/18) EXCISION OF RIGHT UPPER LUNG LOBE, PERC APPROACH, DIAGN (04/03/18) Family History: States: Unknown Family Hx Denies: CAD - Social History Hx Tobacco Use: Yes Hx Alcohol Use: No Hx Substance Use: No - Immunization History Hx Tetanus Toxoid Vaccination: No Hx Influenza Vaccination: No Hx Pneumococcal Vaccination: No Review Of Systems Except As Marked, All Systems Reviewed And Found Negative. Constitutional: Positive for: Weakness (generalized), Malaise. Negative for: Fever, Chills Cardiovascular: Negative for: Chest Pain Respiratory: Positive for: Shortness of Breath. Negative for: Cough Gastrointestinal: Negative for: Vomiting, Diarrhea Genitourinary: Negative for: Dysuria, Frequency Musculoskeletal: Negative for: Neck Pain Skin: Negative for: Rash Neurological: Positive for: Other (+ Head trauma, Fall, NO LOC). Negative for: Numbness, Confusion, Altered Mental Status Physical Exam - Physical Exam Appears: Non-toxic, No Acute Distress, Other (Weak appearing female) Skin: Warm, Dry Head: Normacephalic, No Swelling (or ecchymosis), No Laceration Eye(s): bilateral: Normal Inspection, PERRL, EOMI Ear(s): Bilateral: Normal (no hemotympanum) Oral Mucosa: Moist Neck: Normal ROM, No Midline Cervical Tenderness, Supple Chest: Symmetrical, No Tenderness, No Ecchymosis Cardiovascular: Rhythm Regular, No Murmur Respiratory: No Accessory Muscle Use, Other (Coarse breath sounds bilaterally) Gastrointestinal/Abdominal: Soft, No Tenderness, No Distention Back: No Vertebral Tenderness Extremity: Bilateral: Normal Color And Temperature, Other (Decreased strength in all 4 extremities) Pulses: Left Dorsalis Pedis: Normal, Right Dorsalis Pedis: Normal Neurological/Psych: Oriented x3, Normal Cranial Nerves Other Neurological Findings: No Facial Palsy Extremity: Right: No Drift, Left: No Drift, Upper: No Drift, Lower: No Drift ED Course And Treatment - Laboratory Results Result Diagrams: 12/18/18 14:12 12/18/18 14:12 ECG: Interpreted By Me, Viewed By Me ECG Rhythm: Sinus Tachycardia Interpretation Of ECG: EKG limited secondary to artifact. Normal intervals, normal axis, no gross ST or T wave abnormalities Rate From EC O2 Sat by Pulse Oximetry: 95 (RA) Pulse Ox Interpretation: Normal - Other Rad CXR X-Ray: Read By Radiologist Interpretation: Accession No. : [id number]. Patient Name / ID : TYLER GONZALEZ / [id number]. Exam Date : 12/18/2018 14:12:23 ( Approved ). Study Comment : Sex / Age : F / 63Y. Creator : josephine montano. Dictator : Luis Romero MD. Health Promotion Educator : Gluer [employer] Wedger : Luis Romero MD. Approver2 : Report Date : 12/18/2018 14:37:10. My Comment : . Date of service: 12/18/2018. PROCEDURE: CHEST RADIOGRAPH, 1 VIEW. HISTORY: SOB. COMPARISON: Chest radiograph dated 09/09/2018. FINDINGS: LUNGS: Clear. PLEURA: No pneumothorax or pleural fluid seen. CARDIOVASCULAR: Aortic atherosclerotic calcifications. Cardiomediastinal silhouette stably enlarged. OSSEOUS STRUCTURES: Questionable left lateral 4th rib fracture. Unchanged. VISUALIZED UPPER ABDOMEN: Normal. OTHER FINDINGS: None. IMPRESSION: Questionable left lateral 4th rib fracture. No focal consolidation or pleural effusion. - CT Scan/US CT Head Other Rad Studies (CT/US): Radiology Report Reviewed CT/US Interpretation: Accession No. : [id number]. Patient Name / ID : TYLER GONZALEZ / [id number]. Exam Date : 12/18/2018 16:33:12 ( Approved ). Study Comment : Sex / Age : F / 63Y. Creator : Cabrera Munson MD. Dictator : Cabrera Munson MD. Health Promotion Educator : [employer]uer [employer] Wedger : Cabrera Munson MD. Approver2 : Report Date : 12/18/2018 17:00:11. My Comment : . Date of service: 12/18/2018. PROCEDURE: CT HEAD WITHOUT CONTRAST. HISTORY: Dizziness. COMPARISON: No prior study available for comparison. TECHNIQUE: Axial computed tomography images were obtained through the head/brain without intravenous contrast. Radiation dose: Total exam DLP = 1212.02 mGy-cm. This CT exam was performed using one or more of the following dose reduction techniques: Automated exposure control, adjustment of the mA and/or kV according to patient size, and/or use of iterative reconstruction technique. FINDINGS: HEMORRHAGE: No intracranial hemorrhage. BRAIN: Mild-moderate diffuse/confluent chronic periventricular white matter ischemic changes are seen extending peripherally into the deep and subcortical white matter both cerebral hemispheres.. Slight extension these changes into the white matter tracts of both basal nuclei. In addition, there are scattered chronic appearing bilateral basal nuclei lacunar type infarcts.. Note that the possibility of a small hyperacute infarct cannot be excluded on this exam.. Moderate generalized volume loss. There appears to be lobular soft tissue mass density within the sella turcica extending superiorly into the suprasellar region. Follow-up MRI of the brain and pituitary gland recommended. Mild vascular calcifications both carotid siphons. VENTRICLES: No obstructive hydrocephalus. CALVARIUM: No acute calvarial fractures are identified. There is left superior and lateral frontoparietal scalp swelling... PARANASAL SINUSES: Unremarkable as vis ualized. No significant inflammatory changes. MASTOID AIR CELLS: Unremarkable as visualized. No inflammatory changes. OTHER FINDINGS: None. IMPRESSION: No acute intracranial hemorrhage. Mild-moderate chronic white matter ischemic changes with slight extension into the white matter tracts of both basal nuclei.. There are also several scattered chronic appearing bilateral basal nuclei lacunar type infarcts. Moderate generalized volume loss. There is a lobular soft tissue mass density within the sella turcica extending superiorly into the suprasellar region. Follow-up MRI of the brain and pituitary gland recommended. CTA Chest Other Rad Studies (CT/US): Radiology Report Reviewed CT/US Interpretation: Accession No. : [id number]. Patient Name / ID : TYLER GONZALEZ / [id number]. Exam Date : 12/18/2018 16:36:25 ( Approved ). Study Comment : Sex / Age : F / 63Y. Creator : Luis Romero MD. Dictator : Luis Romero MD. Health Promotion Educator : Gluer [employer] Wedger : Lusi Romero MD. Approver2 : Report Date : 12/18/2018 17:43:04. My Comment : . Date of service: 12/18/2018. PROCEDURE: CT Chest with contrast (Pulmonary Angiogram). HISTORY: sob and tachycardia. COMPARISON: CT angiography of the pulmonary arteries dated 09/09/2018. TECHNIQUE: Axial computed tomography images were obtained of the chest in the pulmonary arterial phase of enhancement. Coronal and sagittal reformatted images were created and reviewed. Intravenous contrast dose: 100 mL Visipaque 320. Radiation dose: Total exam DLP = 559.62 mGy-cm. This CT exam was performed using one or more of the following dose reduction techniques: Automated exposure control, adjustment of the mA and/or kV according to patient size, and/or use of iterative reconstruction technique. FINDINGS: PULMONARY ARTERIES: Unremarkable. No pulmonary embolism. AORTA: No acute findings. No thoracic aortic aneurysm. No aortic atherosclerotic calcification or mural plaque present. LUNGS: Left lower lobe atelectasis with left lower lobe bronchial obstruction. Multiple bilateral pulmonary nodules, the largest on the right measures up to 10 mm in the right upper lobe and the largest on the left measures up to 8 mm in the left apex. Diffuse emphysema. PLEURAL SPACES: Unremarkable. No effusion or pneumothorax. HEART: Unremarkable. No cardiomegaly. No significant pericardial effusion. LYMPH NODES: Anterior mediastinal lymph node/mass measuring 3.8 x 2.6 x 4.0 cm. Subcarinal node measuring 2.4 x 1.1 cm. Prominent right axillary lymph node measuring up to 1.4 cm. BONES, CHEST WALL: 1.9 x 1.8 cm right breast soft tissue nodule superiorly. 1.3 cm soft tissue nodule in the right breast laterally. Lobulated 1.7 by 1.2 cm soft tissue nodule in the right breast inferiorly. Multiple left breast nodules, the largest measures 2.4 by 2.1 cm. Old left lateral 4th rib fracture. Multiple spinal lytic lesions. OTHER FINDINGS: Large upper abdominal lymph node which may or may not be contiguous with the left adrenal measuring 3.5 x 4.5 by 4.9 cm. Large left upper pole renal cyst measuring 6.4 x 5.43 cm. Questionable 1.5 cm hypodense lesion in the right hepatic lobe (series 3, image 85). IMPRESSION: Overall, slight increase in size and number of lesions in the mediastinum, breast soft tissues and spine. Left lower lobe atelectasis now involves the entire lobe. No evidence of pulmonary embolism. Medical Decision Making Medical Decision Making: Impression: Weakness Initial Plan: --Labs ordered with cardiac enzymes, urine and blood cultures --CXR and EKG reviewed --Pending CTA Chest and CT Head Progress/Updates: Labs reviewed. Dr. Jojo Ellison at bedside, evaluating patient in the ED. Requests 100mg IV Diflucan in the ED and consult with Dr. Velarde. He states he will call Dr. Velarde himself. Disposition Discussed With Dr.: Marge Ellison Doctor Will See Patient In The: ED Counseled Patient/Family Regarding: Studies Performed, Diagnosis - Disposition Disposition: HOSPITALIZED Disposition Time: 17:59 Condition: FAIR Instructions: Weakness (ED) Forms: [facility] (Kinyarwanda) - Clinical Impression Clinical Impression: Tachycardia, Lung cancer, Weakness - Scribe Statement The provider has reviewed the documentation as recorded by the Eileen Lujan Provider Attestation: All medical record entries made by the Tiaibyasmany were at my direction and personally dictated by me. I have reviewed the chart and agree that the record accurately reflects my personal performance of the history, physical exam, medical decision making, and the department course for this patient. I have also personally directed, reviewed, and agree with the discharge instructions and disposition.
[2018-12-18 14:24] LABS: BASO % 0.5 % (0.0-2.0); EOS % 0.2 % (0.0-4.0); LYMPH # 1.2 K/uL (1.0-4.3); LYMPH % 15.4 % (20.0-40.0); MEAN CORPUSCULAR HEMOGLOBIN 30.5 pg (27.0-31.0); MEAN CORPUSCULAR HGB CONC 32.1 g/dL (33.0-37.0); MEAN PLATELET VOLUME 7.1 fL (7.2-11.7); MONO # 0.5 K/uL (0.0-0.8); MONO % 5.7 % (0.0-10.0); NEUT # 6.3 K/uL (1.8-7.0); NEUT % 78.2 % (50.0-75.0); RBC 3.56 Mil/uL (3.80-5.20); RED CELL DISTRIBUTION WIDTH 17.5 % (11.5-14.5)
[2018-12-18 14:28] LABS: HEMOGLOBIN 10.9 g/dL (11.0-16.0); MEAN CELL VOLUME 94.8 fL (81.0-99.0)
[2018-12-18 14:30] LABS: INR 1.2; PROTHROMBIN TIME 13.4 SECONDS (9.7-12.2)
[2018-12-18 14:40] LABS: ALB/GLOB RATIO 1.2 (1.0-2.1); ALBUMIN 3.8 g/dL (3.5-5.0); ALT/SGPT 33 U/L (9-52); AST/SGOT 217 U/L (14-36); BLOOD UREA NITROGEN 9 mg/dL (7-17); CALCIUM 9.2 mg/dl (8.6-10.4); GFR NON-AFRICAN AMERICAN > 60
[2018-12-18] MEDS ORDERED: Fluconazole IV 200mg/100 ml NS 100 MG in Premixed IV 1 EA IVPB STA (14:46)
--- NOTE | 2018-12-18 14:46 | RAD ---
Date of service: 12/18/2018 PROCEDURE: CHEST RADIOGRAPH, 1 VIEW HISTORY: SOB COMPARISON: Chest radiograph dated 09/09/2018. FINDINGS: LUNGS: Clear. PLEURA: No pneumothorax or pleural fluid seen. CARDIOVASCULAR: Aortic atherosclerotic calcifications. Cardiomediastinal silhouette stably enlarged OSSEOUS STRUCTURES: Questionable left lateral 4th rib fracture. Unchanged. VISUALIZED UPPER ABDOMEN: Normal. OTHER FINDINGS: None. IMPRESSION: Questionable left lateral 4th rib fracture. No focal consolidation or pleural effusion.
[2018-12-18 15:22] LABS: VENOUS BLOOD GAS BASE EXCESS 2.8 mmol/L (0.0-2.0); VENOUS BLOOD GAS PCO2 40 mmHg (40-60); VENOUS BLOOD GAS PO2 75 mm/Hg (30-55); VENOUS BLOOD PH 7.44 (7.32-7.43)
[2018-12-18 15:36] LABS: SQUAMOUS EPITHIAL < 1 /hpf (0-5); URINE BILIRUBIN NEGATIVE (NEGATIVE); URINE BLOOD NEGATIVE (NEGATIVE); URINE CLARITY Clear (Clear); URINE COLOR Yellow (YELLOW); URINE GLUCOSE (UA) NORMAL (Normal); URINE LEUKOCYTE ESTERASE NEG Leu/uL (Negative); URINE PROTEIN 1+ mg/dL (NEGATIVE); URINE UROBILINOGEN NORMAL mg/dL (0.2-1.0)
[2018-12-18] MEDS ORDERED: Iodixanol 320 MG/ML 100 ML BOTTLE IV ONE (16:25)
--- NOTE | 2018-12-18 17:03 | CT ---
Date of service: 12/18/2018 PROCEDURE: CT HEAD WITHOUT CONTRAST. HISTORY: Dizziness COMPARISON: No prior study available for comparison. TECHNIQUE: Axial computed tomography images were obtained through the head/brain without intravenous contrast. Radiation dose: Total exam DLP = 1212.02 mGy-cm. This CT exam was performed using one or more of the following dose reduction techniques: Automated exposure control, adjustment of the mA and/or kV according to patient size, and/or use of iterative reconstruction technique. FINDINGS: HEMORRHAGE: No intracranial hemorrhage. BRAIN: Mild-moderate diffuse/confluent chronic periventricular white matter ischemic changes are seen extending peripherally into the deep and subcortical white matter both cerebral hemispheres.. Slight extension these changes into the white matter tracts of both basal nuclei. In addition, there are scattered chronic appearing bilateral basal nuclei lacunar type infarcts.. Note that the possibility of a small hyperacute infarct cannot be excluded on this exam.. Moderate generalized volume loss. There appears to be lobular soft tissue mass density within the sella turcica extending superiorly into the suprasellar region. Follow-up MRI of the brain and pituitary gland recommended. Mild vascular calcifications both carotid siphons. VENTRICLES: No obstructive hydrocephalus. CALVARIUM: No acute calvarial fractures are identified. There is left superior and lateral frontoparietal scalp swelling... PARANASAL SINUSES: Unremarkable as visualized. No significant inflammatory changes. MASTOID AIR CELLS: Unremarkable as visualized. No inflammatory changes. OTHER FINDINGS: None. IMPRESSION: No acute intracranial hemorrhage. Mild-moderate chronic white matter ischemic changes with slight extension into the white matter tracts of both basal nuclei.. There are also several scattered chronic appearing bilateral basal nuclei lacunar type infarcts. Moderate generalized volume loss There is a lobular soft tissue mass density within the sella turcica extending superiorly into the suprasellar region. Follow-up MRI of the brain and pituitary gland recommended.
--- NOTE | 2018-12-18 17:47 | CT ---
Date of service: 12/18/2018 PROCEDURE: CT Chest with contrast (Pulmonary Angiogram) HISTORY: sob and tachycardia COMPARISON: CT angiography of the pulmonary arteries dated 09/09/2018. TECHNIQUE: Axial computed tomography images were obtained of the chest in the pulmonary arterial phase of enhancement. Coronal and sagittal reformatted images were created and reviewed. Intravenous contrast dose: 100 mL Visipaque 320 Radiation dose: Total exam DLP = 559.62 mGy-cm. This CT exam was performed using one or more of the following dose reduction techniques: Automated exposure control, adjustment of the mA and/or kV according to patient size, and/or use of iterative reconstruction technique. FINDINGS: PULMONARY ARTERIES: Unremarkable. No pulmonary embolism. AORTA: No acute findings. No thoracic aortic aneurysm. No aortic atherosclerotic calcification or mural plaque present. LUNGS: Left lower lobe atelectasis with left lower lobe bronchial obstruction. Multiple bilateral pulmonary nodules, the largest on the right measures up to 10 mm in the right upper lobe and the largest on the left measures up to 8 mm in the left apex. Diffuse emphysema. PLEURAL SPACES: Unremarkable. No effusion or pneumothorax. HEART: Unremarkable. No cardiomegaly. No significant pericardial effusion. LYMPH NODES: Anterior mediastinal lymph node/mass measuring 3.8 x 2.6 x 4.0 cm. Subcarinal node measuring 2.4 x 1.1 cm. Prominent right axillary lymph node measuring up to 1.4 cm. BONES, CHEST WALL: 1.9 x 1.8 cm right breast soft tissue nodule superiorly. 1.3 cm soft tissue nodule in the right breast laterally. Lobulated 1.7 by 1.2 cm soft tissue nodule in the right breast inferiorly. Multiple left breast nodules, the largest measures 2.4 by 2.1 cm. Old left lateral 4th rib fracture. Multiple spinal lytic lesions. OTHER FINDINGS: Large upper abdominal lymph node which may or may not be contiguous with the left adrenal measuring 3.5 x 4.5 by 4.9 cm. Large left upper pole renal cyst measuring 6.4 x 5.43 cm. Questionable 1.5 cm hypodense lesion in the right hepatic lobe (series 3, image 85) IMPRESSION: Overall, slight increase in size and number of lesions in the mediastinum, breast soft tissues and spine. Left lower lobe atelectasis now involves the entire lobe. No evidence of pulmonary embolism.
[2018-12-18] MEDS ORDERED: Potassium Chloride 20 mEq ER Tab PO ONE (18:03)
[2018-12-18] MEDS ORDERED: Potassium Chloride 20 mEq ER Tab PO STA (18:25)
--- NOTE | 2018-12-18 20:40 | CP.PCM.HP ---
Past Patient History - Infectious Disease Hx of Infectious Diseases: None - Past Medical History & Family History Past Medical History?: Yes - Past Social History Smoking Status: Heavy Smoker > 10 Cigarettes Daily - CARDIAC Hx Hypertension: Yes - PULMONARY Hx Asthma: Yes Hx Bronchitis: Yes Hx Chronic Obstructive Pulmonary Disease (COPD): Yes (however uses nebulizer at home) - NEUROLOGICAL Hx Neurological Disorder: No - HEENT Hx HEENT Problems: No - RENAL Hx Chronic Kidney Disease: No - ENDOCRINE/METABOLIC Hx Endocrine Disorders: No - HEMATOLOGICAL/ONCOLOGICAL Hx Anemia: Yes - INTEGUMENTARY Hx Dermatological Problems: Yes - MUSCULOSKELETAL/RHEUMATOLOGICAL Hx Arthritis: Yes Hx Fractures: Yes (rt. hip fracture) - GASTROINTESTINAL Hx Gastrointestinal Disorders: Yes Other/Comment: GERD - GENITOURINARY/GYNECOLOGICAL Hx Genitourinary Disorders: No - PSYCHIATRIC Hx Anxiety: Yes Hx Depression: Yes Hx Substance Use: No - SURGICAL HISTORY Hx Surgeries: Yes Other/Comment: SPINE SURGERY 2009 PER PATIENT - ANESTHESIA Hx Anesthesia: Yes Hx Anesthesia Reactions: Yes (severe hypotension) Meds Allergies/Adverse Reactions: Allergies Allergy/AdvReac Type Severity Reaction Status Date / Time doxycycline Allergy Verified 04/01/18 10:41 Penicillins Allergy Verified 04/01/18 10:41 Physical Exam - Constitutional Appears: Well - Head Exam Head Exam: ATRAUMATIC, NORMAL INSPECTION, NORMOCEPHALIC - Eye Exam Eye Exam: EOMI, Normal appearance, PERRL Pupil Exam: NORMAL ACCOMODATION, PERRL - ENT Exam ENT Exam: Mucous Membranes Moist, Normal Exam - Neck Exam Neck exam: Positive for: Normal Inspection - Respiratory Exam Respiratory Exam: Decreased Breath Sounds - Cardiovascular Exam Cardiovascular Exam: REGULAR RHYTHM, +S1, +S2 - GI/Abdominal Exam GI & Abdominal Exam: Diminished Bowel Sounds, Soft - Rectal Exam Rectal Exam: Deferred Results - Vital Signs Recent Vital Signs: Last Vital Signs Temp 98.6 F 12/18/18 20:11 Pulse 109 H 12/18/18 20:11 Resp 18 12/18/18 20:11 BP 91/57 L 12/18/18 20:11 Pulse Ox 97 12/18/18 20:11 - Labs Result Diagrams: 12/18/18 14:12 12/18/18 14:12 Labs: Laboratory Results - last 24 hr 12/18/18 12/18/18 12/18/18 14:12 14:12 14:12 WBC 8.0 RBC 3.56 L Hgb 10.9 L D Hct 33.8 L MCV 94.8 D MCH 30.5 MCHC 32.1 L RDW 17.5 H Plt Count 187 D MPV 7.1 L Neut % (Auto) 78.2 H Lymph % (Auto) 15.4 L Archer % (Auto) 5.7 Eos % (Auto) 0.2 Baso % (Auto) 0.5 Neut # (Auto) 6.3 Lymph # (Auto) 1.2 Archer # (Auto) 0.5 Eos # (Auto) 0.0 Baso # (Auto) 0.0 PT 13.4 H INR 1.2 APTT 27 pO2 VBG pH VBG pCO2 VBG HCO3 VBG Total CO2 VBG O2 Sat (Calc) VBG Base Excess VBG Potassium Glucose Lactate Sodium 139 Potassium 3.2 L Chloride 99 Carbon Dioxide 33 H Anion Gap 10 BUN 9 Creatinine 0.5 L Est GFR ( Amer) > 60 Est GFR (Non-Af Amer) > 60 POC Glucose (mg/dL) Random Glucose 131 H Calcium 9.2 Magnesium 1.4 L Total Bilirubin 0.6 AST 217 H D ALT 33 Alkaline Phosphatase 270 H D Ammonia Troponin I < 0.0120 Total Protein 6.9 Albumin 3.8 Globulin 3.1 Albumin/Globulin Ratio 1.2 Venous Blood Potassium Urine Color Urine Clarity Urine pH Ur Specific [place] Urine Protein Urine Glucose (UA) Urine Ketones Urine Blood Urine Nitrate Urine Bilirubin Urine Urobilinogen Ur Leukocyte Esterase Urine WBC (Auto) Ur Squamous Epith Cells 12/18/18 12/18/18 12/18/18 14:32 15:19 15:27 WBC RBC Hgb Hct MCV MCH MCHC RDW Plt Count MPV Neut % (Auto) Lymph % (Auto) Archer % (Auto) Eos % (Auto) Baso % (Auto) Neut # (Auto) Lymph # (Auto) Archer # (Auto) Eos # (Auto) Baso # (Auto) PT INR APTT pO2 75 H VBG pH 7.44 H VBG pCO2 40 VBG HCO3 27.1 VBG Total CO2 28.4 H VBG O2 Sat (Calc) 97.1 H VBG Base Excess 2.8 H VBG Potassium 2.6 L Glucose 121 H Lactate 0.8 Sodium 142.0 Potassium Chloride 106.0 Carbon Dioxide Anion Gap BUN Creatinine Est GFR ( Amer) Est GFR (Non-Af Amer) POC Glucose (mg/dL) Random Glucose Calcium Magnesium Total Bilirubin AST ALT Alkaline Phosphatase Ammonia 25 Troponin I Total Protein Albumin Globulin Albumin/Globulin Ratio Venous Blood Potassium 2.6 L Urine Color Yellow Urine Clarity Clear Urine pH 5.0 Ur Specific [place] 1.016 Urine Protein 1+ H Urine Glucose (UA) Normal Urine Ketones Negative Urine Blood Negative Urine Nitrate Negative Urine Bilirubin Negative Urine Urobilinogen Normal Ur Leukocyte Esterase Neg Urine WBC (Auto) 2 Ur Squamous Epith Cells < 1 12/18/18 15:30 WBC RBC Hgb Hct MCV MCH MCHC RDW Plt Count MPV Neut % (Auto) Lymph % (Auto) [place] % (Auto) Eos % (Auto) Baso % (Auto) Neut # (Auto) Lymph # (Auto) Archer # (Auto) Eos # (Auto) Baso # (Auto) PT INR APTT pO2 VBG pH VBG pCO2 VBG HCO3 VBG Total CO2 VBG O2 Sat (Calc) VBG Base Excess VBG Potassium Glucose Lactate Sodium Potassium Chloride Carbon Dioxide Anion Gap BUN Creatinine Est GFR ( Amer) Est GFR (Non-Af Amer) POC Glucose (mg/dL) 135 H Random Glucose Calcium Magnesium Total Bilirubin AST ALT Alkaline Phosphatase Ammonia Troponin I Total Protein Albumin Globulin Albumin/Globulin Ratio Venous Blood Potassium Urine Color Urine Clarity Urine pH Ur Specific [place] Urine Protein Urine Glucose (UA) Urine Ketones Urine Blood Urine Nitrate Urine Bilirubin Urine Urobilinogen Ur Leukocyte Esterase Urine WBC (Auto) Ur Squamous Epith Cells
[2018-12-19] MEDS: Albuterol-Ipratrop 3 mg / 0.5 (3 ml) UD INH SCH ×4 (01:40→21:21)
[2018-12-19] MEDS ORDERED: Potassium Chloride 20 mEq ER Tab PO SCH (10:00)
[2018-12-19] MEDS: Potassium Chloride 20 mEq ER Tab PO SCH (10:27)
[2018-12-19] MEDS: Enoxaparin 40 mg Syringe SC SCH (10:28)
[2018-12-19] MEDS: Fluconazole IV 100mg/50 ml NS 50 ML IVPB SCH (10:28)
--- NOTE | 2018-12-19 11:19 | CARD ---
APPROVED REPORT Date of service: 12/18/2018 EKG Measurement Heart [id number] <Conclusion> Sinus tachycardia baseline artifact.please repeat. Abnormal ECG
--- NOTE | 2018-12-19 14:56 | CP.PCM.PN ---
Subjective - Date & Time of Evaluation Date of Evaluation: 12/19/18 Time of Evaluation: 14:56 - Subjective Subjective: PGY2 Medicine Note for Dr. Jojo Ellison Patient seen and examined this morning at bedside. Patient is complaining of back and leg pain. She is otherwise feeling well. She is tolerating her diet and denies any SOB while on 3L of oxygen. She is requesting an increase in her pain medication. Patient's son at bedside states that patient was taking Morphine 60 ER BID while at home. Patient is currently not undergoing chemotherapy. Objective - Vital Signs/Intake and Output Vital Signs (last 24 hours): Temp Pulse Resp BP Pulse Ox 98.1 F 133 H 20 117/81 92 L 12/19/18 08:02 12/19/18 13:02 12/19/18 08:02 12/19/18 08:02 12/19/18 08:02 Intake and Output: 12/19/18 12/19/18 06:59 18:59 Intake Total 650 Balance 650 - Medications Medications: Current Medications Albuterol/Ipratropium (Duoneb 3 Mg/0.5 Mg (3 Ml) Ud) 3 ml INH RQ6 [facility] Last Admin: 12/19/18 07:35 Dose: 3 ml Enoxaparin Sodium (Lovenox) 40 mg SC DAILY [facility] Last Admin: 12/19/18 10:28 Dose: 40 mg Fentanyl (Duragesic) 1 patch TD Q72H [facility] Last Admin: 12/18/18 22:31 Dose: 1 patch Ferrous Sulfate (Feosol) 325 mg PO TID [facility] Last Admin: 12/19/18 10:27 Dose: 325 mg Folic Acid (Folic Acid) 1 mg PO DAILY [facility] Last Admin: 12/19/18 10:28 Dose: 1 mg Hydromorphone HCl (Dilaudid) 2 mg IVP Q6 PRN PRN Reason: Pain, Mild (1-3) Last Admin: 12/19/18 14:04 Dose: 2 mg Fluconazole (Diflucan Iv 100 Mg/50 Ml Ns) 50 mls @ 100 mls/hr IVPB DAILY [facility]; Protocol Last Admin: 12/19/18 10:28 Dose: 100 mls/hr Olanzapine (Zyprexa) 10 mg PO DAILY [facility] Last Admin: 12/19/18 10:27 Dose: 10 mg Potassium Chloride (K-Dur 20 Meq Er Tab) 20 meq PO DAILY [facility] Last Admin: 12/19/18 10:27 Dose: 20 meq - Labs Labs: 12/18/18 14:12 12/18/18 14:12 PT 13.4 SECONDS (9.7-12.2) H 12/18/18 14:12 INR 1.2 12/18/18 14:12 APTT 27 SECONDS (21-34) 12/18/18 14:12 - Constitutional Appears: Non-toxic, No Acute Distress - Head Exam Additional comments: tenderness above left eye brow, small hematoma - Eye Exam Eye Exam: Normal appearance - ENT Exam ENT Exam: Mucous Membranes Moist - Neck Exam Neck Exam: absent: Lymphadenopathy - Respiratory Exam Respiratory Exam: Decreased Breath Sounds (throughut), NORMAL BREATHING PATTERN (on 3L o2 (saturating 92%)). absent: Accessory Muscle Use, Rhonchi, Wheezes, Respiratory Distress - Cardiovascular Exam Cardiovascular Exam: Tachycardia (110s on tele) - GI/Abdominal Exam GI & Abdominal Exam: Soft. absent: Distended, Firm, Guarding, Rigid, Tenderness - Extremities Exam Extremities Exam: Normal Capillary Refill. absent: Calf Tenderness - Neurological Exam Neurological Exam: Alert, Awake, Oriented x3 - Psychiatric Exam Psychiatric exam: Depressed - Skin Skin Exam: Dry, Warm Assessment and Plan - Assessment and Plan (Free Text) Plan: Lung Cancer with mets Shortness of breath Chronic back pain Critical Care consult, Dr. Velarde * stable from pulmonology stand point CTA chest 12/18/18: * left lower lobe atelectasis with left lower lobe bronchial obstruction. Multiple bilateral pulmonary nodules. Diffuse emphysema. No pulmonary embolism. Trop neg x1 Ammonia 25 Medications: * Duonebs * Fluconazole 100 mg IVPB daily * Fentanyl 50mcg/hr 1 patch q72h * Dilaudid 2mg IVP q6h prn Tachycardia Cardiology consult, Dr. Zamarripa * follow up recs Per patient's son, patient's heart rate is normally in the low 110's and has been for the past year. Patient's HR was in the 130's on tele. Previous ECHO was reviewed. Patient given a bolus of 250mL, HR improved to 115bpm. ECHO 06/22/18: Normal EF ~65-70%, LV diastolic dysfunction grade 1, moderate pulmonary hypertension Head Trauma Head CT 12/18/18: No acute pathology Depression continue home medication: * Olanzapine 10mg PO daily Prophylactic Care Lovenox 40mg SC daily All medical management per Dr. Jojo Ellison
[2018-12-19] MEDS ORDERED: Sodium Chloride 0.9% 250 ML IV ONE (15:00)
--- NOTE | 2018-12-19 15:28 | CP.PCM.CON ---
History of Present Illness - History of Present Illness History of Present Illness: Reason for consult: shortness of breath HPI: 63 year old female with PMH of stage IV lung cancer with mets, asthma, COPD, bronchitis, HTN, depression, and anxiety presents with shortness of breath worse than baseline starting a few weeks ago. She was being transferred from her bed last night by a family member when she collapsed and hit the left side of her forehead. Head CT in ED showed no ICH with findings of chronic changes. P atient complains of productive cough with nonbloody sputum. She does not use oxygen at home, sleeps elevated on 2-3 pillows. Symptoms not improved with albuterol and nebulizer at home. She is off chemotherapy for lung cancer. Denies fever, chills, chest pain, palpitations. PMH: stage IV lung cancer with mets, asthma, COPD, bronchitis, HTN, depression, anxiety, arthritis, back problems PSH: excision of left lower lobe bronchus and right upper lung lobe (04/03/18) All: doxycycline, penicillins FamH: unknown SocH; lives alone, former smoker; denies alcohol and illicit drug use ROS: 10 point ROS negative except for as per HPI Exam: Gen - no acute distress Head - 4x4cm area of echymosis at left lateral forehead Card - tachycardic, no murmurs, rubs or gallops Lung - normal breathing pattern, diminished breath sounds bilaterally, no wheezes, rhonchi or rales GI - abdomen soft, nontender, no rebound, guarding, or rigidity A&P 1. Dsypnea - 12/18/18 CT chest: left lower lobe atelectasis with left lower lobe bronchial obstruction. Multiple bilateral pulmonary nodules. Diffuse emphysema. No pu lmonary embolism. - continue Duonebs - continue pain management as per primary - patient stable from pulmonary standpoint 2. Head trauma - 12/18/18 CT head: no acute pathology Past Patient History - Infectious Disease Hx of Infectious Diseases: None - Past Medical History & Family History Past Medical History?: Yes - Past Social History Smoking Status: Heavy Smoker > 10 Cigarettes Daily - CARDIAC Hx Hypertension: Yes - PULMONARY Hx Chronic Obstructive Pulmonary Disease (COPD): Yes (however uses nebulizer at home) - NEUROLOGICAL Hx Neurological Disorder: No - HEENT Hx HEENT Problems: No - RENAL Hx Chronic Kidney Disease: No - ENDOCRINE/METABOLIC Hx Endocrine Disorders: No - HEMATOLOGICAL/ONCOLOGICAL Hx Anemia: Yes - INTEGUMENTARY Hx Dermatological Problems: Yes - MUSCULOSKELETAL/RHEUMATOLOGICAL Hx Arthritis: Yes - GASTROINTESTINAL Hx Gastrointestinal Disorders: Yes Other/Comment: GERD - GENITOURINARY/GYNECOLOGICAL Hx Genitourinary Disorders: No - PSYCHIATRIC Hx Anxiety: Yes Hx Depression: Yes Hx Substance Use: No - SURGICAL HISTORY Hx Surgeries: Yes Other/Comment: SPINE SURGERY 2009 PER PATIENT - ANESTHESIA Hx Anesthesia: Yes Hx Anesthesia Reactions: Yes (severe hypotension) Hx Malignant Hyperthermia: No Has any member of the family had a problem w/ anesthesia?: No Meds Allergies/Adverse Reactions: Allergies Allergy/AdvReac Type Severity Reaction Status Date / Time doxycycline Allergy Verified 04/01/18 10:41 Penicillins Allergy Verified 04/01/18 10:41 - Medications Medications: Current Medications Albuterol/Ipratropium (Duoneb 3 Mg/0.5 Mg (3 Ml) Ud) 3 ml INH RQ6 [facility] Last Admin: 12/19/18 07:35 Dose: 3 ml Enoxaparin Sodium (Lovenox) 40 mg SC DAILY [facility] Last Admin: 12/19/18 10:28 Dose: 40 mg Fentanyl (Duragesic) 1 patch TD Q72H [facility] Last Admin: 12/18/18 22:31 Dose: 1 patch Ferrous Sulfate (Feosol) 325 mg PO TID [facility] Last Admin: 12/19/18 15:15 Dose: 325 mg Folic Acid (Folic Acid) 1 mg PO DAILY [facility] Last Admin: 12/19/18 10:28 Dose: 1 mg Hydromorphone HCl (Dilaudid) 2 mg IVP Q6 PRN PRN Reason: Pain, Mild (1-3) Last Admin: 12/19/18 14:04 Dose: 2 mg Fluconazole (Diflucan Iv 100 Mg/50 Ml Ns) 50 mls @ 100 mls/hr IVPB DAILY [facility]; Protocol Last Admin: 12/19/18 10:28 Dose: 100 mls/hr Olanzapine (Zyprexa) 10 mg PO DAILY [facility] Last Admin: 12/19/18 10:27 Dose: 10 mg Potassium Chloride (K-Dur 20 Meq Er Tab) 20 meq PO DAILY [facility] Last Admin: 12/19/18 10:27 Dose: 20 meq Results - Vital Signs Recent Vital Signs: Last Vital Signs Temp 98.1 F 12/19/18 08:02 Pulse 133 H 12/19/18 13:02 Resp 20 12/19/18 08:02 BP 117/81 12/19/18 08:02 Pulse Ox 92 L 12/19/18 08:02 - Labs Result Diagrams: 12/18/18 14:12 12/18/18 14:12 Labs: Laboratory Results - last 24 hr 12/18/18 12/18/18 12/19/18 15:27 15:30 06:18 POC Glucose (mg/dL) 135 H 169 H Urine Color Yellow Urine Clarity Clear Urine pH 5.0 Ur Specific [place] 1.016 Urine Protein 1+ H Urine Glucose (UA) Normal Urine Ketones Negative Urine Blood Negative Urine Nitrate Negative Urine Bilirubin Negative Urine Urobilinogen Normal Ur Leukocyte Esterase Neg Urine WBC (Auto) 2 Ur Squamous Epith Cells < 1 12/19/18 11:26 POC Glucose (mg/dL) 140 H Urine Color Urine Clarity Urine pH Ur Specific [place] Urine Protein Urine Glucose (UA) Urine Ketones Urine Blood Urine Nitrate Urine Bilirubin Urine Urobilinogen Ur Leukocyte Esterase Urine WBC (Auto) Ur Squamous Epith Cells
--- NOTE | 2018-12-19 20:17 | CP.PCM.PN ---
Subjective - Date & Time of Evaluation Date of Evaluation: 12/19/18 Time of Evaluation: 08:45 - Subjective Subjective: clinically same Objective - Vital Signs/Intake and Output Vital Signs (last 24 hours): Temp Pulse Resp BP Pulse Ox 98.6 F 125 H 18 112/76 92 L 12/19/18 15:00 12/19/18 17:33 12/19/18 15:00 12/19/18 17:33 12/19/18 15:00 Intake and Output: 12/19/18 12/20/18 18:59 06:59 Intake Total 650 Balance 650 - Medications Medications: Current Medications Albuterol/Ipratropium (Duoneb 3 Mg/0.5 Mg (3 Ml) Ud) 3 ml INH RQ6 [facility] Last Admin: 12/19/18 13:40 Dose: 3 ml Enoxaparin Sodium (Lovenox) 40 mg SC DAILY [facility] Last Admin: 12/19/18 10:28 Dose: 40 mg Fentanyl (Duragesic) 1 patch TD Q72H [facility] Last Admin: 12/18/18 22:31 Dose: 1 patch Ferrous Sulfate (Feosol) 325 mg PO TID [facility] Last Admin: 12/19/18 17:10 Dose: Not Given Folic Acid (Folic Acid) 1 mg PO DAILY [facility] Last Admin: 12/19/18 10:28 Dose: 1 mg Hydromorphone HCl (Dilaudid) 2 mg IVP Q6 PRN PRN Reason: Pain, Mild (1-3) Last Admin: 12/19/18 19:54 Dose: 2 mg Fluconazole (Diflucan Iv 100 Mg/50 Ml Ns) 50 mls @ 100 mls/hr IVPB DAILY [facility]; Protocol Last Admin: 12/19/18 10:28 Dose: 100 mls/hr Olanzapine (Zyprexa) 10 mg PO DAILY [facility] Last Admin: 12/19/18 10:27 Dose: 10 mg Potassium Chloride (K-Dur 20 Meq Er Tab) 20 meq PO DAILY [facility] Last Admin: 12/19/18 10:27 Dose: 20 meq - Labs Labs: 12/18/18 14:12 12/18/18 14:12 PT 13.4 SECONDS (9.7-12.2) H 12/18/18 14:12 INR 1.2 12/18/18 14:12 APTT 27 SECONDS (21-34) 12/18/18 14:12 - Constitutional Appears: Well - Head Exam Head Exam: ATRAUMATIC, NORMAL INSPECTION, NORMOCEPHALIC - Eye Exam Eye Exam: EOMI, Normal appearance, PERRL Pupil Exam: NORMAL ACCOMODATION, PERRL - ENT Exam ENT Exam: Mucous Membranes Moist, Normal Exam - Neck Exam Neck Exam: Full ROM, Normal Inspection. absent: Lymphadenopathy - Respiratory Exam Respiratory Exam: Decreased Breath Sounds - Cardiovascular Exam Cardiovascular Exam: REGULAR RHYTHM, +S1, +S2 - GI/Abdominal Exam GI & Abdominal Exam: Soft, Diminished Bowel Sounds - Rectal Exam Rectal Exam: Deferred
--- NOTE | 2018-12-19 20:59 | CP.PCM.CON ---
History of Present Illness - History of Present Illness History of Present Illness: Scott Ellison DO PGY1 - Internal Medicine [employer] - Cardiology Consult Note for Dr. Zamarripa Patient is a 63F w/ a PMH of bronchitis, COPD, depression, HTN, back problems, lung cancer with bony mets to left leg s/p radiation and chemotherapy, presented to [facility] by family on 12/18 PM w/ c/o decreased ADLs and Generalized weakness. Patient reportly collapsed and hit head. No LOC reported however SOB and LLE pain reported on examination. Patient SOB worsening x1-2 weeks associated w/ productive nonbloody cough. Patient voices no complaints at this time other than pain and wanting to go home. Patient voices no other complaints upon 12 system ROS. As per chart review: PMH: stage IV lung cancer with mets, asthma, COPD, bronchitis, HTN, depression, anxiety, arthritis, back problems PSH: excision of left lower lobe bronchus and right upper lung lobe (04/03/18) All: doxycycline, penicillins FamH: unknown SocH; lives alone, former smoker; denies alcohol and illicit drug use Cardiology consulted for evaluation of syncopal episode, Review of Systems - Review of Systems All systems: reviewed and no additional remarkable complaints except Review of Systems: as per HPI Past Patient History - Infectious Disease Hx of Infectious Diseases: None - Past Medical History & Family History Past Medical History?: Yes - Past Social History Smoking Status: Heavy Smoker > 10 Cigarettes Daily - CARDIAC Hx Hypertension: Yes - PULMONARY Hx Asthma: Yes Hx Bronchitis: Yes Hx Chronic Obstructive Pulmonary Disease (COPD): Yes (however uses nebulizer at home) - NEUROLOGICAL Hx Neurological Disorder: No - HEENT Hx HEENT Problems: No - RENAL Hx Chronic Kidney Disease: No - ENDOCRINE/METABOLIC Hx Endocrine Disorders: No - HEMATOLOGICAL/ONCOLOGICAL Hx Anemia: Yes - INTEGUMENTARY Hx Dermatological Problems: Yes - MUSCULOSKELETAL/RHEUMATOLOGICAL Hx Arthritis: Yes Hx Fractures: Yes (rt. hip fracture) - GASTROINTESTINAL Hx Gastrointestinal Disorders: Yes Other/Comment: GERD - GENITOURINARY/GYNECOLOGICAL Hx Genitourinary Disorders: No - PSYCHIATRIC Hx Anxiety: Yes Hx Depression: Yes Hx Substance Use: No - SURGICAL HISTORY Hx Surgeries: Yes Other/Comment: SPINE SURGERY 2009 PER PATIENT - ANESTHESIA Hx Anesthesia: Yes Hx Anesthesia Reactions: Yes (severe hypotension) Meds Allergies/Adverse Reactions: Allergies Allergy/AdvReac Type Severity Reaction Status Date / Time doxycycline Allergy Verified 04/01/18 10:41 Penicillins Allergy Verified 04/01/18 10:41 - Medications Medications: Current Medications Albuterol/Ipratropium (Duoneb 3 Mg/0.5 Mg (3 Ml) Ud) 3 ml INH RQ6 [facility] Last Admin: 12/19/18 13:40 Dose: 3 ml Enoxaparin Sodium (Lovenox) 40 mg SC DAILY [facility] Last Admin: 12/19/18 10:28 Dose: 40 mg Fentanyl (Duragesic) 1 patch TD Q72H [facility] Last Admin: 12/18/18 22:31 Dose: 1 patch Ferrous Sulfate (Feosol) 325 mg PO TID [facility] Last Admin: 12/19/18 17:10 Dose: Not Given Folic Acid (Folic Acid) 1 mg PO DAILY [facility] Last Admin: 12/19/18 10:28 Dose: 1 mg Hydromorphone HCl (Dilaudid) 2 mg IVP Q6 PRN PRN Reason: Pain, Mild (1-3) Last Admin: 12/19/18 19:54 Dose: 2 mg Fluconazole (Diflucan Iv 100 Mg/50 Ml Ns) 50 mls @ 100 mls/hr IVPB DAILY [facility]; Protocol Last Admin: 12/19/18 10:28 Dose: 100 mls/hr Olanzapine (Zyprexa) 10 mg PO DAILY [facility] Last Admin: 12/19/18 10:27 Dose: 10 mg Potassium Chloride (K-Dur 20 Meq Er Tab) 20 meq PO DAILY [facility] Last Admin: 12/19/18 10:27 Dose: 20 meq Physical Exam - Constitutional Appears: No Acute Distress, Chronically Ill - Head Exam Head Exam: ATRAUMATIC, NORMOCEPHALIC - Eye Exam Eye Exam: EOMI, Normal appearance - Respiratory Exam Additional comments: Diminished breath sounds left mid/lower lung windows - Cardiovascular Exam Cardiovascular Exam: Tachycardia, +S1, +S2 - GI/Abdominal Exam GI & Abdominal Exam: Normal Bowel Sounds, Soft - Extremities Exam Extremities exam: Positive for: normal inspection - Neurological Exam Neurological exam: Alert - Skin Skin Exam: Dry, Warm Results - Vital Signs Recent Vital Signs: Last Vital Signs Temp 98.6 F 12/19/18 15:00 Pulse 128 H 12/19/18 20:34 Resp 18 12/19/18 15:00 BP 112/76 12/19/18 17:33 Pulse Ox 92 L 12/19/18 15:00 - Labs Result Diagrams: 12/18/18 14:12 12/18/18 14:12 Labs: Laboratory Results - last 24 hr 12/19/18 12/19/18 12/19/18 06:18 11:26 15:55 POC Glucose (mg/dL) 169 H 140 H 139 H Assessment & Plan (1) Syncopal episodes Status: Acute (2) Tachycardia Status: Acute (3) Metastatic cancer Status: Acute - Assessment and Plan (Free Text) Plan: Syncope in setting of questionable sirs vs sepsis; Follow up ; ECHO Start IVF
[2018-12-20] MEDS: Albuterol-Ipratrop 3 mg / 0.5 (3 ml) UD INH SCH ×3 (01:37→13:20)
[2018-12-20] MEDS ORDERED: Bisacodyl 5mg EC Tab PO ONE (08:02)
--- NOTE | 2018-12-20 08:05 | CP.PCM.PN ---
Subjective - Date & Time of Evaluation Date of Evaluation: 12/20/18 Time of Evaluation: 08:05 - Subjective Subjective: Scott Ellison DO PGY1 - Internal Medicine [employer] - Cardiology Note for Dr. Zamarripa Patient was seen and examined at bedside this morning; No acute events reported overnight; Patient continues to have complaints of significant pain. Objective - Vital Signs/Intake and Output Vital Signs (last 24 hours): Temp Pulse Resp BP Pulse Ox 98.3 F 124 H 20 119/57 L 95 12/20/18 08:00 12/20/18 08:00 12/20/18 08:00 12/20/18 08:00 12/20/18 08:00 Intake and Output: 12/20/18 12/20/18 06:59 18:59 Intake Total 120 Balance 120 - Medications Medications: Current Medications Albuterol/Ipratropium (Duoneb 3 Mg/0.5 Mg (3 Ml) Ud) 3 ml INH RQ6 [facility] Last Admin: 12/20/18 01:37 Dose: Not Given Bisacodyl (Dulcolax) 5 mg PO ONCE ONE Stop: 12/20/18 08:03 Docusate Sodium (Colace) 100 mg PO BID [facility] Enoxaparin Sodium (Lovenox) 40 mg SC DAILY [facility] Last Admin: 12/19/18 10:28 Dose: 40 mg Fentanyl (Duragesic) 1 patch TD Q72H [facility] Last Admin: 12/18/18 22:31 Dose: 1 patch Ferrous Sulfate (Feosol) 325 mg PO TID [facility] Last Admin: 12/19/18 17:10 Dose: Not Given Folic Acid (Folic Acid) 1 mg PO DAILY [facility] Last Admin: 12/19/18 10:28 Dose: 1 mg Hydromorphone HCl (Dilaudid) 2 mg IVP Q6 PRN PRN Reason: Pain, Mild (1-3) Last Admin: 12/20/18 08:02 Dose: 2 mg Fluconazole (Diflucan Iv 100 Mg/50 Ml Ns) 50 mls @ 100 mls/hr IVPB DAILY [facility]; Protocol Last Admin: 12/19/18 10:28 Dose: 100 mls/hr Olanzapine (Zyprexa) 10 mg PO DAILY [facility] Last Admin: 12/19/18 10:27 Dose: 10 mg Potassium Chloride (K-Dur 20 Meq Er Tab) 20 meq PO DAILY [facility] Last Admin: 12/19/18 10:27 Dose: 20 meq - Labs Labs: 12/18/18 14:12 12/18/18 14:12 PT 13.4 SECONDS (9.7-12.2) H 12/18/18 14:12 INR 1.2 12/18/18 14:12 APTT 27 SECONDS (21-34) 12/18/18 14:12 - Constitutional Appears: No Acute Distress, Chronically Ill - Head Exam Head Exam: ATRAUMATIC, NORMOCEPHALIC - Eye Exam Eye Exam: EOMI, Normal appearance - Respiratory Exam Additional comments: Diminished breath sounds left mid/lower lung windows - Cardiovascular Exam Cardiovascular Exam: Tachycardia, +S1, +S2 - GI/Abdominal Exam GI & Abdominal Exam: Normal Bowel Sounds, Soft - Extremities Exam Extremities exam: Positive for: normal inspection - Neurological Exam Neurological exam: Alert - Skin Skin Exam: Dry, Warm Assessment and Plan (1) Syncopal episodes Status: Acute (2) Tachycardia Status: Acute (3) Metastatic cancer Status: Acute - Assessment and Plan (Free Text) Plan: Follow up limited echo Significant malignancy causing adrenal insufficiency can lead to syncopal episodes Random cortisol pending Orthostatics wnl
[2018-12-20 08:52] LABS: BASO % 0.2 % (0.0-2.0); EOS % 0.2 % (0.0-4.0); HEMOGLOBIN 10.3 g/dL (11.0-16.0); LYMPH # 1.5 K/uL (1.0-4.3); LYMPH % 16.7 % (20.0-40.0); MEAN CELL VOLUME 95.3 fL (81.0-99.0); MEAN CORPUSCULAR HEMOGLOBIN 29.9 pg (27.0-31.0); MEAN CORPUSCULAR HGB CONC 31.4 g/dL (33.0-37.0); MEAN PLATELET VOLUME 7.4 fL (7.2-11.7); MONO # 0.6 K/uL (0.0-0.8); MONO % 6.6 % (0.0-10.0); NEUT # 6.9 K/uL (1.8-7.0); NEUT % 76.3 % (50.0-75.0); RBC 3.43 Mil/uL (3.80-5.20); RED CELL DISTRIBUTION WIDTH 17.3 % (11.5-14.5)
[2018-12-20 09:07] LABS: ALB/GLOB RATIO 1.1 (1.0-2.1); ALBUMIN 3.4 g/dL (3.5-5.0); ALT/SGPT 25 U/L (9-52); AST/SGOT 244 U/L (14-36); BLOOD UREA NITROGEN 8 mg/dL (7-17); CALCIUM 8.7 mg/dl (8.6-10.4); GFR NON-AFRICAN AMERICAN > 60
[2018-12-20] MEDS: Potassium Chloride 20 mEq ER Tab PO SCH (09:39)
[2018-12-20] MEDS: Enoxaparin 40 mg Syringe SC SCH (09:40)
[2018-12-20] MEDS: Fluconazole IV 100mg/50 ml NS 50 ML IVPB SCH (09:41)
--- NOTE | 2018-12-20 10:44 | CP.PCM.PN ---
Subjective - Date & Time of Evaluation Date of Evaluation: 12/20/18 Time of Evaluation: 07:40 - Subjective Subjective: Medicine progress note ( Dr. Logan Ellison's service) Patient was seen and examined at bedside. Patient reports that she is doing "okay", however, she is still complains of moderate to severe leg pains and generalized weakness. Currently, patient denies any symptoms of fever, chills, chest pain, shortness of breath or pain with inspiration. Objective - Vital Signs/Intake and Output Vital Signs (last 24 hours): Temp Pulse Resp BP Pulse Ox 98.3 F 123 H 20 119/57 L 95 12/20/18 08:00 12/20/18 08:09 12/20/18 08:00 12/20/18 08:00 12/20/18 08:00 Intake and Output: 12/20/18 12/20/18 06:59 18:59 Intake Total 120 Balance 120 - Medications Medications: Current Medications Albuterol/Ipratropium (Duoneb 3 Mg/0.5 Mg (3 Ml) Ud) 3 ml INH RQ6 [facility] Last Admin: 12/20/18 07:25 Dose: 3 ml Docusate Sodium (Colace) 100 mg PO BID [facility] Last Admin: 12/20/18 09:39 Dose: 100 mg Enoxaparin Sodium (Lovenox) 40 mg SC DAILY [facility] Last Admin: 12/20/18 09:40 Dose: 40 mg Fentanyl (Duragesic) 1 patch TD Q72H [facility] Last Admin: 12/18/18 22:31 Dose: 1 patch Ferrous Sulfate (Feosol) 325 mg PO TID [facility] Last Admin: 12/20/18 09:42 Dose: Not Given Folic Acid (Folic Acid) 1 mg PO DAILY [facility] Last Admin: 12/20/18 09:39 Dose: 1 mg Hydromorphone HCl (Dilaudid) 2 mg IVP Q6 PRN PRN Reason: Pain, Mild (1-3) Last Admin: 12/20/18 08:02 Dose: 2 mg Fluconazole (Diflucan Iv 100 Mg/50 Ml Ns) 50 mls @ 100 mls/hr IVPB DAILY [facility]; Protocol Last Admin: 12/20/18 09:41 Dose: 100 mls/hr Magnesium Sulfate/Dextrose (Magnesium Sulfate 1 Gm/100 Ml D5w) 1 gm in 100 mls @ 300 mls/hr IVPB Q30M [facility] Stop: 12/20/18 11:34 Olanzapine (Zyprexa) 10 mg PO DAILY [facility] Last Admin: 12/20/18 09:39 Dose: 10 mg Potassium Chloride (K-Dur 20 Meq Er Tab) 40 meq PO ONCE ONE Stop: 12/20/18 10:40 - Labs Labs: 12/20/18 08:43 12/20/18 08:43 PT 13.4 SECONDS (9.7-12.2) H 12/18/18 14:12 INR 1.2 12/18/18 14:12 APTT 27 SECONDS (21-34) 12/18/18 14:12 - Constitutional Appears: Non-toxic - Eye Exam Eye Exam: EOMI - ENT Exam ENT Exam: Mucous Membranes Moist - Respiratory Exam Respiratory Exam: Decreased Breath Sounds, NORMAL BREATHING PATTERN. absent: Wheezes, Respiratory Distress - Cardiovascular Exam Cardiovascular Exam: Tachycardia, REGULAR RHYTHM, +S1, +S2 - GI/Abdominal Exam GI & Abdominal Exam: Soft, Normal Bowel Sounds. absent: Distended, Firm, Guarding, Rigid, Tenderness - Extremities Exam Extremities Exam: absent: Calf Tenderness, Pedal Edema - Neurological Exam Neurological Exam: Alert, Awake - Psychiatric Exam Psychiatric exam: Depressed Assessment and Plan (1) Lung cancer Assessment & Plan: with mets Chest CT: Hip/Pelvis MRI: Large mass seen within the distal femur which is only partially imaged on this study extending from the proximal medullary cavity to the epiphysis of the distal femur at the level of the intercondylar notch extending medially. The lesion also demonstrates circumferential cortical involvement including the distal medullary cavity with associated cortical thickening as well as soft tissue proliferation including the anterior, posterior, and medial cortices. There is extensive reticulation and edema within the adjacent soft tissues. There is extensive signal abnormality with prominent heterogeneously decreased T1 signal, increased STIR signal, and heterogeneously increased T2 signal. This is only partially imaged and measurement is limited however in craniocaudal dimension the lesion is significant and measures more than 8 centimeters in length. The cortical thickening and/or periosteal elevation measures up to 1.4 centimeters anteriorly, 1.3 centimeters posteriorly, and 8 millimeters medially. These findings in the setting of diffuse metastatic disease may represent a large osseous metastatic neoplasm; however, primary osseous neoplasm cannot be excluded including osteosarcoma and or additional etiology. Superimposed acute infectious and or inflammatory changes cannot be excluded. Clinical correlation. 2. Focal marrow signal abnormality seen within the proximal fibula extending from the level of the physis into the medullary cavity, partially imaged measuring up to 3.5 centimeters in craniocaudal dimension with decreased T1 s ignal and increased STIR signal. This may also represent a site of metastatic disease and or osseous neoplasm. Clinical correlation. 3. Thinning and attenuation with increased signal seen within the visualized anterior cruciate ligament suggestive for low grade sprain with some interstitial delamination. 4. Motion artifact somewhat limits evaluation of the menisci. Linear increased signal seen within the posterior horn of the medial meniscus suggestive for intrasubstance degeneration and or intrasubstance partial tearing. 5. Linear increased signal seen within the anterior root and horn of the lateral meniscus is also suggestive for intrasubstance degeneration and or intrasubstance partial tearing. 6. Cartilage thinning and loss involving the medial compartment of the femorotibial joint space. 7. Small suprapatellar joint effusion. Lumabr MRI: Prior L3 and L4 bilateral laminectomies with a small pseudomeningocele or postoperative seroma at the posterior epidural space at L4 measuring 1.7 x 0.9 x 2.1 cm. No suspicious intrathecal or epidural enhancement throughout the lumbar spine. 2. Multifocal metastases are suspected at T12, L2 and L3 vertebral bodies which exhibit abnormal signal intensity prior to and following contrast administration. 3. No disc herniation or severe central spinal stenosis appreciated. A mild degenerative central stenosis appreciated L3-4 with moderate to severe degenerative right L3-4 neural foraminal stenosis. Medications/Management: * Duonebs * Fluconazole 100 mg IVPB daily * Fentanyl 50mcg/hr 1 patch q72h * Dilaudid 2mg IVP q6h prn * F/u ABG for HOME O2 qualification Status: Acute (2) Tachycardia Assessment & Plan: Cardiology consult, Dr. Zamarripa---> Help appreciated CTA: left lower lobe atelectasis with left lower lobe bronchial obstruction. Multiple bilateral pulmonary nodules. Diffuse emphysema. No pulmonary embolism. ECHO 06/22/18: Normal EF ~65-70%, LV diastolic dysfunction grade 1, moderate pulmonary hypertension Status: Acute (3) Head trauma Assessment & Plan: Head CT 12/18/18: No acute pathology Status: Acute (4) Depression Status: Acute (5) History of anemia Assessment & Plan: Ferrous sulfate 325mg PO once daily Folic acid 1mg PO daily Status: Acute (6) Constipation Assessment & Plan: Colace 100mg PO BID Status: Acute (7) Prophylactic measure Assessment & Plan: DVT: Lovenox 40mg SC daily GI: Protonix 40mg PO daily PT/OT All plans and management discussed with Dr. Jojo Ellison Status: Acute
[2018-12-20] MEDS ORDERED: Potassium Chloride 20 mEq ER Tab PO ONE (11:00)
[2018-12-20] MEDS: Magnesium Sulfate 1 gm in D5W 1 GM/100 ML BAG IVPB SCH ×2 (11:38→11:39)
[2018-12-20 13:20] LABS: ABG ALLEN TEST POS; ARTERIAL BLOOD GAS HCO3 28.4 mmol/L (21-28); ARTERIAL BLOOD GAS HEMOGLOBIN 10.1 g/dL (11.7-17.4); ARTERIAL BLOOD GAS O2 SAT 91.6 % (95-98); ARTERIAL BLOOD GAS PCO2 37 mm/Hg (35-45); ARTERIAL BLOOD GAS PH 7.49 (7.35-7.45); ARTERIAL BLOOD GAS PO2 52 mm/Hg (80-100); ARTERIAL BLOOD GAS TCO2 29.3 mmol/L (22-28)
[2018-12-20] MEDS ORDERED: Albuterol-Ipratrop 3 mg / 0.5 (3 ml) UD INH PRN (15:06)
--- NOTE | 2018-12-20 15:24 | CP.PCM.PN ---
Subjective - Date & Time of Evaluation Date of Evaluation: 12/20/18 Time of Evaluation: 10:40 - Subjective Subjective: Patient seen and examined at bedside this AM. She is resting comfortably in bed. She is breathing better on 3L NC and states she wants to go home. Denies cough, chest pain, SOB, dizziness, headache. Exam: Gen - no acute distress Head - 4x4cm area of echymosis at left lateral forehead Card - tachycardic, no murmurs, rubs or gallops Lung - normal breathing pattern, diminished breath sounds bilaterally, no wheezes, rhonchi or rales GI - abdomen soft, nontender, no rebound, guarding, or rigidity A&P 1. Dsypnea - 12/18/18 CT chest: left lower lobe atelectasis with left lower lobe bronchial obstruction. Multiple bilateral pulmonary nodules. Diffuse emphysema. No pulmonary embolism. - continue Duonebs - continue pain management as per primary - patient stable from pulmonary standpoint 2. Head trauma - 12/18/18 CT head: no acute pathology Objective - Vital Signs/Intake and Output Vital Signs (last 24 hours): Temp Pulse Resp BP Pulse Ox 98.3 F 127 H 20 119/57 L 95 12/20/18 08:00 12/20/18 11:57 12/20/18 08:00 12/20/18 08:00 12/20/18 08:00 Intake and Output: 12/20/18 12/20/18 06:59 18:59 Intake Total 120 750 Balance 120 750 - Medications Medications: Current Medications Albuterol/Ipratropium (Duoneb 3 Mg/0.5 Mg (3 Ml) Ud) 3 ml INH RQ6 PRN PRN Reason: Shortness of Breath Docusate Sodium (Colace) 100 mg PO BID [facility] Last Admin: 12/20/18 09:39 Dose: 100 mg Enoxaparin Sodium (Lovenox) 40 mg SC DAILY [facility] Last Admin: 12/20/18 09:40 Dose: 40 mg Fentanyl (Duragesic) 1 patch TD Q72H [facility] Last Admin: 12/18/18 22:31 Dose: 1 patch Ferrous Sulfate (Feosol) 325 mg PO DAILY [facility] Folic Acid (Folic Acid) 1 mg PO DAILY [facility] Last Admin: 12/20/18 09:39 Dose: 1 mg Hydromorphone HCl (Dilaudid) 2 mg IVP Q4H PRN PRN Reason: Pain, severe (8-10) Last Admin: 12/20/18 13:36 Dose: 2 mg Fluconazole (Diflucan Iv 100 Mg/50 Ml Ns) 50 mls @ 100 mls/hr IVPB DAILY [facility]; Protocol Last Admin: 12/20/18 09:41 Dose: 100 mls/hr Olanzapine (Zyprexa) 10 mg PO DAILY [facility] Last Admin: 12/20/18 09:39 Dose: 10 mg Pantoprazole Sodium (Protonix Ec Tab) 40 mg PO DAILY [facility] - Labs Labs: 12/20/18 08:43 12/20/18 08:43 PT 13.4 SECONDS (9.7-12.2) H 12/18/18 14:12 INR 1.2 12/18/18 14:12 APTT 27 SECONDS (21-34) 12/18/18 14:12
--- NOTE | 2018-12-20 17:18 | CP.PCM.PN ---
Subjective - Date & Time of Evaluation Date of Evaluation: 12/20/18 Time of Evaluation: 09:00 - Subjective Subjective: clinically same Objective - Vital Signs/Intake and Output Vital Signs (last 24 hours): Temp Pulse Resp BP Pulse Ox 98.4 F 118 H 20 103/69 95 12/20/18 16:00 12/20/18 16:00 12/20/18 16:00 12/20/18 16:00 12/20/18 16:00 Intake and Output: 12/20/18 12/20/18 06:59 18:59 Intake Total 120 750 Balance 120 750 - Medications Medications: Current Medications Albuterol/Ipratropium (Duoneb 3 Mg/0.5 Mg (3 Ml) Ud) 3 ml INH RQ6 PRN PRN Reason: Shortness of Breath Docusate Sodium (Colace) 100 mg PO BID [facility] Last Admin: 12/20/18 09:39 Dose: 100 mg Enoxaparin Sodium (Lovenox) 40 mg SC DAILY [facility] Last Admin: 12/20/18 09:40 Dose: 40 mg Fentanyl (Duragesic) 1 patch TD Q72H [facility] Last Admin: 12/18/18 22:31 Dose: 1 patch Ferrous Sulfate (Feosol) 325 mg PO DAILY [facility] Folic Acid (Folic Acid) 1 mg PO DAILY [facility] Last Admin: 12/20/18 09:39 Dose: 1 mg Hydromorphone HCl (Dilaudid) 2 mg IVP Q4H PRN PRN Reason: Pain, severe (8-10) Last Admin: 12/20/18 13:36 Dose: 2 mg Fluconazole (Diflucan Iv 100 Mg/50 Ml Ns) 50 mls @ 100 mls/hr IVPB DAILY [facility]; Protocol Last Admin: 12/20/18 09:41 Dose: 100 mls/hr Olanzapine (Zyprexa) 10 mg PO DAILY [facility] Last Admin: 12/20/18 09:39 Dose: 10 mg Pantoprazole Sodium (Protonix Ec Tab) 40 mg PO DAILY [facility] - Labs Labs: 12/20/18 08:43 12/20/18 08:43 PT 13.4 SECONDS (9.7-12.2) H 12/18/18 14:12 INR 1.2 12/18/18 14:12 APTT 27 SECONDS (21-34) 12/18/18 14:12 - Constitutional Appears: Well - Head Exam Head Exam: ATRAUMATIC, NORMAL INSPECTION, NORMOCEPHALIC - Eye Exam Eye Exam: EOMI, Normal appearance, PERRL Pupil Exam: NORMAL ACCOMODATION, PERRL - ENT Exam ENT Exam: Mucous Membranes Moist, Normal Exam - Neck Exam Neck Exam: Full ROM, Normal Inspection. absent: Lymphadenopathy - Respiratory Exam Respiratory Exam: Decreased Breath Sounds - Cardiovascular Exam Cardiovascular Exam: REGULAR RHYTHM, +S1, +S2 - GI/Abdominal Exam GI & Abdominal Exam: Soft, Diminished Bowel Sounds - Rectal Exam Rectal Exam: Deferred
[2018-12-21 00:20] VITALS: RESP 18
[2018-12-21] MEDS ORDERED: POLYETHYLENE GLYCOL 3350 17 GM/Dose PACKET PO ONE (01:03)
[2018-12-21 06:56] LABS: BASO % 0.4 % (0.0-2.0); EOS % 0.1 % (0.0-4.0); HEMOGLOBIN 10.2 g/dL (11.0-16.0); LYMPH # 1.2 K/uL (1.0-4.3); LYMPH % 12.9 % (20.0-40.0); MEAN CELL VOLUME 96.7 fL (81.0-99.0); MEAN CORPUSCULAR HEMOGLOBIN 30.5 pg (27.0-31.0); MEAN CORPUSCULAR HGB CONC 31.5 g/dL (33.0-37.0); MEAN PLATELET VOLUME 7.3 fL (7.2-11.7); MONO # 0.6 K/uL (0.0-0.8); MONO % 6.2 % (0.0-10.0); NEUT # 7.5 K/uL (1.8-7.0); NEUT % 80.4 % (50.0-75.0); RBC 3.36 Mil/uL (3.80-5.20); RED CELL DISTRIBUTION WIDTH 17.5 % (11.5-14.5); WHITE BLOOD COUNT 9.3 K/uL (4.8-10.8)
[2018-12-21 07:03] LABS: ALB/GLOB RATIO 1.1 (1.0-2.1); ALBUMIN 3.5 g/dL (3.5-5.0); ALT/SGPT 20 U/L (9-52); AST/SGOT 128 U/L (14-36); BLOOD UREA NITROGEN 10 mg/dL (7-17); CALCIUM 8.9 mg/dl (8.6-10.4); GFR NON-AFRICAN AMERICAN > 60
[2018-12-21 07:34] VITALS: O2SAT 93
[2018-12-21] MEDS: Fluconazole IV 100mg/50 ml NS 50 ML IVPB SCH (09:55)
[2018-12-21] MEDS: Enoxaparin 40 mg Syringe SC SCH (09:55)
[2018-12-21] MEDS ORDERED: Pantoprazole 40 mg EC Tab PO SCH (10:00)
--- NOTE | 2018-12-21 10:29 | CP.PCM.CON ---
History of Present Illness - History of Present Illness History of Present Illness: Palliative consult requested by Doctor Felton for goals of care discussion Patient is a 63 yo female known to me from previous admissions, admitted from home post fall. Patient collapsed at home while was assisted with transferring. Patient hit her left side of the head, denied LOC. Family noticed patient becoming increasingly weak lately with worsening SOB without cough. Upon admission CXR showed possible right 4th rib fracture. CT chest was negative PE but significant for entire left lung atelectasis and mets to spine and will asts. Patient has known Hx of stage IV lung cancer and was treated by Oncologist from [facility]. last chemo was about 2 months ago. Her main complaint is pain cancer related and is treated with Fentanyl patch 75 mcg and Dilaudid 2 mg Iv Q 4 hr PRN, while at hospital. PMH: stage IV lung cancer with mets to spine and breasts, anemia, anxiety, HTN Soc. 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 Hx: No Hx of CA Review of Systems - Constitutional Constitutional: Weakness - EENT Eyes: absent: As Per HPI, Blind Spots, Blurred Vision, Change in Vision, De creased Night Vision, Diplopia, Discharge, Dry Eye, Exophthalmos, Floaters, Irritation, Itchy Eyes, Loss of Peripheral Vision, Pain, Photophobia, Requires Corrective Lenses, Sees Flashes, Spots in Vision, Tunnel Vision, Other Visual Disturbances, Loss of Vision, Other Ears: absent: As Per HPI, Decreased Hearing, Ear Discharge, Ear Pain, Tinnitus, Abnormal Hearing, Disequilibrium, Dizziness, Other Nose/Mouth/Throat: absent: As Per HPI, Epistaxis, Nasal Congestion, Nasal Discharge, Nasal Obstruction, Nasal Trauma, Nose Pain, Post Nasal Drip, Sinus Pain, Sinus Pressure, Bleeding Gums, Change in Voice, Dental Pain, Dry Mouth, Dysphagia, Halitosis, Hoarsness, Lip Swelling, Mouth Lesions, Mouth Pain, Odynophagia, Sore Throat, Throat Swelling, Tongue Swelling, Facial Pain, Neck Pain, Neck Mass, Other - Breasts Breasts: absent: As Per HPI, Change in Shape, Mass, Pain, Nipple Discharge, Nipple Inversion, Skin Changes, Swelling, Other - Cardiovascular Cardiovascular: Dyspnea, Dyspnea on Exertion - Respiratory Respiratory: Dyspnea, Dyspnea on Exertion - Gastrointestinal Gastrointestinal: Constipation - Genitourinary Genitourinary: absent: As Per HPI, Change in Urinary Stream, Difficulty Urinating, Dysuria, Flank Pain, Hematuria, Pyuria, Nocturia, Urinary Incontinence, Urinary Frequency, Urinary Hesitance, Urinary Urgency, Voiding Freq/Small Amts, Freq UTI, Hx Renal/Bladder Calculi, Hx /Renal Surgery, Bladder Distension, Other - Reproductive: Female Reproductive:Female: Post Menopausal - Menstruation Menstruation: Post Menopausal - Musculoskeletal Musculoskeletal: Back Pain, Muscle Weakness - Integumentary Integumentary: absent: As Per HPI, Acne, Alopecia, Bleeding Lesions, Change in Hair, Change in Nails, Change in Pigmentation, Changing Lesions, Dry Skin, Erythema, Furuncle, Hirsutism, Lesions, New Lesions, Non-Healing Lesions, Photosensitivity, Pruritus, Rash, Skin Pain, Skin Ulcer, Sores, Striae, Swelling, Unusual Bruising, Wounds, Jaundice, Other - Neurological Neurological: Abnormal Gait, Weakness - Psychiatric Psychiatric: Anxiety - Hematologic/Lymphatic Hematologic: absent: As Per HPI, Easy Bleeding, Easy Bruising, Lymphadenopathy, Other Past Patient History - Infectious Disease Hx of Infectious Diseases: None - Past Medical History & Family History Past Medical History?: Yes - Past Social History Smoking Status: Heavy Smoker > 10 Cigarettes Daily - CARDIAC Hx Hypertension: Yes - PULMONARY Hx Asthma: Yes Hx Bronchitis: Yes Hx Chronic Obstructive Pulmonary Disease (COPD): Yes (however uses nebulizer at home) - NEUROLOGICAL Hx Neurological Disorder: No - HEENT Hx HEENT Problems: No - RENAL Hx Chronic Kidney Disease: No - ENDOCRINE/METABOLIC Hx Endocrine Disorders: No - HEMATOLOGICAL/ONCOLOGICAL Hx Anemia: Yes - INTEGUMENTARY Hx Dermatological Problems: Yes - MUSCULOSKELETAL/RHEUMATOLOGICAL Hx Arthritis: Yes Hx Fractures: Yes (rt. hip fracture) - GASTROINTESTINAL Hx Gastrointestinal Disorders: Yes Other/Comment: GERD - GENITOURINARY/GYNECOLOGICAL Hx Genitourinary Disorders: No - PSYCHIATRIC Hx Anxiety: Yes Hx Depression: Yes Hx Substance Use: No - SURGICAL HISTORY Hx Surgeries: Yes Other/Comment: SPINE SURGERY 2009 PER PATIENT - ANESTHESIA Hx Anesthesia: Yes Hx Anesthesia Reactions: Yes (severe hypotension) Meds Allergies/Adverse Reactions: Allergies Allergy/AdvReac Type Severity Reaction Status Date / Time doxycycline Allergy Verified 04/01/18 10:41 Penicillins Allergy Verified 04/01/18 10:41 - Medications Medications: Current Medications Albuterol/Ipratropium (Duoneb 3 Mg/0.5 Mg (3 Ml) Ud) 3 ml INH RQ6 PRN PRN Reason: Shortness of Breath Docusate Sodium (Colace) 100 mg PO BID [facility] Last Admin: 12/21/18 09:55 Dose: 100 mg Duloxetine HCl (Cymbalta) 60 mg PO DAILY [facility] Last Admin: 12/21/18 10:05 Dose: 60 mg Enoxaparin Sodium (Lovenox) 40 mg SC DAILY [facility] Last Admin: 12/21/18 09:55 Dose: 40 mg Fentanyl (Duragesic) 1 patch TD Q72H [facility] Ferrous Sulfate (Feosol) 325 mg PO DAILY [facility] Last Admin: 12/21/18 09:55 Dose: 325 mg Folic Acid (Folic Acid) 1 mg PO DAILY [facility] Last Admin: 12/21/18 09:55 Dose: 1 mg Hydromorphone HCl (Dilaudid) 2 mg IVP Q4H PRN PRN Reason: Pain, severe (8-10) Last Admin: 12/21/18 09:56 Dose: 2 mg Fluconazole (Diflucan Iv 100 Mg/50 Ml Ns) 50 mls @ 100 mls/hr IVPB DAILY [facility]; Protocol Last Admin: 12/21/18 09:55 Dose: 100 mls/hr Olanzapine (Zyprexa) 10 mg PO DAILY [facility] Last Admin: 12/21/18 10:05 Dose: 10 mg Pantoprazole Sodium (Protonix Ec Tab) 40 mg PO DAILY [facility] Last Admin: 12/21/18 09:55 Dose: 40 mg Physical Exam - Constitutional Appears: No Acute Distress, Chronically Ill - Head Exam Additional comments: right forehead bruise , post fall at home - Eye Exam Eye Exam: EOMI, Normal appearance, PERRL Pupil Exam: NORMAL ACCOMODATION, PERRL - ENT Exam ENT Exam: Mucous Membranes Moist, Normal Exam - Neck Exam Neck exam: Positive for: Normal Inspection - Respiratory Exam Respiratory Exam: Decreased Breath Sounds, NORMAL BREATHING PATTERN - Cardiovascular Exam Cardiovascular Exam: Tachycardia, REGULAR RHYTHM - GI/Abdominal Exam GI & Abdominal Exam: Hypoactive Bowel Sounds - Rectal Exam Rectal Exam: Deferred - Extremities Exam Extremities exam: Positive for: normal inspection - Back Exam Back exam: tenderness - Neurological Exam Neurological exam: Alert, Oriented x3 - Psychiatric Exam Psychiatric exam: Anxious - Skin Skin Exam: Dry, Intact, Normal Color, Warm Results - Vital Signs Recent Vital Signs: Last Vital Signs Temp 98.2 F 12/21/18 07:00 Pulse 119 H 12/21/18 07:49 Resp 18 12/21/18 07:00 BP 103/70 12/21/18 07:00 Pulse Ox 93 L 12/21/18 07:00 - Labs Result Diagrams: 12/21/18 06:32 12/21/18 06:32 Labs: Laboratory Results - last 24 hr 12/20/18 12/20/18 12/21/18 13:15 20:01 06:32 WBC 9.3 RBC 3.36 L Hgb 10.2 L Hct 32.5 L MCV 96.7 MCH 30.5 MCHC 31.5 L RDW 17.5 H Plt Count 208 MPV 7.3 Neut % (Auto) 80.4 H Lymph % (Auto) 12.9 L Lau[place] % (Auto) 6.2 Eos % (Auto) 0.1 Baso % (Auto) 0.4 Neut # (Auto) 7.5 H Lymph # (Auto) 1.2 [place] # (Auto) 0.6 Eos # (Auto) 0.0 Baso # (Auto) 0.0 Puncture Site Rr pCO2 37 pO2 52 L HCO3 28.4 H ABG pH 7.49 H ABG Total CO2 29.3 H ABG O2 Saturation 91.6 L ABG Base Excess 4.6 H ABG Hemoglobin 10.1 L ABG Carboxyhemoglobin 2.3 H POC ABG HHb (Measured) 8.1 H ABG Methemoglobin 1.2 Pio Test Pos Hgb O2 Saturation 88.4 L Sodium Potassium Chloride Carbon Dioxide Anion Gap BUN Creatinine Est GFR ( Amer) Est GFR (Non-Af Amer) Random Glucose Calcium Phosphorus Magnesium Total Bilirubin AST ALT Alkaline Phosphatase Total Protein Albumin Globulin Albumin/Globulin Ratio Plasma Cortisol PM 23.7 H 12/21/18 06:32 WBC RBC Hgb Hct MCV MCH MCHC RDW Plt Count MPV Neut % (Auto) Lymph % (Auto) Laurens % (Auto) Eos % (Auto) Baso % (Auto) Neut # (Auto) Lymph # (Auto) [place] # (Auto) Eos # (Auto) Baso # (Auto) Puncture Site pCO2 pO2 HCO3 ABG pH ABG Total CO2 ABG O2 Saturation ABG Base Excess ABG Hemoglobin ABG Carboxyhemoglobin POC ABG HHb (Measured) ABG Methemoglobin Pio Test Hgb O2 Saturation Sodium 139 Potassium 3.8 Chloride 104 Carbon Dioxide 32 H Anion Gap 7 L BUN 10 Creatinine 0.6 L Est GFR ( Amer) > 60 Est GFR (Non-Af Amer) > 60 Random Glucose 165 H D Calcium 8.9 Phosphorus 2.8 Magnesium 2.0 Total Bilirubin 0.6 AST 128 H D ALT 20 Alkaline Phosphatase 291 H Total Protein 6.7 Albumin 3.5 Globulin 3.2 Albumin/Globulin Ratio 1.1 Plasma Cortisol PM Assessment & Plan - Assessment and Plan (Free Text) Assessment: Palliative consult There was no Advance directive on chart, PPS 30% I reviewed all medical records and diagnostic studies, examined and interviewed patient in the bed Patient is alert, oriented X 3, speech clear with affect that is depressed. Patient noted to cry easily. She claims it to her pain level. Patient complains of a very severe pain 10/10 to hr back. Pain is deep, intense and relieved by the Dilaudid only. Patient feels the doses are too apart and she can not wait for 4 hr until next dose. I reassured her I would talk to her PMD to increase the Dilaudid to Q 3 hr PRN as opposed to Q 4 h. That made her more calm. Breathing is diminished to left lung, there is no cough nor sputum production. o 2sat 93 % NC. Patient is not using O2 at home. HR 103, ST, most likely due to pain. Abdomen soft, last BM yesterday after few days without it, stool softeners on board. Patient needs a lot of assistance with repositioning in bed, 2nd to back pain. Pedal pulses present, there is no edema. I discussed with patient her clinical condition. She is fully aware of her diagnosis. Her affect is angry and sad when talked about it. I reviewed the CT findings with her and related her symptoms of SOB to it. When I questioned her goals of care patient replied " I want to walk again". I shared my concerns about bone mets that could make her walking more difficult but also supported her positive attitude. We discussed her last chemo and plans regarding it. Patient said she as not sure just yt if she was going to continue chemo Tx. Patient reported not being able to attend to her ADLs due to pain and weakness and her Home Health Aide is with her 30 hr / week. Patient wishes to return home post hospitalization . Code status discussed. Patient recalls discussing it with me in the past when she was not ready to make decision. Today, patient was very clear and specific that she klarissa not want CPR or intubation with MV assistance if her condition gets worse and she is unable to breath on her own. She understand, that if comes t that point, that will mean that she achieved end of her life and wanted to peacefully. Until than, patient wishes to continue all Medical interventions to improve her quality of life. if she becomes lethargic and unable to swallow patient would not ant to have any feeing tubes inserted. RAJIV introduced, patient signed DNR/DNI. I shared this with patient's primary RN and Doctor Syd who happened to be on the floor and Doctor [place] vice president underwriting. Impression * Metastatic lung disease * SOB * left lobe atelectasis * Generalized weakness * Pain, cancer related. Patient experiences end of dose syndrome when she is asking for pain meds so often in the last hour * Opioid induced Constipation * Anxiety related to diagnosis of cancer * Unsteady gait * High risk for fall * Patient chose DNR/DNI Suggestions * O2 supplement and Neb Tx * Consider O2 at home upon discharge * Continue anti anxiety meds * Assist with ADLs * Consider Dilaudid 2 mg Iv Q 3 hr for better controlled pain. Upon discharge home patient will need Immediate release meds for her breakthrough pain. I would consider Oxycodone IR Q 4 hr PRN * Intense bowel regimen; would add Emilia tB daily in addition to Colace * Agree with DNR/DNI Unfortunately , patient will soon achieve stage where Hospice care will be appropriate. I did not discuss it with patient at this time as I felt it will m yaakov her depressed. Palliative care will continue to fallow up with patient and offer support. Advance care planing 55 min
--- NOTE | 2018-12-21 11:14 | CARD ---
APPROVED REPORT Date of service: 12/20/2018 EXAM: LIMITED Two-dimensional and M-mode echocardiogram with Doppler and color Doppler. Other Information Quality : Good[employer]hythm : INDICATION Chest Pain Syncope COPD 2D DIMENSIONS IVSd0.9 (0.7-1.1cm)LVDd3.3 (3.9-5.9cm) PWd1.0 (0.7-1.1cm)LVDs1.7 (2.5-4.0cm) FS (%) 47.8 %LVEF (%)80.3 (>50%) LVEF (Coleman's)75 % M-Mode DIMENSIONS IVSd0.79 (0.7-1.1cm)LVDd4.20 (4.0-5.6cm) PWd0.86 (0.7-1.1cm)FS (%) 52 % LVDs2.03 (2.0-3.8cm)TAPSE25.11 cm LVEF (%)75 (>50%) Mitral Valve E/A ratio0.0 TDI E/Lateral E'0.0E/Medial E'0.0 Tricuspid Valve TR Peak [id number] Peak [id number] LEFT VENTRICLE The left ventricle is normal size. There is normal left ventricular wall thickness. The Ejection Fraction is >70%. incomplete study to comment on diastolic function. RIGHT VENTRICLE The right ventricle is normal size. The right ventricular systolic function is normal. ATRIA m mode not available.la size appears normal. The right atrium size is normal. no subcostal views available. AORTIC VALVE The aortic valve is normal in structure. No aortic regurgitation is present. MITRAL VALVE The mitral valve is normal in structure. There is no mitral valve regurgitation noted. TRICUSPID VALVE The tricuspid valve is normal in structure. There is mild to moderate tricuspid regurgitation. Right ventricular systolic pressure is estimated at 59 mmHg. There is moderate-severe pulmonary hypertension. GREAT VESSELS The aortic root is normal in size. PERICARDIAL EFFUSION There is no pericardial effusion. <Conclusion> The left ventricle is normal size. The Ejection Fraction is >70%. The left ventricle is normal size. The Ejection Fraction is >70%. incomplete study to comment on diastolic function. There is mild to moderate tricuspid regurgitation. Right ventricular systolic pressure is estimated at 59 mmHg. There is moderate-severe pulmonary hypertension. There is no pericardial effusion. incomplete study.
--- NOTE | 2018-12-21 11:51 | CP.PCM.PN ---
Subjective - Date & Time of Evaluation Date of Evaluation: 12/21/18 Time of Evaluation: 09:25 - Subjective Subjective: Medicine progress note ( Dr. Logan Ellison's service) Patient was seen and examined at bedside, while resting in bed. Patient appears to be moderate amount of discomfort. Currently, patient denies any symptoms of fever, chills, chest pain, shortness of breath or pain with inspiration. Patient agrees to work with PT for home 02 qualification today. Objective - Vital Signs/Intake and Output Vital Signs (last 24 hours): Temp Pulse Resp BP Pulse Ox 98.2 F 119 H 18 103/70 93 L 12/21/18 07:00 12/21/18 07:49 12/21/18 07:00 12/21/18 07:00 12/21/18 07:00 Intake and Output: 12/21/18 12/21/18 06:59 18:59 Intake Total 400 Balance 400 - Medications Medications: Current Medications Albuterol/Ipratropium (Duoneb 3 Mg/0.5 Mg (3 Ml) Ud) 3 ml INH RQ6 PRN PRN Reason: Shortness of Breath Docusate Sodium (Colace) 100 mg PO BID [facility] Last Admin: 12/21/18 09:55 Dose: 100 mg Duloxetine HCl (Cymbalta) 60 mg PO DAILY [facility] Last Admin: 12/21/18 10:05 Dose: 60 mg Enoxaparin Sodium (Lovenox) 40 mg SC DAILY [facility] Last Admin: 12/21/18 09:55 Dose: 40 mg Fentanyl (Duragesic) 1 patch TD Q72H [facility] Ferrous Sulfate (Feosol) 325 mg PO DAILY [facility] Last Admin: 12/21/18 09:55 Dose: 325 mg Folic Acid (Folic Acid) 1 mg PO DAILY [facility] Last Admin: 12/21/18 09:55 Dose: 1 mg Fluconazole (Diflucan Iv 100 Mg/50 Ml Ns) 50 mls @ 100 mls/hr IVPB DAILY [facility]; Protocol Last Admin: 12/21/18 09:55 Dose: 100 mls/hr Olanzapine (Zyprexa) 10 mg PO DAILY [facility] Last Admin: 12/21/18 10:05 Dose: 10 mg Pantoprazole Sodium (Protonix Ec Tab) 40 mg PO DAILY [facility] Last Admin: 12/21/18 09:55 Dose: 40 mg - Labs Labs: 12/21/18 06:32 12/21/18 06:32 PT 13.4 SECONDS (9.7-12.2) H 12/18/18 14:12 INR 1.2 12/18/18 14:12 APTT 27 SECONDS (21-34) 12/18/18 14:12 - Constitutional Appears: No Acute Distress - Head Exam Head Exam: ATRAUMATIC - Eye Exam Eye Exam: EOMI - ENT Exam ENT Exam: Mucous Membranes Moist - Respiratory Exam Respiratory Exam: Decreased Breath Sounds, NORMAL BREATHING PATTERN. absent: Chest Wall Tenderness, Prolonged Expiratory Phase, Rales, Wheezes - Cardiovascular Exam Cardiovascular Exam: Tachycardia, REGULAR RHYTHM, +S1, +S2 - GI/Abdominal Exam GI & Abdominal Exam: Soft, Normal Bowel Sounds. absent: Distended, Firm, Guarding, Rigid, Tenderness - Neurological Exam Neurological Exam: Alert, Awake, Oriented x3 - Psychiatric Exam Psychiatric exam: Depressed, Flat Affect - Skin Skin Exam: Normal Color Assessment and Plan (1) Lung cancer Assessment & Plan: with mets Chest CT: Hip/Pelvis MRI: Large mass seen within the distal femur which is only partially imaged on this study extending from the proximal medullary cavity to the epiphy sis of the distal femur at the level of the intercondylar notch extending medially. The lesion also demonstrates circumferential cortical involvement including the distal medullary cavity with associated cortical thickening as well as soft tissue proliferation including the anterior, posterior, and medial cortices. There is extensive reticulation and edema within the adjacent soft tissues. There is extensive signal abnormality with prominent heterogeneously decreased T1 signal, increased STIR signal, and heterogeneously increased T2 signal. This is only partially imaged and measurement is limited however in craniocaudal dimension the lesion is significant and measures more than 8 centimeters in length. The cortical thickening and/or periosteal elevation measures up to 1.4 centimeters anteriorly, 1.3 centimeters posteriorly, and 8 millimeters medially. These findings in the setting of diffuse metastatic disease may represent a large osseous metastatic neoplasm; however, primary os seous neoplasm cannot be excluded including osteosarcoma and or additional etiology. Superimposed acute infectious and or inflammatory changes cannot be excluded. Clinical correlation. 2. Focal marrow signal abnormality seen within the proximal fibula extending from the level of the physis into the medullary cavity, partially imaged measuring up to 3.5 centimeters in craniocaudal dimension with decreased T1 signal and increased STIR signal. This may also represent a site of metastatic disease and or osseous neoplasm. Clinical correlation. 3. Thinning and attenuation with increased signal seen within the visualized anterior cruciate ligament suggestive for low grade sprain with some int erstitial delamination. 4. Motion artifact somewhat limits evaluation of the menisci. Linear increased signal seen within the posterior horn of the medial meniscus suggestive for intrasubstance degeneration and or intrasubstance partial tearing. 5. Linear increased signal seen within the anterior root and horn of the lateral meniscus is also suggestive for intrasubstance degeneration and or int rasubstance partial tearing. 6. Cartilage thinning and loss involving the medial compartment of the femorotibial joint space. 7. Small suprapatellar joint effusion. Lumabr MRI: Prior L3 and L4 bilateral laminectomies with a small pseudomeningocele or postoperative seroma at the posterior epidural space at L4 measuring 1.7 x 0.9 x 2.1 cm. No suspicious intrathecal or epidural enhancement throughout the lumbar spine. 2. Multifocal metastases are suspected at T12, L2 and L3 vertebral bodies which exhibit abnormal signal intensity prior to and following contrast administration. 3. No disc herniation or severe central spinal stenosis appreciated. A mild degenerative central stenosis appreciated L3-4 with moderate to severe degenerative right L3-4 neural foraminal stenosis. Consultation: - Palliative care * Patient has made the decision for DNR/DNI and currently unsure about further chemo treatment. Patient will definitely need long-term pain management care Medications/Management: * Duonebs 3ml INH RQ6H PRN * Fluconazole 100 mg IVPB daily * Fentanyl 50mcg/hr 1 patch q72h * Dilaudid 2mg IVP q3h prn * ABG for HOME O2 qualification: P02: 55 and resting O2 sat: 87%, will follow with PT for additional recommendation Status: Acute (2) Tachycardia Assessment & Plan: Possibly 2/2 to pain Cardiology consult, Dr. Zamarripa---> Help appreciated * F/u recommendation CTA: left lower lobe atelectasis with left lower lobe bronchial obstruction. Multiple bilateral pulmonary nodules. Diffuse emphysema. No pulmonary embolism. ECHO 06/22/18: Normal EF ~65-70%, LV diastolic dysfunction grade 1, moderate pulmonary hypertension Status: Acute (3) Head trauma Assessment & Plan: Head CT 12/18/18: No acute pathology Status: Acute (4) Depression Status: Acute (5) History of anemia Assessment & Plan: Ferrous sulfate 325mg PO once daily Folic acid 1mg PO daily Status: Acute (6) Constipation Assessment & Plan: Colace 100mg PO BID Status: Acute (7) Prophylactic measure Assessment & Plan: DVT: Lovenox 40mg SC daily GI: Protonix 40mg PO daily PT/OT Disposition: Please discharge patient to [facility] Please resume home medications Please continue pain control as inpatient regimen Please follow with pain management as soon as possible Please allow patient with daily 2L-3L NC as needed Please continue duoneb 3ML INH Q6H PRN Please follow with your primary care physician in 1-3 days Please follow your oncology physician in 1-3 days Please return to the hospital if symptoms resumes Please take care All plans and management discussed with Dr. Jojo Ellison Status: Acute
--- NOTE | 2018-12-21 14:25 | CP.PCM.PN ---
Subjective - Date & Time of Evaluation Date of Evaluation: 12/21/18 Time of Evaluation: 09:45 - Subjective Subjective: Patient seen and examined at bedside this AM. She is breathing comfortably on 3L NC, however she complains of chronic left upper leg pain. Denies cough, chest pain, SOB, dizziness, headache. Goals of care were discussed with palliative care today. Patient is DNR/DNI. Exam: Gen - no acute distress Head - 4x4cm area of echymosis at left lateral forehead Card - tachycardic, no murmurs, rubs or gallops Lung - normal breathing pattern, diminished breath sounds bilaterally, no wheezes, rhonchi or rales GI - abdomen soft, nontender, no rebound, guarding, or rigidity A&P 1. Dsypnea - 12/18/18 CT chest: left lower lobe atelectasis with left lower lobe bronchial obstruction. Multiple bilateral pulmonary nodules. Diffuse emphysema. No p ulmonary embolism. - continue Duonebs - continue pain management as per primary - patient stable from pulmonary standpoint 2. Head trauma - 12/18/18 CT head: no acute pathology Objective - Vital Signs/Intake and Output Vital Signs (last 24 hours): Temp Pulse Resp BP Pulse Ox 98.2 F 119 H 18 103/70 93 L 12/21/18 07:00 12/21/18 07:49 12/21/18 07:00 12/21/18 07:00 12/21/18 07:00 Intake and Output: 12/21/18 12/21/18 06:59 18:59 Intake Total 400 700 Balance 400 700 - Medications Medications: Current Medications Albuterol/Ipratropium (Duoneb 3 Mg/0.5 Mg (3 Ml) Ud) 3 ml INH RQ6 PRN PRN Reason: Shortness of Breath Docusate Sodium (Colace) 100 mg PO BID [facility] Last Admin: 12/21/18 09:55 Dose: 100 mg Duloxetine HCl (Cymbalta) 60 mg PO DAILY [facility] Last Admin: 12/21/18 10:05 Dose: 60 mg Enoxaparin Sodium (Lovenox) 40 mg SC DAILY [facility] Last Admin: 12/21/18 09:55 Dose: 40 mg Fentanyl (Duragesic) 1 patch TD Q72H [facility] Ferrous Sulfate (Feosol) 325 mg PO DAILY [facility] Last Admin: 12/21/18 09:55 Dose: 325 mg Folic Acid (Folic Acid) 1 mg PO DAILY [facility] Last Admin: 12/21/18 09:55 Dose: 1 mg Hydromorphone HCl (Dilaudid) 2 mg IVP Q3H PRN PRN Reason: Pain, severe (8-10) Fluconazole (Diflucan Iv 100 Mg/50 Ml Ns) 50 mls @ 100 mls/hr IVPB DAILY [facility]; Protocol Last Admin: 12/21/18 09:55 Dose: 100 mls/hr Olanzapine (Zyprexa) 10 mg PO DAILY [facility] Last Admin: 12/21/18 10:05 Dose: 10 mg Pantoprazole Sodium (Protonix Ec Tab) 40 mg PO DAILY [facility] Last Admin: 12/21/18 09:55 Dose: 40 mg - Labs Labs: 12/21/18 06:32 12/21/18 06:32 PT 13.4 SECONDS (9.7-12.2) H 12/18/18 14:12 INR 1.2 12/18/18 14:12 APTT 27 SECONDS (21-34) 12/18/18 14:12
[2018-12-21 15:38] VITALS: BP 96/62; TEMP 98.8
[2018-12-21] MEDS ORDERED: HYDROmorphone 1 mg/ml ISec IVP PRN (15:45)
[2018-12-21 15:48] VITALS: PULSE 124
== END 2018-12-21 17:46 | DRG 239 ==
LOC: C.ER 13:12 → C.9E 17:58 → C.5S 19:07
PROVIDERS: ADMIT Internal Medicine Nephrology; ATTEND Internal Medicine Nephrology
DX: C79.51 Secondary malignant neoplasm of bone (principal); C34.90 Malignant neoplasm of unspecified part of unspecified bronchus or lung; J44.9 Chronic obstructive pulmonary disease, unspecified; F32.9 Major depressive disorder, single episode, unspecified; F41.9 Anxiety disorder, unspecified; G89.3 Neoplasm related pain (acute) (chronic); I10 Essential (primary) hypertension; K21.9 Gastro-esophageal reflux disease without esophagitis; K59.03 Drug induced constipation; Z51.5 Encounter for palliative care; Z66 Do not resuscitate; I27.20 Pulmonary hypertension, unspecified; F17.210 Nicotine dependence, cigarettes, uncomplicated; S09.90XA Unspecified injury of head, initial encounter; W18.30XA Fall on same level, unspecified, initial encounter; R55 Syncope and collapse; R00.0 Tachycardia, unspecified; R26.81 Unsteadiness on feet; M54.9 Dorsalgia, unspecified